=== PATIENT | male | born 1955 | race Caucasian/White ===

== ENCOUNTER 2016-09-24 08:50 | Outpatient (RCR) | payer BC ==
[2016-07-11 09:08] LABS: BASOPHILS % (AUTO) 1 % (0-10); EOSINOPHILS # (AUTO) 0.2 10^3/uL (0.0-0.3); EOSINOPHILS % (AUTO) 2 % (0-10); LYMPHOCYTES # (AUTO) 2.8 X 10^3 (1.0-4.0); LYMPHOCYTES % (AUTO) 32 % (12-44); MEAN CORPUSCULAR HEMOGLOBIN 38 PG (25-34); MEAN CORPUSCULAR HGB CONC 36 G/DL (32-36); MEAN CORPUSCULAR VOLUME 103 FL (80-99); MEAN PLATELET VOLUME 9.1 FL (7.4-10.4); MONOCYTES % (AUTO) 11 % (0-12); NEUTROPHILS # (AUTO) 4.7 X 10^3 (1.8-7.8); NEUTROPHILS % (AUTO) 54 % (42-75); PLATELET COUNT 249 10^3/uL (130-400); RED BLOOD COUNT 4.45 10^6/uL (4.35-5.85); RED CELL DISTRIBUTION WIDTH 13.6 % (10.0-14.5); WHITE BLOOD COUNT 8.7 10^3/uL (4.3-11.0)
[2016-07-11 09:34] LABS: ALANINE AMINOTRANSFERASE 38 U/L (0-55); ALBUMIN 4.3 G/DL (3.2-4.5); ANION GAP 7 MMOL/L (5-14); ASPARTATE AMINO TRANSFERASE 35 U/L (5-34); BILIRUBIN,TOTAL 0.6 MG/DL (0.1-1.0); BLOOD UREA NITROGEN 10 MG/DL (7-18); BUN/CREATININE RATIO 9; CALCIUM 9.6 MG/DL (8.5-10.1); CARBON DIOXIDE 25 MMOL/L (21-32); CHLORIDE 103 MMOL/L (98-107); CREATININE SERUM 1.17 MG/DL (0.60-1.30); GFR ESTIMATED > 60; GLUCOSE 113 MG/DL (70-105); LACTATE DEHYDROGENASE 216 U/L (125-220); POTASSIUM 4.6 MMOL/L (3.6-5.0); SODIUM 135 MMOL/L (135-145)
[2016-07-11 10:33] LABS: CHOLESTEROL 247 MG/DL (< 200); DIRECT LDL 123 MG/DL (1-129); TRIGLYCERIDES 490 MG/DL (<150); VLDL CHOLESTEROL 98 MG/DL (5-40)
[2016-09-24 09:28] LABS: BASOPHILS # (AUTO) 0.1 10^3/uL (0.0-0.1); BASOPHILS % (AUTO) 1 % (0-10); EOSINOPHILS # (AUTO) 0.2 10^3/uL (0.0-0.3); EOSINOPHILS % (AUTO) 2 % (0-10); LYMPHOCYTES # (AUTO) 2.4 X 10^3 (1.0-4.0); LYMPHOCYTES % (AUTO) 34 % (12-44); MEAN CORPUSCULAR HEMOGLOBIN 37 PG (25-34); MEAN CORPUSCULAR HGB CONC 36 G/DL (32-36); MEAN CORPUSCULAR VOLUME 102 FL (80-99); MEAN PLATELET VOLUME 9.5 FL (7.4-10.4); MONOCYTES # (AUTO) 0.6 X 10^3 (0.0-1.0); MONOCYTES % (AUTO) 8 % (0-12); NEUTROPHILS # (AUTO) 3.9 X 10^3 (1.8-7.8); NEUTROPHILS % (AUTO) 55 % (42-75); PLATELET COUNT 244 10^3/uL (130-400); RED BLOOD COUNT 4.46 10^6/uL (4.35-5.85); RED CELL DISTRIBUTION WIDTH 12.7 % (10.0-14.5); WHITE BLOOD COUNT 7.1 10^3/uL (4.3-11.0)
[2016-09-24 09:51] LABS: ALBUMIN 4.3 G/DL (3.2-4.5); BILIRUBIN,TOTAL 0.4 MG/DL (0.1-1.0); CALCIUM 9.6 MG/DL (8.5-10.1); CREATININE SERUM 1.25 MG/DL (0.60-1.30); POTASSIUM 4.4 MMOL/L (3.6-5.0); TOTAL PROTEIN 7.6 G/DL (6.4-8.2)
== END 2016-10-09 | disposition home or self-care (01) ==
LOC: ONC 08:50
PROVIDERS: ATTEND Internal Medicine Hematology & Oncology
DX: D45 Polycythemia vera (principal); I10 Essential (primary) hypertension; E78.5 Hyperlipidemia, unspecified; F17.210 Nicotine dependence, cigarettes, uncomplicated; Z79.899 Other long term (current) drug therapy
CPT/HCPCS: 36415; 80053; 80061; 82232; 83615; 85025; 99213

== ENCOUNTER 2017-02-21 09:21 | Outpatient (RCR) | payer BC ==
--- OUTSIDE RECORDS SUMMARY | 2016-11-26 12:48 | XMS REPORT | Continuity of Care Document ---
Author Author [facility] Organization [facility] Address Unknown Phone Unavailable Allergies Medications Problems Date Dx Coded Attending Type Code Diagnosis Diagnosed By 03/20/2015 TIFFANY LOPEZ, CARLYLE Rodriguez Ot 238.4 03/20/2015 TIFFANY LOPEZ, CARLYLE Rodriguez Ot 272.4 03/20/2015 TIFFANY LOPEZ, CARLYLE Jennifer Ot 305.1 03/20/2015 TIFFANY LOPEZ, CARLYLE Rodriguez Ot 401.9 03/20/2015 TIFFANY LOPEZ, CARLYLE Jennifer Ot V58.66 03/20/2015 TIFFANY LOPEZ, CARLYLE Jennifer Ot V58.69 03/31/2015 TIFFANY LOPEZ, CARLYLE Rodriguez Ot 238.4 03/31/2015 TIFFANY LOPEZ, CARLYLE Jennifer Ot 272.4 03/31/2015 TIFFANY LOPEZ, CARLYLE K Ot 305.1 03/31/2015 TIFFANY LOPEZ, CARLYLE Jennifer Ot 401.9 03/31/2015 TIFFANY LOPEZ, CARLYLE Jennifer Ot V58.66 03/31/2015 TIFFANY LOPEZ, CARLYLE Jennifer Ot V58.69 06/08/2015 TIFFANY LOPEZ, CARLYLE Rodriguez Ot 238.4 06/08/2015 TIFFANY LOPEZ, CARLYLE Rodriguez Ot 272.4 06/08/2015 TIFFANY LOPEZ, CARLYLE Jennifer Ot 305.1 06/08/2015 TIFFANY LOPEZ, CARLYLE Jennifer Ot 401.9 06/08/2015 TIFFANY LOPEZ, CARLYLE Jennifer Ot D45 06/08/2015 TIFFANY LOPEZ, CARLYLE K Ot E78.5 06/08/2015 TIFFANY LOPEZ, CARLYLE K Ot F17.200 06/08/2015 TIFFANY LOPEZ, CARLYLE Jennifer Ot I10 06/08/2015 TIFFANY LOPEZ, CARLYLE Jennifer Ot V58.66 06/08/2015 TIFFANY LOPEZ, CARLYLE Rodriguez Ot V58.69 06/08/2015 TIFFANY LOPEZ, CARLYLE Jennifer Ot Z79.82 06/08/2015 TIFFANY LOPEZ, CARLYLE Jennifer Ot Z79.899 06/30/2015 TIFFANY LOPEZ, CARLYLE Rodriguez Ot 238.4 06/30/2015 TIFFANY LOPEZ, CARLYLE Jennifer Ot 272.4 06/30/2015 TIFFANY LOPEZ, CARLYLE K Ot 305.1 06/30/2015 TIFFANY LOPEZ, CARLYLE K Ot 401.9 06/30/2015 TIFFANY LOPEZ, CARLYLE K Ot V58.66 06/30/2015 TIFFANY LOPEZ, CARLYLE K Ot V58.69 08/14/2015 TIFFANY LOPEZ, CARLYLE K Ot 238.4 08/14/2015 TIFFANY LOPEZ, CARLYLE K Ot 272.4 08/14/2015 TIFFANY LOPEZ, CARLYLE K Ot 305.1 08/14/2015 TIFFANY LOPEZ, CARLYLE K Ot 401.9 08/14/2015 TIFFANY LOPEZ, CARLYLE K Ot V58.66 08/14/2015 TIFFANY LOPEZ, CARLYLE K Ot V58.69 08/23/2015 TIFFANY LOPEZ, CARLYLE K Ot D45 08/23/2015 TIFFANY LOPEZ, CARLYLE K Ot E78.5 08/23/2015 TIFFANY LOPEZ, CARLYLE K Ot F17.210 08/23/2015 TIFFANY LOPEZ, CARLYLE K Ot I10 08/23/2015 TIFFAYN LOPEZ, CARLYLE K Ot Z79.899 09/20/2015 TIFFANY LOPEZ, CARLYLE K Ot D45 09/20/2015 TIFFANY LOPEZ, CARLYLE K Ot E78.5 09/20/2015 TIFFANY LOPEZ, CARLYLE K Ot F17.210 09/20/2015 TIFFANY LOPEZ, CARLYLE K Ot I10 09/20/2015 TIFFANY LOPEZ, CARLYLE K Ot Z79.899 10/12/2015 TIFFANY LOPEZ, CARLYLE K Ot R01.0 10/23/2015 TIFFANY LOPEZ, CARLYLE K Ot D45 10/23/2015 TIFFANY LOPEZ, CARLYLE K Ot E78.5 10/23/2015 TIFFANY LOPEZ, CARLYLE K Ot F17.210 10/23/2015 TIFFANY LOPEZ, CARLYLE K Ot I10 10/23/2015 TIFFANY LOPEZ, CARLYLE K Ot Z79.899 11/09/2015 TIFFANY LOPEZ, CARLYLE K Ot D45 11/09/2015 TIFFANY LOPEZ, CARLYLE K Ot E78.5 11/09/2015 TIFFANY LOPEZ, CARLYLE K Ot F17.210 11/09/2015 TIFFANY LOPEZ, CARLYLE K Ot I10 11/09/2015 TIFFANY LOPEZ, CARLYLE K Ot Z79.899 11/15/2015 TIFFANY LOPEZ, CARLYLE K Ot D45 11/15/2015 TIFFANY LOPEZ, CARLYLE K Ot E78.5 11/15/2015 TIFFANY LOPEZ, CARLYLE K Ot F17.210 11/15/2015 TIFFANY LOPEZ, CARLYLE K Ot I10 11/15/2015 TIFFANY LOPEZ, CARLYLE K Ot Z79.899 12/27/2015 TIFFANY LOPEZ, CARLYLE K Ot D45 12/27/2015 TIFFANY LOPEZ, CARLYLE Rodriguez Ot E78.5 12/27/2015 TIFFANY LOPEZ, CARLYLE Rodriguez Ot F17.210 12/27/2015 TIFFANY LOPEZ, CARLYLE Rodriguez Ot I10 12/27/2015 TIFFANY LOPEZ, CARLYLE Rodriguez Ot Z79.899 02/12/2016 CARLYLE ALLEN MD Ot D45 POLYCYTHEMIA VERA 02/12/2016 TIFFANY LOPEZ, CARLYLE Rodriguez Ot E78.5 HYPERLIPIDEMIA, UNSPECIFIED 02/12/2016 TIFFANY LOPEZ, CARLYLE Rodriguez Ot F17.210 NICOTINE DEPENDENCE, CIGARETTES, UNCOMPL 02/12/2016 CARLYLE ALLEN MD Ot I10 ESSENTIAL (PRIMARY) HYPERTENSION 02/12/2016 CARLYLE ALLEN MD Ot Z79.899 OTHER [facility] (CURRENT) DRUG THERAPY 02/29/2016 CARLYLE ALLEN MD Ot D45 POLYCYTHEMIA VERA 02/29/2016 CARLYLE ALLEN MD Ot E78.5 HYPERLIPIDEMIA, UNSPECIFIED 02/29/2016 CARLYLE ALLEN MD Ot F17.210 NICOTINE DEPENDENCE, CIGARETTES, UNCOMPL 02/29/2016 CARLYLE ALLEN MD Ot I10 ESSENTIAL (PRIMARY) HYPERTENSION 02/29/2016 CARLYLE ALLEN MD Ot Z79.899 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 03/08/2016 CARLYLE ALLEN MD Ot D45 POLYCYTHEMIA VERA 03/08/2016 CARLYLE ALLEN MD Ot E78.5 HYPERLIPIDEMIA, UNSPECIFIED 03/08/2016 CARLYLE ALLEN MD Ot F17.210 NICOTINE DEPENDENCE, CIGARETTES, UNCOMPL 03/08/2016 CARLYLE ALLEN MD Ot I10 ESSENTIAL (PRIMARY) HYPERTENSION 03/08/2016 CARLYLE ALLEN MD Ot Z79.899 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 04/03/2016 CARLYLE ALLEN MD Ot D45 POLYCYTHEMIA VERA 04/03/2016 CARLYLE ALLEN MD Ot E78.5 HYPERLIPIDEMIA, UNSPECIFIED 04/03/2016 CARLYLE ALLEN MD Ot F17.210 NICOTINE DEPENDENCE, CIGARETTES, UNCOMPL 04/03/2016 CARLYLE ALLEN MD Ot I10 ESSENTIAL (PRIMARY) HYPERTENSION 04/03/2016 CARLYLE ALLEN MD Ot Z79.899 OTHER [facility] (CURRENT) DRUG THERAPY 06/05/2016 CARLYLE ALLEN MD Ot D45 POLYCYTHEMIA VERA 06/05/2016 CARLYLE ALLEN MD Ot E78.5 HYPERLIPIDEMIA, UNSPECIFIED 06/05/2016 TIFFANY LOPEZ, CARLYLE Rodriguez Ot F17.210 NICOTINE DEPENDENCE, CIGARETTES, UNCOMPL 06/05/2016 TIFFANY LOPEZ, CARLYLE Rodriguez Ot I10 ESSENTIAL (PRIMARY) HYPERTENSION 06/05/2016 TIFFANY LOPEZ, CARLYLE Rodriguez Ot Z79.899 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 06/06/2016 CARLYLE ALLEN MD Ot D45 POLYCYTHEMIA VERA 06/06/2016 TIFFANY LOPEZ, CARLYLE Rodriguez Ot E78.5 HYPERLIPIDEMIA, UNSPECIFIED 06/06/2016 TIFFANY LOPEZ, CARLYLE Rodriguez Ot F17.210 NICOTINE DEPENDENCE, CIGARETTES, UNCOMPL 06/06/2016 CARLYLE ALLEN MD Ot I10 ESSENTIAL (PRIMARY) HYPERTENSION 06/06/2016 TIFFANY LOPEZ, CARLYLE Rodriguez Ot Z79.899 OTHER [facility] (CURRENT) DRUG THERAPY 07/12/2016 CARLYLE ALLEN MD Ot D45 POLYCYTHEMIA VERA 07/12/2016 CARLYLE ALLEN MD Ot E78.5 HYPERLIPIDEMIA, UNSPECIFIED 07/12/2016 TIFFANY LOPEZ, CARLYLE Rodriguez Ot F17.210 NICOTINE DEPENDENCE, CIGARETTES, UNCOMPL 07/12/2016 CARLYLE ALLEN MD Ot I10 ESSENTIAL (PRIMARY) HYPERTENSION 07/12/2016 TIFFANY LOPEZ, CARLYLE Rodriguez Ot Z79.899 OTHER [facility] (CURRENT) DRUG THERAPY 08/05/2016 CARLYLE ALLEN MD Ot 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 POLYCYTHEMIA VERA 08/05/2016 CARLYLE ALLEN MD Ot E78.5 HYPERLIPIDEMIA, UNSPECIFIED 08/05/2016 TIFFANY LOPEZ, CARLYLE Rodriguez Ot F17.210 NICOTINE DEPENDENCE, CIGARETTES, UNCOMPL 08/05/2016 CARLYLE ALLEN MD Ot I10 ESSENTIAL (PRIMARY) HYPERTENSION 08/05/2016 TIFFANY LOPEZ, CARLYLE Rodriguez Ot Z79.899 OTHER [facility] (CURRENT) DRUG THERAPY 10/09/2016 CARLYLE ALLEN MD Ot D45 POLYCYTHEMIA VERA 10/09/2016 CARLYLE ALLEN MD Ot E78.5 HYPERLIPIDEMIA, UNSPECIFIED 10/09/2016 CARLYLE ALLEN MD Ot F17.210 NICOTINE DEPENDENCE, CIGARETTES, UNCOMPL 10/09/2016 CARLYLE ALLEN MD Ot I10 ESSENTIAL (PRIMARY) HYPERTENSION 10/09/2016 TIFFANY LOPEZ, CARLYLE Rodriguez Ot Z79.899 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 10/10/2016 CARLYLE ALLEN MD Ot 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 POLYCYTHEMIA VERA 10/10/2016 CARLYLE ALLEN MD Ot E78.5 HYPERLIPIDEMIA, UNSPECIFIED 10/10/2016 CARLYLE ALLEN MD Ot F17.210 NICOTINE DEPENDENCE, CIGARETTES, UNCOMPL 10/10/2016 CARLYLE ALLEN MD Ot I10 ESSENTIAL (PRIMARY) HYPERTENSION 10/10/2016 CARLYLE ALLEN MD Ot Z79.899 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 Visit Date/Time Discharge Status Pt. Type Provider Facility Loc./Unit Complaint [id number] 09/24/2016 08:50:00 2016 00:01:00 DIS Outpatient CARLYLE ALLEN MD [facility] ON[facility] [id number] 05/09/2016 08:44:00 2015 00:01:00 DIS Outpatient CARLYLE ALLEN MD [facility] ON[facility] [id number] 02/06/2016 08:34:00 2015 00:01:00 DIS Outpatient CARLYLE ALLEN MD [facility] ON[facility] [id number] 05/24/2015 09:55:00 2014 00:01:00 DIS Outpatient CARLYLE ALLEN MD [facility] ONC [id number] 10/10/2016 00:08:00 PEN Preadmit CARLYLE ALLEN MD [facility] ONC [id number] 09/20/2015 08:51:00 ACT Outpatient CARLYLE ALLEN MD [facility] CARD [id number] 09/11/2015 13:37:00 ACT Outpatient CARLYLE ALLEN MD [facility] ONC
[2016-11-26 13:06] LABS: BASOPHILS # (AUTO) 0.1 10^3/uL (0.0-0.1); BASOPHILS % (AUTO) 1 % (0-10); EOSINOPHILS # (AUTO) 0.3 10^3/uL (0.0-0.3); EOSINOPHILS % (AUTO) 4 % (0-10); LYMPHOCYTES # (AUTO) 3.7 X 10^3 (1.0-4.0); LYMPHOCYTES % (AUTO) 43 % (12-44); MEAN CORPUSCULAR HEMOGLOBIN 37 PG (25-34); MEAN CORPUSCULAR HGB CONC 36 G/DL (32-36); MEAN CORPUSCULAR VOLUME 102 FL (80-99); MEAN PLATELET VOLUME 9.2 FL (7.4-10.4); MONOCYTES # (AUTO) 0.9 X 10^3 (0.0-1.0); MONOCYTES % (AUTO) 10 % (0-12); NEUTROPHILS # (AUTO) 3.7 X 10^3 (1.8-7.8); NEUTROPHILS % (AUTO) 43 % (42-75); PLATELET COUNT 266 10^3/uL (130-400); RED BLOOD COUNT 4.71 10^6/uL (4.35-5.85); RED CELL DISTRIBUTION WIDTH 14.3 % (10.0-14.5); WHITE BLOOD COUNT 8.6 10^3/uL (4.3-11.0)
[2016-11-26 13:32] LABS: ALANINE AMINOTRANSFERASE 29 U/L (0-55); ALBUMIN 4.2 G/DL (3.2-4.5); ANION GAP 12 MMOL/L (5-14); ASPARTATE AMINO TRANSFERASE 33 U/L (5-34); BILIRUBIN,TOTAL 0.5 MG/DL (0.1-1.0); BLOOD UREA NITROGEN 8 MG/DL (7-18); BUN/CREATININE RATIO 7; CALCIUM 9.5 MG/DL (8.5-10.1); CARBON DIOXIDE 19 MMOL/L (21-32); CHLORIDE 104 MMOL/L (98-107); GFR ESTIMATED > 60; GLUCOSE 85 MG/DL (70-105); POTASSIUM 3.9 MMOL/L (3.6-5.0); SODIUM 135 MMOL/L (135-145); TOTAL PROTEIN 7.5 G/DL (6.4-8.2)
[2016-12-24 09:17] LABS: BASOPHILS % (AUTO) 1 % (0-10); EOSINOPHILS # (AUTO) 0.2 10^3/uL (0.0-0.3); EOSINOPHILS % (AUTO) 3 % (0-10); LYMPHOCYTES % (AUTO) 33 % (12-44); MEAN CORPUSCULAR HEMOGLOBIN 38 PG (25-34); MEAN CORPUSCULAR HGB CONC 37 G/DL (32-36); MEAN CORPUSCULAR VOLUME 103 FL (80-99); MEAN PLATELET VOLUME 9.3 FL (7.4-10.4); MONOCYTES # (AUTO) 0.6 X 10^3 (0.0-1.0); MONOCYTES % (AUTO) 10 % (0-12); NEUTROPHILS # (AUTO) 3.3 X 10^3 (1.8-7.8); NEUTROPHILS % (AUTO) 55 % (42-75); PLATELET COUNT 225 10^3/uL (130-400); RED BLOOD COUNT 3.97 10^6/uL (4.35-5.85); RED CELL DISTRIBUTION WIDTH 13.8 % (10.0-14.5)
[2016-12-24 09:42] LABS: ALANINE AMINOTRANSFERASE 25 U/L (0-55); ALBUMIN 4.1 G/DL (3.2-4.5); ANION GAP 13 MMOL/L (5-14); ASPARTATE AMINO TRANSFERASE 33 U/L (5-34); BILIRUBIN,TOTAL 0.5 MG/DL (0.1-1.0); BLOOD UREA NITROGEN 10 MG/DL (7-18); BUN/CREATININE RATIO 8; CALCIUM 9.2 MG/DL (8.5-10.1); CARBON DIOXIDE 22 MMOL/L (21-32); CHLORIDE 102 MMOL/L (98-107); CREATININE SERUM 1.18 MG/DL (0.60-1.30); GFR ESTIMATED > 60; GLUCOSE 159 MG/DL (70-105); SODIUM 137 MMOL/L (135-145)
[2017-02-21 10:18] LABS: BASOPHILS % (AUTO) 1 % (0-10); EOSINOPHILS # (AUTO) 0.1 10^3/uL (0.0-0.3); EOSINOPHILS % (AUTO) 2 % (0-10); LYMPHOCYTES # (AUTO) 2.3 X 10^3 (1.0-4.0); LYMPHOCYTES % (AUTO) 28 % (12-44); MEAN CORPUSCULAR HEMOGLOBIN 37 PG (25-34); MEAN CORPUSCULAR HGB CONC 36 G/DL (32-36); MEAN CORPUSCULAR VOLUME 103 FL (80-99); MEAN PLATELET VOLUME 9.8 FL (7.4-10.4); MONOCYTES # (AUTO) 0.7 X 10^3 (0.0-1.0); MONOCYTES % (AUTO) 9 % (0-12); NEUTROPHILS # (AUTO) 4.9 X 10^3 (1.8-7.8); NEUTROPHILS % (AUTO) 61 % (42-75); PLATELET COUNT 232 10^3/uL (130-400); RED BLOOD COUNT 4.42 10^6/uL (4.35-5.85)
[2017-02-21 10:29] LABS: ALANINE AMINOTRANSFERASE 28 U/L (0-55); ALBUMIN 3.7 G/DL (3.2-4.5); ANION GAP 12 MMOL/L (5-14); ASPARTATE AMINO TRANSFERASE 32 U/L (5-34); BILIRUBIN,TOTAL 0.7 MG/DL (0.1-1.0); BLOOD UREA NITROGEN 9 MG/DL (7-18); BUN/CREATININE RATIO 9; CALCIUM 9.3 MG/DL (8.5-10.1); CARBON DIOXIDE 21 MMOL/L (21-32); CHLORIDE 100 MMOL/L (98-107); CREATININE SERUM 0.97 MG/DL (0.60-1.30); GFR ESTIMATED > 60; GLUCOSE 181 MG/DL (70-105); POTASSIUM 3.3 MMOL/L (3.6-5.0); SODIUM 133 MMOL/L (135-145); TOTAL PROTEIN 7.1 G/DL (6.4-8.2)
== END 2017-02-24 | disposition home or self-care (01) ==
LOC: ONC 09:21
PROVIDERS: ATTEND Internal Medicine Hematology & Oncology
DX: D45 Polycythemia vera (principal); I10 Essential (primary) hypertension; E78.5 Hyperlipidemia, unspecified; F17.210 Nicotine dependence, cigarettes, uncomplicated; Z79.899 Other long term (current) drug therapy
CPT/HCPCS: 36415; 80053; 82232; 85025; 99195; 99213

== ENCOUNTER 2017-04-10 09:04 | Outpatient (RCR) | payer BC ==
[2017-04-10 09:26] LABS: BASOPHILS % (AUTO) 1 % (0-10); EOSINOPHILS # (AUTO) 0.2 10^3/uL (0.0-0.3); EOSINOPHILS % (AUTO) 3 % (0-10); LYMPHOCYTES # (AUTO) 2.2 X 10^3 (1.0-4.0); LYMPHOCYTES % (AUTO) 33 % (12-44); MEAN CORPUSCULAR HEMOGLOBIN 38 PG (25-34); MEAN CORPUSCULAR HGB CONC 37 G/DL (32-36); MEAN CORPUSCULAR VOLUME 103 FL (80-99); MEAN PLATELET VOLUME 8.8 FL (7.4-10.4); MONOCYTES # (AUTO) 0.6 X 10^3 (0.0-1.0); MONOCYTES % (AUTO) 9 % (0-12); NEUTROPHILS # (AUTO) 3.6 X 10^3 (1.8-7.8); NEUTROPHILS % (AUTO) 55 % (42-75); PLATELET COUNT 247 10^3/uL (130-400); RED BLOOD COUNT 4.35 10^6/uL (4.35-5.85); RED CELL DISTRIBUTION WIDTH 13.6 % (10.0-14.5); WHITE BLOOD COUNT 6.6 10^3/uL (4.3-11.0)
[2017-04-10 10:55] LABS: ALANINE AMINOTRANSFERASE 27 U/L (0-55); ALBUMIN 3.7 GM/DL (3.2-4.5); ANION GAP 13 MMOL/L (5-14); ASPARTATE AMINO TRANSFERASE 32 U/L (5-34); BILIRUBIN,TOTAL 0.5 MG/DL (0.1-1.0); BLOOD UREA NITROGEN 12 MG/DL (7-18); BUN/CREATININE RATIO 11; CALCIUM 8.8 MG/DL (8.5-10.1); CARBON DIOXIDE 21 MMOL/L (21-32); CHLORIDE 102 MMOL/L (98-107); CREATININE SERUM 1.12 MG/DL (0.60-1.30); GFR ESTIMATED > 60; GLUCOSE 163 MG/DL (70-105); POTASSIUM 3.8 MMOL/L (3.6-5.0); SODIUM 136 MMOL/L (135-145); TOTAL PROTEIN 6.6 GM/DL (6.4-8.2)
== END 2017-04-10 14:24 | disposition home or self-care (01) ==
LOC: ONC 09:04
PROVIDERS: ATTEND Internal Medicine Hematology & Oncology
DX: D45 Polycythemia vera (principal); I10 Essential (primary) hypertension; E78.5 Hyperlipidemia, unspecified; F17.210 Nicotine dependence, cigarettes, uncomplicated; Z79.899 Other long term (current) drug therapy
CPT/HCPCS: 36415; 80053; 82232; 85025; 99213

== ENCOUNTER 2017-06-10 08:51 | Outpatient (RCR) | payer BC ==
[2017-06-10 09:06] LABS: BASOPHILS % (AUTO) 0 % (0-10); EOSINOPHILS # (AUTO) 0.2 10^3/uL (0.0-0.3); EOSINOPHILS % (AUTO) 2 % (0-10); LYMPHOCYTES # (AUTO) 2.4 X 10^3 (1.0-4.0); LYMPHOCYTES % (AUTO) 30 % (12-44); MEAN CORPUSCULAR HEMOGLOBIN 38 PG (25-34); MEAN CORPUSCULAR HGB CONC 36 G/DL (32-36); MEAN CORPUSCULAR VOLUME 105 FL (80-99); MEAN PLATELET VOLUME 9.2 FL (7.4-10.4); MONOCYTES # (AUTO) 0.6 X 10^3 (0.0-1.0); MONOCYTES % (AUTO) 8 % (0-12); NEUTROPHILS # (AUTO) 4.7 X 10^3 (1.8-7.8); NEUTROPHILS % (AUTO) 59 % (42-75); PLATELET COUNT 225 10^3/uL (130-400); RED BLOOD COUNT 4.29 10^6/uL (4.35-5.85); RED CELL DISTRIBUTION WIDTH 13.8 % (10.0-14.5)
[2017-06-10 09:31] LABS: CREATININE SERUM 1.24 MG/DL (0.60-1.30); POTASSIUM 3.7 MMOL/L (3.6-5.0)
[2017-06-10 09:32] LABS: ALBUMIN 3.7 GM/DL (3.2-4.5); BILIRUBIN,TOTAL 0.6 MG/DL (0.1-1.0); CALCIUM 9.1 MG/DL (8.5-10.1); TOTAL PROTEIN 6.8 GM/DL (6.4-8.2)
== END 2017-06-14 | disposition home or self-care (01) ==
LOC: ONC 08:51
PROVIDERS: ATTEND Internal Medicine Hematology & Oncology
DX: D45 Polycythemia vera (principal); I10 Essential (primary) hypertension; E78.5 Hyperlipidemia, unspecified; F17.210 Nicotine dependence, cigarettes, uncomplicated; Z79.899 Other long term (current) drug therapy
CPT/HCPCS: 36415; 80053; 85025; 99213

== ENCOUNTER 2017-12-10 08:23 | Outpatient (RCR) | payer BC ==
[2017-09-17 08:36] LABS: BASOPHILS # (AUTO) 0.1 10^3/uL (0.0-0.1); BASOPHILS % (AUTO) 1 % (0-10); EOSINOPHILS # (AUTO) 0.2 10^3/uL (0.0-0.3); EOSINOPHILS % (AUTO) 2 % (0-10); HEMATOCRIT 43 % (40-54); HEMOGLOBIN 15.9 G/DL (13.3-17.7); LYMPHOCYTES # (AUTO) 2.5 X 10^3 (1.0-4.0); LYMPHOCYTES % (AUTO) 28 % (12-44); MEAN CORPUSCULAR HEMOGLOBIN 38 PG (25-34); MEAN CORPUSCULAR HGB CONC 37 G/DL (32-36); MEAN CORPUSCULAR VOLUME 102 FL (80-99); MEAN PLATELET VOLUME 9.5 FL (7.4-10.4); MONOCYTES # (AUTO) 0.8 X 10^3 (0.0-1.0); MONOCYTES % (AUTO) 9 % (0-12); NEUTROPHILS # (AUTO) 5.3 X 10^3 (1.8-7.8); NEUTROPHILS % (AUTO) 60 % (42-75); PLATELET COUNT 281 10^3/uL (130-400); RED BLOOD COUNT 4.24 10^6/uL (4.35-5.85); RED CELL DISTRIBUTION WIDTH 12.9 % (10.0-14.5); WHITE BLOOD COUNT 8.9 10^3/uL (4.3-11.0)
[2017-09-17 08:56] LABS: ALANINE AMINOTRANSFERASE 17 U/L (0-55); ALBUMIN 3.9 GM/DL (3.2-4.5); ALKALINE PHOSPHATASE 57 U/L (40-136); BILIRUBIN,TOTAL 0.6 MG/DL (0.1-1.0); BUN/CREATININE RATIO 11; CALCIUM 9.1 MG/DL (8.5-10.1); CARBON DIOXIDE 20 MMOL/L (21-32); CHLORIDE 105 MMOL/L (98-107); GFR ESTIMATED > 60; GLUCOSE 115 MG/DL (70-105); POTASSIUM 3.3 MMOL/L (3.6-5.0); SODIUM 137 MMOL/L (135-145); TOTAL PROTEIN 7.2 GM/DL (6.4-8.2)
[2017-12-10 08:45] LABS: BASOPHILS # (AUTO) 0.1 10^3/uL (0.0-0.1); BASOPHILS % (AUTO) 1 % (0-10); EOSINOPHILS # (AUTO) 0.2 10^3/uL (0.0-0.3); EOSINOPHILS % (AUTO) 2 % (0-10); HEMATOCRIT 47 % (40-54); HEMOGLOBIN 17.2 G/DL (13.3-17.7); LYMPHOCYTES # (AUTO) 2.4 X 10^3 (1.0-4.0); LYMPHOCYTES % (AUTO) 30 % (12-44); MEAN CORPUSCULAR HEMOGLOBIN 38 PG (25-34); MEAN CORPUSCULAR HGB CONC 37 G/DL (32-36); MEAN CORPUSCULAR VOLUME 103 FL (80-99); MEAN PLATELET VOLUME 9.4 FL (7.4-10.4); MONOCYTES # (AUTO) 0.6 X 10^3 (0.0-1.0); MONOCYTES % (AUTO) 7 % (0-12); NEUTROPHILS # (AUTO) 4.8 X 10^3 (1.8-7.8); NEUTROPHILS % (AUTO) 60 % (42-75); PLATELET COUNT 249 10^3/uL (130-400); RED BLOOD COUNT 4.57 10^6/uL (4.35-5.85)
[2017-12-10 09:04] LABS: BILIRUBIN,TOTAL 0.5 MG/DL (0.1-1.0); CALCIUM 9.2 MG/DL (8.5-10.1); CREATININE SERUM 1.22 MG/DL (0.60-1.30); POTASSIUM 3.7 MMOL/L (3.6-5.0); TOTAL PROTEIN 6.7 GM/DL (6.4-8.2)
== END 2017-12-16 | disposition home or self-care (01) ==
LOC: ONC 08:23
PROVIDERS: ATTEND Internal Medicine Hematology & Oncology
DX: D45 Polycythemia vera (principal); I10 Essential (primary) hypertension; E78.5 Hyperlipidemia, unspecified; F17.210 Nicotine dependence, cigarettes, uncomplicated; Z79.899 Other long term (current) drug therapy
CPT/HCPCS: 36415; 80053; 82232; 82728; 83540; 85025; 99195; 99213

== ENCOUNTER 2018-03-11 08:25 | Outpatient (RCR) | payer BC ==
[2018-01-07 09:37] LABS: BASOPHILS # (AUTO) 0.1 10^3/uL (0.0-0.1); BASOPHILS % (AUTO) 1 % (0-10); EOSINOPHILS # (AUTO) 0.2 10^3/uL (0.0-0.3); EOSINOPHILS % (AUTO) 3 % (0-10); HEMATOCRIT 44 % (40-54); LYMPHOCYTES # (AUTO) 2.8 X 10^3 (1.0-4.0); LYMPHOCYTES % (AUTO) 34 % (12-44); MEAN CORPUSCULAR HEMOGLOBIN 38 PG (25-34); MEAN CORPUSCULAR HGB CONC 36 G/DL (32-36); MEAN CORPUSCULAR VOLUME 103 FL (80-99); MEAN PLATELET VOLUME 9.4 FL (7.4-10.4); MONOCYTES # (AUTO) 0.8 X 10^3 (0.0-1.0); MONOCYTES % (AUTO) 9 % (0-12); NEUTROPHILS # (AUTO) 4.3 X 10^3 (1.8-7.8); NEUTROPHILS % (AUTO) 53 % (42-75); PLATELET COUNT 286 10^3/uL (130-400); RED BLOOD COUNT 4.25 10^6/uL (4.35-5.85); RED CELL DISTRIBUTION WIDTH 13.8 % (10.0-14.5); WHITE BLOOD COUNT 8.1 10^3/uL (4.3-11.0)
[2018-02-11 08:52] LABS: BASOPHILS # (AUTO) 0.1 10^3/uL (0.0-0.1); BASOPHILS % (AUTO) 1 % (0-10); EOSINOPHILS # (AUTO) 0.2 10^3/uL (0.0-0.3); EOSINOPHILS % (AUTO) 2 % (0-10); HEMATOCRIT 45 % (40-54); HEMOGLOBIN 16.2 G/DL (13.3-17.7); LYMPHOCYTES # (AUTO) 2.4 X 10^3 (1.0-4.0); LYMPHOCYTES % (AUTO) 33 % (12-44); MEAN CORPUSCULAR HEMOGLOBIN 37 PG (25-34); MEAN CORPUSCULAR HGB CONC 36 G/DL (32-36); MEAN CORPUSCULAR VOLUME 104 FL (80-99); MEAN PLATELET VOLUME 9.4 FL (7.4-10.4); MONOCYTES # (AUTO) 0.6 X 10^3 (0.0-1.0); MONOCYTES % (AUTO) 9 % (0-12); NEUTROPHILS # (AUTO) 3.9 X 10^3 (1.8-7.8); NEUTROPHILS % (AUTO) 55 % (42-75); PLATELET COUNT 285 10^3/uL (130-400); RED BLOOD COUNT 4.34 10^6/uL (4.35-5.85); RED CELL DISTRIBUTION WIDTH 13.5 % (10.0-14.5); WHITE BLOOD COUNT 7.1 10^3/uL (4.3-11.0)
[2018-02-11 09:17] LABS: ALBUMIN 4.1 GM/DL (3.2-4.5); BILIRUBIN,TOTAL 0.5 MG/DL (0.1-1.0); CALCIUM 9.4 MG/DL (8.5-10.1); CREATININE SERUM 1.33 MG/DL (0.60-1.30); POTASSIUM 4.2 MMOL/L (3.6-5.0); TOTAL PROTEIN 7.1 GM/DL (6.4-8.2)
[~2018-03-11 08:25] MED LIST: lisINopril 10 MG (PRINIVIL) TABLET PO ONE
[2018-03-11 08:43] LABS: BASOPHILS % (AUTO) 1 % (0-10); EOSINOPHILS # (AUTO) 0.2 10^3/uL (0.0-0.3); EOSINOPHILS % (AUTO) 3 % (0-10); HEMATOCRIT 43 % (40-54); HEMOGLOBIN 15.8 G/DL (13.3-17.7); LYMPHOCYTES # (AUTO) 2.2 X 10^3 (1.0-4.0); LYMPHOCYTES % (AUTO) 31 % (12-44); MEAN CORPUSCULAR HEMOGLOBIN 38 PG (25-34); MEAN CORPUSCULAR HGB CONC 36 G/DL (32-36); MEAN CORPUSCULAR VOLUME 104 FL (80-99); MEAN PLATELET VOLUME 9.5 FL (7.4-10.4); MONOCYTES # (AUTO) 0.7 X 10^3 (0.0-1.0); MONOCYTES % (AUTO) 9 % (0-12); NEUTROPHILS % (AUTO) 56 % (42-75); PLATELET COUNT 264 10^3/uL (130-400); RED BLOOD COUNT 4.19 10^6/uL (4.35-5.85); RED CELL DISTRIBUTION WIDTH 14.2 % (10.0-14.5); WHITE BLOOD COUNT 7.1 10^3/uL (4.3-11.0)
[2018-03-11 09:02] LABS: ALBUMIN 3.8 GM/DL (3.2-4.5); BILIRUBIN,TOTAL 0.5 MG/DL (0.1-1.0); CALCIUM 8.8 MG/DL (8.5-10.1); CREATININE SERUM 1.3 MG/DL (0.60-1.30); POTASSIUM 3.7 MMOL/L (3.6-5.0); TOTAL PROTEIN 6.5 GM/DL (6.4-8.2)
== END 2018-04-07 | disposition home or self-care (01) ==
LOC: ONC 08:25
PROVIDERS: ATTEND Internal Medicine Hematology & Oncology
DX: D45 Polycythemia vera (principal); I10 Essential (primary) hypertension; E78.5 Hyperlipidemia, unspecified; F17.210 Nicotine dependence, cigarettes, uncomplicated; Z79.899 Other long term (current) drug therapy
CPT/HCPCS: 36415; 80053; 82728; 83540; 85025; 99213

== ENCOUNTER 2018-06-03 08:31 | Outpatient (RCR) | payer BC ==
[2018-06-03 08:43] LABS: BASOPHILS % (AUTO) 0 % (0-10); EOSINOPHILS # (AUTO) 0.2 10^3/uL (0.0-0.3); EOSINOPHILS % (AUTO) 2 % (0-10); HEMATOCRIT 40 % (40-54); HEMOGLOBIN 14.8 G/DL (13.3-17.7); LYMPHOCYTES # (AUTO) 2.1 X 10^3 (1.0-4.0); LYMPHOCYTES % (AUTO) 26 % (12-44); MEAN CORPUSCULAR HEMOGLOBIN 38 PG (25-34); MEAN CORPUSCULAR HGB CONC 37 G/DL (32-36); MEAN CORPUSCULAR VOLUME 104 FL (80-99); MONOCYTES # (AUTO) 0.7 X 10^3 (0.0-1.0); MONOCYTES % (AUTO) 9 % (0-12); NEUTROPHILS # (AUTO) 5.1 X 10^3 (1.8-7.8); NEUTROPHILS % (AUTO) 63 % (42-75); PLATELET COUNT 284 10^3/uL (130-400); RED BLOOD COUNT 3.85 10^6/uL (4.35-5.85); RED CELL DISTRIBUTION WIDTH 12.9 % (10.0-14.5); WHITE BLOOD COUNT 8.1 10^3/uL (4.3-11.0)
[2018-06-03 09:01] LABS: BILIRUBIN,TOTAL 0.5 MG/DL (0.1-1.0); CALCIUM 9.2 MG/DL (8.5-10.1); CREATININE SERUM 1.43 MG/DL (0.60-1.30); POTASSIUM 4.1 MMOL/L (3.6-5.0); TOTAL PROTEIN 6.8 GM/DL (6.4-8.2)
== END 2018-06-14 | disposition home or self-care (01) ==
LOC: ONC 08:31
PROVIDERS: ATTEND Internal Medicine Hematology & Oncology
DX: D45 Polycythemia vera (principal); I10 Essential (primary) hypertension; E78.5 Hyperlipidemia, unspecified; F17.210 Nicotine dependence, cigarettes, uncomplicated; Z79.899 Other long term (current) drug therapy
CPT/HCPCS: 36415; 80053; 82728; 85025; 99213

== ENCOUNTER → 2018-10-07 | Outpatient (CLI) | payer MEDICARE, OTHER ==
[2018-10-07 09:06] LABS: BASOPHILS % (AUTO) 0 % (0-10); EOSINOPHILS # (AUTO) 0.2 10^3/uL (0.0-0.3); EOSINOPHILS % (AUTO) 2 % (0-10); HEMATOCRIT 44 % (40-54); HEMOGLOBIN 15.6 G/DL (13.3-17.7); LYMPHOCYTES # (AUTO) 2.6 X 10^3 (1.0-4.0); LYMPHOCYTES % (AUTO) 29 % (12-44); MEAN CORPUSCULAR HEMOGLOBIN 37 PG (25-34); MEAN CORPUSCULAR HGB CONC 36 G/DL (32-36); MEAN CORPUSCULAR VOLUME 104 FL (80-99); MEAN PLATELET VOLUME 9.6 FL (7.4-10.4); MONOCYTES # (AUTO) 0.7 X 10^3 (0.0-1.0); MONOCYTES % (AUTO) 8 % (0-12); NEUTROPHILS # (AUTO) 5.5 X 10^3 (1.8-7.8); NEUTROPHILS % (AUTO) 61 % (42-75); PLATELET COUNT 237 10^3/uL (130-400); RED BLOOD COUNT 4.18 10^6/uL (4.35-5.85)
[2018-10-07 09:21] LABS: ALBUMIN 4.1 GM/DL (3.2-4.5); BILIRUBIN,TOTAL 0.5 MG/DL (0.1-1.0); CALCIUM 9.4 MG/DL (8.5-10.1); CREATININE SERUM 1.36 MG/DL (0.60-1.30); POTASSIUM 3.8 MMOL/L (3.6-5.0); TOTAL PROTEIN 7.4 GM/DL (6.4-8.2)
== END ==
LOC: EDSTATUS 09-30 08:50 → ONC 08:52
PROVIDERS: ATTEND Internal Medicine Hematology & Oncology
DX: D45 Polycythemia vera (principal); I10 Essential (primary) hypertension; E78.5 Hyperlipidemia, unspecified; F17.210 Nicotine dependence, cigarettes, uncomplicated; Z79.899 Other long term (current) drug therapy
CPT/HCPCS: 36415; 80053; 82728; 85025; 99213

== ENCOUNTER → 2019-02-03 | Outpatient (CLI) | payer MEDICARE, OTHER | LOC: ONC 08:37 | PROVIDERS: ATTEND Internal Medicine Hematology & Oncology | DX: D45 Polycythemia vera (principal); I10 Essential (primary) hypertension; E78.5 Hyperlipidemia, unspecified; F17.210 Nicotine dependence, cigarettes, uncomplicated; Z79.899 Other long term (current) drug therapy | CPT/HCPCS: 99213 ==

== ENCOUNTER 2019-07-01 07:58 | Outpatient (RCR) | payer MEDICARE, OTHER ==
[2019-07-01 08:30] LABS: BASOPHILS # (AUTO) 0.1 10^3/uL (0.0-0.1); BASOPHILS % (AUTO) 1 % (0-10); EOSINOPHILS # (AUTO) 0.2 10^3/uL (0.0-0.3); EOSINOPHILS % (AUTO) 2 % (0-10); HEMATOCRIT 40 % (40-54); HEMOGLOBIN 15.1 G/DL (13.3-17.7); LYMPHOCYTES # (AUTO) 1.7 X 10^3 (1.0-4.0); LYMPHOCYTES % (AUTO) 23 % (12-44); MEAN CORPUSCULAR HEMOGLOBIN 39 PG (25-34); MEAN CORPUSCULAR HGB CONC 38 G/DL (32-36); MEAN CORPUSCULAR VOLUME 103 FL (80-99); MEAN PLATELET VOLUME 9.5 FL (7.4-10.4); MONOCYTES # (AUTO) 0.7 X 10^3 (0.0-1.0); MONOCYTES % (AUTO) 10 % (0-12); NEUTROPHILS % (AUTO) 65 % (42-75); PLATELET COUNT 168 10^3/uL (130-400); RED CELL DISTRIBUTION WIDTH 14.8 % (10.0-14.5); WHITE BLOOD COUNT 7.7 10^3/uL (4.3-11.0)
== END 2019-09-01 | disposition home or self-care (01) ==
LOC: ONC 07:58
PROVIDERS: ATTEND Internal Medicine Hematology & Oncology
DX: D45 Polycythemia vera (principal); I10 Essential (primary) hypertension; E78.5 Hyperlipidemia, unspecified; F17.210 Nicotine dependence, cigarettes, uncomplicated; Z79.899 Other long term (current) drug therapy
CPT/HCPCS: 36415; 85025; 99213

== ENCOUNTER → 2019-09-30 | Outpatient (CLI) | payer MEDICARE, OTHER ==
[2019-09-30 08:19] LABS: BASOPHILS % (AUTO) 0 % (0-10); EOSINOPHILS # (AUTO) 0.1 10^3/uL (0.0-0.3); EOSINOPHILS % (AUTO) 2 % (0-10); HEMATOCRIT 30 % (40-54); LYMPHOCYTES # (AUTO) 1.3 X 10^3 (1.0-4.0); LYMPHOCYTES % (AUTO) 22 % (12-44); MEAN CORPUSCULAR HEMOGLOBIN 41 PG (25-34); MEAN CORPUSCULAR HGB CONC 36 G/DL (32-36); MEAN CORPUSCULAR VOLUME 114 FL (80-99); MEAN PLATELET VOLUME 9.9 FL (7.4-10.4); MONOCYTES # (AUTO) 0.6 X 10^3 (0.0-1.0); MONOCYTES % (AUTO) 10 % (0-12); NEUTROPHILS # (AUTO) 3.9 X 10^3 (1.8-7.8); NEUTROPHILS % (AUTO) 66 % (42-75); PLATELET COUNT 209 10^3/uL (130-400); RED CELL DISTRIBUTION WIDTH 14.4 % (10.0-14.5); WHITE BLOOD COUNT 5.9 10^3/uL (4.3-11.0)
[2019-09-30 08:39] LABS: BILIRUBIN,TOTAL 0.4 MG/DL (0.1-1.0); CALCIUM 8.4 MG/DL (8.5-10.1); CREATININE SERUM 1.44 MG/DL (0.60-1.30); TOTAL PROTEIN 6.2 GM/DL (6.4-8.2)
== END ==
LOC: EDSTATUS 09-02 14:26 → ONC 08:03
PROVIDERS: ATTEND Internal Medicine Hematology & Oncology
DX: D45 Polycythemia vera (principal); I10 Essential (primary) hypertension; E78.5 Hyperlipidemia, unspecified; F17.210 Nicotine dependence, cigarettes, uncomplicated; Z79.899 Other long term (current) drug therapy
CPT/HCPCS: 80053; 82728; 85025; 99213

== ENCOUNTER → 2019-11-25 | Outpatient (CLI) | payer MEDICARE, OTHER ==
[2019-11-25 09:22] LABS: BASOPHILS % (AUTO) 0 % (0-10); EOSINOPHILS # (AUTO) 0.2 10^3/uL (0.0-0.3); EOSINOPHILS % (AUTO) 2 % (0-10); HEMATOCRIT 36 % (40-54); HEMOGLOBIN 12.5 G/DL (13.3-17.7); LYMPHOCYTES # (AUTO) 1.5 X 10^3 (1.0-4.0); LYMPHOCYTES % (AUTO) 16 % (12-44); MEAN CORPUSCULAR HEMOGLOBIN 39 PG (25-34); MEAN CORPUSCULAR HGB CONC 35 G/DL (32-36); MEAN CORPUSCULAR VOLUME 111 FL (80-99); MEAN PLATELET VOLUME 9.5 FL (7.4-10.4); MONOCYTES # (AUTO) 0.7 X 10^3 (0.0-1.0); MONOCYTES % (AUTO) 8 % (0-12); NEUTROPHILS # (AUTO) 6.8 X 10^3 (1.8-7.8); NEUTROPHILS % (AUTO) 74 % (42-75); PLATELET COUNT 262 10^3/uL (130-400); WHITE BLOOD COUNT 9.1 10^3/uL (4.3-11.0)
== END ==
LOC: ONC 08:50
PROVIDERS: ATTEND Internal Medicine Hematology & Oncology
DX: D45 Polycythemia vera (principal); I10 Essential (primary) hypertension; E78.5 Hyperlipidemia, unspecified; F17.210 Nicotine dependence, cigarettes, uncomplicated; Z79.899 Other long term (current) drug therapy
CPT/HCPCS: 85025

== ENCOUNTER → 2020-02-01 | Outpatient (CLI) | payer MEDICARE, OTHER ==
[2020-02-01 09:08] LABS: BASOPHILS # (AUTO) 0.1 10^3/uL (0.0-0.1); BASOPHILS % (AUTO) 1 % (0-10); EOSINOPHILS # (AUTO) 0.1 10^3/uL (0.0-0.3); EOSINOPHILS % (AUTO) 1 % (0-10); HEMATOCRIT 38 % (40-54); HEMOGLOBIN 13.5 G/DL (13.3-17.7); LYMPHOCYTES # (AUTO) 2.1 X 10^3 (1.0-4.0); LYMPHOCYTES % (AUTO) 22 % (12-44); MEAN CORPUSCULAR HEMOGLOBIN 38 PG (25-34); MEAN CORPUSCULAR HGB CONC 35 G/DL (32-36); MEAN CORPUSCULAR VOLUME 107 FL (80-99); MEAN PLATELET VOLUME 9.8 FL (7.4-10.4); MONOCYTES # (AUTO) 0.7 X 10^3 (0.0-1.0); MONOCYTES % (AUTO) 7 % (0-12); NEUTROPHILS # (AUTO) 6.7 X 10^3 (1.8-7.8); NEUTROPHILS % (AUTO) 70 % (42-75); PLATELET COUNT 347 10^3/uL (130-400); RED CELL DISTRIBUTION WIDTH 13.1 % (10.0-14.5); WHITE BLOOD COUNT 9.7 10^3/uL (4.3-11.0)
[2020-02-01 09:26] LABS: ALBUMIN 3.6 GM/DL (3.2-4.5); BILIRUBIN,TOTAL 0.3 MG/DL (0.1-1.0); CALCIUM 9.4 MG/DL (8.5-10.1); CREATININE SERUM 2.1 MG/DL (0.60-1.30); POTASSIUM 3.7 MMOL/L (3.6-5.0); TOTAL PROTEIN 7.2 GM/DL (6.4-8.2)
== END ==
LOC: ONC 08:55
PROVIDERS: ATTEND Internal Medicine Hematology & Oncology
DX: D45 Polycythemia vera (principal); I10 Essential (primary) hypertension; E78.5 Hyperlipidemia, unspecified; M19.90 Unspecified osteoarthritis, unspecified site; Z72.0 Tobacco use
CPT/HCPCS: 80053; 85025; 99213

== ENCOUNTER → 2020-05-25 | Outpatient (CLI) | payer MEDICARE, OTHER ==
[2020-05-25 09:08] LABS: BASOPHILS % (AUTO) 0 % (0-10); EOSINOPHILS # (AUTO) 0.2 10^3/uL (0.0-0.3); EOSINOPHILS % (AUTO) 2 % (0-10); HEMATOCRIT 38 % (40-54); HEMOGLOBIN 13.1 G/DL (13.3-17.7); LYMPHOCYTES # (AUTO) 1.8 X 10^3 (1.0-4.0); LYMPHOCYTES % (AUTO) 21 % (12-44); MEAN CORPUSCULAR HEMOGLOBIN 36 PG (25-34); MEAN CORPUSCULAR HGB CONC 35 G/DL (32-36); MEAN CORPUSCULAR VOLUME 103 FL (80-99); MEAN PLATELET VOLUME 9.2 FL (7.4-10.4); MONOCYTES # (AUTO) 0.8 X 10^3 (0.0-1.0); MONOCYTES % (AUTO) 9 % (0-12); NEUTROPHILS # (AUTO) 5.9 X 10^3 (1.8-7.8); NEUTROPHILS % (AUTO) 68 % (42-75); PLATELET COUNT 327 10^3/uL (130-400); WHITE BLOOD COUNT 8.7 10^3/uL (4.3-11.0)
== END ==
LOC: ONC 08:52
PROVIDERS: ATTEND Internal Medicine Hematology & Oncology
DX: D45 Polycythemia vera (principal); I10 Essential (primary) hypertension; E78.5 Hyperlipidemia, unspecified; M19.90 Unspecified osteoarthritis, unspecified site; F17.200 Nicotine dependence, unspecified, uncomplicated
CPT/HCPCS: 85025; G0463; 99213

== ENCOUNTER → 2020-08-11 | Outpatient (CLI) | payer OTHER, MEDICARE ==
[~2020-08-11] MED LIST changes: +AMLO-251 PO; +ASPI-1238 PO; +ATOR10TA66 PO; +BISO-3 PO; +CLN.1T PO; +HYDR500C2 PO; +LISI10TA2 PO; +RT-ALBUINH INH; +VITA1TAB17 PO; -lisINopril 10 MG (PRINIVIL) TABLET PO ONE
== END ==
LOC: GIR 13:21
PROVIDERS: ATTEND Nurse Practitioner Family
DX: Z20.828 Contact with and (suspected) exposure to other viral communicable diseases (principal)
CPT/HCPCS: 87635

== ENCOUNTER 2020-08-12 10:42 | Inpatient (IN) | payer MEDICARE, OTHER ==
[~2020-08-12] VITALS: Ht 172.7 cm; Wt 95.2 kg
[2020-08-12] MEDS ORDERED: hydrALAZINE (APESOLINE) 20 MG/ML VIAL IV PRN (12:00)
[2020-08-12] MEDS ORDERED: CALCIUM CARBONATE 500 MG (TUMS) TAB.CHEW PO PRN (12:00)
[2020-08-12] MEDS ORDERED: ALPRAZolam 0.25 MG (XANAX) TAB PO PRN (12:00)
[2020-08-12] MEDS ORDERED: ONDANSETRON 4 MG/2 ML (SDV) Z0FRAN IVP PRN (12:00)
[2020-08-12] MEDS ORDERED: DOCUSATE SODIUM 100 MG (COLACE) CAP PO PRN (12:00)
[2020-08-12] MEDS ORDERED: diphenhydrAMINE 25 MG TAB (BENADRYL) PO PRN (12:00)
[2020-08-12] MEDS ORDERED: morphine INJ 10 MG/ML 1ML (SYR OR VIAL) IVP STA (12:20)
[2020-08-12] MEDS ORDERED: PROPOFOL DRIP (ICU) 100 ML IV ONE (12:29)
[2020-08-12] MEDS ORDERED: NS IV 500 ML 500 ML ONE (12:29)
[2020-08-12] MEDS ORDERED: FUROSEMIDE 40 MG/4 ML INJ (LASIX) IVP ONE (12:30)
[2020-08-12 12:32] VITALS: BP 254/85
--- NOTE | 2020-08-12 12:41 | History & Physical ---
History of Present Illness HPI/Chief Complaint CC: Acute respiratory failure presumed flash pulmonary edema HPI: This is a 64yoWM patient of Darya [facility] w/h/o HTN and HLP and no h/o cardiac issues who was originally admitted to my service at [facility] yesterday afternoon due to HTN urgency of 240/140 along with MARYANN creat 1.8, new hypoxia of 70% and elevated d-dimer unable to confirm presumed PE with CT angiogram of the chest due to elevated creatinine, RLL PNA and elevated BNP. Due to COVID pandemic and no ICU beds in the area I admitted him to the ICU placed him on NTG drip and titrated up for SBP 160's attained along with Cefepime and Zmax for PNA treatment along with Lovenox for presumed PE treatment. UOP was sa tisfactory through the night after Lasix IV given. Troponin remained negative but EKG this morning showed new ST depression without complaints to CP so I made arrangements to move him to ICU for Cardiology care and I conferred prior to transport. Apparently patient was 2 miles out from [facility] and paramedics noted an abrupt change requiring arrival to ICU in major distress prompting a call to Dr Burgos and the decision was made to intubate due to severe distress and hypoxia and coarse breath sounds. Lasix 40mg IV given immediately and hubbard cath placed. Etomidate and Rocuronium for rapid induction to intubate and ETT tube placed without difficulty via direct visualization. EICU will be consulted for vent management. COVID negative at [facility]. Source: RN/MD Exam Limitations: clinical condition Date Seen 08/12/20 Time Seen by a Provider: 12:15 Attending Physician Kimberlee Menjivar Kathryn H Arnp Referring Physician Date of Admission Aug 12, 2020 at 12:10 Home Medications & Allergies Home Medications Reviewed patient Home Medication Reconciliation performed by pharmacy medication reconciliations soils technician and/or nursing. Patients Allergies have been reviewed. 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 oz. kg; BMI Method: General Appearance: Anxious, Severe Distress Respiratory: Accessory Muscle Use, Crackles, Decreased Breath Sounds, Respiratory Distress, Wheezing Cardiovascular: Tachycardia Neurologic/Psychiatric: Alert, Disoriented Results Results/Procedures Labs Patient resulted labs reviewed. Assessment/Plan Admission Diagnosis Assessment: Acute respiratory failure requiring emergent intubation on arrival from my service at [facility] Presumed flash pulmonary edema HTN urgency requiring NTG drip at [facility] yesterday and today prior to arrival Acute CHF presumed diastolic type RLL PNA Presumed PE due to elevated d-dimer unable to confirm due to elevated creatinine precluded CT angiogram placed on Lovenox therapeutic dose yesterday MARYANN with creatinine was 1.8 yesterday now 2.2 h/o difficult to manage HTN HLP Plan: Intubation and consult eicu for vent management HTN management Cardiology evaluation EKG repeat Troponin check Admission Status: Inpatient Order (span 2 midnights) Reason for Inpatient Admission: VDRF Diagnosis/Problems Diagnosis/Problems (1) Hypertensive urgency, malignant (2) Flash pulmonary edema (3) CHF (congestive heart failure) (4) MARYANN (acute kidney injury) (5) Pneumonia (6) D-dimer, elevated (7) Hypoxia (8) Ventilator dependence KIMBERLEE MENJIVAR DO Aug 12, 2020 12:41
[2020-08-12] MEDS ORDERED: fentaNYL INJECTION 100 MCG/2 ML AMP IVP PRN (12:45)
[2020-08-12] MEDS ORDERED: meTOprolol 5 MG/5 ML (LOPRESSOR) VIAL ONE (13:02)
[2020-08-12] MEDS ORDERED: meTOprolol 5 MG/5 ML (LOPRESSOR) VIAL IV ONE (13:15)
--- NOTE | 2020-08-12 13:20 | Diagnostic Imaging Report ---
EXAMINATION: Chest 1 view HISTORY: Intubation COMPARISON: None available. FINDINGS: Endotracheal tube tip terminates 7 cm above the jarrell. Gastric tube tip terminates below the field of view. Right internal jugular central venous catheter tip terminates in the superior vena cava. There are bibasilar airspace opacities and small bilateral pleural effusions. No pneumothorax. Heart size is normal. IMPRESSION: 1. Small bilateral pleural effusions and bibasilar airspace opacities which may reflect atelectasis or pneumonia. Dictated by: Dictated on workstation # [id number]
--- NOTE | 2020-08-12 13:28 | Consultation-Cardiology ---
HPI-Cardiology Cardiology Consultation Date of Consultation 08/12/20 Date of Admission Time Seen by Provider: 13:24 Indication: acute respiratory failure HPI 64 years old gentleman with history of malignant hypertension, was hospitalized in [facility] for hypertensive emergency, started on nitroglycerin drip, was still having difficulty achieving adequate pressure control. He was having some shortness of breath. He was transferred to [place] on arrival he was noted to have significant deterioration in his breathing, he was panting for air. Maintained on 100 percent mask. Severely short of breath progressed to in tubation. Blood pressure was severely elevated and he was tachycardic. Home Medications & Allergies Allergies: Coded Allergies: No Known Drug Allergies (Unverified , 02/11/18) Home Medication List Reviewed: Yes ZIM-Uoslre-Ejswww Hx Past Medical History Discussed below Family Medical History Family Medical Hx Unable to provide family history Review of Systems-General Review of Systems Constitutional: see HPI, other (unable to provide review of systems) EENTM: see HPI Respiratory: see HPI, short of breath, other (acute respiratory failure) Cardiovascular: see HPI; No chest pain, No edema, No Hx of Intervention, No palpitations, No syncope, No vascular heart diseas, No other Gastrointestinal: see HPI Genitourinary: see HPI Musculoskeletal: see HPI Skin: see HPI Psychiatric/Neurological: See HPI Reviewed Test Results Reviewed Test Results Lab Labs are pending Physical Exam Physical Exam Vital Signs Vital Signs - First Documented 08/12/20 13:21 Pulse 117 Capillary Refill : Height, Weight, BMI Height: '" Weight: lbs. oz. kg; BMI Method: General Appearance: No Apparent Distress, WD/WN Eyes: Bilateral Eye Normal Inspection, Bilateral Eye PERRL, Bilateral Eye EOMI HEENT: PERRL/EOMI, TMs Normal, Normal ENT Inspection, Pharynx Normal, Moist Mucous Membranes Neck: Full Range of Motion, Normal Inspection, Non Tender, Supple, Carotid Bruit Respiratory: Chest Non Tender, Normal Breath Sounds, No Accessory Muscle Use, No Respiratory Distress, Crackles, Decreased Breath Sounds Cardiovascular: No Edema, No Gallop, No JVD, Normal Peripheral Pulses, Systolic Murmur, Tachycardia Gastrointestinal: Normal Bowel Sounds, No Organomegaly, No Pulsatile Mass, Non Tender, Soft Back: Normal Inspection, No CVA Tenderness, No Vertebral Tenderness Extremity: Normal Capillary Refill, Normal Inspection, Normal Range of Motion, Non Tender, No Calf Tenderness, No Pedal Edema Neurologic/Psychiatric: Alert, Oriented x3, No Motor/Sensory Deficits, Normal Mood/Affect Skin: Normal Color, Warm/Dry Lymphatic: No Adenopathy A/P-Cardiology Admission Diagnosis Acute respiratory failure Malignant hypertension Aortography stenosis Acute renal failure Assessment/Plan Acute respiratory failure/pulmonary edema, intubated. Ventilator dependent. Malignant hypertension, was on nitroglycerin drip. I will start her on IV Lopressor and enalapril and evaluate tolerance and response. Aortic valve stenosis, continue to monitor Left ventricular hypertrophy pattern on EKG, I will repeat 12-lead EKG. Acute renal failure on chronic renal insufficiency, continue to monitor renal function GAURAV NUNEZ MD Aug 12, 2020 13:28
--- NOTE | 2020-08-12 13:30 | NUR ---
TIMELINE 1210- PT ARRIVES VIA EMS. PT LABORED BREATHING AND O2 SATURATIONS ARE IN THE 80S. RT IS NOTIFIED. AND DR MENJIVAR IS NOTIFIED. 1215- DR MENJIVAR IS AT BEDSIDE. PT IS ON NON-REBREATHER AND O2 SATURATIONS ARE STILL IN THE 80S. ORDER GIVEN TO INTUBATE. RT AT BEDSIDE. SUPPLIES GATHERED. DR MENJIVAR CALLED DR MONTALVO FOR CENTRAL LINE PLACEMENT. ORDER GIVEN FOR LAXIS AND MORPHINE. SEE ORDER HX. 1229-DR MONTALVO AND DR MENJIVAR AT BEDSIDE. RT DANIELLA TO INTUBATE. 20 ETOMIDATE AND 100 ROCURONIUM GIVEN. PT IS BEING BAGGED. 1232- PT IS INTUBATED WITH SIZE 8 TUBE. COLOR CHANGE AND BILATERAL LUNGS SOUNDS AUSCULTATED. TUBE IS SECURED 24 CM AT THE LIP. CXR ORDERED FOR PLACEMENT. PORTILLO CATH PLACED. OGT PLACED AND SECURED. AUSCULTATED PLACEMENT. 1236- DR MENJIVAR GAVE ORDER TO START PROPOFOL DRIP. DRIP STARTED PER PROTOCOL. 1237- DR MONTALVO AT BEDSIDE FOR CENTRAL LINE PLACEMENT. 1247- CENTRAL LINE PLACED. SMALL HEMATOMA NOTED. PRESSURE APPLIED PER DR MONTALVO AND DRESSING REINFORCED. 1254- CXR PERFORMED. 1310- DR NUNEZ AT BEDSIDE. ORDER GIVEN FOR METOPROLOL. SEE ORDER HX. 1320- ART LINE PLACED PER DR MONTALVO. 1330- RESTRAINTS APPLIED. THIS RN AT BEDSIDE. VITALS STABLE. DR MENJIVAR TO UPDATE FAMILY. WILL CONTINUE TO MONITOR.
[2020-08-12] MEDS ORDERED: ENALAPRILAT 2.5 MG/2 ML (VASOTEC) VIAL IV SCH (13:45)
--- NOTE | 2020-08-12 13:45 | NUR ---
1330-THIS NURSE NOTIFIED DR NUNEZ PT BP IS 270/96 EVEN AFTER LOPRESSOR. ORDER GIVEN TO GET EKG. 1344- DR NUNEZ NOTIFIED OF EKG RESULTS. ORDER GIVEN TO START NITRO DRIP AT [address] NUNEZ WILL PUT IN MEDICATION ORDERS. SEE ORDER HX. WILL CONTINUE TO MONITOR.
[2020-08-12] MEDS ORDERED: NITRO DRIP 25000 MCG/D5W 250 ML IV ONE (13:47)
[2020-08-12] MEDS: PROPOFOL DRIP (ICU) 100 ML IV SCH ×3 (13:52→22:25)
[2020-08-12] MEDS: NITRO DRIP 25000 MCG/D5W 250 ML IV SCH (14:02)
[2020-08-12] MEDS: NS IV 1000 ML 1,000 ML IV SCH (14:03)
[2020-08-12] MEDS: FAMOTIDINE 20MG/2ML IV (PEPCID) IVP SCH ×2 (14:03→22:23)
[2020-08-12] MEDS: CEFEPIME INJECTION 1,000 MG in WATER (STERILE) FOR INJECTION 10 ML IV SCH ×2 (14:03→18:38)
[2020-08-12] MEDS: ENALAPRILAT 1.25 MG/1 ML (VASOTEC) 1 ML VIAL IV SCH ×2 (14:06→22:23)
[2020-08-12] MEDS: RT-ALBUTEROL SULF 2.5 MG/3 ML PRE-MIX VIAL INH SCH ×2 (14:23→19:24)
[2020-08-12 14:24] LABS: ABG BASE EXCESS -1.9 MMOL/L (-2.5-2.5); ABG OXYGEN SATURATION 99 % (94-100); ABG PCO2 46 MMHG (35-45); ABG PO2 141 MMHG (79-93); ABG TCO2 24.9 MMOL/L (21.0-31.0)
[2020-08-12 14:26] LABS: ABG PH 7.32 (7.37-7.43); ALLENS TEST YES-POS
[2020-08-12 14:27] LABS: PATIENT TEMP 36.4; VENTILATOR YES
--- NOTE | 2020-08-12 14:32 | NUR ---
DR MENJIVAR NOTIFIED OF ABG RESULTS. RT AT BEDSIDE JUST TURNED PT FI02 DOWN TO 50%. ORDER GIVEN TO CONSULT EICU FOR VENT MANAGEMENT. WILL CONTINUE TO MONITOR.
[2020-08-12 14:33] VITALS: BP 246/78
--- NOTE | 2020-08-12 14:52 | Consultation - Surgery ---
History of Present Illness History of Present Illness Patient Consulted On(amie/time) 08/12/20 13:30 Date Seen by Provider: Aug 12, 2020 Time Seen by Provider: 13:30 Reason for Visit: acute respiratory failure History of Present Illness Counts requested by Dr. Tam for line placement due to acute respiratory failure. Patient is a 64-year-old male transferred from [facility]. Patient having hypertensive emergency. When he arrived patient was having worsening respiratory symptoms he was panting for air and had to be intubated. Patient unable to provide any information due to being intubated, and Dr. Tam requesting central line and arterial line placement. Allergies and Home Medications Allergies Coded Allergies: No Known Drug Allergies (Unverified , 02/11/18) Patient Home Medication List Home Medication List Reviewed: Yes Past Wqpdcfl-Kotdns-Oyysno Hx Patient Social History Alcohol Use: Denies Use (Unable to obtain due to intubated) Smoking Status: Unknown if Ever Smoked Surgeries History of Surgeries: No (Unable to obtain due to intubated) Respiratory History of Respiratory Disorde: No (Unable to obtain due to intubated) Family Medical History Significant Family History: No Pertinent Family Hx (Unable to obtain due to intubated) Review of Systems-General ROS-Unable to Obtain: Unable to obtain due to intubated Physical Exam-General Problems Physical Exam Vital Signs Vital Signs - First Documented 08/12/20 08/12/20 12:30 12:32 Pulse 126 Resp 24 B/P (MAP) 240/129 Pulse Ox 93 O2 Delivery Mechanical Ventilator O2 Flow Rate 100.00 FiO2 60 Capillary Refill : General Appearance: other (intubated/sedated) HEENT: PERRL/EOMI Neck: normal inspection; No lymphadenopathy (R) Respiratory: other (intubated, equal chest rise) Cardiovascular: no edema, tachycardia Gastrointestinal: non tender, soft Rectal: deferred Back: normal inspection Extremities: normal inspection, no pedal edema Neurologic/Psychiatric: other (intubated sedated) Skin: normal color, diaphoresis (slight) Data Review Labs Laboratory Tests 08/12/20 14:17: Blood Gas Puncture Site RT ART LINE, Blood Gas Patient Temperature 36.4, Arterial Blood pH 7.32*L, Arterial Blood Partial Pressure CO2 46H, Arterial Blood Partial Pressure O2 141H, Arterial Blood HCO3 23, Arterial Blood Total CO2 24.9, Arterial Blood Oxygen Saturation 99, Arterial Blood Base Excess -1.9, Zenon Test YES-POS, Blood Gas Ventilator Setting YES, Blood Gas Inspired Oxygen UNK Assessment/Plan Assessment/Plan Assessment/Plan Acute respiratory failure/pulmonary edema Malignant hypertension Acute renal failure Poor venous access Patient is intubated. Patient needing central line and arterial line. We will placed emergently as Dr. Aguero has requested. Medical management, please call if needed. Procedure: Ultrasound guided right internal jugular vein central line placement and right radial ultrasound-guided art line placement. Patient right neck was prepped and draped in a sterile fashion ultrasound was used to isolate the right internal jugular vein. Under visualization of the ultrasound the right internal jugular vein was accessed dark nonpulsatile blood was withdrawn. The guidewire was inserted and the needle was removed. The 11 blade scalpel using a small skin incision at the insertion point. The dilator was then advanced over the guidewire and removed. The triple-lumen catheter was then inserted and the wire was removed. All ports were flushed and accessed without difficulty. The triple-lumen catheter was secured in the usual fashion. The areas washed and dried and sterile bandage was applied. Chest x-ray pending The right wrist was prepped and draped in sterile fashion ultrasound was used to locate the right radial artery under visualization of the ultrasound a 20-gauge art line Aero needle and catheter was used to puncture the right radial artery the wire was inserted and the catheter was then advanced over the wire. Pulsatile blood was present through the catheter and the art line was attached to the catheter. The area was then washed and dried and sterile bandage applied. SARAH MONTALVO DO Aug 12, 2020 14:52
--- NOTE | 2020-08-12 14:59 | NUR ---
THIS NURSE NOTIFIED DR MONTALVO OF CXR RESULTS. DR MONTALVO NOTIFIED THIS NURSE CENTRAL LINE IS GOOD TO USE.
[2020-08-12] MEDS ORDERED: ETOMIDATE IV SOLN 20 MG/10 ML VIAL IV ONE (15:40)
[2020-08-12] MEDS ORDERED: ROCURONIUM 10 MG/ML 5 ML SYRINGE IV ONE (15:40)
[2020-08-12 16:53] LABS: BASOPHILS % (AUTO) 0 % (0-10); EOSINOPHILS % (AUTO) 0 % (0-10); HEMATOCRIT 25 % (40-54); HEMOGLOBIN 8.8 g/dL (13.3-17.7); LYMPHOCYTES # (AUTO) 1.1 10^3/uL (1.0-4.0); LYMPHOCYTES % (AUTO) 12 % (12-44); MEAN CORPUSCULAR HEMOGLOBIN 37 pg (25-34); MEAN CORPUSCULAR HGB CONC 35 g/dL (32-36); MEAN CORPUSCULAR VOLUME 106 fL (80-99); MEAN PLATELET VOLUME 9.5 fL (9.0-12.2); MONOCYTES # (AUTO) 0.8 10^3/uL (0.0-1.0); MONOCYTES % (AUTO) 8 % (0-12); NEUTROPHILS # (AUTO) 7.3 10^3/uL (1.8-7.8); NEUTROPHILS % (AUTO) 79 % (42-75); PLATELET COUNT 282 10^3/uL (130-400); WHITE BLOOD COUNT 9.2 10^3/uL (4.3-11.0)
[2020-08-12 17:04] LABS: ALBUMIN 2.2 GM/DL (3.2-4.5); POTASSIUM 3.1 MMOL/L (3.6-5.0)
[2020-08-12 17:05] LABS: CALCIUM 7.1 MG/DL (8.5-10.1)
[2020-08-12 17:07] LABS: TOTAL PROTEIN 4.9 GM/DL (6.4-8.2)
[2020-08-12 17:09] LABS: BILIRUBIN,TOTAL 0.3 MG/DL (0.1-1.0)
[2020-08-12 17:10] LABS: CREATININE SERUM 2.33 MG/DL (0.60-1.30)
[2020-08-12] MEDS: meTOprolol 5 MG/5 ML (LOPRESSOR) VIAL IV SCH (18:24)
[2020-08-12] MEDS: FUROSEMIDE 40 MG/4 ML INJ (LASIX) IVP SCH (18:24)
[2020-08-12] MEDS ORDERED: DexMEDEtomidine PRE MIX 100 ML IV ONE (18:32)
[2020-08-12 19:25] VITALS: BP 105/67
--- NOTE | 2020-08-12 19:30 | NUR ---
THIS NURSE NOTIFIED DR MONTALVO PT CENTRAL LINE IS STILL OOZING. DRESSING REINFORCED AND SANDBAG IN PLACED. ORDER GIVEN TO HOLD PRESSURE FOR 15 MIN AND KEEP SANDBAG IN PLACE. THIS NURSE IS TO CLARIFY WITH DR MENJIVAR IF LOVENOX IS TO BE HELD. WILL CONTINUE TO MONITOR.
--- NOTE | 2020-08-12 19:35 | NUR ---
PT ALIDA REID AND ÁNGEL UPDATED ON PT CONDITION.
--- NOTE | 2020-08-12 19:40 | NUR ---
DR MENJIVAR NOTIFIED CENTRAL LINE IS STILL OOZING. DRESSING REINFORCED AND SANDBAG IN PLACE. PRESSURE HAS BEEN HELD FOR 15 MIN. ORDER GIVEN TO HOLD 2100 LOVENOX. NIGHT NURSE NOTIFIED.
[2020-08-12] MEDS: SENNA W/DOCUSATE (SENOKOT S) TABLET PO SCH (22:23)
[2020-08-12] MEDS: meTOprolol TARTRATE 25 MG (LOPRESSOR) TABLET PO SCH (22:23)
[2020-08-12] MEDS: ENOXAPARIN 80 MG/0.8 ML (LOVENOX) SYR SC SCH (22:23)
[2020-08-12] MEDS ORDERED: POTASSIUM CL 10MEQ/50ML IVPB 200 ML IV ONE (22:34)
[2020-08-12 22:40] VITALS: BP 105/67
[2020-08-12] MEDS: POTASSIUM CL 10MEQ/50ML IVPB 50 ML IV SCH ×2 (22:49→23:38)
[2020-08-13] MEDS: CEFEPIME INJECTION 1,000 MG in WATER (STERILE) FOR INJECTION 10 ML IV SCH ×4 (00:19→17:08)
[2020-08-13] MEDS: meTOprolol 5 MG/5 ML (LOPRESSOR) VIAL IV SCH ×4 (00:19→17:08)
[2020-08-13] MEDS: inSUlin ASPART (NovoLOG) 1 UNIT/0.01 ML (CHARGE PER UNIT) SC SCH ×4 (00:19→17:11)
[2020-08-13] MEDS: POTASSIUM CL 10MEQ/50ML IVPB 50 ML IV SCH ×7 (00:41→09:42)
[2020-08-13 01:46] VITALS: BP 165/48
[2020-08-13] MEDS: ENALAPRILAT 1.25 MG/1 ML (VASOTEC) 1 ML VIAL IV SCH ×4 (01:51→22:00)
[2020-08-13] MEDS: DexMEDEtomidine PRE MIX 100 ML IV SCH ×4 (02:41→21:12)
[2020-08-13 03:39] LABS: ABG BASE EXCESS -1.3 MMOL/L (-2.5-2.5); ABG OXYGEN SATURATION 97 % (94-100); ABG PCO2 35 MMHG (35-45); ABG PH 7.42 (7.37-7.43); ABG PO2 81 MMHG (79-93); ABG TCO2 23.8 MMOL/L (21.0-31.0)
[2020-08-13 03:40] LABS: BASOPHILS % (AUTO) 1 % (0-10); EOSINOPHILS # (AUTO) 0.1 10^3/uL (0.0-0.3); EOSINOPHILS % (AUTO) 1 % (0-10); HEMATOCRIT 24 % (40-54); HEMOGLOBIN 8.3 g/dL (13.3-17.7); LYMPHOCYTES # (AUTO) 1.5 10^3/uL (1.0-4.0); LYMPHOCYTES % (AUTO) 23 % (12-44); MEAN CORPUSCULAR HEMOGLOBIN 36 pg (25-34); MEAN CORPUSCULAR HGB CONC 34 g/dL (32-36); MEAN CORPUSCULAR VOLUME 106 fL (80-99); MEAN PLATELET VOLUME 9.6 fL (9.0-12.2); MONOCYTES # (AUTO) 0.6 10^3/uL (0.0-1.0); MONOCYTES % (AUTO) 10 % (0-12); NEUTROPHILS # (AUTO) 4.1 10^3/uL (1.8-7.8); NEUTROPHILS % (AUTO) 65 % (42-75); PLATELET COUNT 241 10^3/uL (130-400); WHITE BLOOD COUNT 6.3 10^3/uL (4.3-11.0)
[2020-08-13 03:41] LABS: ALLENS TEST ART LINE; INSPIRED O2 35%; PATIENT TEMP 36.2; VENTILATOR YES
[2020-08-13 04:14] LABS: ALBUMIN 2.2 GM/DL (3.2-4.5); POTASSIUM 2.9 MMOL/L (3.6-5.0)
[2020-08-13 04:15] LABS: CALCIUM 7.3 MG/DL (8.5-10.1)
[2020-08-13 04:16] LABS: TOTAL PROTEIN 4.7 GM/DL (6.4-8.2)
[2020-08-13 04:18] LABS: BILIRUBIN,TOTAL 0.3 MG/DL (0.1-1.0)
[2020-08-13] MEDS: PROPOFOL DRIP (ICU) 100 ML IV SCH ×5 (04:19→21:12)
[2020-08-13 04:20] LABS: CREATININE SERUM 2.34 MG/DL (0.60-1.30); PHOSPHORUS 4.7 MG/DL (2.3-4.7)
[2020-08-13] MEDS ORDERED: POTASSIUM CL 10MEQ/50ML IVPB 50 ML IV ONE (05:00)
[2020-08-13] MEDS: MAGNESIUM 1 GM/100 ML IVPB 100 ML IV SCH (05:29)
[2020-08-13] MEDS: KCL 20 MEQ TAB (K-DUR) PO SCH (05:29)
[2020-08-13] MEDS: NS IV 1000 ML 1,000 ML IV SCH ×2 (06:01→09:04)
[2020-08-13 06:35] VITALS: BP 162/47
[2020-08-13] MEDS: RT-ALBUTEROL SULF 2.5 MG/3 ML PRE-MIX VIAL INH SCH ×4 (06:35→18:32)
--- NOTE | 2020-08-13 06:50 | NUR ---
Dr Burgos at bedside, requesting all ordered bp meds be given despite bradycardia.
--- NOTE | 2020-08-13 07:08 | Cardiology Progress Note ---
Subjective Date Seen by Provider: Aug 13, 2020 Time Seen by Provider: 07:05 Subjective/Events-last exam Patient is sedated and intubated Review of Systems General: Other (unable to provide review of systems) Objective-Cardiology Exam Last Set of Vital Signs Vital Signs 08/13/20 08/13/20 08/13/20 08/13/20 04:00 04:19 06:00 06:35 Temp 36.2 Pulse 58 Resp 18 B/P (MAP) 162/46 Pulse Ox 95 O2 Delivery Mechanical Ventilator O2 Flow Rate 30.00 FiO2 30 Capillary Refill : Less Than 3 Seconds I&O Intake and Output 08/13/20 00:00 Intake Total 0 ml Output Total 725 ml Balance -725 ml Intake Oral 0 ml Output Urine Total 725 ml Daily Weight Change Unsure/Unresponsive General: Other (sedated and intubated) Lungs: Normal Air Movement Heart: Regular Rate Skin: No Rashes Neuro: Other (sedated and intubated) Psych/Mental Status: Other (sedated and intubated) Results Lab Laboratory Tests 08/12/20 16:42 08/13/20 03:25 A/P-Cardiology Admission Diagnosis Acute respiratory failure Malignant hypertension Aortography stenosis Acute renal failure Assessment/Plan Acute respiratory failure/pulmonary edema, intubated. Ventilator dependent. Consider weaning off ventilator today. Flash pulmonary edema, responded well to diuretics. Continue with diuretics Hypokalemia, secondary to diuretics, replace and monitor Malignant hypertension, currently off nitroglycerin drip. Continue with Lopressor and enalapril IV, I will add clonidine to Norvasc orally and monitor blood pressure Aortic valve stenosis, continue to monitor Acute renal failure on chronic renal insufficiency, continue to monitor renal function Clinical Quality Measures DVT/VTE Risk/Contraindication: Risk Factor Score Per Nursin RFS Level Per Nursing on Admit: 4+=Very High GAURAV NUNEZ MD Aug 13, 2020 07:07
[2020-08-13] MEDS: FUROSEMIDE 40 MG/4 ML INJ (LASIX) IVP SCH ×2 (07:29→17:09)
--- NOTE | 2020-08-13 07:29 | Progress Note - Hospitalist ---
Subjective HPI/CC On Admission Date Seen by Provider: Aug 13, 2020 Time Seen by Provider: 11:30 CC: Acute respiratory failure presumed flash pulmonary edema HPI: This is a 64[facility]WM patient of [facility] w/h/o HTN and HLP and no h/o cardiac issues who was originally admitted to my service at [facility] yesterday afternoon due to HTN urgency of 240/140 along with MARYANN creat 1.8, new hypoxia of 70% and elevated d-dimer unable to confirm presumed PE with CT angiogram of the chest due to elevated creatinine, RLL PNA and elevated BNP. Due to COVID pandemic and no ICU beds in the area I admitted him to the ICU placed him on NTG drip and titrated up for SBP 160's attained along with Cefepime and Zmax for PNA treatment along with Lovenox for presumed PE treatment. UOP was satisfactory through the night after Lasix IV given. Troponin remained negative but EKG this morning showed new ST depression without complaints to CP so I made arrangements to move him to ICU for Cardiology care and I conferred prior to tra nsport. Apparently patient was 2 miles out from [facility] and paramedics noted an abrupt change requiring arrival to ICU in major distress prompting a call to Dr Burgos and the decision was made to intubate due to severe distress and hypoxia and coarse breath sounds. Lasix 40mg IV given immediately and hubbard cath placed. Etomidate and Rocuronium for rapid induction to intubate and ETT tube placed without difficulty via direct visualization. EICU will be consulted for vent management. COVID negative at [facility]. Subjective/Events-last exam Still intubated Labs stable Creat 2.3 UOP 4000cc since admit HTN good Abx maintained Reviewed meds and labs Review of Systems General: Fatigue Pulmonary: Dyspnea Objective Exam Vital Signs Vital Signs Date Time Temp Pulse Resp B/P (MAP) Pulse Ox O2 Delivery O2 Flow Rate FiO2 08/13/20 16:34 35.8 08/13/20 16:00 64 19 94 Mechanical Ventilator 30.00 08/13/20 14:33 24 Capillary Refill : Less Than 3 Seconds General Appearance: No Apparent Distress, WD/WN, Chronically ill, Other (int ubated) Respiratory: Lungs Clear, Decreased Breath Sounds Cardiovascular: Regular Rate, Rhythm Results/Procedures Lab Laboratory Tests 08/13/20 03:25 Patient resulted labs reviewed. Assessment/Plan Assessment and Plan Assess & Plan/Chief Complaint Assessment: Acute respiratory failure requiring emergent intubation on arrival from my service at [facility] Presumed flash pulmonary edema HTN urgency requiring NTG drip at [facility] yesterday and today prior to arrival Acute CHF presumed diastolic type RLL PNA Presumed PE due to elevated d-dimer unable to confirm due to elevated creatinine precluded CT angiogram placed on Lovenox therapeutic dose yesterday MARYANN with creatinine was 1.8 yesterday now 2.2 h/o difficult to manage HTN HLP Plan: Intubation and consult eicu for vent management HTN management Cardiology evaluation EKG repeat Troponin check 08/13/20: Intubation maintained IV abx Hopefully attempt to extubate tomorrow? Perfusion scan tomorrow to r/o PE Diagnosis/Problems Diagnosis/Problems (1) Hypertensive urgency, malignant (2) Flash pulmonary edema (3) CHF (congestive heart failure) (4) MARYANN (acute kidney injury) (5) Pneumonia (6) D-dimer, elevated (7) Hypoxia (8) Ventilator dependence Clinical Quality Measures DVT/VTE Risk/Contraindication: Risk Factor Score Per Nursin RFS Level Per Nursing on Admit: 4+=Very High KIMBERLEE MENJIVAR DO Aug 13, 2020 07:28
--- NOTE | 2020-08-13 08:27 | Diagnostic Imaging Report ---
INDICATION: Pneumonia. Comparison is made with prior examination from 08/12/2020. FINDINGS: There is cardiomegaly. There is venous congestion. There are bibasilar infiltrates. There are small bilateral pleural effusions. There is no pneumothorax. The lines and tubes are in satisfactory position. IMPRESSION: Bibasilar pulmonary infiltrates and bilateral pleural effusions, right greater than left. Cardiomegaly and some central pulmonary venous congestion Dictated by: Dictated on workstation # [id number]
[2020-08-13] MEDS: AZITHROMYCIN INJECTION 500 MG in NS (IVPB) 250 ML IV SCH (08:49)
[2020-08-13] MEDS: meTOprolol TARTRATE 25 MG (LOPRESSOR) TABLET PO SCH ×2 (08:49→22:01)
[2020-08-13] MEDS: cloNIDine 0.1 MG (CATAPRES) TAB PO SCH ×2 (08:49→22:01)
[2020-08-13] MEDS: ASPIRIN E.C. 81 MG (ECOTRIN) TAB PO SCH (08:49)
[2020-08-13] MEDS: amLODIPine 5 MG (NORVASC) TAB PO SCH (08:50)
[2020-08-13] MEDS: FAMOTIDINE 20MG/2ML IV (PEPCID) IVP SCH ×2 (08:50→22:00)
[2020-08-13] MEDS: ENOXAPARIN 80 MG/0.8 ML (LOVENOX) SYR SC SCH ×2 (08:52→22:01)
[2020-08-13] MEDS: SENNA W/DOCUSATE (SENOKOT S) TABLET PO SCH ×2 (08:56→22:01)
--- NOTE | 2020-08-13 09:05 | NUR ---
Phone call received from sonUlises. Password for account obtained. Update given and questions answered. Family states they have no further questions or concerns at this time.
[2020-08-13 10:44] VITALS: BP 150/49
--- NOTE | 2020-08-13 10:45 | NUR ---
Dr Tam here to see patient. Plan to wean pt tomorrow for potential extubation.
[2020-08-13] MEDS: NITRO DRIP 25000 MCG/D5W 250 ML IV SCH (14:24)
[2020-08-13 14:33] VITALS: BP 149/46
--- NOTE | 2020-08-13 15:35 | NUR ---
Phone call placed to son Ulises, update given and questions answered. Son states he has no other questions or concerns at this time.
[2020-08-13 18:32] VITALS: BP 142/45
[2020-08-13 22:17] VITALS: BP 105/67
[2020-08-14] MEDS: inSUlin ASPART (NovoLOG) 1 UNIT/0.01 ML (CHARGE PER UNIT) SC SCH ×4 (00:45→16:59)
[2020-08-14] MEDS: CEFEPIME INJECTION 1,000 MG in WATER (STERILE) FOR INJECTION 10 ML IV SCH ×4 (00:48→21:54)
[2020-08-14] MEDS: meTOprolol 5 MG/5 ML (LOPRESSOR) VIAL IV SCH ×2 (00:48→05:21)
[2020-08-14] MEDS: PROPOFOL DRIP (ICU) 100 ML IV SCH ×2 (00:50→05:45)
[2020-08-14] MEDS: NS IV 1000 ML 1,000 ML IV SCH (02:03)
[2020-08-14 02:14] LABS: ABG BASE EXCESS 0.1 MMOL/L (-2.5-2.5); ABG OXYGEN SATURATION 96 % (94-100); ABG PCO2 35 MMHG (35-45); ABG PH 7.44 (7.37-7.43); ABG PO2 73 MMHG (79-93)
[2020-08-14] MEDS: ENALAPRILAT 1.25 MG/1 ML (VASOTEC) 1 ML VIAL IV SCH ×2 (02:14→08:13)
[2020-08-14 02:15] LABS: BASOPHILS % (AUTO) 0 % (0-10); EOSINOPHILS # (AUTO) 0.1 10^3/uL (0.0-0.3); EOSINOPHILS % (AUTO) 2 % (0-10); HEMATOCRIT 26 % (40-54); HEMOGLOBIN 8.8 g/dL (13.3-17.7); LYMPHOCYTES # (AUTO) 0.9 10^3/uL (1.0-4.0); LYMPHOCYTES % (AUTO) 13 % (12-44); MEAN CORPUSCULAR HEMOGLOBIN 36 pg (25-34); MEAN CORPUSCULAR HGB CONC 34 g/dL (32-36); MEAN CORPUSCULAR VOLUME 107 fL (80-99); MONOCYTES # (AUTO) 0.5 10^3/uL (0.0-1.0); MONOCYTES % (AUTO) 8 % (0-12); NEUTROPHILS # (AUTO) 5.1 10^3/uL (1.8-7.8); NEUTROPHILS % (AUTO) 77 % (42-75); PLATELET COUNT 266 10^3/uL (130-400); WHITE BLOOD COUNT 6.7 10^3/uL (4.3-11.0)
[2020-08-14 02:16] LABS: ALLENS TEST ART LINE; INSPIRED O2 24%; PATIENT TEMP 36.4; VENTILATOR YES
[2020-08-14 02:21] LABS: POTASSIUM 3.4 MMOL/L (3.6-5.0)
[2020-08-14 02:22] LABS: CALCIUM 7.4 MG/DL (8.5-10.1)
[2020-08-14 02:27] LABS: CREATININE SERUM 2.19 MG/DL (0.60-1.30); PHOSPHORUS 4.9 MG/DL (2.3-4.7)
[2020-08-14 02:29] VITALS: BP 146/46
[2020-08-14] MEDS: KCL 20 MEQ TAB (K-DUR) PO SCH (03:20)
[2020-08-14] MEDS: POTASSIUM CL 10MEQ/50ML IVPB 50 ML IV SCH ×7 (03:20→08:25)
[2020-08-14] MEDS: MAGNESIUM 1 GM/100 ML IVPB 100 ML IV SCH (03:20)
--- NOTE | 2020-08-14 03:42 | Pulmonary Consultation ---
ALEXANDRU PEDRO,MED STUDENT 08/14/20 0342: History of Present Illness History of Present Illness Date Seen by Provider: Aug 14, 2020 Time Seen by Provider: 03:00 Date of Admission 08/12/20 Reason for Visit: acute respiratory failure History of Present Illness Patient is a 64yo male with a PMH of HTN, HLD and BPH who was transferred to [facility] from [facility] due to hypertensive urgency with pressures of 240/140, MARYANN with creatinine of 1.8, hypoxia, elevated d-dimer, RLL PNA and elevated BNP. He was started on cefepime and azithromycin, and nitroglycerin drip. During transfer he experienced worsening respiratory failure and required intubation. Due to his elevated creatinine he was unable to have a CTA, so he was also started on therapeutic dose of lovenox until PE could be r/o. Cardiology was consulted and he was started on Lopressor and enalapril. His hypertension has been under better control since admission, most recently 143/67. His creatinine has also continued to improve. Allergies and Home Medications Allergies Coded Allergies: No Known Drug Allergies (Unverified , 02/11/18) Home Medications Albuterol Sulfate 1 Puff Puff, 2 PUFF INH Q6H PRN for SHORTNESS OF BREATH, (Reported) Amlodipine Besylate 10 Mg Tablet, 10 MG PO HS, (Reported) LAST FILLED 03-03-2020 #90/90 DAY SUPPLY Aspirin 81 Mg Tablet.dr, 81 MG PO DAILY, (Reported) Atorvastatin Calcium 10 Mg Tablet, 10 MG PO HS, (Reported) LAST FILLED 04-10-2020 #90/90 DAY SUPPLY Bisoprolol Fumarate/Hctz 1 Each Tablet, 1 EA PO DAILY, (Reported) Clonidine HCl 0.1 Mg Tablet, 0.1 MG PO BID, (Reported) LAST FILLED 03-03-2020 #180/90 DAY SUPPLY Hydroxyurea 500 Mg Capsule, 500 MG PO DAILY, (Reported) Lisinopril 10 Mg Tablet, 10 MG PO DAILY, (Reported) LAST FILLED 12-06-2019 #90/90 DAY SUPPLY Vitamin B Complex 1 Each Tablet, 1 EACH PO DAILY, (Reported) Past Wxcazpo-Agdxnn-Bzlnna Hx Past Med/Social Hx: Reviewed Nursing Past Med/Soc Hx, Reviewed and Corrections made Patient Social History Alcohol Use: Past History Smoking Status: Never a Smoker Past Medical History Surgeries: No (Unable to obtain due to intubated) Respiratory: No (Unable to obtain due to intubated) High Cholesterol, Hypertension Benign Prostatic Hyperpl Arthritis Family Medical History No Pertinent Family Hx (Unable to obtain due to intubated) Review of Systems Time Seen by Provider: 03:00 Other Unable to obtain, patient remains intubated and sedated. Sepsis Event Evaluation Height, Weight, BMI Height: '" Weight: lbs. oz. kg; 181.63 BMI Method: Exam Exam Vital Signs Date Time Temp Pulse Resp B/P (MAP) Pulse Ox O2 Delivery O2 Flow Rate FiO2 08/14/20 03:00 71 22 92 Mechanical Ventilator 21.00 08/14/20 02:33 67 26 93 Mechanical Ventilator 21.00 08/14/20 02:29 66 18 96 24 08/14/20 02:00 62 19 96 Mechanical Ventilator 24.00 08/14/20 01:00 61 08/14/20 01:00 61 18 96 Mechanical Ventilator 24.00 08/14/20 00:50 64 143/67 08/14/20 00:46 36.4 Mechanical Ventilator 24.00 08/14/20 00:00 64 20 95 Mechanical Ventilator 24.00 08/13/20 23:00 66 18 93 Mechanical Ventilator 24.00 08/13/20 22:17 69 18 93 24 08/13/20 22:00 74 28 100 Mechanical Ventilator 24.00 08/13/20 21:12 35.8 57 18 142/45 92 Mechanical Ventilator 10.00 08/13/20 21:12 57 142/45 08/13/20 21:00 94 Mechanical Ventilator 24 08/13/20 21:00 78 24 94 Mechanical Ventilator 24.00 08/13/20 20:30 35.8 08/13/20 20:00 63 17 93 Mechanical Ventilator 24.00 08/13/20 19:00 Mechanical Ventilator 24.00 08/13/20 19:00 60 17 92 Mechanical Ventilator 24.00 08/13/20 19:00 60 08/13/20 18:32 57 18 92 24 08/13/20 18:00 57 25 92 Mechanical Ventilator 30.00 08/13/20 17:18 65 149/46 08/13/20 17:00 65 19 92 Mechanical Ventilator 30.00 08/13/20 16:34 35.8 08/13/20 16:00 64 19 94 Mechanical Ventilator 30.00 08/13/20 15:09 35.8 61 18 149/46 94 Mechanical Ventilator 10.00 08/13/20 15:00 63 15 95 Mechanical Ventilator 30.00 08/13/20 14:33 61 18 94 24 08/13/20 14:00 60 17 95 Mechanical Ventilator 30.00 08/13/20 13:18 52 150/49 08/13/20 13:00 54 19 95 Mechanical Ventilator 30.00 08/13/20 13:00 52 08/13/20 12:00 52 23 96 Mechanical Ventilator 30.00 08/13/20 11:23 35.8 08/13/20 11:00 53 18 98 Mechanical Ventilator 30.00 08/13/20 10:44 52 18 98 30 08/13/20 10:00 56 18 98 Mechanical Ventilator 30.00 08/13/20 09:07 37.1 57 22 145/42 96 Mechanical Ventilator 10.00 08/13/20 09:06 57 145/42 08/13/20 09:00 96 Mechanical Ventilator 30 08/13/20 09:00 63 19 96 Mechanical Ventilator 30.00 08/13/20 08:00 37.1 08/13/20 08:00 71 22 94 Mechanical Ventilator 30.00 08/13/20 07:00 68 08/13/20 07:00 65 20 95 Mechanical Ventilator 30.00 08/13/20 06:35 58 18 95 30 08/13/20 06:00 60 24 94 Mechanical Ventilator 30.00 08/13/20 05:00 60 24 95 Mechanical Ventilator 30.00 08/13/20 04:19 59 162/46 08/13/20 04:00 58 24 96 Mechanical Ventilator 30.00 08/13/20 04:00 36.2 I & O 08/14/20 07:00 Intake Total 490 ml Output Total 5525 ml Balance -5035 ml Height & Weight Height: '" Weight: lbs. oz. kg; 181.63 BMI Method: General Appearance: No Apparent Distress, WD/WN, Chronically ill, Other (intubated) HEENT: Normal ENT Inspection, Moist Mucous Membranes Neck: Full Range of Motion, Normal Inspection, Supple, Carotid Bruit Respiratory: Lungs Clear, Decreased Breath Sounds Cardiovascular: Regular Rate, Rhythm Capillary Refill: Less Than 3 Seconds Gastrointestinal: non tender, soft Extremity: Normal Capillary Refill, Normal Inspection, Normal Range of Motion, No Pedal Edema Neurologic/Psychiatric: Disoriented, Other (Sedated and on vent) Skin: Normal Color, Warm/Dry Lymphatic: No Adenopathy Results Lab Laboratory Tests 08/12/20 16:42 08/13/20 03:25 08/14/20 02:00 Assessment/Plan Assessment/Plan Acute respiratory failure Flash pulmonary edema HTN urgency Acute CHF RLL PNA Possible PE MARYANN JAMAAL TAMEZ DO 08/14/20 0411: History of Present Illness History of Present Illness Time Seen by Provider: 04:06 Allergies and Home Medications Allergies Coded Allergies: No Known Drug Allergies (Unverified , 02/11/18) Home Medications Albuterol Sulfate 1 Puff Puff, 2 PUFF INH Q6H PRN for SHORTNESS OF BREATH, (Reported) Amlodipine Besylate 10 Mg Tablet, 10 MG PO HS, (Reported) LAST FILLED 03-03-2020 #90/90 DAY SUPPLY Aspirin 81 Mg Tablet.dr, 81 MG PO DAILY, (Reported) Atorvastatin Calcium 10 Mg Tablet, 10 MG PO HS, (Reported) LAST FILLED 04-10-2020 #90/90 DAY SUPPLY Bisoprolol Fumarate/Hctz 1 Each Tablet, 1 EA PO DAILY, (Reported) Clonidine HCl 0.1 Mg Tablet, 0.1 MG PO BID, (Reported) LAST FILLED 03-03-2020 #180/90 DAY SUPPLY Hydroxyurea 500 Mg Capsule, 500 MG PO DAILY, (Reported) Lisinopril 10 Mg Tablet, 10 MG PO DAILY, (Reported) LAST FILLED 12-06-2019 #90/90 DAY SUPPLY Vitamin B Complex 1 Each Tablet, 1 EACH PO DAILY, (Reported) Assessment/Plan Assessment/Plan Acute respiratory failure -Intubated on 07/12 -Will attempt to wean to extubation today. -Decrease IVF to 30cc/hr -Currently only on 28% oxygen Acute CHFAE diastolic dysfunction -S/p Nitro gtt Hypokalemia -Replace Right > Left pleural effusion -Continue Lasix HTN urgency -Monitor -Continue current meds GI/DVT PPX -Currently on theraputic dose lovenox and Pepcid Supervisory-Addendum Brief Verification & Attestation Participated in pt care: history, MDM, physical Personally performed: exam, history, MDM, supervision of care Care discussed with: Medical Student Procedures: n/a Verification and Attestation of Medical Student E/M Service A medical student performed and documented this service in my presence. I reviewed and verified all information documented by the medical student and made modifications to such information, when appropriate. I personally performed the physical exam and medical decision making. Jamaal Tamez, Aug 30, 2020,16:10 ALEXANDRU PEDRO,MED STUDENT Aug 14, 2020 03:42 JAMAAL TAMEZ DO Aug 14, 2020 04:11
[2020-08-14] MEDS ORDERED: NS IV 1000 ML 1,000 ML IV SCH (04:09)
[2020-08-14] MEDS ORDERED: PROPOFOL DRIP (ICU) 100 ML IV ONE (05:07)
[2020-08-14] MEDS: LACTATED RINGERS 1,000 ML IV SCH (05:45)
[2020-08-14] MEDS: FUROSEMIDE 40 MG/4 ML INJ (LASIX) IVP SCH ×2 (06:10→17:06)
[2020-08-14 07:05] VITALS: BP 183/64
[2020-08-14] MEDS: RT-ALBUTEROL SULF 2.5 MG/3 ML PRE-MIX VIAL INH SCH ×4 (07:13→18:40)
--- NOTE | 2020-08-14 07:25 | Diagnostic Imaging Report ---
INDICATION: Hypertensive urgency AP view of chest is obtained. Since examination of one day earlier, there is continued perihilar pulmonary density with consolidation of probable pleural fluid in the lower right hemithorax. Findings may be slightly worsened however there is no pneumothorax. Support tubes and catheters are in stable position. IMPRESSION: Mild overall worsening perihilar and basilar infiltrates with probable mild to moderate amount of right pleural fluid. Dictated by: Dictated on workstation # [id number]
--- NOTE | 2020-08-14 07:29 | NUR ---
attempted to switch patient over to pressure support 10/5. RR increased to 50's spo2 decreased to mid 80's, HR went from 88 to 114 and patient looked labored and distressed, pt was able to follow commands and squeeze my hand on both sides. obtained a NIF above negative 30 but other weaning parameters were all over the place due to the distress of the patient. notified nurse and she turned the sedation up and placed patient back on previous assist control settings. notified dr. langley as well
[2020-08-14] MEDS: ENOXAPARIN 80 MG/0.8 ML (LOVENOX) SYR SC SCH (08:13)
--- NOTE | 2020-08-14 08:13 | Progress Note - Hospitalist ---
Subjective HPI/CC On Admission Date Seen by Provider: Aug 14, 2020 Time Seen by Provider: 10:00 CC: Acute respiratory failure presumed flash pulmonary edema HPI: This is a 64yoWM patient of [facility] w/h/o HTN and HLP and no h/o cardiac issues who was originally admitted to my service at [facility] yesterday afternoon due to HTN urgency of 240/140 along with MARYANN creat 1.8, new hypoxia of 70% and elevated d-dimer unable to confirm presumed PE with CT angiogram of the chest due to elevated creatinine, RLL PNA and elevated BNP. Due to COVID pandemic and no ICU beds in the area I admitted him to the ICU placed him on NTG drip and titrated up for SBP 160's attained along with Cefepime and Zmax for PNA treatment along with Lovenox for presumed PE treatment. UOP was satisfactory through the night after Lasix IV given. Troponin remained negative but EKG this morning showed new ST depression without complaints to CP so I made arrangements to move him to ICU for Cardiology care and I conferred prior to tra nsport. Apparently patient was 2 miles out from [facility] and paramedics noted an abrupt change requiring arrival to ICU in major distress prompting a call to Dr Burgos and the decision was made to intubate due to severe distress and hypoxia and coarse breath sounds. Lasix 40mg IV given immediately and hubbard cath placed. Etomidate and Rocuronium for rapid induction to intubate and ETT tube placed without difficulty via direct visualization. EICU will be consulted for vent management. COVID negative at [facility]. Subjective/Events-last exam Pt extubated today WBC 6.7 Hgb 8.8 BP 146/46 Maintained on antibiotics for pneumonia Profusion scan will rule out any large pulmonary emboli and we can decrease the Lovenox to 40mg daily Overall doing very well Review of Systems General: Fatigue, Malaise Pulmonary: Dyspnea Objective Exam Vital Signs Vital Signs Date Time Temp Pulse Resp B/P (MAP) Pulse Ox O2 Delivery O2 Flow Rate FiO2 08/15/20 05:14 36.7 08/15/20 02:27 107 25 196/86 94 25.00 08/15/20 02:25 Vapotherm 08/14/20 18:40 35 Capillary Refill : Less Than 3 Seconds General Appearance: No Apparent Distress, WD/WN, Chronically ill Respiratory: Chest Non Tender, No Respiratory Distress, Accessory Muscle Use, Decreased Breath Sounds Neurologic/Psychiatric: Alert, Oriented x3, No Motor/Sensory Deficits, Normal Mood/Affect Results/Procedures Lab Laboratory Tests 08/15/20 03:10 Patient resulted labs reviewed. Assessment/Plan Assessment and Plan Assess & Plan/Chief Complaint Assessment: Acute respiratory failure requiring emergent intubation on arrival from my service at [facility] Presumed flash pulmonary edema HTN urgency requiring NTG drip at [facility] yesterday and today prior to arrival Acute CHF presumed diastolic type RLL PNA Presumed PE due to elevated d-dimer unable to confirm due to elevated creatinine precluded CT angiogram placed on Lovenox therapeutic dose yesterday MARYANN with creatinine was 1.8 yesterday now 2.2 h/o difficult to manage HTN HLP Plan: Intubation and consult eicu for vent management HTN management Cardiology evaluation EKG repeat Troponin check 08/13/20: Intubation maintained IV abx Hopefully attempt to extubate tomorrow? Perfusion scan tomorrow to r/o PE 08/14/20: Lovenox decreased after perfusion scan reveals no PE ICU Monitor lung status Diagnosis/Problems Diagnosis/Problems (1) Hypertensive urgency, malignant (2) Flash pulmonary edema (3) CHF (congestive heart failure) (4) MARYANN (acute kidney injury) (5) Pneumonia (6) D-dimer, elevated (7) Hypoxia (8) Ventilator dependence Clinical Quality Measures DVT/VTE Risk/Contraindication: Risk Factor Score Per Nursin RFS Level Per Nursing on Admit: 4+=Very High KIMBERLEE MENJIVAR DO Aug 14, 2020 08:13
[2020-08-14] MEDS: FAMOTIDINE 20MG/2ML IV (PEPCID) IVP SCH (08:14)
[2020-08-14] MEDS: meTOprolol TARTRATE 25 MG (LOPRESSOR) TABLET PO SCH (08:44)
[2020-08-14] MEDS: amLODIPine 5 MG (NORVASC) TAB PO SCH (08:44)
[2020-08-14] MEDS: cloNIDine 0.1 MG (CATAPRES) TAB PO SCH ×2 (08:44→21:54)
[2020-08-14] MEDS: ASPIRIN E.C. 81 MG (ECOTRIN) TAB PO SCH (08:44)
[2020-08-14] MEDS: SENNA W/DOCUSATE (SENOKOT S) TABLET PO SCH ×2 (08:45→21:53)
[2020-08-14] MEDS ORDERED: lisINopril 20 MG (PRINIVIL) TABLET PO SCH (09:30)
--- NOTE | 2020-08-14 09:34 | Cardiology Progress Note ---
Subjective Date Seen by Provider: Aug 14, 2020 Time Seen by Provider: 09:31 Subjective/Events-last exam Patient is awake, extubated earlier today, feeling better. Review of Systems General: No Chills, No Night Sweats; Fatigue, Malaise; No Appetite, No Other HEENT: No Head Aches, No Visual Changes, No Eye Pain, No Ear Pain, No Dysphasia, No Sinus Congestion, No Post Nasal Drip, No Sore Throat, No Other Pulmonary: Dyspnea; No Cough, No Pleuritic Chest Pain, No Other Cardiovascular: No: Chest Pain, Palpitations, Orthopnea, Paroxysmal Noc. Dyspnea, Edema, Lt Headedness, Other Objective-Cardiology Exam Last Set of Vital Signs Vital Signs 08/14/20 08/14/20 08/14/20 08/14/20 00:46 05:45 06:00 07:05 Temp 36.4 Pulse 93 Resp 37 B/P (MAP) 146/46 Pulse Ox 93 O2 Delivery Mechanical Ventilator O2 Flow Rate 21.00 FiO2 24 Capillary Refill : Less Than 3 Seconds I&O Intake and Output 08/14/20 00:00 Intake Total 580 ml Output Total 6050 ml Balance -5470 ml Intake Oral 0 ml IV Total 400 ml Tube Feeding 120 ml Other 60 ml Output Urine Total 6050 ml General: Alert, Oriented X3, Cooperative HEENT: Atraumatic, PERRLA Neck: Supple, No JVD, No Thyromegaly Lungs: Normal Air Movement Heart: Regular Rate, Normal S1, Normal S2 Abdomen: Normal Bowel Sounds, Soft, No Tenderness, No Hepatosplenomegaly, No Masses Extremities: No Clubbing, No Cyanosis, No Edema, Normal Pulses, No Tenderness/Swelling Skin: No Rashes Neuro: Normal Speech Psych/Mental Status: Mental Status NL Results Lab Laboratory Tests 08/14/20 02:00 A/P-Cardiology Admission Diagnosis Acute respiratory failure Malignant hypertension Aortography stenosis Acute renal failure Assessment/Plan Acute respiratory failure/pulmonary edema, extubated on August 14, 2020, doing well. Continue to monitor Flash pulmonary edema, responded well to diuretics, continue to monitor Congestive heart failure, acute on chronic left ventricular diastolic dysfunctio n, echocardiogram showed normal left ventricular systolic function, grade 2 diastolic dysfunction, mild aortic valve stenosis, pulmonary hypertension with PA pressure 40-45 mmHg. Started on beta blockers and MICHAEL inhibitor. Monitor closely. Mild elevation in troponin, type II myocardial infarction secondary to malignant hypertension and hypertensive heart disease. Continue to monitor and reevaluate troponin. We'll consider cardiac catheter versus stress test dependence on his progression Malignant hypertension, blood pressure is better, currently off nitroglycerin drip, I will change his IV medication to oral and monitor closely Aortic valve stenosis, 30 2-D echo. Continue to monitor Acute renal failure on chronic renal insufficiency, slight improvement today. Continue to monitor Clinical Quality Measures DVT/VTE Risk/Contraindication: Risk Factor Score Per Nursin RFS Level Per Nursing on Admit: 4+=Very High GAURAV NUNEZ MD Aug 14, 2020 09:34
[2020-08-14] MEDS: AZITHROMYCIN INJECTION 500 MG in NS (IVPB) 250 ML IV SCH (10:19)
[2020-08-14] MEDS: meTOproloL SUCCINATE 50 MG (TOPROL XL) TAB PO SCH (10:27)
--- NOTE | 2020-08-14 11:07 | Diagnostic Imaging Report ---
INDICATION: Evaluate for pulmonary embolism. Patient was administered 5.5 mCi technetium 99M MAA intravenously and perfusion imaging was performed. Anterior view of the chest was performed. There is homogeneous perfusion of both lungs. No pleural-based perfusion defect is seen. IMPRESSION: No definite perfusion defect is identified. Dictated by: Dictated on workstation # [id number]
--- NOTE | 2020-08-14 13:28 | Progress Note ---
JAK ALFARO MED STUDENT 08/14/20 1328: Progress Note González is a 64 yo male that is in the ICU for severe hypertension and CHF. His BP was 146/46 today with a WBC of 6.7 and HgB 8.8. The D-dimer was at 1.31. Later on today he is scheduled to receive an anterior perfusion looking for a large PE. He is unable to be moved or be turned so anterior will be the only angle obtained, but this will give docter the view that she needs.He was extubated but unable to communicate well, other than nodding his head. Through head movements he motioned that he was not in any pain and has been having bowel movements. Supervisory-Addendum Brief Verification & Attestation Participated in pt care: history, physical Personally performed: exam, history Care discussed with: Medical Student NIKIA MENJIVAR DO 08/15/20 0547: Supervisory-Addendum Brief Verification & Attestation Participated in pt care: history, MDM, physical Personally performed: exam, history, MDM, supervision of care Care discussed with: Medical Student Procedures: n/a Results interpretation: Verified all documentation Verification and Attestation of Medical Student E/M Service A medical student performed and documented this service in my presence. I reviewed and verified all information documented by the medical student and made modifications to such information, when appropriate. I personally performed the physical exam and medical decision making. Nikia Menjivar, Aug 15, 2020,05:47 JAK ALFARO MED STUDENT Aug 14, 2020 13:28 NIKIA MENJIVAR DO Aug 15, 2020 05:47
[2020-08-14] MEDS: LABETALOL HCL 20 MG/4 ML VIAL IV PRN ×2 (15:08→21:54)
--- NOTE | 2020-08-14 16:19 | NUR ---
I SPOKE WITH THE PTS SON (FRANKLIN) TO TRY AND GET INFORMATION REGARDING THE PTS PRESCRIPTIONS. FRANKLIN WAS NOT ABLE TO GIVE ME ANY INFORMATION BUT WAS GOING TO REACH OUT TO SOME FAMILY MEMBER (HIS BROTHERS I THINK) TO TRY AND GET ANSWERS. AFTER I HEAR BACK FROM FRANKLIN I WILL COMPLETE THE MED REC Addendum: 08/15/20 at 0856 by ALBARO MYR[facility] I DID GET A CALL BACK FROM FRANKLIN AND WAS TOLD NONE OF HIS SIBLINGS TAKE CARE OF/KNOW [id number] ABOUT DONALDS MEDICATIONS. ACCORDING TO FRANKLIN ONE OF HIS BROTHERS DIDNT THINK THE PT TOOK IS MEDS HE SHOULD. THEREFORE I HAVE ENTERED THE MED REC USING A MEDICATION LIST FROM [facility] (A COPY IS ATTACHED TO HIS CHART) AND THE EXT MED HISTORY. HYDROXYUREA 500MG: ON THE MED LIST IT HAS DIRECTIONS OF "1 CAP DAILY" BUT ON THE EXT MED HISTORY IT SHOWS " 1 CAP DAILY EXCEPT ON SUNDAYS TAKE 2 CAPS". THE HISTORY OF FILL DATES DOES NOT GIVE ME ANY INDICATION OF HOW THE PT IS ACTUALLY TAKING- PT ALWAYS GETS #90 AND THERE HAVE BEEN A FEW REFILLS THAT WOULD INDICATE HE IS ONLY TAKING 1 DAILY; HOWEVER IF HE WERE TAKING IT PRESCRIBED #90 WOULD BE A 79 DAY SUPPLY AND THERE HAVE BEEN SOME FILLS THAT WERE ONLY 60 DAYS APART. SINCE THE MED LIST FROM HIS PCP AND A HOSPITAL RECORD FROM [facility] HAS IT LISTED " 1 CAP DAILY" THAT IS HOW I ENTERED IT ON THE MED REC. THE FOLLOWING ARE PAST DUE FOR REFILLS AND I DOCUMENTED THE PAST DUE FILL ON THE MED REC: AMLODIPINE 10MG LAST FILLED 03-03-2020 #90/90DS CLONIDINE 0.1MG LAST FILLED 03-03-2020 #180/90DS LISINOPRIL 10MG LAST FILLED 12-06-2019 FENOFIBRATE IS LISTED ON THE MED LIST FROM [facility] HOWEVER ON THE MED LIST FROM THE PCP IT HAS THIS MEDICATION INACTIVE DUE TO COMPLETION OF THERAPY I WILL UPDATE THE MED REC/NOTES IF/WHEN I CAN SPEAK WITH THE PT TO GET CLARIFICATION
[2020-08-14] MEDS: ACETAMINOPHEN 500 MG TAB (TYLENOL) PO PRN (22:00)
[2020-08-14] MEDS: DexMEDEtomidine PRE MIX 100 ML IV SCH (22:03)
[2020-08-14 22:41] LABS: AMPHETAMINE SCREEN, URINE NEGATIVE (NEGATIVE); BARBITURATE SCREEN URINE NEGATIVE (NEGATIVE); BENZODIAZEPINES SCREEN URINE NEGATIVE (NEGATIVE); CANNABINOID SCREEN, URINE NEGATIVE (NEGATIVE); COCAINE SCREEN URINE NEGATIVE (NEGATIVE); METHADONE STAT NEGATIVE (NEGATIVE); METHAMPHETAMINE SCREEN URINE S NEGATIVE (NEGATIVE); OPIATE SCREEN URINE NEGATIVE (NEGATIVE); OXYCODONE STAT NEGATIVE (NEGATIVE); PROPOXYPHENE STAT NEGATIVE (NEGATIVE); TRICYCLIC ANTIDEPRESSANTS SCRE NEGATIVE (NEGATIVE)
[2020-08-15] MEDS: inSUlin ASPART (NovoLOG) 1 UNIT/0.01 ML (CHARGE PER UNIT) SC SCH ×4 (00:32→18:49)
[2020-08-15] MEDS ORDERED: meTOprolol 5 MG/5 ML (LOPRESSOR) VIAL IV ONE (01:30)
[2020-08-15] MEDS: DexMEDEtomidine PRE MIX 100 ML IV SCH ×7 (02:27→23:53)
[2020-08-15] MEDS: LABETALOL HCL 20 MG/4 ML VIAL IV PRN ×2 (03:20→20:46)
[2020-08-15 03:24] LABS: BASOPHILS % (AUTO) 0 % (0-10); EOSINOPHILS % (AUTO) 0 % (0-10); HEMATOCRIT 27 % (40-54); LYMPHOCYTES # (AUTO) 0.8 10^3/uL (1.0-4.0); LYMPHOCYTES % (AUTO) 9 % (12-44); MEAN CORPUSCULAR HEMOGLOBIN 36 pg (25-34); MEAN CORPUSCULAR HGB CONC 33 g/dL (32-36); MEAN CORPUSCULAR VOLUME 110 fL (80-99); MEAN PLATELET VOLUME 9.8 fL (9.0-12.2); MONOCYTES # (AUTO) 0.6 10^3/uL (0.0-1.0); MONOCYTES % (AUTO) 6 % (0-12); NEUTROPHILS # (AUTO) 7.3 10^3/uL (1.8-7.8); NEUTROPHILS % (AUTO) 83 % (42-75); PLATELET COUNT 297 10^3/uL (130-400); WHITE BLOOD COUNT 8.8 10^3/uL (4.3-11.0)
[2020-08-15] MEDS: CEFEPIME INJECTION 1,000 MG in WATER (STERILE) FOR INJECTION 10 ML IV SCH ×2 (03:27→17:01)
[2020-08-15] MEDS: LACTATED RINGERS 1,000 ML IV SCH ×4 (03:27→17:59)
[2020-08-15 03:35] LABS: POTASSIUM 3.3 MMOL/L (3.6-5.0)
[2020-08-15 03:36] LABS: CALCIUM 7.8 MG/DL (8.5-10.1)
[2020-08-15 03:40] LABS: CREATININE SERUM 2.43 MG/DL (0.60-1.30); PHOSPHORUS 4.8 MG/DL (2.3-4.7)
--- NOTE | 2020-08-15 03:43 | Pulmonary Progress Note ---
ALEXANDRU PEDRO,MED STUDENT 08/15/20 0343: Subjective Date Seen by a Provider: Aug 15, 2020 Time Seen by a Provider: 03:00 Subjective/Events-last exam Now extubated and on vapotherm at Patient is alert and communicating, but is confused Precedex continuing to run at 33mL/hour Systolic pressures have been back in the 190's, started on Labetalol 10mg IV Q4H yesterday Sepsis Event Evaluation Height, Weight, BMI Height: '" Weight: lbs. oz. kg; 29.33 BMI Method: Exam Exam Vital Signs Date Time Temp Pulse Resp B/P (MAP) Pulse Ox O2 Delivery O2 Flow Rate FiO2 08/15/20 03:30 36.2 08/15/20 02:27 36.1 107 25 196/86 94 25.00 08/15/20 02:25 Vapotherm 25.00 25.00 08/15/20 00:32 36.1 08/14/20 22:03 38.8 107 25 196/86 94 40.00 08/14/20 22:00 38.8 08/14/20 18:40 94 High Flow N/C 40.00 35 08/14/20 18:00 107 25 196/86 93 Vapotherm 35.00 40.00 08/14/20 17:00 103 15 188/77 96 Vapotherm 35.00 40.00 08/14/20 16:00 102 19 194/94 96 Vapotherm 35.00 40.00 08/14/20 15:00 114 27 164/75 91 Vapotherm 35.00 40.00 08/14/20 14:36 98 High Flow N/C 40.00 34 08/14/20 14:00 111 14 170/109 89 Vapotherm 35.00 40.00 08/14/20 13:00 101 22 189/105 97 Vapotherm 35.00 40.00 08/14/20 12:50 105 08/14/20 12:00 98 14 96 Vapotherm 35.00 40.00 08/14/20 11:00 91 14 97 Vapotherm 35.00 40.00 08/14/20 11:00 37.1 148/101 08/14/20 10:52 98 High Flow N/C 40.00 34 08/14/20 10:00 101 18 94 Vapotherm 35.00 40.00 08/14/20 09:00 93 Vapotherm 40.00 35 08/14/20 09:00 91 15 98 Vapotherm 35.00 40.00 08/14/20 08:00 37.8 Vapotherm 35.00 40.00 08/14/20 08:00 98 25 94 Vapotherm 35.00 40.00 08/14/20 07:05 93 37 93 24 08/14/20 07:00 83 29 95 Mechanical Ventilator 21.00 08/14/20 06:42 72 08/14/20 06:00 70 20 96 Mechanical Ventilator 21.00 08/14/20 05:45 71 146/46 08/14/20 05:00 69 24 97 Mechanical Ventilator 21.00 08/14/20 04:00 68 21 95 Mechanical Ventilator 21.00 I & O 08/15/20 07:00 Intake Total 1600 ml Output Total 4750 ml Balance -3150 ml Height & Weight Height: '" Weight: lbs. oz. kg; 29.33 BMI Method: General Appearance: No Apparent Distress, WD/WN, Chronically ill, Other (intubated) HEENT: Normal ENT Inspection, Moist Mucous Membranes Neck: Full Range of Motion, Normal Inspection, Supple, Carotid Bruit Respiratory: Lungs Clear, Decreased Breath Sounds Cardiovascular: No Murmur, Normal Peripheral Pulses, Tachycardia Capillary Refill: Less Than 3 Seconds Gastrointestinal: non tender, soft Extremity: Normal Capillary Refill, Normal Inspection, Normal Range of Motion, No Pedal Edema Neurologic/Psychiatric: Alert, Disoriented, Other Skin: Normal Color, Warm/Dry Lymphatic: No Adenopathy Results Lab Laboratory Tests 08/14/20 02:00 08/15/20 03:10 Assessment/Plan Assessment/Plan Acute respiratory failure -extubated on 08/14 -on vapotherm at 25% FiO2 at 25Lmin Acute CHFAE diastolic dysfunction -S/p Nitro gtt Hypokalemia -Replace Right > Left pleural effusion -Continue Lasix HTN urgency -Monitor -Continue current meds -started on Labetalol 10mg IV Q4H GI/DVT PPX -Currently on theraputic dose lovenox and Pepcid JAMAAL TAMEZ DO 08/15/20 0421: Subjective Subjective/Events-last exam Extubated yesterday. Assessment/Plan Assessment/Plan Acute respiratory failure -extubated on 08/14 -on vapotherm at 25% FiO2 at 25Lmin Probable alcohol withdrawal -Start CIWA Metabolic encephalopathy Acute CHFAE diastolic dysfunction -S/p Nitro gtt Hypokalemia -Replace Right > Left pleural effusion -Continue Lasix HTN urgency -Monitor -Continue current meds -started on Labetalol 10mg IV Q4H GI/DVT PPX -Currently on theraputic dose lovenox and Pepcid Supervisory-Addendum Brief Verification & Attestation Participated in pt care: history, MDM, physical Personally performed: exam, history, MDM, supervision of care Care discussed with: Medical Student Procedures: n/a Results interpretation: Verified all documentation Verification and Attestation of Medical Student E/M Service A medical student performed and documented this service in my presence. I reviewed and verified all information documented by the medical student and made modifications to such information, when appropriate. I personally performed the physical exam and medical decision making. Jamaal Tamez, Aug 30, 2020,16:12 ALEXANDRU PEDRO,MED STUDENT Aug 15, 2020 03:43 JAMAAL TAMEZ DO Aug 15, 2020 04:21
[2020-08-15] MEDS ORDERED: fentaNYL INJECTION 100 MCG/2 ML AMP IVP PRN (04:30)
[2020-08-15] MEDS ORDERED: LORazepam INJ 2 MG/ML (ATIVAN) VIAL IM/IV PRN (04:30)
[2020-08-15] MEDS ORDERED: LACTATED RINGERS 1,000 ML IV ONE (04:30)
[2020-08-15] MEDS ORDERED: SENNA W/DOCUSATE (SENOKOT S) TABLET PO PRN (04:30)
[2020-08-15] MEDS ORDERED: ANTACID SUSP 30 ML UDC (MYLANTA) PO PRN (04:30)
[2020-08-15] MEDS ORDERED: HALOPERIDOL 5 MG/ML (HALDOL) VIAL IM PRN (04:30)
[2020-08-15] MEDS ORDERED: LORazepam 1 MG (ATIVAN) TAB PO PRN (04:30)
[2020-08-15 04:36] LABS: ALBUMIN 2.6 GM/DL (3.2-4.5)
[2020-08-15 04:39] LABS: TOTAL PROTEIN 5.7 GM/DL (6.4-8.2)
[2020-08-15 04:41] LABS: BILIRUBIN,TOTAL 0.4 MG/DL (0.1-1.0)
[2020-08-15] MEDS: KCL 20 MEQ TAB (K-DUR) PO SCH (04:52)
[2020-08-15] MEDS: MAGNESIUM 1 GM/100 ML IVPB 100 ML IV SCH (04:52)
[2020-08-15] MEDS: POTASSIUM CL 10MEQ/50ML IVPB 50 ML IV SCH ×4 (04:52→07:02)
[2020-08-15] MEDS: hydrALAZINE (APESOLINE) 20 MG/ML VIAL IV PRN ×4 (05:01→23:47)
[2020-08-15 05:59] LABS: INR 1.1 (0.8-1.4); PROTHROMBIN TIME PATIENT 14.1 SEC (12.2-14.7)
--- NOTE | 2020-08-15 06:00 | NUR ---
THIS RN CONFIRMED WITH NARDA FROM [facility] THAT THE [facility] DOES NOT HAVE PHOS.
[2020-08-15] MEDS: RT-ALBUTEROL SULF 2.5 MG/3 ML PRE-MIX VIAL INH SCH ×4 (07:39→18:46)
--- NOTE | 2020-08-15 07:40 | NUR ---
TIMELINE NOTE BELOW 08/14/20 @ 2339 VIELKA, RN, NOTIFIED EICU OF PATIENT'S SUSTAINING HTN WITH SBP IN 200'S. NEW ORDER RECEIVED TO INCREASE PATIENT'S PRECEDEX GTT TO 1.5 MCG/KG/MIN. 08/15/20 @ 0228 THIS RN NOTIFIED EICU OF PATIENT'S SUSTAINING HTN WITH SBP IN 170-180'S. NEW ORDER RECEIVED SEE ORDER HX. * @ [address] NUNEZ OF PATIENT'S SUSTAINING HTN WITH SBP IN 140-180'S DESPITE MEDICATIONS GIVEN (SEE EMAR), AND CRITICAL TROPONIN OF 0.32. PATIENT CONFUSED AND UNABLE TO EXPRESS PAIN APPROPRIATELY SO THIS RN TOOK STAT EKG FOR CP PROTOCOL. RESULTS SENT TO DR. NUNEZ AT THIS TIME. NO NEW ORDERS RECEIVED. * @ [address] KINNEY OF PATIENT'S BEHAVIOR, HE HAS BEEN CONFUSED, HALLUCINATING, TALKING TO SOMEONE IN HIS ROOM, RESTLESS AND CRYING THROUGHOUT SHIFT. CIWA PROTOCOL ORDERED AT THIS TIME.
[2020-08-15] MEDS ORDERED: CALCIUM ACETATE 667 MG CAP (PHOSLO) PO SCH (08:00)
[2020-08-15 08:16] LABS: BILIRUBIN,URINE NEGATIVE (NEGATIVE); CLARITY,URINE CLEAR; COLOR,URINE YELLOW; GLUCOSE, URINE (UA) TRACE (NEGATIVE); KETONES,URINE 1+ (NEGATIVE); LEUKOCYTE ESTERASE ,URINE NEGATIVE (NEGATIVE); NITRITE,URINE NEGATIVE (NEGATIVE); PH,URINE 6.5 (5-9); PROTEIN,URINE 3+ (NEGATIVE)
[2020-08-15] MEDS: LORazepam INJ 2 MG/ML (ATIVAN) VIAL IV PRN ×3 (08:19→21:15)
[2020-08-15] MEDS ORDERED: ASPI-1238 PO (08:21)
[2020-08-15] MEDS ORDERED: RT-ALBUINH INH (08:21)
[2020-08-15] MEDS ORDERED: BISO-3 PO (08:21)
[2020-08-15] MEDS ORDERED: HYDR500C2 PO (08:21)
[2020-08-15] MEDS ORDERED: VITA1TAB17 PO (08:21)
[2020-08-15] MEDS ORDERED: CLN.1T PO (08:21)
[2020-08-15] MEDS ORDERED: ATOR10TA66 PO (08:21)
[2020-08-15] MEDS ORDERED: LISI10TA2 PO (08:21)
[2020-08-15] MEDS ORDERED: AMLO-251 PO (08:21)
[2020-08-15 08:24] LABS: BACTERIA,URINE NEGATIVE /HPF; RBC,URINE 0-2 /HPF
--- NOTE | 2020-08-15 08:29 | Diagnostic Imaging Report ---
INDICATION: Hypertensive urgency. TECHNIQUE: Single view chest 4:08 AM. CORRELATION STUDY: 08/14/2020 FINDINGS: Interval extubation and removal of the gastric tube. Right IJ central line remains in place. Heart size and mediastinum are generally stable. Vasculature, however, appears increased from prior. Bilateral pulmonary opacities are present, overall appear adversely increased. Right pleural effusion, however, is somewhat decreased. IMPRESSION: 1. Interval extubation. 2. Pulmonary vascular congestion adversely changed from prior. 3. Bilateral pulmonary opacities are present, indeterminate between edema versus infiltrate, overall adversely changed. Right pleural effusion does persist but overall appears slightly decreased. Dictated by: Dictated on workstation # [id number]
[2020-08-15] MEDS ORDERED: ENOXAPARIN 40 MG/0.4 ML (LOVENOX) SYR SQ SCH (09:00)
[2020-08-15] MEDS ORDERED: FAMOTIDINE 20MG/2ML IV (PEPCID) IVP SCH (09:00)
[2020-08-15] MEDS ORDERED: cloNIDine 0.2 MG PATCH (CATAPRES TTS) TDSY TD SCH (09:00)
--- NOTE | 2020-08-15 09:57 | NUR ---
PATIENT UNABLE TO TAKE PO MEDICATION DUE TO BEHAVIOR. SPITS MEDICATION BACK OUT. DR MENJIVAR, DR KINNEY, AND DR NUNEZ NOTIFIED. Addendum: 08/15/20 at 1022 by SABINA RONDON RN DR FLORES IS COVERING TODAY. DR FLORES ALSO NOTIFIED.
[2020-08-15] MEDS: ASPIRIN E.C. 81 MG (ECOTRIN) TAB PO SCH (09:58)
[2020-08-15] MEDS: amLODIPine 5 MG (NORVASC) TAB PO SCH (09:58)
[2020-08-15] MEDS: SENNA W/DOCUSATE (SENOKOT S) TABLET PO SCH ×2 (09:58→21:03)
[2020-08-15] MEDS: meTOproloL SUCCINATE 50 MG (TOPROL XL) TAB PO SCH (09:59)
[2020-08-15] MEDS: ENOXAPARIN 30 MG/0.3 ML (LOVENOX) SYR SC SCH (10:10)
[2020-08-15] MEDS: AZITHROMYCIN INJECTION 500 MG in NS (IVPB) 250 ML IV SCH (10:10)
[2020-08-15] MEDS: THIAMINE INJECTION 100 MG, FOLIC ACID INJECTION 1 MG, MAGNESIUM SULFATE 2 GM, VITAMIN M... IV SCH ×5 (10:10)
--- NOTE | 2020-08-15 10:55 | Progress Note - Cardiology ---
Cardiology SOAP Progress Note Subjective: Awakens easily. Mumbled speech. Confused. Unable to obtain any information from pt Objective: I&O/Vital Signs 08/15/20 08/15/20 08/15/20 08/15/20 05:00 05:14 05:16 06:00 Temp 36.7 36.7 Pulse 80 107 84 Resp 25 22 B/P (MAP) 175/70 196/86 181/70 Pulse Ox 86 94 O2 Delivery Vapotherm Vapotherm O2 Flow Rate 25.00 25.00 25.00 25.00 25.00 08/15/20 08/15/20 08/15/20 08/15/20 07:40 07:59 08:44 10:27 Temp 36.0 Pulse 75 Resp 19 B/P (MAP) 158/42 Pulse Ox 94 92 O2 Delivery High Flow N/C High Flow NC Vapotherm O2 Flow Rate 25.00 25.00 25.00 FiO2 25 25 08/15/20 15:05 Pulse Ox 94 O2 Delivery Vapotherm O2 Flow Rate 25.00 FiO2 25 08/15/20 00:00 Intake Total 50 ml Output Total 3100 ml Balance -3050 ml Constitutional: well-developed, well-nourished, other (alert; confused) Respiratory: No accessory muscle use, No respiratory distress; chest expansion is symmetric, chest is bilaterally symmetric, other (diminished throughout) Cardiovascular: regular rate-rhythm; No JVD; S1 and S2, systolic murmur (soft) Gastrointestional: No tender; soft, round, audible bowel sounds Extremities: swelling (mild LE swelling) Neurologic/Psychiatric: other (moves extremities; awake, unable to obtain any information, mumbled speech) Skin: No rash on exposed areas, No ulcerations on exposed areas Results/Procedures: Labs Laboratory Tests 08/14/20 16:41: Glucometer 86 08/14/20 22:00: Urine Opiates Screen NEGATIVE, Urine Oxycodone Screen NEGATIVE, Urine Methadone Screen NEGATIVE, Urine Propoxyphene Screen NEGATIVE, Urine Barbiturates Screen NEGATIVE, Ur Tricyclic Antidepressants Screen NEGATIVE, Urine Phencyclidine Scre en NEGATIVE, Urine Amphetamines Screen NEGATIVE, Urine Methamphetamines Screen NEGATIVE, Urine Benzodiazepines Screen NEGATIVE, Urine Cocaine Screen NEGATIVE, Urine Cannabinoids Screen NEGATIVE 08/15/20 00:29: Glucometer 87 08/15/20 03:10: White Blood Count 8.8, Red Blood Count 2.49L, Hemoglobin 9.0L, Hematocrit 27L, Mean Corpuscular Volume 110H, Mean Corpuscular Hemoglobin 36H, Mean Corpuscular Hemoglobin Concent 33, Red Cell Distribution Width 13.2, Platelet Count 297, Mean Platelet Volume 9.8, Immature Granulocyte % (Auto) 1, Neutrophils (%) (Auto) 83H, Lymphocytes (%) (Auto) 9L, Monocytes (%) (Auto) 6, Eosinophils (%) (Auto) 0, Basophils (%) (Auto) 0, Neutrophils # (Auto) 7.3, Lymphocytes # (Auto) 0.8L, Monocytes # (Auto) 0.6, Eosinophils # (Auto) 0.0, Basophils # (Auto) 0.0, Immature Granulocyte # (Auto) 0.1, Sodium Level 144, Potassium Level 3.3L, Chloride Level 108H, Carbon Dioxide Level 19L, Anion Gap 17H, Blood Urea Nitrogen 25H, Creatinine 2.43H, Estimat Glomerular Filtration Rate 27, BUN/Creatinine Ratio 10, Glucose Level 111H, Calcium Level 7.8L, Corrected Calcium 8.9, Phosphorus Level 4.8H, Magnesium Level 2.0, Total Bilirubin 0.4, Aspartate Amino Transf (AST/SGOT) 32, Alanine Aminotransferase (ALT/SGPT) 17, Alkaline Phosphatase 109, Troponin I 0.322*H, Total Protein 5.7L, Albumin 2.6L 08/15/20 05:00: Prothrombin Time 14.1, INR Comment 1.1, Activated Partial Thromboplast Time 54H, Lactic Acid Level 0.81 08/15/20 08:12: Urine Color YELLOW, Urine Clarity CLEAR, Urine pH 6.5, Urine Specific [place] 1.025H, Urine Protein 3+H, Urine Glucose (UA) TRACEH, Urine Ketones 1+H, Urine Nitrite NEGATIVE, Urine Bilirubin NEGATIVE, Urine Urobilinogen 0.2, Urine Leukocyte Esterase NEGATIVE, Urine RBC (Auto) 1+H, Urine RBC 0-2, Urine WBC NONE, Urine Crystals NONE, Urine Bacteria NEGATIVE, Urine Casts NONE, Urine Mucus NEGATIVE, Urine Culture Indicated NO 08/15/20 14:02: Glucometer 155H Microbiology 08/14/20 MRSA Screen - Final, Complete MRSA not isolated Procedures NAME: DANNY CARMONA REC#: [id number] PT STATUS: ADM IN : 1955 PHYSICIAN: KIMBERLEE MENJIVAR DO ADMIT DATE: 08/12/20/ICU Draft Date of Exam:08/15/20 CHEST 1 VIEW, AP/PA ONLY INDICATION: Hypertensive urgency. TECHNIQUE: Single view chest 4:08 AM. CORRELATION STUDY: 08/14/2020 FINDINGS: Interval extubation and removal of the gastric tube. Right IJ central line remains in place. Heart size and mediastinum are generally stable. Vasculature, however, appears increased from prior. Bilateral pulmonary opacities are present, overall appear adversely increased. Right pleural effusion, however, is somewhat decreased. IMPRESSION: 1. Interval extubation. 2. Pulmonary vascular congestion adversely changed from prior. 3. Bilateral pulmonary opacities are present, indeterminate between edema versus infiltrate, overall adversely changed. Right pleural effusion does persist but overall appears slightly decreased. Dictated on workstation # [id number] Dict: 08/15/20 0808 Trans: 08/15/20 0829 [facility] [phone] Interpreted by: PAULA NATH DO Electronically signed by: A/P: Assessment: Confused this morning - awaiting CT of the head Acute respiratory failure/pulmonary edema, extubated on August 14, 2020 Echocardiogram of Aug 13, [address] Burgos showed LVEF 50-55%. Concentric hypertrophy. Grade 2 diastolic dysfunction. Mild aortic stenosis. Mild to mod TR. PASP 40-45mmHg Acute diastolic CHF - clinically improving Mild elevation in troponin, type II myocardial infarction secondary to malignant hypertension and hypertensive heart disease HTN - not well controlled Acute on chronic renal failure - renal function worsening H/O heavy ETOH abuse Plan: Confused this morning - not taking any oral medications d/t spitting them out - awaiting CT of the head this morning Possible encephalopathy Replace electrolytes Worsening renal function H/O ETOH abuse IV diuretics as indicated Change oral antihypertensives to IV until able to take oral Monitor lab closely Further recs will be based on his hospital course We have reviewed Dr. Burgos's progress notes DESTIN SALAZAR Aug 15, 2020 10:55
--- NOTE | 2020-08-15 10:57 | Progress Note - Hospitalist ---
JAK ALFARO MED STUDENT 08/15/20 1057: Subjective HPI/CC On Admission Date Seen by Provider: Aug 15, 2020 Time Seen by Provider: 09:45 CC: Acute respiratory failure presumed flash pulmonary edema HPI: This is a 64yoWM patient of [facility] w/h/o HTN and HLP and no h/o cardiac issues who was originally admitted to my service at [facility] yesterday afternoon due to HTN urgency of 240/140 along with MARYANN creat 1.8, new hypoxia of 70% and elevated d-dimer unable to confirm presumed PE with CT angiogram of the chest due to elevated creatinine, RLL PNA and elevated BNP. Due to COVID pandemic and no ICU beds in the area I admitted him to the ICU placed him on NTG drip and titrated up for SBP 160's attained along with Cefepime and Zmax for PNA treatment along with Lovenox for presumed PE treatment. UOP was satisfactory through the night after Lasix IV given. Troponin remained negative but EKG this morning showed new ST depression without complaints to CP so I made arrangements to move him to ICU for Cardiology care and I conferred prior to transport. Apparently patient was 2 miles out from [facility] and paramedics noted an abrupt change requiring arrival to ICU in major distress prompting a call to Dr Burgos and the decision was made to intubate due to severe distress and hypoxia and coarse breath sounds. Lasix 40mg IV given immediately and hubbard cath placed. Etomidate and Rocuronium for rapid induction to intubate and ETT tube placed without difficulty via direct visualization. EICU will be consulted for vent management. COVID negative at [facility]. Subjective/Events-last exam González is a 64 yo male that presented to the ICU for severe hypertension and CHF. His vitals on 08/14 was a BP of 146/46, WBC of 6.7, HgB 8.8, and D-dimer was at 1.31.Yesterday he was extubated but unable to communicate well, other than nodding his head. Today his BP has increased tp 196/86, troponin I was 0.322, and lactic acid was 0.81. He was taken off IV blood pressure medications and put on PO meds, which according to his nurses he has not been taking and just spitting out. Anterior perfusion scan yesterday was negative for any signs of PE. He was given two Ativan this morning after pulling on his central line. He was drowsy and hard to awake. He was diagnosed with acute encephalopathy due to critical illness and a CT without contrast was ordered. Review of Systems General: Fatigue, Malaise Focused Exam Lactate Level 08/15/20 05:00: Lactic Acid Level 0.81 Time of Focused Exam: 09:55 Respiratory: Chest Non Tender, Lungs Clear, Normal Breath Sounds, No Accessory Muscle Use, No Respiratory Distress Cardiovascular: Regular Rate, Rhythm, No Edema, No Gallop Skin: normal color Objective Exam Vital Signs Vital Signs Date Time Temp Pulse Resp B/P (MAP) Pulse Ox O2 Delivery O2 Flow Rate FiO2 08/15/20 10:27 92 Vapotherm 25.00 25 08/15/20 08:44 75 19 158/42 08/15/20 07:59 36.0 Capillary Refill : Less Than 3 Seconds General Appearance: Mild Distress, Thin Respiratory: Lungs Clear, Normal Breath Sounds, No Accessory Muscle Use, No Respiratory Distress Cardiovascular: Regular Rate, Rhythm Results/Procedures Lab Laboratory Tests 08/15/20 03:10 Patient resulted labs reviewed. Assessment/Plan Assessment and Plan Assess & Plan/Chief Complaint Assessment: acute encephalopathy due to critical illness hypertension Plan: CT of brain without contrast restart IV medications Time spent with patient (mins): 10 Diagnosis/Problems Diagnosis/Problems (1) Acute encephalopathy Status: Acute Assessment & Plan: CT of brain without contrast (2) Hypertensive urgency, malignant Clinical Quality Measures DVT/VTE Risk/Contraindication: Risk Factor Score Per Nursin RFS Level Per Nursing on Admit: 4+=Very High Supervisory-Addendum Brief Verification & Attestation Participated in pt care: history, physical Personally performed: exam, history Care discussed with: Medical Student NIKIA MENJIVAR DO 08/16/20 0532: Subjective Subjective/Events-last exam CT of the brain will be obtained because he is just not waking up and he spits out his meds BP 196/96 He work up a bit and pulled out his central line so may need to be reinserted Very confused and he is not alert, Ativan was given to calm him Review of Systems General: Fatigue, Malaise Pulmonary: Dyspnea Neurological: Confusion Objective Exam General Appearance: No Apparent Distress, WD/WN, Chronically ill Respiratory: Lungs Clear Cardiovascular: Regular Rate, Rhythm Neurologic/Psychiatric: Disoriented Assessment/Plan Assessment and Plan Assess & Plan/Chief Complaint Supportive care Monitor closely ICU required Supervisory-Addendum Brief Verification & Attestation Participated in pt care: history, MDM, physical Personally performed: exam, history, MDM, supervision of care Care discussed with: Medical Student Procedures: n/a Results interpretation: Verified all documentation Verification and Attestation of Medical Student E/M Service A medical student performed and documented this service in my presence. I reviewed and verified all information documented by the medical student and made modifications to such information, when appropriate. I personally performed the physical exam and medical decision making. Nikia Menjivar, Aug 16, 2020,05:31 JAK ALFARO MED STUDENT Aug 15, 2020 10:57 NIKIA MENJIVAR DO Aug 16, 2020 05:32
--- NOTE | 2020-08-15 11:03 | NUR ---
Received social service consult from Dr. Tamez. Contacted pt's sons Musa and Ulises for continued care information. 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 There are four adult children 3 sons Ulises, Musa, and Bethany who all three live in the [facility]. A daughter lives in [facility]. Sons aren't aware of any Advance Directives and the oldest son Ulises has been advising the sons of pt's medical status and all have been agreement with current treatment and care. The sons contact numbers are [phone], Kaylah [phone] and Auvf-[phone]. Sons state that pt has history of drinking beers but they don't believe he has had any alcohol intake the past 12-18 months. Sons plan to search the home for any DPOA paper work but aren't aware that he has ever completed Advance Directive.Will follow
[2020-08-15] MEDS: meTOprolol 5 MG/5 ML (LOPRESSOR) VIAL IV SCH ×3 (11:57→23:47)
--- NOTE | 2020-08-15 14:37 | Progress Note - Cardiology ---
Cardiology SOAP Progress Note Subjective: Somnolent and difficult to awaken Has been noncooperative with meds He is unable to provide any meaningful history Objective: I&O/Vital Signs 08/15/20 08/15/20 08/15/20 08/15/20 03:00 03:30 04:00 05:00 Temp 36.2 Pulse 80 80 80 Resp 22 B/P (MAP) 173/78 186/72 175/70 Pulse Ox 92 94 86 O2 Delivery Vapotherm Vapotherm Vapotherm O2 Flow Rate 25.00 25.00 25.00 25.00 25.00 25.00 08/15/20 08/15/20 08/15/20 08/15/20 05:14 05:16 06:00 07:40 Temp 36.7 36.7 Pulse 107 84 Resp 25 22 B/P (MAP) 196/86 181/70 Pulse Ox 94 94 O2 Delivery Vapotherm High Flow N/C O2 Flow Rate 25.00 25.00 25.00 25.00 FiO2 25 08/15/20 08/15/20 08/15/20 07:59 08:44 10:27 Temp 36.0 Pulse 75 Resp 19 B/P (MAP) 158/42 Pulse Ox 92 O2 Delivery High Flow NC Vapotherm O2 Flow Rate 25.00 25.00 FiO2 25 08/15/20 00:00 Intake Total 50 ml Output Total 3100 ml Balance -3050 ml Constitutional: well-developed, well-nourished, other (alert; confused) Respiratory: No accessory muscle use, No respiratory distress; chest expansion is symmetric, chest is bilaterally symmetric, other (diminished throughout) Cardiovascular: regular rate-rhythm; No JVD; S1 and S2, systolic murmur (soft) Gastrointestional: No tender; soft, round, audible bowel sounds Extremities: swelling (mild LE swelling) Neurologic/Psychiatric: other (moves extremities; awake, unable to obtain any information, mumbled speech) Skin: No rash on exposed areas, No ulcerations on exposed areas Results/Procedures: Labs Laboratory Tests 08/14/20 16:41: Glucometer 86 08/14/20 22:00: Urine Opiates Screen NEGATIVE, Urine Oxycodone Screen NEGATIVE, Urine Methadone Screen NEGATIVE, Urine Propoxyphene Screen NEGATIVE, Urine Barbiturates Screen NEGATIVE, Ur Tricyclic Antidepressants Screen NEGATIVE, Urine Phencyclidine Screen NEGATIVE, Urine Amphetamines Screen NEGATIVE, Urine Methamphetamines Screen NEGATIVE, Urine Benzodiazepines Screen NEGATIVE, Urine Cocaine Screen NEGATIVE, Urine Cannabinoids Screen NEGATIVE 08/15/20 00:29: Glucometer 87 08/15/20 03:10: White Blood Count 8.8, Red Blood Count 2.49L, Hemoglobin 9.0L, Hematocrit 27L, Mean Corpuscular Volume 110H, Mean Corpuscular Hemoglobin 36H, Mean Corpuscular Hemoglobin Concent 33, Red Cell Distribution Width 13.2, Platelet Count 297, Mean Platelet Volume 9.8, Immature Granulocyte % (Auto) 1, Neutrophils (%) (Auto) 83H, Lymphocytes (%) (Auto) 9L, Monocytes (%) (Auto) 6, Eosinophils (%) (Auto) 0, Basophils (%) (Auto) 0, Neutrophils # (Auto) 7.3, Lymphocytes # (Auto) 0.8L, Monocytes # (Auto) 0.6, Eosinophils # (Auto) 0.0, Basophils # (Auto) 0.0, Immature Granulocyte # (Auto) 0.1, Sodium Level 144, Potassium Level 3.3L, Chloride Level 108H, Carbon Dioxide Level 19L, Anion Gap 17H, Blood Urea Nitrogen 25H, Creatinine 2.43H, Estimat Glomerular Filtration Rate 27, BUN/Creatinine Ratio 10, Glucose Level 111H, Calcium Level 7.8L, Corrected Calcium 8.9, Phosphorus Level 4.8H, Magnesium Level 2.0, Total Bilirubin 0.4, Aspartate Amino Transf (AST/SGOT) 32, Alanine Aminotransferase (ALT/SGPT) 17, Alkaline Phosphatase 109, Troponin I 0.322*H, Total Protein 5.7L, Albumin 2.6L 08/15/20 05:00: Prothrombin Time 14.1, INR Comment 1.1, Activated Partial Thromboplast Time 54H, Lactic Acid Level 0.81 08/15/20 08:12: Urine Color YELLOW, Urine Clarity CLEAR, Urine pH 6.5, Urine Specific [place] 1.025H, Urine Protein 3+H, Urine Glucose (UA) TRACEH, Urine Ketones 1+H, Urine Nitrite NEGATIVE, Urine Bilirubin NEGATIVE, Urine Urobilinogen 0.2, Urine Leukocyte Esterase NEGATIVE, Urine RBC (Auto) 1+H, Urine RBC 0-2, Urine WBC NONE, Urine Crystals NONE, Urine Bacteria NEGATIVE, Urine Casts NONE, Urine Mucus NEGATIVE, Urine Culture Indicated NO 08/15/20 14:02: Glucometer 155H Microbiology 08/14/20 MRSA Screen - Final, Complete MRSA not isolated Laboratory Tests 08/14/20 02:00 08/15/20 03:10 A/P: Assessment: Confused this morning - awaiting CT of the head - this is being managed by Dr Tam Malignant hypertension associated with acute renal failure (MARYANN 2 - 3) on CKD (by history) and pulmonary edema (acute diastolic CHF) Echocardiogram of Aug 13, [address] Burgos showed LVEF 50-55%. Concentric hypertrophy. Grade 2 diastolic dysfunction. Mild aortic stenosis. Mild to mod TR. PASP 40-45mmHg Mild elevation in troponin, type II myocardial infarction secondary to malignant hypertension and hypertensive heart disease HTN - not well controlled H/O heavy ETOH abuse Plan: Complex management due to multiple comorbidities and inability to cooperate with treatment (spat pills out this am) Replace electrolytes Worsening renal function, monitor [id number] H/O ETOH abuse IV diuretics as indicated Change oral antihypertensives to IV until able to take oral Further recs will be based on his hospital course We have reviewed Dr. Burgos's progress notes DEANNA FLORES MD FACP FAC CCDS Aug 15, 2020 14:37
--- NOTE | 2020-08-15 16:31 | Diagnostic Imaging Report ---
Clinical Indication: Patient with hypertension and confusion. Exam: Axial CT scan of the brain without IV contrast with coronal and sagittal reformatted images. Auto Exposure Controls were utilized during the CT exam to meet ALARA standards for radiation dose reduction. Comparison: None. Findings: There is skull streak artifact which obscures portions of the brainstem, posterior fossa, and portions of the brain near the skull. There is no evidence of acute cerebral infarct, intracranial hemorrhage, or gross mass effect. The brain parenchymal volume appears appropriate for patient's age. There are small patchy areas of low-attenuation white matter changes involving both cerebral hemispheres, likely representing chronic small vessel ischemic disease. Likely mildly prominent perivascular space in the left basal ganglia region versus chronic lacunar infarct. There is normal cross-white matter distinction. There is no significant midline shift or herniation. There is no evidence of hydrocephalus. The basal cisterns are unremarkable. The skull, extracranial soft tissue, and orbits are unremarkable. There is mild mucosal thickening involving the ethmoid sinus. Temporal bones show no significant abnormality. Impression: 1: There is no evidence of acute intracranial process. 2: Age-related brain parenchymal changes with chronic small vessel ischemic disease. 3: There is mild paranasal sinus disease involving the ethmoid sinus. Dictated by: Dictated on workstation # [id number]
[2020-08-16] MEDS: LORazepam INJ 2 MG/ML (ATIVAN) VIAL IV PRN ×4 (00:35→11:37)
[2020-08-16] MEDS: DexMEDEtomidine PRE MIX 100 ML IV SCH (02:54)
[2020-08-16 02:57] LABS: BASOPHILS % (AUTO) 0 % (0-10); EOSINOPHILS # (AUTO) 0.2 10^3/uL (0.0-0.3); EOSINOPHILS % (AUTO) 2 % (0-10); HEMATOCRIT 27 % (40-54); HEMOGLOBIN 8.8 g/dL (13.3-17.7); LYMPHOCYTES # (AUTO) 0.9 10^3/uL (1.0-4.0); LYMPHOCYTES % (AUTO) 11 % (12-44); MEAN CORPUSCULAR HEMOGLOBIN 36 pg (25-34); MEAN CORPUSCULAR HGB CONC 33 g/dL (32-36); MEAN CORPUSCULAR VOLUME 110 fL (80-99); MEAN PLATELET VOLUME 9.5 fL (9.0-12.2); MONOCYTES # (AUTO) 0.6 10^3/uL (0.0-1.0); MONOCYTES % (AUTO) 7 % (0-12); NEUTROPHILS # (AUTO) 6.2 10^3/uL (1.8-7.8); NEUTROPHILS % (AUTO) 78 % (42-75); PLATELET COUNT 277 10^3/uL (130-400); WHITE BLOOD COUNT 7.9 10^3/uL (4.3-11.0)
[2020-08-16 03:08] LABS: POTASSIUM 3.2 MMOL/L (3.6-5.0)
[2020-08-16 03:09] LABS: CALCIUM 7.8 MG/DL (8.5-10.1)
[2020-08-16 03:13] LABS: CREATININE SERUM 2.03 MG/DL (0.60-1.30); PHOSPHORUS 3.5 MG/DL (2.3-4.7)
[2020-08-16 03:16] LABS: MAGNESIUM 2.6 MG/DL (1.6-2.4)
[2020-08-16] MEDS: POTASSIUM CL 10MEQ/50ML IVPB 50 ML IV SCH ×3 (03:28→05:46)
[2020-08-16] MEDS: LACTATED RINGERS 1,000 ML IV SCH (03:36)
--- NOTE | 2020-08-16 03:49 | Pulmonary Progress Note ---
ALEXANDRU PEDRO,MED STUDENT 08/16/20 0349: Subjective Date Seen by a Provider: Aug 16, 2020 Time Seen by a Provider: 03:00 Subjective/Events-last exam Continues to be agitated and confused Received 2mg Ativan this am Systolic pressures remain elevated in the 160's On labetalol 10mg Q4H and Hydralazine 10mg Q6H Sepsis Event Evaluation Height, Weight, BMI Height: '" Weight: lbs. oz. kg; 29.33 BMI Method: Focused Exam Lactate Level 08/15/20 05:00: Lactic Acid Level 0.81 Time of Focused Exam: 09:55 Exam Exam Vital Signs Date Time Temp Pulse Resp B/P (MAP) Pulse Ox O2 Delivery O2 Flow Rate FiO2 08/16/20 02:54 72 169/39 08/16/20 00:00 35.8 08/15/20 23:53 72 170/42 08/15/20 23:00 74 21 92 Nasal Cannula 3.00 08/15/20 22:00 75 22 93 Nasal Cannula 3.00 08/15/20 21:00 75 20 93 Nasal Cannula 3.00 08/15/20 21:00 93 Nasal Cannula 3.00 08/15/20 20:51 75 170/49 08/15/20 20:00 36.0 08/15/20 20:00 75 23 93 Nasal Cannula 3.00 08/15/20 19:00 73 22 94 Nasal Cannula 3.00 08/15/20 19:00 74 08/15/20 18:46 93 Nasal Cannula 2.00 08/15/20 18:00 73 22 94 Nasal Cannula 1.00 08/15/20 17:59 75 19 168/48 94 Nasal Cannula 1.00 08/15/20 17:00 76 21 92 Nasal Cannula 1.00 08/15/20 16:00 78 22 91 Nasal Cannula 1.00 08/15/20 15:30 Nasal Cannula 1.00 08/15/20 15:05 94 Vapotherm 25.00 25 08/15/20 15:00 81 30 97 Vapotherm 25.00 25.00 08/15/20 14:00 78 170/58 08/15/20 14:00 80 50 91 Vapotherm 25.00 25.00 08/15/20 13:00 75 19 93 Vapotherm 25.00 25.00 08/15/20 12:53 75 08/15/20 12:00 75 20 92 Vapotherm 25.00 25.00 08/15/20 11:00 76 25 92 Vapotherm 25.00 25.00 08/15/20 10:27 92 Vapotherm 25.00 08/15/20 10:00 73 20 93 Vapotherm 25.00 25.00 08/15/20 09:00 94 Vapotherm 25.00 08/15/20 09:00 75 19 92 Vapotherm 25.00 25.00 08/15/20 08:44 75 19 158/42 High Flow NC 25.00 08/15/20 08:00 79 20 92 Vapotherm 25.00 25.00 08/15/20 07:59 36.0 08/15/20 07:40 94 High Flow N/C 25.00 08/15/20 07:00 83 20 95 Vapotherm 25.00 25.00 08/15/20 06:43 80 08/15/20 06:00 84 22 181/70 Vapotherm 25.00 25.00 08/15/20 05:16 36.7 107 25 196/86 94 25.00 08/15/20 05:14 36.7 08/15/20 05:00 80 175/70 86 Vapotherm 25.00 25.00 08/15/20 04:00 80 186/72 94 Vapotherm 25.00 25.00 I & O 08/16/20 07:00 Intake Total 1500 ml Output Total 1000 ml Balance 500 ml Height & Weight Height: '" Weight: lbs. oz. kg; 29.33 BMI Method: General Appearance: Mild Distress, Thin HEENT: Normal ENT Inspection, Moist Mucous Membranes Neck: Full Range of Motion, Normal Inspection, Supple, Carotid Bruit Respiratory: Lungs Clear, Normal Breath Sounds, No Accessory Muscle Use, No Respiratory Distress Cardiovascular: Regular Rate, Rhythm Capillary Refill: Less Than 3 Seconds Gastrointestinal: non tender, soft Extremity: Normal Capillary Refill, Normal Inspection, Normal Range of Motion, No Pedal Edema Neurologic/Psychiatric: Alert, Oriented x3, No Motor/Sensory Deficits, Normal Mood/Affect Skin: Normal Color, Warm/Dry Lymphatic: No Adenopathy Results Lab Laboratory Tests 08/15/20 03:10 08/16/20 02:45 Assessment/Plan Assessment/Plan Acute respiratory failure -extubated on 08/14 -now off vapotherm, currently on 3L nc Probable alcohol withdrawal -Start CIWA Metabolic encephalopathy Acute CHFAE diastolic dysfunction -S/p Nitro gtt Hypokalemia -Improved -Continue to monitor Right > Left pleural effusion -Continue Lasix HTN urgency -Monitor -Continue current meds -On Labetalol 10mg Q4H and Hydralazine 10mg Q6H GI/DVT PPX -Currently on theraputic dose lovenox and Pepcid JAMAAL TAMEZ DO 08/16/20 0526: Assessment/Plan Assessment/Plan Acute respiratory failure -extubated on 08/14 -now off vapotherm, currently on 3L nc Probable alcohol withdrawal - CIWA -D/C precedex Metabolic encephalopathy Acute CHFAE diastolic dysfunction -S/p Nitro gtt Hypokalemia -Improved -Continue to monitor Right > Left pleural effusion -Continue Lasix HTN urgency -Monitor -Continue current meds -On Labetalol 10mg Q4H and Hydralazine 10mg Q6H GI/DVT PPX -Currently on theraputic dose lovenox and Pepcid Supervisory-Addendum Brief Verification & Attestation Participated in pt care: history, MDM, physical Personally performed: exam, history, MDM, supervision of care Care discussed with: Medical Student Procedures: n/a Results interpretation: Verified all documentation Verification and Attestation of Medical Student E/M Service A medical student performed and documented this service in my presence. I reviewed and verified all information documented by the medical student and made modifications to such information, when appropriate. I personally performed the physical exam and medical decision making. Jamaal Tamez, Aug 30, 2020,16:14 ALEXANDRU PEDRO,MED STUDENT Aug 16, 2020 03:49 JAMAAL TAMEZ DO Aug 16, 2020 05:26
[2020-08-16] MEDS: CEFEPIME INJECTION 1,000 MG in WATER (STERILE) FOR INJECTION 10 ML IV SCH (04:05)
[2020-08-16] MEDS: KCL 20 MEQ TAB (K-DUR) PO SCH (05:46)
[2020-08-16] MEDS: MAGNESIUM 1 GM/100 ML IVPB 100 ML IV SCH (05:46)
[2020-08-16] MEDS: meTOprolol 5 MG/5 ML (LOPRESSOR) VIAL IV SCH (05:53)
--- NOTE | 2020-08-16 06:28 | NUR ---
ARTLINE AND CENTRAL LINE REMOVED AT THIS TIME PER ORDERS FROM DR KINNEY
[2020-08-16] MEDS: RT-ALBUTEROL SULF 2.5 MG/3 ML PRE-MIX VIAL INH SCH ×3 (07:12→19:32)
[2020-08-16] MEDS: ASPIRIN E.C. 81 MG (ECOTRIN) TAB PO SCH (08:31)
[2020-08-16] MEDS: amLODIPine 5 MG (NORVASC) TAB PO SCH (08:31)
[2020-08-16] MEDS ORDERED: meTOprolol TARTRATE 50 MG (LOPRESSOR) TAB ONE (08:35)
[2020-08-16] MEDS: ENOXAPARIN 30 MG/0.3 ML (LOVENOX) SYR SC SCH (08:44)
[2020-08-16] MEDS: meTOproloL SUCCINATE 50 MG (TOPROL XL) TAB PO SCH (08:44)
[2020-08-16] MEDS: THIAMINE INJECTION 100 MG, FOLIC ACID INJECTION 1 MG, MAGNESIUM SULFATE 2 GM, VITAMIN M... IV SCH ×5 (08:44)
[2020-08-16] MEDS: SENNA W/DOCUSATE (SENOKOT S) TABLET PO SCH ×2 (08:44→20:03)
[2020-08-16] MEDS: PANTOPRAZOLE 40 MG (PROTONIX) VIAL IV SCH (08:44)
[2020-08-16] MEDS: HALOPERIDOL 5 MG/ML (HALDOL) VIAL IV PRN ×2 (09:03→17:26)
--- NOTE | 2020-08-16 09:18 | Diagnostic Imaging Report ---
INDICATION: Confusion, hypertensive urgency. TECHNIQUE: Single view chest 8:06 AM. CORRELATION STUDY: 08/15/2020 FINDINGS: Heart size remains enlarged. Pulmonary vascular congestion with perihilar edema persisting. Opacities over the mid and lower lung rivera are present indeterminate between edema versus infiltrate. Small effusions. IMPRESSION: 1. Findings of a pulmonary vascular congestion with perihilar and pulmonary edema persisting. Overall severity edema may be slightly diminished from prior. Superimposed infiltrate would be difficult to exclude. Pleural effusions also appear slightly diminished. Dictated by: Dictated on workstation # [id number]
[2020-08-16 09:33] VITALS: BP 179/78
--- NOTE | 2020-08-16 10:30 | Progress Note - Cardiology ---
Cardiology SOAP Progress Note Subjective: More alert and co-operative today. Conversation still nonsensical Objective: I&O/Vital Signs 08/17/20 08/17/20 00:04 07:01 Temp 37.0 Pulse 101 Resp 26 B/P (MAP) 211/88 (129) Pulse Ox 97 92 O2 Delivery High Flow N/C High Flow N/C O2 Flow Rate 8.00 8.00 08/17/20 00:00 Intake Total 225 ml Output Total 800 ml Balance -575 ml Constitutional: well-developed, well-nourished, other (alert; confused) Respiratory: No accessory muscle use, No respiratory distress; chest expansion is symmetric, chest is bilaterally symmetric, other (diminished throughout; dyspneic with conversation) Cardiovascular: regular rate-rhythm; No JVD; S1 and S2, systolic murmur (soft) Gastrointestional: No tender; soft, round, audible bowel sounds Extremities: swelling (mild LE swelling) Neurologic/Psychiatric: other (moves extremities; awake, unable to obtain any information, mumbled speech) Skin: No rash on exposed areas, No ulcerations on exposed areas Results/Procedures: Labs Laboratory Tests 08/17/20 05:32: White Blood Count 9.6, Red Blood Count 2.61L, Hemoglobin 9.5L, Hematocrit 30L, Mean Corpuscular Volume 115H, Mean Corpuscular Hemoglobin 36H, Mean Corpuscular Hemoglobin Concent 32, Red Cell Distribution Width 13.6, Platelet Count 318, Mean Platelet Volume 9.7, Immature Granulocyte % (Auto) 1, Neutrophils (%) (Auto) 75, Lymphocytes (%) (Auto) 11L, Monocytes (%) (Auto) 10, Eosinophils (%) (Auto) 3, Basophils (%) (Auto) 0, Neutrophils # (Auto) 7.2, Lymphocytes # (Auto) 1.0, Monocytes # (Auto) 1.0, Eosinophils # (Auto) 0.3, Basophils # (Auto) 0.0, Immature Granulocyte # (Auto) 0.1, Sodium Level 143, Potassium Level 3.1L, Chloride Level 110H, Carbon Dioxide Level 18L, Anion Gap 15H, Blood Urea Nitrogen 25H, Creatinine 1.82H, Estimat Glomerular Filtration Rate 37, BUN/Creatinine Ratio 14, Glucose Level 96, Calcium Level 8.1L, Phosphorus Level 3.0, Magnesium Level 2.4 Microbiology 08/15/20 Blood Culture - Preliminary, Resulted No growth 08/14/20 MRSA Screen - Final, Complete MRSA not isolated Procedures NAME: DANNY CARMONA [facility] REC#: [id number] PT STATUS: ADM IN : 1955 PHYSICIAN: KIMBERLEE MENJIVAR DO ADMIT DATE: 08/12/20/ICU Signed Date of Exam:08/16/20 CHEST 1 VIEW, AP/PA ONLY INDICATION: Confusion, hypertensive urgency. TECHNIQUE: Single view chest 8:06 AM. CORRELATION STUDY: 08/15/2020 FINDINGS: Heart size remains enlarged. Pulmonary vascular congestion with perihilar edema persisting. Opacities over the mid and lower lung rivera are present indeterminate between edema versus infiltrate. Small effusions. IMPRESSION: 1. Findings of a pulmonary vascular congestion with perihilar and pulmonary edema persisting. Overall severity edema may be slightly diminished from prior. Superimposed infiltrate would be difficult to exclude. Pleural effusions also appear slightly diminished. Dictated by: Dictated on workstation # [id number] Dict: 08/16/20905 Trans: 08/16/20932 [facility] [id number] Interpreted by: PAULA NATH DO Electronically signed by: PAULA NATH DO 08/16/2033 NAME: DANNY CARMONA [facility] REC#: [id number] PT STATUS: ADM IN : 1955 PHYSICIAN: KIMBERLEE MENJIVAR DO ADMIT DATE: 08/12/20/ICU Signed Date of Exam:08/15/20 CT HEAD WO Clinical Indication: Patient with hypertension and confusion. Exam: Axial CT scan of the brain without IV contrast with coronal and sagittal reformatted images. Auto Exposure Controls were utilized during the CT exam to meet ALARA standards for radiation dose reduction. Comparison: None. Findings: There is skull streak artifact which obscures portions of the brainstem, posterior fossa, and portions of the brain near the skull. There is no evidence of acute cerebral infarct, intracranial hemorrhage, or gross mass effect. The brain parenchymal volume appears appropriate for patient's age. There are small patchy areas of low-attenuation white matter changes involving both cerebral hemispheres, likely representing chronic small vessel ischemic disease. Likely mildly prominent perivascular space in the left basal ganglia region versus chronic lacunar infarct. There is normal cross-white matter distinction. There is no significant midline shift or herniation. There is no evidence of hydrocephalus. The basal cisterns are unremarkable. The skull, extracranial soft tissue, and orbits are unremarkable. There is mild mucosal thickening involving the ethmoid sinus. Temporal bones show no significant abnormality. Impression: 1: There is no evidence of acute intracranial process. 2: Age-related brain parenchymal changes with chronic small vessel ischemic disease. 3: There is mild paranasal sinus disease involving the ethmoid sinus. Dictated by: Dictated on workstation # [id number] Dict: 08/15/201618 Trans: 08/15/201728 [facility] [phone] Interpreted by: HOSSEIN PANDYA MD Electronically signed by: HOSSEIN PANDYA MD 08/15/201728 A/P: Assessment: Confusion improving - this is being managed by Dr Menjivar Malignant hypertension associated with acute renal failure (MARYANN 2 - 3) on CKD (by history) and pulmonary edema (acute diastolic CHF) Echocardiogram of Aug 13, [address] Burgos showed LVEF 50-55%. Concentric hypertrophy. Grade 2 diastolic dysfunction. Mild aortic stenosis. Mild to mod TR. PASP 40-45mmHg Mild elevation in troponin, type II myocardial infarction secondary to malignant hypertension and hypertensive heart disease HTN - not well controlled H/O heavy ETOH abuse Plan: Complex management due to multiple comorbidities and inability to cooperate with treatment (spat pills out this am) Replace electrolytes as indicated Renal function improved today H/O ETOH abuse IV diuretics as indicated HTN not well controlled - increase antihypertensives - taking oral medications now DESTIN SALAZAR Aug 16, 2020 10:30
[2020-08-16] MEDS ORDERED: meTOprolol SUCCINATE 100 MG (TOPROL XL) TAB PO ONE (10:45)
[2020-08-16] MEDS ORDERED: FUROSEMIDE 40 MG/4 ML INJ (LASIX) IVP ONE (10:45)
[2020-08-16] MEDS: risperiDONE 1 MG (RisperDAL) TAB PO SCH ×2 (11:31→20:03)
--- NOTE | 2020-08-16 12:54 | Progress Note - Hospitalist ---
JAK ALFARO MED STUDENT 08/16/20 1254: Subjective HPI/CC On Admission Date Seen by Provider: Aug 16, 2020 Time Seen by Provider: 10:00 CC: Acute respiratory failure presumed flash pulmonary edema HPI: This is a 64[facility]WM patient [facility] w/h/o HTN and HLP and no h/o cardiac issues who was originally admitted to my service [place] [facility] yesterday [place] due to HTN urgency of 240/140 along with MARYANN creat 1.8, new hypoxia of 70% and elevated d-dimer unable to confirm presumed PE with CT angiogram of the chest due to elevated creatinine, RLL PNA and elevated BNP. Due to COVID pandemic and no ICU beds in the area I admitted him to the ICU placed him on NTG drip and titrated up for SBP 160's attained along with Cefepime and Zmax for PNA treatment along with Lovenox for presumed PE treatment. UOP was satisfactory through the night after Lasix IV given. Troponin remained negative but EKG this morning showed new ST depression without complaints to CP so I made arrangements to move him to ICU for Cardiology care and I conferred prior to transport. Apparently patient was 2 miles out from [facility] and paramedics noted an abrupt change requiring arrival to ICU in major distress prompting a call to Dr Burgos and the decision was made to intubate due to severe distress and hypoxia and coarse breath sounds. Lasix 40mg IV given immediately and hubbard cath placed. Etomidate and Rocuronium for rapid induction to intubate and ETT tube placed without difficulty via direct visualization. EICU will be consulted for vent management. COVID negative at [facility]. Subjective/Events-last exam González was hysterical and was unable to answer most questions Stated that the only pain he had was of happiness because "his children found God" He was given 2mg Ativan early in the morning due to confusion and aggitation His central line and arterial lines were removed CT performed yesterday came back negative His family is looking for his advanced directive at his house BP was high at 179/78 The nurse was able to get him to take some of his PO medications but he continues to spit them out most of the time Review of Systems Neurological: Incoordination, Change in speech, Confusion Focused Exam Lactate Level 08/15/20 05:00: Lactic Acid Level 0.81 Time of Focused Exam: 09:55 Respiratory: Chest Non Tender, Lungs Clear, Normal Breath Sounds, No Accessory Muscle Use, No Respiratory Distress Cardiovascular: Regular Rate, Rhythm, No Edema, No Gallop, No JVD, No Murmur, Normal Peripheral Pulses Skin: normal color, warm/dry Objective Exam Vital Signs Vital Signs Date Time Temp Pulse Resp B/P (MAP) Pulse Ox O2 Delivery O2 Flow Rate FiO2 08/16/20 11:24 95 Vapotherm 25.00 40 08/16/20 09:33 35.8 70 08/16/20 06:00 25 179/78 Capillary Refill : Less Than 3 Seconds General Appearance: Anxious, Chronically ill, Moderate Distress HEENT: PERRL/EOMI Neck: Full Range of Motion Respiratory: Chest Non Tender, Lungs Clear, Normal Breath Sounds, No Accessory Muscle Use, No Respiratory Distress Cardiovascular: Regular Rate, Rhythm, No Edema, No Gallop, No JVD, No Murmur, Normal Peripheral Pulses Neurologic/Psychiatric: Disoriented, Other (hysterical) Skin: Normal Color, Warm/Dry Results/Procedures Lab Laboratory Tests 08/16/20 02:45 Patient resulted labs reviewed. Assessment/Plan Assessment and Plan Assess & Plan/Chief Complaint Assessment: hypertension Plan: 08/15:CT of brain without contrast PO medication assistance 08/16: alcohol withdrawl protocol PO medication assistance Time spent with patient (mins): 10 Diagnosis/Problems Diagnosis/Problems (1) Acute encephalopathy Status: Acute Assessment & Plan: CT of brain without contrast (2) Hypertensive urgency, malignant Clinical Quality Measures DVT/VTE Risk/Contraindication: Risk Factor Score Per Nursin RFS Level Per Nursing on Admit: 4+=Very High NIKIA MENJIVAR DO 08/16/202103: Subjective Subjective/Events-last exam Pt responding to Haldol Ativan made him worse Alcohol withdrawal is the possibility of the source of the altered mental a status so sonia maintain on protocol Haldol will be given on schedule along with Risperdal Appreciate Dr. Tamez Review of Systems General: Fatigue Objective Exam General Appearance: WD/WN, Anxious, Chronically ill Respiratory: Lungs Clear Cardiovascular: Regular Rate, Rhythm Neurologic/Psychiatric: Disoriented Assessment/Plan Assessment and Plan Assess & Plan/Chief Complaint Antipsychotics Supervisory-Addendum Brief Verification & Attestation Participated in pt care: history, MDM, physical Personally performed: exam, history, MDM, supervision of care Care discussed with: Medical Student Procedures: n/a Results interpretation: Verified all documentation Verification and Attestation of Medical Student E/M Service A medical student performed and documented this service in my presence. I reviewed and verified all information documented by the medical student and made modifications to such information, when appropriate. I personally performed the physical exam and medical decision making. Nikia Menjivar, Aug 16, 2020,21:03 JAK ALFARO MED STUDENT Aug 16, 2020 12:54 NIKIA MENJIVAR DO Aug 16, 2020 21:04
--- NOTE | 2020-08-16 14:45 | NUR ---
patient to floor at this time.
[2020-08-16] MEDS: LABETALOL HCL 20 MG/4 ML VIAL IV PRN ×2 (15:03→22:13)
--- NOTE | 2020-08-16 16:31 | Progress Note - Cardiology ---
Cardiology SOAP Progress Note Subjective: Does not report cp or palp or syncope or shortness of breath but was somewhat confused at time of my exam and responses were not reliable Objective: I&O/Vital Signs 08/16/20 08/16/20 08/16/20 08/16/20 05:00 06:00 06:29 07:12 Pulse 71 70 70 Resp 19 25 B/P (MAP) 179/78 Pulse Ox 94 92 92 O2 Delivery Nasal Cannula Nasal Cannula Nasal Cannula O2 Flow Rate 3.00 3.00 3.00 08/16/20 08/16/20 08/16/20 08/16/20 08:00 09:00 09:33 10:30 Temp 35.8 Pulse 81 70 Resp 20 B/P (MAP) 170/67 Pulse Ox 93 94 92 94 O2 Delivery Nasal Cannula Nasal Cannula Vapotherm O2 Flow Rate 3.00 3.00 25.00 FiO2 40 08/16/20 08/16/20 08/16/20 08/16/20 11:24 12:00 12:32 14:50 Temp 36.3 Pulse 99 94 110 Resp 31 24 B/P (MAP) 183/87 186/84 Pulse Ox 95 94 96 O2 Delivery Vapotherm Nasal Cannula Vapotherm O2 Flow Rate 25.00 3.00 25.00 30.00 FiO2 40 08/16/20 08/16/20 15:32 16:28 Pulse Ox 95 97 O2 Delivery Vapotherm High Flow N/C O2 Flow Rate 25.00 8.00 FiO2 40 08/16/20 00:00 Intake Total 450 ml Output Total 550 ml Balance -100 ml Constitutional: well-developed, well-nourished, other (alert; confused) Respiratory: No accessory muscle use, No respiratory distress; chest expansion is symmetric, chest is bilaterally symmetric, other (diminished throughout; dyspneic with conversation) Cardiovascular: regular rate-rhythm; No JVD; S1 and S2, systolic murmur (soft) Gastrointestional: No tender; soft, round, audible bowel sounds Extremities: swelling (mild LE swelling) Neurologic/Psychiatric: other (moves extremities; awake, unable to obtain any information, mumbled speech) Skin: normal color, warm/dry Results/Procedures: Labs Laboratory Tests 08/15/20 18:09: Glucometer 154H 08/16/20 02:45: White Blood Count 7.9, Red Blood Count 2.44L, Hemoglobin 8.8L, Hematocrit 27L, Mean Corpuscular Volume 110H, Mean Corpuscular Hemoglobin 36H, Mean Corpuscular Hemoglobin Concent 33, Red Cell Distribution Width 13.3, Platelet Count 277, Mean Platelet Volume 9.5, Immature Granulocyte % (Auto) 0, Neutrophils (%) (Auto) 78H, Lymphocytes (%) (Auto) 11L, Monocytes (%) (Auto) 7, Eosinophils (%) (Auto) 2, Basophils (%) (Auto) 0, Neutrophils # (Auto) 6.2, Lymphocytes # (Auto) 0.9L, Monocytes # (Auto) 0.6, Eosinophils # (Auto) 0.2, Basophils # (Auto) 0.0, Immature Granulocyte # (Auto) 0.0, Sodium Level 143, Potassium Level 3.2L, Chloride Level 112H, Carbon Dioxide Level 18L, Anion Gap 13, Blood Urea Nitrogen 28H, Creatinine 2.03H, Estimat Glomerular Filtration Rate 33, BUN/Creatinine Ratio 14, Glucose Level 135H, Calcium Level 7.8L, Phosphorus Level 3.5, Magnesium Level 2.6H Microbiology 08/15/20 Blood Culture - Preliminary, Resulted No growth 08/14/20 MRSA Screen - Final, Complete MRSA not isolated Laboratory Tests 08/15/20 03:10 08/16/20 02:45 A/P: Assessment: Confusion improving - this is being managed by Dr Tam Malignant hypertension associated with acute renal failure (MARYANN 2 - 3) on CKD (by history) and pulmonary edema (acute diastolic CHF) Echocardiogram of Aug 13, [address] Burgos showed LVEF 50-55%. Concentric hypertrophy. Grade 2 diastolic dysfunction. Mild aortic stenosis. Mild to mod TR. PASP 40-45mmHg Mild elevation in troponin, type II myocardial infarction secondary to malignant hypertension and hypertensive heart disease HTN - not well controlled H/O heavy ETOH abuse Plan: Complex management due to multiple comorbidities and inability to cooperate with treatment (spat pills out this am) Replace electrolytes as indicated Renal function improved today H/O ETOH abuse IV diuretics as indicated HTN not well controlled - increase antihypertensives - taking oral medications now DEANNA FLORES MD FACP FAC CCDS Aug 16, 2020 16:31
[2020-08-16] MEDS: hydrALAZINE (APESOLINE) 20 MG/ML VIAL IV PRN (20:02)
[2020-08-16] MEDS: MELATONIN 3 MG TABLET PO PRN (20:03)
[2020-08-16] MEDS ORDERED: HALOPERIDOL 5 MG/ML (HALDOL) VIAL IV ONE (21:00)
[2020-08-16] MEDS: ACETAMINOPHEN 500 MG TAB (TYLENOL) PO PRN (22:13)
[2020-08-17 00:04] VITALS: BP 211/88
[2020-08-17] MEDS: LACTATED RINGERS 1,000 ML IV SCH ×4 (01:03→19:19)
--- NOTE | 2020-08-17 03:00 | NUR ---
PT noted to be resting in bed with eyes open. No behaviors noted this shift. per Report from mikayla Atdavina noted to agitate pt, Ativan per [facility] protocol not administered this shift.
[2020-08-17] MEDS: hydrALAZINE (APESOLINE) 20 MG/ML VIAL IV PRN ×2 (04:15→23:54)
[2020-08-17 05:47] LABS: BASOPHILS % (AUTO) 0 % (0-10); EOSINOPHILS # (AUTO) 0.3 10^3/uL (0.0-0.3); EOSINOPHILS % (AUTO) 3 % (0-10); HEMATOCRIT 30 % (40-54); HEMOGLOBIN 9.5 g/dL (13.3-17.7); LYMPHOCYTES % (AUTO) 11 % (12-44); MEAN CORPUSCULAR HEMOGLOBIN 36 pg (25-34); MEAN CORPUSCULAR HGB CONC 32 g/dL (32-36); MEAN CORPUSCULAR VOLUME 115 fL (80-99); MEAN PLATELET VOLUME 9.7 fL (9.0-12.2); MONOCYTES % (AUTO) 10 % (0-12); NEUTROPHILS # (AUTO) 7.2 10^3/uL (1.8-7.8); NEUTROPHILS % (AUTO) 75 % (42-75); PLATELET COUNT 318 10^3/uL (130-400); WHITE BLOOD COUNT 9.6 10^3/uL (4.3-11.0)
[2020-08-17] MEDS: LABETALOL HCL 20 MG/4 ML VIAL IV PRN (06:05)
[2020-08-17 06:13] LABS: POTASSIUM 3.1 MMOL/L (3.6-5.0)
[2020-08-17 06:14] LABS: CALCIUM 8.1 MG/DL (8.5-10.1)
[2020-08-17 06:18] LABS: CREATININE SERUM 1.82 MG/DL (0.60-1.30)
[2020-08-17 06:21] LABS: MAGNESIUM 2.4 MG/DL (1.6-2.4)
[2020-08-17] MEDS: RT-ALBUTEROL SULF 2.5 MG/3 ML PRE-MIX VIAL INH SCH ×3 (07:01→21:07)
--- NOTE | 2020-08-17 07:38 | Diagnostic Imaging Report ---
Indication: Hypertension. COMPARISON: 08/16/2020 FINDINGS: Single frontal radiograph view of the chest was obtained and demonstrates persistent moderate cardiomegaly and pulmonary vascular congestion. There is also persistent diffuse prominence of the interstitium. Mild bibasilar effusions are also present and appears slightly increased on the right. Otherwise, aeration does appear slightly improved. There is no pneumothorax on either side. Osseous structures show no gross acute abnormalities. IMPRESSION: 1. Small bibasilar effusions with interval increase on the right. 2. Overall slight improved aeration, but with persistent cardiomegaly with probable pulmonary vascular congestion and interstitial edema. Dictated by: Dictated on workstation # [id number]
[2020-08-17 08:00] VITALS: BP 215/93
[2020-08-17] MEDS ORDERED: meTOprolol SUCCINATE 100 MG (TOPROL XL) TAB PO SCH (09:00)
[2020-08-17] MEDS: PANTOPRAZOLE 40 MG (PROTONIX) VIAL IV SCH (09:10)
[2020-08-17] MEDS: ENOXAPARIN 40 MG/0.4 ML (LOVENOX) SYR SC SCH (09:12)
[2020-08-17] MEDS: ASPIRIN E.C. 81 MG (ECOTRIN) TAB PO SCH (09:13)
[2020-08-17] MEDS: amLODIPine 5 MG (NORVASC) TAB PO SCH (09:15)
[2020-08-17] MEDS: SENNA W/DOCUSATE (SENOKOT S) TABLET PO SCH ×2 (09:15→20:57)
[2020-08-17] MEDS: THIAMINE INJECTION 100 MG, FOLIC ACID INJECTION 1 MG, MAGNESIUM SULFATE 2 GM, VITAMIN M... IV SCH ×5 (09:44)
[2020-08-17] MEDS: risperiDONE 1 MG (RisperDAL) TAB PO SCH ×2 (09:44→20:57)
[2020-08-17] MEDS ORDERED: meTOprolol SUCCINATE 100 MG (TOPROL XL) TAB PO NR (09:45)
--- NOTE | 2020-08-17 09:52 | Progress Note - Cardiology ---
Cardiology SOAP Progress Note Subjective: Sitting up in bed. Answers questions appropriately, but at times conversation is not appropriate C/O SOB No c/o CP Objective: I&O/Vital Signs 08/17/20 08/17/20 08/17/20 08/18/20 20:55 21:07 23:46 04:12 Temp 37.3 37.4 Pulse 103 109 Resp 18 20 B/P (MAP) 195/84 (121) 221/98 (139) Pulse Ox 94 94 94 95 O2 Delivery High Flow N/C High Flow N/C High Flow N/C High Flow N/C O2 Flow Rate 8.00 8.00 8.00 9.00 08/18/20 07:20 Temp 37.5 Pulse 105 Resp 24 B/P (MAP) 207/84 (125) Pulse Ox 95 O2 Delivery High Flow N/C O2 Flow Rate 9.00 08/18/20 00:00 Intake Total 4615.2 ml Output Total 2300 ml Balance 2315.2 ml Constitutional: well-developed, well-nourished, other (alert; confused) Respiratory: No accessory muscle use, No respiratory distress; chest expansion is symmetric, chest is bilaterally symmetric, other (diminished throughout; dyspneic with conversation) Cardiovascular: regular rate-rhythm; No JVD; S1 and S2, systolic murmur (soft) Gastrointestional: No tender; soft, round, audible bowel sounds Extremities: swelling (mild LE swelling) Neurologic/Psychiatric: other (moves extremities; awake, unable to obtain any information, mumbled speech) Results/Procedures: Labs Laboratory Tests 08/18/20 04:30: White Blood Count 10.1, Red Blood Count 2.42L, Hemoglobin 8.8L, Hematocrit 28L, Mean Corpuscular Volume 115H, Mean Corpuscular Hemoglobin 36H, Mean Corpuscular Hemoglobin Concent 32, Red Cell Distribution Width 13.4, Platelet Count 282, Mean Platelet Volume 9.9, Immature Granulocyte % (Auto) 1, Neutrophils (%) (Auto) 80H, Lymphocytes (%) (Auto) 9L, Monocytes (%) (Auto) 8, Eosinophils (%) (Auto) 2, Basophils (%) (Auto) 0, Neutrophils # (Auto) 8.1H, Lymphocytes # (Auto) 0.9L, Monocytes # (Auto) 0.8, Eosinophils # (Auto) 0.2, Basophils # (Auto) 0.0, Immature Granulocyte # (Auto) 0.1, Sodium Level 143, Potassium Level 3.8, Chloride Level 111H, Carbon Dioxide Level 21, Anion Gap 11, Blood Urea Nitrogen 23H, Creatinine 1.76H, Estimat Glomerular Filtration Rate 39, BUN/Creatinine Ratio 13, Glucose Level 113H, Calcium Level 7.8L, Phosphorus Level 2.7, Magnesium Level 2.6H Microbiology 08/15/20 Blood Culture - Preliminary, Resulted No growth 08/14/20 MRSA Screen - Final, Complete MRSA not isolated A/P: Assessment: Confusion improving - this is being managed by Dr Tam Malignant hypertension associated with acute renal failure (MARYANN 2 - 3) on CKD (by history) and pulmonary edema (acute diastolic CHF) Echocardiogram of Aug 13, [address] Burgos showed LVEF 50-55%. Concentric hypertrophy. Grade 2 diastolic dysfunction. Mild aortic stenosis. Mild to mod TR. PASP 40-45mmHg Mild elevation in troponin, type II myocardial infarction secondary to malignant hypertension and hypertensive heart disease HTN - not well controlled H/O heavy ETOH abuse Plan: Complex management due to multiple comorbidities and inability to cooperate with treatment (spat pills out this am) Replace electrolytes as indicated Renal function improved today H/O ETOH abuse IV diuretics as indicated HTN not well controlled - increase Toprol XL to 200mg, stop Clonidine patch to reduce risk of bradycardia Diastolic dysfunction with diastolic CHF - give IV Lasix and start oral with potassium replacement DESTIN SALAZAR Aug 17, 2020 09:52
[2020-08-17] MEDS ORDERED: FUROSEMIDE 40 MG/4 ML INJ (LASIX) IVP NR (10:00)
[2020-08-17] MEDS ORDERED: KCL 20 MEQ TAB (K-DUR) PO NR (10:00)
[2020-08-17 12:00] VITALS: BP 209/91
[2020-08-17] MEDS ORDERED: KCL 10 MEQ TAB (MICRO K) PO NR ×2 (13:00→16:00)
--- NOTE | 2020-08-17 13:06 | Anesthesia-Procedure Note ---
Procedures/Interventions Procedure Start/Stop/Diagnosis Date of Procedure: Aug 17, 2020 Start Time: 12:20 Preprocedural Diagnosis: NO IV access Brief History Called to [address] [place] [address] for difficult IV start. Patient requiring IV access for hydration. 22g IV started in patient's left foot x1 attempt. Opsite covering, flushes well. Reported off to Tamara Aldana RN. Will be available for further consultation as needed. Stop Time: 12:30 SHAWN CROUCH CRNA Aug 17, 2020 13:06
--- NOTE | 2020-08-17 15:02 | NUR ---
"RD ASSESSMENT PMHx: hypercholesterolemia; BPH; PT INTERACTION: Pt was awake and pleasant during nutrition assessment. Note pt has AMS, per chart review. Pt states current appetite is good. Note pt has been refusing meals, and avg PO intake <25% of meals, per chart review. Pt states following a regular diet at home, and has no issues with chewing/swallowing food. Pt states no recent issues with n/v/c/d. Note last BM was 08/14, and pt currently on bowel regimen of senna BID, per chart review. Pt states some recent wt loss, but is unsure of amount/timeframe. Note unable to determine recent wt hx, per chart review. ABNORMAL NUTRITION-RELATED LAB VALUES LOW: K 3.1; Ca 8.1; HIGH: Cl 110; BUN 25; cr 1.82; Est. kcal needs: 6702-7273 kcal | 20-25 kcal/kg Est. Pro needs: 68-86 g Pro | 0.8-1.0 g Pro/kg PES STATEMENT: Inadequate oral intake (NI-2.1) related to loss of appetite as evidenced by pt interview, pt refusing meals, and avg PO intake <25% meals. INTERVENTION: Continue with current diet order of Heart Healthy diet. Add Ensure Enlive (vary) to meals TID, for increased kcal intake. Provides 350 kcal and 20 g Pro per serving. Encouraged pt to eat when able. Will continue to follow and reassess as pt needs, intake, and status change. Blayne Patterson, MS RD LD [phone] cell"
--- NOTE | 2020-08-17 15:23 | NUR ---
HAVE ATTEMPTED NUMEROUS TIMES THIS AM AND PM TO EVELYN NEAL. IT WORKED ON NOTEBOOK UNABLE TO GET GOOD CONNECTION THIS AM. UNABLE TO REACH SON THIS PM.
[2020-08-17 15:42] VITALS: BP 218/93
--- NOTE | 2020-08-17 16:55 | NUR ---
I HAVE REVIEWED CHARTING OF AREN RN PRECEPTOR AND AGREE WITH DOCUMENTATION.
--- NOTE | 2020-08-17 17:43 | Progress Note ---
Subjective Subjective/Events-last exam Afebrile, remains confused and hypertensive. Focused Exam Lactate Level 08/15/20 05:00: Lactic Acid Level 0.81 Time of Focused Exam: 09:55 Objective Exam Last Set of Vital Signs Vital Signs Date Time Temp Pulse Resp B/P (MAP) Pulse Ox O2 Delivery O2 Flow Rate FiO2 08/17/20 15:42 37.1 95 16 218/93 (134) 95 High Flow N/C 8.00 08/16/20 15:32 40 Capillary Refill : Less Than 3 Seconds I&O Intake and Output 08/17/20 00:00 Intake Total 525 ml Output Total 1405 ml Balance -880 ml Intake Oral 325 ml IV Total 200 ml Output Urine Total 1405 ml # Voids 1 General: Alert, No Acute Distress Lungs: Other (decreased air movement) Heart: Regular Rate Abdomen: Normal Bowel Sounds, Soft Extremities: No Edema Neuro: Other (oriented to self only) Psych/Mental Status: Mood NL Results/Procedures Lab Laboratory Tests 08/17/20 05:32: White Blood Count 9.6, Red Blood Count 2.61L, Hemoglobin 9.5L, Hematocrit 30L, Mean Corpuscular Volume 115H, Mean Corpuscular Hemoglobin 36H, Mean Corpuscular Hemoglobin Concent 32, Red Cell Distribution Width 13.6, Platelet Count 318, Mean Platelet Volume 9.7, Immature Granulocyte % (Auto) 1, Neutrophils (%) (Auto) 75, Lymphocytes (%) (Auto) 11L, Monocytes (%) (Auto) 10, Eosinophils (%) (Auto) 3, Basophils (%) (Auto) 0, Neutrophils # (Auto) 7.2, Lymphocytes # (Auto) 1.0, Monocytes # (Auto) 1.0, Eosinophils # (Auto) 0.3, Basophils # (Auto) 0.0, Immature Granulocyte # (Auto) 0.1, Sodium Level 143, Potassium Level 3.1L, Chloride Level 110H, Carbon Dioxide Level 18L, Anion Gap 15H, Blood Urea Nitrogen 25H, Creatinine 1.82H, Estimat Glomerular Filtration Rate 37, BUN/Creatinine Ratio 14, Glucose Level 96, Calcium Level 8.1L, Phosphorus Level 3.0, Magnesium Level 2.4 Microbiology 08/15/20 Blood Culture - Preliminary, Resulted No growth 08/14/20 MRSA Screen - Final, Complete MRSA not isolated Assessment/Plan Assessment/Plan Assessment & Plan Hypertensive emergency- initially on drip at outside hospital. Currently on PO medications but with prn IV as well and still significantly hypertensive, appreciate Cardiology recommendations. Consider possibly EtOH withdrawal related, but per pt report last alcohol was a month ago, and he has been inpatient for several days as well. Was more agitated with ativan after it was given, so has not received any more. Elevated D-dimer- unable to get CTA due to creatinine, VQ scan without obvious abnormality Hypoxia- unclear etiology, required mechanical ventilation for a time, was down to a few liters, but is back up to 8 lpm requirement today, receiving lasix for CHF, COVID reported negative at prior hospital. CXR today with small bibasilar effusions and persistent cardiomegaly with probable pulmonary vascular congestion and interstitial edema. Diastolic congestive heart failure- receiving lasix, appreciate Cardiology recommendations Elevated troponin- Cardiology consulted, suspect type II cardiac strain DVT ppx- enoxaparin Clinical Quality Measures DVT/VTE Risk/Contraindication: Risk Factor Score Per Nursin RFS Level Per Nursing on Admit: 4+=Very High HEATH DANGELO MD Aug 17, 2020 17:43
--- NOTE | 2020-08-17 17:46 | Progress Note - Cardiology ---
Cardiology SOAP Progress Note Subjective: Responses unreliable because of confusion Denies cp Gen malaise present No palp or syncope or swelling No n/v/d Objective: I&O/Vital Signs 08/17/20 08/17/20 08/17/20 08/17/20 07:01 08:00 09:00 12:00 Temp 36.6 36.5 Pulse 106 100 Resp 24 24 B/P (MAP) 215/93 (133) 209/91 (130) Pulse Ox 92 96 95 O2 Delivery High Flow N/C High Flow N/C High Flow N/C High Flow N/C O2 Flow Rate 8.00 8.00 7.00 8.00 08/17/20 08/17/20 15:05 15:42 Temp 37.1 Pulse 95 Resp 16 B/P (MAP) 218/93 (134) Pulse Ox 92 95 O2 Delivery High Flow N/C High Flow N/C O2 Flow Rate 8.00 8.00 08/17/20 00:00 Intake Total 225 ml Output Total 800 ml Balance -575 ml Constitutional: No AAO x 3; well-developed, well-nourished, other (alert; confused) Respiratory: No accessory muscle use, No respiratory distress; chest expansion is symmetric, chest is bilaterally symmetric, other (diminished throughout; dy spneic with conversation) Cardiovascular: regular rate-rhythm; No JVD; S1 and S2, systolic murmur (soft) Gastrointestional: No tender; soft, round, audible bowel sounds Extremities: swelling (mild LE swelling) Neurologic/Psychiatric: other (moves extremities; awake, unable to obtain any information, mumbled speech) Results/Procedures: Labs Laboratory Tests 08/17/20 05:32: White Blood Count 9.6, Red Blood Count 2.61L, Hemoglobin 9.5L, Hematocrit 30L, Mean Corpuscular Volume 115H, Mean Corpuscular Hemoglobin 36H, Mean Corpuscular Hemoglobin Concent 32, Red Cell Distribution Width 13.6, Platelet Count 318, Mean Platelet Volume 9.7, Immature Granulocyte % (Auto) 1, Neutrophils (%) (Auto) 75, Lymphocytes (%) (Auto) 11L, Monocytes (%) (Auto) 10, Eosinophils (%) (Auto) 3, Basophils (%) (Auto) 0, Neutrophils # (Auto) 7.2, Lymphocytes # (Auto) 1.0, Monocytes # (Auto) 1.0, Eosinophils # (Auto) 0.3, Basophils # (Auto) 0.0, Immature Granulocyte # (Auto) 0.1, Sodium Level 143, Potassium Level 3.1L, Chloride Level 110H, Carbon Dioxide Level 18L, Anion Gap 15H, Blood Urea Nitrogen 25H, Creatinine 1.82H, Estimat Glomerular Filtration Rate 37, BUN/Creatinine Ratio 14, Glucose Level 96, Calcium Level 8.1L, Phosphorus Level 3.0, Magnesium Level 2.4 Microbiology 08/15/20 Blood Culture - Preliminary, Resulted No growth 08/14/20 MRSA Screen - Final, Complete MRSA not isolated Laboratory Tests 08/16/20 02:45 08/17/20 05:32 A/P: Assessment: Confusion improving - this is being managed by Dr Tam Malignant hypertension associated with acute renal failure (MARYANN 2 - 3) on CKD (by history) and pulmonary edema (acute diastolic CHF) Echocardiogram of Aug 13, [address] Burgos showed LVEF 50-55%. Concentric hypertrophy. Grade 2 diastolic dysfunction. Mild aortic stenosis. Mild to mod TR. PASP 40-45mmHg Mild elevation in troponin, type II myocardial infarction secondary to malignant hypertension and hypertensive heart disease HTN - not well controlled H/O heavy ETOH abuse Plan: Complex management due to multiple comorbidities and inability to cooperate with treatment Introduce oral meds as tolerated Replace electrolytes as indicated Renal function improved today H/O ETOH abuse IV diuretics as indicated HTN not well controlled - increase Toprol XL to 200mg, stop Clonidine patch to reduce risk of bradycardia Diastolic dysfunction with diastolic CHF - give IV Lasix and start oral with potassium replacement DEANNA FLORES MD FACP FAC CCDS Aug 17, 2020 17:46
[2020-08-17 19:26] VITALS: BP 207/91
[2020-08-17] MEDS ORDERED: doxAzosin 4 MG (CARDURA) TAB PO SCH (21:00)
[2020-08-17 23:46] VITALS: BP 195/84
[2020-08-18] VITALS (9 sets, daily range): BP systolic 162–221; BP diastolic 71–98
[2020-08-18] MEDS: LABETALOL HCL 20 MG/4 ML VIAL IV PRN ×2 (01:46→17:09)
[2020-08-18] MEDS: RT-ALBUTEROL SULF 2.5 MG/3 ML PRE-MIX VIAL INH SCH ×4 (04:24→19:43)
[2020-08-18] MEDS: LACTATED RINGERS 1,000 ML IV SCH (05:27)
[2020-08-18 05:43] LABS: BASOPHILS % (AUTO) 0 % (0-10); EOSINOPHILS # (AUTO) 0.2 10^3/uL (0.0-0.3); EOSINOPHILS % (AUTO) 2 % (0-10); HEMATOCRIT 28 % (40-54); HEMOGLOBIN 8.8 g/dL (13.3-17.7); LYMPHOCYTES # (AUTO) 0.9 10^3/uL (1.0-4.0); LYMPHOCYTES % (AUTO) 9 % (12-44); MEAN CORPUSCULAR HEMOGLOBIN 36 pg (25-34); MEAN CORPUSCULAR HGB CONC 32 g/dL (32-36); MEAN CORPUSCULAR VOLUME 115 fL (80-99); MEAN PLATELET VOLUME 9.9 fL (9.0-12.2); MONOCYTES # (AUTO) 0.8 10^3/uL (0.0-1.0); MONOCYTES % (AUTO) 8 % (0-12); NEUTROPHILS # (AUTO) 8.1 10^3/uL (1.8-7.8); NEUTROPHILS % (AUTO) 80 % (42-75); PLATELET COUNT 282 10^3/uL (130-400); WHITE BLOOD COUNT 10.1 10^3/uL (4.3-11.0)
[2020-08-18 06:17] LABS: POTASSIUM 3.8 MMOL/L (3.6-5.0)
[2020-08-18 06:19] LABS: CALCIUM 7.8 MG/DL (8.5-10.1)
[2020-08-18 06:23] LABS: CREATININE SERUM 1.76 MG/DL (0.60-1.30); PHOSPHORUS 2.7 MG/DL (2.3-4.7)
[2020-08-18 06:25] LABS: MAGNESIUM 2.6 MG/DL (1.6-2.4)
[2020-08-18] MEDS: KCL 20 MEQ TAB (K-DUR) PO SCH (06:27)
[2020-08-18] MEDS: ASPIRIN E.C. 81 MG (ECOTRIN) TAB PO SCH (08:10)
[2020-08-18] MEDS: ENOXAPARIN 40 MG/0.4 ML (LOVENOX) SYR SC SCH (08:10)
[2020-08-18] MEDS: FUROSEMIDE 40 MG (LASIX) TAB PO SCH (08:10)
[2020-08-18] MEDS: PANTOPRAZOLE 40 MG (PROTONIX) VIAL IV SCH (08:10)
[2020-08-18] MEDS: amLODIPine 5 MG (NORVASC) TAB PO SCH (08:10)
[2020-08-18] MEDS: risperiDONE 1 MG (RisperDAL) TAB PO SCH ×2 (08:10→21:17)
[2020-08-18] MEDS: meTOprolol SUCCINATE 100 MG (TOPROL XL) TAB PO SCH (08:20)
[2020-08-18] MEDS: SENNA W/DOCUSATE (SENOKOT S) TABLET PO SCH ×2 (08:20→21:17)
--- NOTE | 2020-08-18 10:45 | Progress Note - Cardiology ---
Cardiology SOAP Progress Note Subjective: Lying in bed. Confusion continues to gradually improve Objective: I&O/Vital Signs 08/22/20 08/22/20 08/22/20 08/22/20 00:10 01:42 04:06 08:00 Temp 37.3 37.0 36.1 Pulse 82 94 82 Resp 18 20 20 B/P (MAP) 153/69 (97) 139/73 (95) 140/65 (90) Pulse Ox 94 97 99 98 O2 Delivery High Flow N/C High Flow N/C High Flow N/C High Flow N/C O2 Flow Rate 15.00 15.00 15.00 15.00 08/22/20 09:00 O2 Delivery High Flow N/C O2 Flow Rate 13.00 08/22/20 00:00 Intake Total 1880 ml Output Total 350 ml Balance 1530 ml Constitutional: AAO x 3 (oriented to self and place only), well-developed, well-nourished, other (alert; confused) Respiratory: No accessory muscle use, No respiratory distress; chest expansion is symmetric, chest is bilaterally symmetric, other (diminished throughout) Cardiovascular: regular rate-rhythm; No JVD; S1 and S2, systolic murmur (soft) Gastrointestional: No tender; soft, round, audible bowel sounds Extremities: swelling (mild LE swelling) Neurologic/Psychiatric: other (moves extremities; awake, unable to obtain any information, mumbled speech) Results/Procedures: Labs Laboratory Tests 08/22/20 05:25: White Blood Count 7.1, Red Blood Count 2.13L, Hemoglobin 7.6L, Hematocrit 24L, Mean Corpuscular Volume 112H, Mean Corpuscular Hemoglobin 36H, Mean Corpuscular Hemoglobin Concent 32, Red Cell Distribution Width 12.6, Platelet Count 281, Alva n Platelet Volume 10.6, Immature Granulocyte % (Auto) 1, Neutrophils (%) (Auto) 64, Lymphocytes (%) (Auto) 21, Monocytes (%) (Auto) 11, Eosinophils (%) (Auto) 3, Basophils (%) (Auto) 1, Neutrophils # (Auto) 4.6, Lymphocytes # (Auto) 1.5, Monocytes # (Auto) 0.8, Eosinophils # (Auto) 0.2, Basophils # (Auto) 0.0, Immature Granulocyte # (Auto) 0.1, Sodium Level 141, Potassium Level 3.6, Chloride Level 107, Carbon Dioxide Level 23, Anion Gap 11, Blood Urea Nitrogen 27H, Creatinine 2.04H, Estimat Glomerular Filtration Rate 33, BUN/Creatinine Ratio 13, Glucose Level 103, Calcium Level 7.0L, Phosphorus Level 4.6, Magnesium Level 1.8 Microbiology 08/15/20 Blood Culture - Final, Complete No growth 08/14/20 MRSA Screen - Final, Complete MRSA not isolated A/P: Assessment: Confusion improving - this is being managed by Dr Tam Malignant hypertension associated with acute renal failure (MARYANN 2 - 3) on CKD (by history) and pulmonary edema (acute diastolic CHF) Echocardiogram of Aug 13, [address] Burgos showed LVEF 50-55%. Concentric hypertrophy. Grade 2 diastolic dysfunction. Mild aortic stenosis. Mild to mod TR. PASP 40-45mmHg Mild elevation in troponin, type II myocardial infarction secondary to malignant hypertension and hypertensive heart disease HTN - not well controlled H/O heavy ETOH abuse Plan: Complex management due to multiple comorbidities Confusion and cooperation improving Continue to adjust antihypertensive regimen for BP control Replace electrolytes as indicated Renal function improved today H/O ETOH abuse There is no cardiology coverage over the weekend. Refer to primary care attending. If emergent cardiac services are need will require transfer to tertiary care facility, to be decided by primary care attending. DESTIN SALAZAR Aug 18, 2020 10:45
--- NOTE | 2020-08-18 11:40 | Progress Note - Hospitalist ---
Subjective HPI/CC On Admission Date Seen by Provider: Aug 18, 2020 Time Seen by Provider: 10:00 CC: Acute respiratory failure presumed flash pulmonary edema HPI: This is a 64yoWM patient of [facility] w/h/o HTN and HLP and no h/o cardiac issues who was originally admitted to my service at [facility] yesterday afternoon due to HTN urgency of 240/140 along with MARYANN creat 1.8, new hypoxia of 70% and elevated d-dimer unable to confirm presumed PE with CT angiogram of the chest due to elevated creatinine, RLL PNA and elevated BNP. Due to COVID pandemic and no ICU beds in the area I admitted him to the ICU placed him on NTG drip and titrated up for SBP 160's attained along with Cefepime and Zmax for PNA treatment along with Lovenox for presumed PE treatment. UOP was satisfactory through the night after Lasix IV given. Troponin remained negative but EKG this morning showed new ST depression without complaints to CP so I made arrangements to move him to ICU for Cardiology care and I conferred prior to transport. Apparently patient was 2 miles out from [facility] and paramedics noted an abrupt change requiring arrival to ICU in major distress prompting a call to Dr Burgos and the decision was made to intubate due to severe distress and hypoxia and coarse breath sounds. Lasix 40mg IV given immediately and hubbard cath placed. Etomidate and Rocuronium for rapid induction to intubate and ETT tube placed without difficulty via direct visualization. EICU will be consulted for vent management. COVID negative at [facility]. Subjective/Events-last exam Wake and alert, has no complaints says he is eating well and is getting stronger. He is on high flow 9 L nasal cannula Review of Systems Neurological: Confusion Focused Exam Time of Focused Exam: 09:55 Objective Exam Vital Signs Vital Signs Date Time Temp Pulse Resp B/P (MAP) Pulse Ox O2 Delivery O2 Flow Rate FiO2 08/18/20 09:50 37.5 105 94 08/18/20 09:49 High Flow N/C 9.00 08/18/20 09:44 162/71 (101) 08/18/20 07:20 24 08/16/20 15:32 40 Capillary Refill : Less Than 3 Seconds General Appearance: No Apparent Distress, WD/WN Neck: Supple Respiratory: Lungs Clear, Normal Breath Sounds, No Accessory Muscle Use, No Respiratory Distress Cardiovascular: No Edema, No Gallop, Tachycardia Gastrointestinal: Normal Bowel Sounds, Non Tender, Soft Rectal: Deferred Extremity: No Pedal Edema Neurologic/Psychiatric: Alert, Normal Mood/Affect Skin: Normal Color, Warm/Dry Results/Procedures Lab Laboratory Tests 08/18/20 04:30 Patient resulted labs reviewed. Assessment/Plan Assessment and Plan Assess & Plan/Chief Complaint Hypertension initially on drip at outside hospital. Still hypertensive on a be ta-jluis, calcium channel jluis, hydralazine, consider clonidine Elevated D-dimer- unable to get CTA due to creatinine, VQ scan without obvious abnormality Hypoxia- unclear etiology, required mechanical ventilation for a time, was down to a few liters, but is back up to 8 lpm requirement today, receiving lasix for CHF, COVID reported negative at prior hospital. CXR today with small bibasilar effusions and persistent cardiomegaly with probable pulmonary vascular congestion and interstitial edema. Diastolic congestive heart failure- receiving lasix, appreciate Cardiology recommendations Elevated troponin- Cardiology consulted, suspect type II cardiac strain DVT ppx- enoxaparin Delirium and confusion improving will SAKSHI Hubbard Hep-Lock IV fluids shower patient increase ambulation Renal insufficiency-improving Clinical Quality Measures DVT/VTE Risk/Contraindication: Risk Factor Score Per Nursin RFS Level Per Nursing on Admit: 4+=Very High JEAN-PAUL BILL MD Aug 18, 2020 11:40
[2020-08-18] MEDS ORDERED: doxAzosin 4 MG (CARDURA) TAB PO NR (14:45)
--- NOTE | 2020-08-18 16:38 | NUR ---
Discussed continued care plans with Ulises fonseca's son.they are very pleased with his progress and will most likely want Home Health Care for him and also arrange for family to take turns assisting him since pt lives alone They are also aware of his Medicare Jail home benefit. Will follow
--- NOTE | 2020-08-18 17:02 | Progress Note - Cardiology ---
Cardiology SOAP Progress Note Subjective: Malaise present No cp or palp or syncope or shortness of breath No n/v/d Objective: I&O/Vital Signs 08/18/20 08/18/20 08/18/20 08/18/20 07:20 09:00 09:44 09:49 Temp 37.5 Pulse 105 96 Resp 24 B/P (MAP) 207/84 (125) 162/71 (101) Pulse Ox 95 98 95 O2 Delivery High Flow N/C High Flow N/C High Flow N/C O2 Flow Rate 9.00 8.00 9.00 08/18/20 08/18/20 08/18/20 08/18/20 09:50 11:45 14:50 15:25 Temp 37.5 37.4 37.4 Pulse 105 98 102 Resp 20 20 B/P (MAP) 174/77 (109) 191/85 (120) Pulse Ox 94 98 98 96 O2 Delivery High Flow N/C High Flow N/C High Flow N/C O2 Flow Rate 8.00 9.00 6.00 08/18/20 00:00 Intake Total 4615.2 ml Output Total 2300 ml Balance 2315.2 ml Constitutional: AAO x 3 (oriented to self and place only), well-developed, well-nourished, other (alert; confused) Respiratory: No accessory muscle use, No respiratory distress; chest expansion is symmetric, chest is bilaterally symmetric, other (diminished throughout) Cardiovascular: regular rate-rhythm; No JVD; S1 and S2, systolic murmur (soft) Gastrointestional: No tender; soft, round, audible bowel sounds Extremities: swelling (mild LE swelling) Neurologic/Psychiatric: other (moves extremities; awake, unable to obtain any information, mumbled speech) Results/Procedures: Labs Laboratory Tests 08/18/20 04:30: White Blood Count 10.1, Red Blood Count 2.42L, Hemoglobin 8.8L, Hematocrit 28L, Mean Corpuscular Volume 115H, Mean Corpuscular Hemoglobin 36H, Mean Corpuscular Hemoglobin Concent 32, Red Cell Distribution Width 13.4, Platelet Count 282, Mean Platelet Volume 9.9, Immature Granulocyte % (Auto) 1, Neutrophils (%) (Auto ) 80H, Lymphocytes (%) (Auto) 9L, Monocytes (%) (Auto) 8, Eosinophils (%) (Auto) 2, Basophils (%) (Auto) 0, Neutrophils # (Auto) 8.1H, Lymphocytes # (Auto) 0.9L, Monocytes # (Auto) 0.8, Eosinophils # (Auto) 0.2, Basophils # (Auto) 0.0, Immature Granulocyte # (Auto) 0.1, Sodium Level 143, Potassium Level 3.8, Chloride Level 111H, Carbon Dioxide Level 21, Anion Gap 11, Blood Urea Nitrogen 23H, Creatinine 1.76H, Estimat Glomerular Filtration Rate 39, BUN/Creatinine Ratio 13, Glucose Level 113H, Calcium Level 7.8L, Phosphorus Level 2.7, Magnesium Level 2.6H Microbiology 08/15/20 Blood Culture - Preliminary, Resulted No growth 08/14/20 MRSA Screen - Final, Complete MRSA not isolated A/P: Assessment: Confusion improving - this is being managed by the primary attending service Malignant hypertension associated with acute renal failure (MARYANN 2 - 3) on CKD (by history) and pulmonary edema (acute diastolic CHF) Echocardiogram of Aug 13, [address] Burgos showed LVEF 50-55%. Concentric hypertrophy. Grade 2 diastolic dysfunction. Mild aortic stenosis. Mild to mod TR. PASP 40-45mmHg Mild elevation in troponin, type II myocardial infarction secondary to malignant hypertension and hypertensive heart disease HTN - not well controlled H/O heavy ETOH abuse Plan: Complex management due to multiple comorbidities Confusion and cooperation improving Continue to adjust antihypertensive regimen for BP control Replace electrolytes as indicated Renal function improved today H/O ETOH abuse There is no cardiology coverage over the weekend. Refer to primary care attending. If emergent cardiac services are needed, will require transfer to tertiary care facility, to be decided by primary care attending. DEANNA FLORES MD FACP FAC CCDS Aug 18, 2020 17:02
--- NOTE | 2020-08-18 18:42 | NUR ---
Stood at the side of the bed for about 30 seconds, states he felt a little on the weak side. Later up to the chair for approximately 1.5 hrs, walked about 4 feet.
[2020-08-18] MEDS: doxAzosin 4 MG (CARDURA) TAB PO SCH (21:17)
[2020-08-19] VITALS (8 sets, daily range): BP systolic 152–193; BP diastolic 67–97
[2020-08-19] MEDS: hydrALAZINE (APESOLINE) 20 MG/ML VIAL IV PRN ×2 (00:12→07:37)
[2020-08-19] MEDS: RT-ALBUTEROL SULF 2.5 MG/3 ML PRE-MIX VIAL INH SCH ×4 (01:56→21:53)
[2020-08-19] MEDS: LABETALOL HCL 20 MG/4 ML VIAL IV PRN (02:05)
[2020-08-19 05:29] LABS: BASOPHILS % (AUTO) 0 % (0-10); EOSINOPHILS # (AUTO) 0.1 10^3/uL (0.0-0.3); EOSINOPHILS % (AUTO) 1 % (0-10); HEMATOCRIT 26 % (40-54); HEMOGLOBIN 8.2 g/dL (13.3-17.7); LYMPHOCYTES % (AUTO) 9 % (12-44); MEAN CORPUSCULAR HEMOGLOBIN 36 pg (25-34); MEAN CORPUSCULAR HGB CONC 31 g/dL (32-36); MEAN CORPUSCULAR VOLUME 116 fL (80-99); MEAN PLATELET VOLUME 10.3 fL (9.0-12.2); MONOCYTES # (AUTO) 0.7 10^3/uL (0.0-1.0); MONOCYTES % (AUTO) 7 % (0-12); NEUTROPHILS # (AUTO) 8.5 10^3/uL (1.8-7.8); NEUTROPHILS % (AUTO) 82 % (42-75); PLATELET COUNT 251 10^3/uL (130-400); WHITE BLOOD COUNT 10.3 10^3/uL (4.3-11.0)
[2020-08-19 05:30] LABS: POTASSIUM 4.2 MMOL/L (3.6-5.0)
[2020-08-19 05:31] LABS: CALCIUM 7.4 MG/DL (8.5-10.1)
[2020-08-19 05:35] LABS: PHOSPHORUS 3.6 MG/DL (2.3-4.7)
[2020-08-19 05:36] LABS: CREATININE SERUM 1.81 MG/DL (0.60-1.30)
[2020-08-19 05:38] LABS: MAGNESIUM 2.2 MG/DL (1.6-2.4)
[2020-08-19] MEDS: KCL 20 MEQ TAB (K-DUR) PO SCH (06:59)
[2020-08-19] MEDS: FUROSEMIDE 40 MG (LASIX) TAB PO SCH (08:24)
[2020-08-19] MEDS: doxAzosin 4 MG (CARDURA) TAB PO SCH ×2 (08:24→20:12)
[2020-08-19] MEDS: risperiDONE 1 MG (RisperDAL) TAB PO SCH ×2 (08:24→20:12)
[2020-08-19] MEDS: PANTOPRAZOLE 40 MG (PROTONIX) VIAL IV SCH (08:24)
[2020-08-19] MEDS: meTOprolol SUCCINATE 100 MG (TOPROL XL) TAB PO SCH (08:24)
[2020-08-19] MEDS: SENNA W/DOCUSATE (SENOKOT S) TABLET PO SCH ×2 (08:24→20:13)
[2020-08-19] MEDS: ENOXAPARIN 40 MG/0.4 ML (LOVENOX) SYR SC SCH (08:24)
[2020-08-19] MEDS: amLODIPine 5 MG (NORVASC) TAB PO SCH (08:24)
[2020-08-19] MEDS: ASPIRIN E.C. 81 MG (ECOTRIN) TAB PO SCH (08:24)
--- NOTE | 2020-08-19 13:24 | Progress Note - Hospitalist ---
Subjective HPI/CC On Admission Date Seen by Provider: Aug 19, 2020 Time Seen by Provider: 11:30 CC: Acute respiratory failure presumed flash pulmonary edema HPI: This is a 64yoWM patient of [facility] w/h/o HTN and HLP and no h/o cardiac issues who was originally admitted to my service at [facility] yesterday afternoon due to HTN urgency of 240/140 along with MARYANN creat 1.8, new hypoxia of 70% and elevated d-dimer unable to confirm presumed PE with CT angiogram of the chest due to elevated creatinine, RLL PNA and elevated BNP. Due to COVID pandemic and no ICU beds in the area I admitted him to the ICU placed him on NTG drip and titrated up for SBP 160's attained along with Cefepime and Zmax for PNA treatment along with Lovenox for presumed PE treatment. UOP was satisfactory through the night after Lasix IV given. Troponin remained negative but EKG this morning showed new ST depression without complaints to CP so I made arrangements to move him to ICU for Cardiology care and I conferred prior to transport. Apparently patient was 2 miles out from [facility] and paramedics noted an abrupt change requiring arrival to ICU in major distress prompting a call to Dr Burgos and the decision was made to intubate due to severe distress and hypoxia and coarse breath sounds. Lasix 40mg IV given immediately and hubbard cath placed. Etomidate and Rocuronium for rapid induction to intubate and ETT tube placed without difficulty via direct visualization. EICU will be consulted for vent management. COVID negative at [facility]. Subjective/Events-last exam Patient is confused looks like he is trying to get out of bed complains of his right leg bothering him a little bit other than that he has no complaints and his blood pressure remains labile though trending towards improvement Review of Systems Neurological: Weakness Focused Exam Time of Focused Exam: 09:55 Objective Exam Vital Signs Vital Signs Date Time Temp Pulse Resp B/P (MAP) Pulse Ox O2 Delivery O2 Flow Rate FiO2 08/19/20 12:00 36.2 110 18 155/70 (98) 90 High Flow N/C 6.00 08/16/20 15:32 40 Capillary Refill : Less Than 3 SecondsLess Than 3 Seconds General Appearance: Chronically ill HEENT: Other (Dentition) Neck: Limited Range of Motion Respiratory: Normal Breath Sounds, No Accessory Muscle Use, No Respiratory Distress, Crackles Cardiovascular: Regular Rate, Rhythm, Systolic Murmur Gastrointestinal: Soft Rectal: Deferred Extremity: Pedal Edema (Right leg) Neurologic/Psychiatric: Alert, Normal Mood/Affect, Disoriented Results/Procedures Lab Laboratory Tests 08/19/20 04:35 Patient resulted labs reviewed. Assessment/Plan Assessment and Plan Assess & Plan/Chief Complaint Hypertension initially on drip at outside hospital. Still hypertensive on a beta-jluis, calcium channel jluis, hydralazine, consider clonidine Elevated D-dimer- unable to get CTA due to creatinine, VQ scan without obvious abnormality Hypoxia- unclear etiology, required mechanical ventilation for a time, was down to a few liters, but is back up to 8 lpm requirement today, receiving lasix for CHF, COVID reported negative at prior hospital. CXR today with small bibasilar effusions and persistent cardiomegaly with probable pulmonary vascular congestion and interstitial edema. Diastolic congestive heart failure- receiving lasix, appreciate Cardiology recommendations-slightly tachycardic today Elevated troponin- Cardiology consulted, suspect type II cardiac strain DVT ppx- enoxaparin Delirium and confusion improving will DC Hubbard Hep-Lock IV fluids shower patient increase ambulation-check a TSH and a B12 level Renal insufficiency-improving slowly Anemia we will Hemoccult stools Clinical Quality Measures DVT/VTE Risk/Contraindication: Risk Factor Score Per Nursin RFS Level Per Nursing on Admit: 4+=Very High JEAN-PAUL BILL MD Aug 19, 2020 13:24
--- NOTE | 2020-08-19 15:43 | Cardiology Progress Note ---
Cardiology SOAP Progress Note Subjective: No cardiac complaints. Objective: I&O/Vital Signs 08/19/20 08/19/20 08/19/20 08/19/20 04:00 08:00 09:00 09:42 Temp 37.0 36.4 Pulse 100 116 Resp 19 22 B/P (MAP) 187/81 (116) 160/67 (98) Pulse Ox 95 90 90 O2 Delivery High Flow N/C High Flow N/C High Flow N/C High Flow N/C O2 Flow Rate 7.00 6.00 8.00 8.00 08/19/20 12:00 Temp 36.2 Pulse 110 Resp 18 B/P (MAP) 155/70 (98) Pulse Ox 90 O2 Delivery High Flow N/C O2 Flow Rate 6.00 08/19/20 00:00 Intake Total 1520 ml Output Total 1500 ml Balance 20 ml Constitutional: AAO x 3 (oriented to self and place only), well-developed, well-nourished, other (alert; confused) Respiratory: No accessory muscle use, No respiratory distress; chest expansion is symmetric, chest is bilaterally symmetric, other (diminished throughout) Cardiovascular: regular rate-rhythm; No JVD; S1 and S2, systolic murmur (soft) Gastrointestional: No tender; soft, round, audible bowel sounds Extremities: swelling (mild LE swelling) Neurologic/Psychiatric: other (moves extremities; awake, unable to obtain any information, mumbled speech) Results/Procedures: Labs Laboratory Tests 08/19/20 04:35: White Blood Count 10.3, Red Blood Count 2.26L, Hemoglobin 8.2L, Hematocrit 26L, Mean Corpuscular Volume 116H, Mean Corpuscular Hemoglobin 36H, Mean Corpuscular Hemoglobin Concent 31L, Red Cell Distribution Width 13.3, Platelet Count 251, Mean Platelet Volume 10.3, Immature Granulocyte % (Auto) 1, Neutrophils (%) (Auto) 82H, Lymphocytes (%) (Auto) 9L, Monocytes (%) (Auto) 7, Eosinophils (%) (Auto) 1, Basophils (%) (Auto) 0, Neutrophils # (Auto) 8.5H, Lymphocytes # (Auto) 1.0, Monocytes # (Auto) 0.7, Eosinophils # (Auto) 0.1, Basophils # (Auto) 0.0, Immature Granulocyte # (Auto) 0.1, Sodium Level 143, Potassium Level 4.2, Chloride Level 111H, Carbon Dioxide Level 19L, Anion Gap 13, Blood Urea Nitrogen 23H, Creatinine 1.81H, Estimat Glomerular Filtration Rate 38, BUN/Creatinine Ratio 13, Glucose Level 111H, Calcium Level 7.4L, Phosphorus Level 3.6, Magnesium Level 2.2, Thyroid Stimulating Hormone (TSH) 1.13 Microbiology 08/15/20 Blood Culture - Preliminary, Resulted No growth 08/14/20 MRSA Screen - Final, Complete MRSA not isolated A/P: Assessment/Dx: Confusion improving - this is being managed by the primary attending service Malignant hypertension associated with acute renal failure (MARYANN 2 - 3) on CKD (by history) and pulmonary edema (acute diastolic CHF) Echocardiogram of Aug 13, [address] Burgos showed LVEF 50-55%. Concentric hypertrophy. Grade 2 diastolic dysfunction. Mild aortic stenosis. Mild to mod TR. PASP 40-45mmHg Mild elevation in troponin, type II myocardial infarction secondary to malignant hypertension and hypertensive heart disease HTN - not well controlled H/O heavy ETOH abuse Plan: Complex management due to multiple comorbidities Confusion and cooperation improving Continue to adjust antihypertensive regimen for BP control. Elevated blood pressure today, will give hydralazine when necessary. Replace electrolytes as indicated Renal function gradually improving. H/O ETOH abuse Thank you for your consultation. Please call me if you have any questions. Bhavesh Minor MD, FACP, FACC, FSCAI, FHRS, CCDS Interventional Cardiology Cardiac Electrophysiology Vascular Medicine and Endovascular Interventions Focused Exam Time of Focused Exam: 09:55 Anu MINOR MD Aug 19, 2020 15:43
[2020-08-19] MEDS: ACETAMINOPHEN 500 MG TAB (TYLENOL) PO PRN (20:12)
[2020-08-19] MEDS: MELATONIN 3 MG TABLET PO PRN (20:12)
[2020-08-19] MEDS: LORazepam INJ 2 MG/ML (ATIVAN) VIAL IV PRN (20:13)
--- NOTE | 2020-08-19 22:09 | NUR ---
PT 02 SAT AT 83% ON 8L HI-FLOW. RT INCREASED O2 RATE TO 10L PER HI-FLOW NASAL CANNULA WITH 02 [address] 85%. DR. BILL NOTIFIED. ORDERS FOR VAPOTHERM RECEIVED AT THIS TIME.
--- NOTE | 2020-08-19 22:39 | NUR ---
DR. BILL CALLED THIS RN FOR AN UPDATE ON PT AFTER PLACING ON VAPOTHERM. UPDATE GIVEN. ORDER FOR STAT CHEST XRAY RECEIVED. THIS RN CALLED RADIOLOGY WITH NEW STAT ORDER FOR CHEST XRAY.
[2020-08-20] MEDS: LABETALOL HCL 20 MG/4 ML VIAL IV PRN (00:05)
[2020-08-20 03:31] VITALS: BP 183/82
[2020-08-20] MEDS: hydrALAZINE (APESOLINE) 20 MG/ML VIAL IV PRN (03:35)
[2020-08-20] MEDS: HALOPERIDOL 5 MG/ML (HALDOL) VIAL IV PRN (04:03)
[2020-08-20] MEDS: RT-ALBUTEROL SULF 2.5 MG/3 ML PRE-MIX VIAL INH SCH ×4 (04:05→19:34)
[2020-08-20 04:13] VITALS: BP 166/74
[2020-08-20] MEDS: LORazepam INJ 2 MG/ML (ATIVAN) VIAL IV PRN (04:38)
[2020-08-20] MEDS: KCL 20 MEQ TAB (K-DUR) PO SCH (05:47)
[2020-08-20 06:27] LABS: BASOPHILS % (AUTO) 0 % (0-10); EOSINOPHILS # (AUTO) 0.1 10^3/uL (0.0-0.3); EOSINOPHILS % (AUTO) 1 % (0-10); HEMATOCRIT 27 % (40-54); HEMOGLOBIN 8.6 g/dL (13.3-17.7); LYMPHOCYTES % (AUTO) 10 % (12-44); MEAN CORPUSCULAR HEMOGLOBIN 38 pg (25-34); MEAN CORPUSCULAR HGB CONC 32 g/dL (32-36); MEAN CORPUSCULAR VOLUME 118 fL (80-99); MEAN PLATELET VOLUME 10.7 fL (9.0-12.2); MONOCYTES # (AUTO) 0.7 10^3/uL (0.0-1.0); MONOCYTES % (AUTO) 7 % (0-12); NEUTROPHILS # (AUTO) 7.7 10^3/uL (1.8-7.8); NEUTROPHILS % (AUTO) 80 % (42-75); PLATELET COUNT 306 10^3/uL (130-400); WHITE BLOOD COUNT 9.6 10^3/uL (4.3-11.0)
[2020-08-20 06:35] LABS: ALBUMIN 2.6 GM/DL (3.2-4.5)
[2020-08-20 06:36] LABS: CALCIUM 7.4 MG/DL (8.5-10.1)
[2020-08-20 06:37] LABS: TOTAL PROTEIN 4.9 GM/DL (6.4-8.2)
[2020-08-20 06:39] LABS: BILIRUBIN,TOTAL 0.3 MG/DL (0.1-1.0)
[2020-08-20 06:40] LABS: PHOSPHORUS 4.3 MG/DL (2.3-4.7)
[2020-08-20 06:41] LABS: CREATININE SERUM 1.94 MG/DL (0.60-1.30)
[2020-08-20 06:44] LABS: MAGNESIUM 2.2 MG/DL (1.6-2.4)
[2020-08-20 08:00] VITALS: BP 169/83
[2020-08-20] MEDS: PANTOPRAZOLE 40 MG (PROTONIX) VIAL IV SCH (08:39)
[2020-08-20] MEDS: ENOXAPARIN 40 MG/0.4 ML (LOVENOX) SYR SC SCH (09:23)
--- NOTE | 2020-08-20 09:23 | Diagnostic Imaging Report ---
CHEST 1 VIEW, AP/PA ONLY Indication: Hypoxia Comparison: 08/17/2020 Findings: Worsening of central vascular indistinctness and ill-defined pulmonary opacities. Mild septal thickening has developed on the right. Small bilateral pleural effusion has increased or redistributed. No pneumothorax. Stable cardiomegaly. Impression: 1. Imaging features suggest worsening of pulmonary edema. Dictated by: Dictated on workstation # [id number]
[2020-08-20] MEDS: risperiDONE 1 MG (RisperDAL) TAB PO SCH ×2 (09:24→20:29)
[2020-08-20] MEDS: FUROSEMIDE 40 MG (LASIX) TAB PO SCH (09:24)
[2020-08-20] MEDS: meTOprolol SUCCINATE 100 MG (TOPROL XL) TAB PO SCH (09:24)
[2020-08-20] MEDS: ASPIRIN E.C. 81 MG (ECOTRIN) TAB PO SCH (09:24)
[2020-08-20] MEDS: doxAzosin 4 MG (CARDURA) TAB PO SCH ×2 (09:24→20:29)
[2020-08-20] MEDS: SENNA W/DOCUSATE (SENOKOT S) TABLET PO SCH ×2 (09:24→20:18)
[2020-08-20] MEDS: amLODIPine 5 MG (NORVASC) TAB PO SCH (09:24)
[2020-08-20] MEDS ORDERED: FUROSEMIDE 40 MG/4 ML INJ (LASIX) IVP ONE (09:45)
--- NOTE | 2020-08-20 10:36 | Diagnostic Imaging Report ---
CHEST 1 VIEW, AP/PA ONLY Indication: Chest pain. Comparison: Mental status change, altered mental status Findings: No change in bilateral central ill-defined pulmonary opacities resulting in obscuration of the central vasculature. Small bilateral pleural effusions are unchanged. No pneumothorax. Stable mild enlargement of the heart. Impression: 1. No change in imaging features suggestive of pulmonary edema. Dictated by: Dictated on workstation # [id number]
[2020-08-20 10:49] LABS: ABG BASE EXCESS -0.1 MMOL/L (-2.5-2.5); ABG OXYGEN SATURATION 64 % (94-100); ABG PCO2 45 MMHG (35-45); ABG PH 7.36 (7.37-7.43); ABG PO2 42 MMHG (79-93); ABG TCO2 26.1 MMOL/L (21.0-31.0); ALLENS TEST YES-POS; INSPIRED O2 60%; VENTILATOR NO
[2020-08-20] MEDS ORDERED: lisINopril 5 MG (PRINIVIL) TABLET PO SCH (11:30)
--- NOTE | 2020-08-20 11:33 | Progress Note - Hospitalist ---
Subjective HPI/CC On Admission Date Seen by Provider: Aug 20, 2020 Time Seen by Provider: 09:00 CC: Acute respiratory failure presumed flash pulmonary edema HPI: This is a 64yoWM patient of [facility] w/h/o HTN and HLP and no h/o cardiac issues who was originally admitted to my service at [facility] yesterday afternoon due to HTN urgency of 240/140 along with MARYANN creat 1.8, new hypoxia of 70% and elevated d-dimer unable to confirm presumed PE with CT angiogram of the chest due to elevated creatinine, RLL PNA and elevated BNP. Due to COVID pandemic and no ICU beds in the area I admitted him to the ICU placed him on NTG drip and titrated up for SBP 160's attained along with Cefepime and Zmax for PNA treatment along with Lovenox for presumed PE treatment. UOP was satisfactory through the night after Lasix IV given. Troponin remained negative but EKG this morning showed new ST depression without complaints to CP so I made arrangements to move him to ICU for Cardiology care and I conferred prior to transport. Apparently patient was 2 miles out from [facility] and paramedics noted an abrupt change requiring arrival to ICU in major distress prompting a call to Dr Burgos and the decision was made to intubate due to severe distress and hypoxia and coarse breath sounds. Lasix 40mg IV given immediately and hubbard cath placed. Etomidate and Rocuronium for rapid induction to intubate and ETT tube placed without difficulty via direct visualization. EICU will be consulted for vent management. COVID negative at [facility]. Subjective/Events-last exam Patient dropped his sats overnight and this morning was more confused and is back on Vapotherm but he tends to take it off. His blood gas shows it is PO2 is down in the 40s. Patient is was doing a little bit better with less somnolence after I saw him. Prognosis really remains guarded. Chest x-ray shows pulmonary edema we will recheck a BNP received Lasix 40 mg x 1. Concerning still for alcohol withdrawal Review of Systems Neurological: Confusion Focused Exam Time of Focused Exam: 09:55 Objective Exam Vital Signs Vital Signs Date Time Temp Pulse Resp B/P (MAP) Pulse Ox O2 Delivery O2 Flow Rate FiO2 08/20/20 09:00 Vapotherm 08/20/20 08:43 96 20.00 60 08/20/20 08:00 36.4 75 20 169/83 (111) Capillary Refill : Less Than 3 SecondsLess Than 3 Seconds General Appearance: Chronically ill Neck: Limited Range of Motion Respiratory: Chest Non Tender, No Accessory Muscle Use, No Respiratory Distress Cardiovascular: Regular Rate, Rhythm, Systolic Murmur Gastrointestinal: Normal Bowel Sounds, Soft Rectal: Deferred Back: Normal Inspection Extremity: No Pedal Edema Neurologic/Psychiatric: Disoriented Skin: Normal Color, Warm/Dry Results/Procedures Lab Laboratory Tests 08/20/20 05:50 Patient resulted labs reviewed. Imaging: Reviewed Imaging Films, Reviewed Imaging Report Assessment/Plan Assessment and Plan Assess & Plan/Chief Complaint Hypertension initially on drip at outside hospital. Still hypertensive on a beta-jluis, calcium channel jluis, hydralazine, consider clonidine Elevated D-dimer- unable to get CTA due to creatinine, VQ scan without obvious abnormality Hypoxia- unclear etiology, required mechanical ventilation for a time, was down to a few liters, but is back up to 8 lpm requirement today, receiving lasix for CHF, COVID reported negative at prior hospital. CXR today with small bibasilar effusions and persistent cardiomegaly with probable pulmonary vascular congestion and interstitial edema. Diastolic congestive heart failure- receiving lasix, appreciate Cardiology recommendations-slightly tachycardic today Elevated troponin- Cardiology consulted, suspect type II cardiac strain DVT ppx- enoxaparin Delirium and confusion worse today, TSH and a B12 [id number] alcohol withdrawal will discuss with family-tried to call son, as he did not answer Renal insufficiency-worse Anemia we will Hemoccult stools Clinical Quality Measures DVT/VTE Risk/Contraindication: Risk Factor Score Per Nursin RFS Level Per Nursing on Admit: 4+=Very High JEAN-PAUL BILL MD Aug 20, 2020 11:33
--- NOTE | 2020-08-20 12:29 | Cardiology Progress Note ---
Cardiology SOAP Progress Note Subjective: No cardiac complaints. Objective: I&O/Vital Signs 08/20/20 08/20/20 08/20/20 08/20/20 03:31 04:13 08:00 08:43 Temp 36.3 36.4 Pulse 91 98 75 Resp 21 20 B/P (MAP) 183/82 (115) 166/74 (104) 169/83 (111) Pulse Ox 95 97 93 96 O2 Delivery Vapotherm Vapotherm High Flow N/C High Flow N/C O2 Flow Rate 20.00 20.00 20.00 20.00 60.00 60.00 60.00 FiO2 60 08/20/20 09:00 O2 Delivery Vapotherm 08/20/20 00:00 Intake Total 1605 ml Output Total 725 ml Balance 880 ml Constitutional: AAO x 3 (oriented to self and place only), well-developed, well-nourished, other (alert; confused) Respiratory: No accessory muscle use, No respiratory distress; chest expansion is symmetric, chest is bilaterally symmetric, other (diminished throughout) Cardiovascular: regular rate-rhythm; No JVD; S1 and S2, systolic murmur (soft) Gastrointestional: No tender; soft, round, audible bowel sounds Extremities: swelling (mild LE swelling) Neurologic/Psychiatric: other (moves extremities; awake, unable to obtain any information, mumbled speech) Results/Procedures: Labs Laboratory Tests 08/20/20 05:50: White Blood Count 9.6, Red Blood Count 2.28L, Hemoglobin 8.6L, Hematocrit 27L, Mean Corpuscular Volume 118H, Mean Corpuscular Hemoglobin 38H, Mean Corpuscular Hemoglobin Concent 32, Red Cell Distribution Width 13.3, Platelet Count 306, Mean Platelet Volume 10.7, Immature Granulocyte % (Auto) 1, Neutrophils (%) (Auto) 80H, Lymphocytes (%) (Auto) 10L, Monocytes (%) (Auto) 7, Eosinophils (%) (Auto) 1, Basophils (%) (Auto) 0, Neutrophils # (Auto) 7.7, Lymphocytes # (Auto) 1.0, Monocytes # (Auto) 0.7, Eosinophils # (Auto) 0.1, Basophils # (Auto) 0.0, Immature Granulocyte # (Auto) 0.1, Sodium Level 142, Potassium Level 4.0, Chloride Level 110H, Carbon Dioxide Level 20L, Anion Gap 12, Blood Urea Nitrogen 26H, Creatinine 1.94H, Estimat Glomerular Filtration Rate 35, BUN/Creatinine Ratio 13, Glucose Level 98, Calcium Level 7.4L, Corrected Calcium 8.5, Phosphorus Level 4.3, Magnesium Level 2.2, Total Bilirubin 0.3, Aspartate Amino Transf (AST/SGOT) 33, Alanine Aminotransferase (ALT/SGPT) 26, Alkaline Phosphatase 91, B-Type Natriuretic Peptide 791.7H, Total Protein 4.9L, Albumin 2.6L 08/20/20 10:20: Stool Occult Blood Immunoassay NEGATIVE 08/20/20 10:39: Blood Gas Puncture Site LT RAD, Blood Gas Patient Temperature 37.0, Arterial Blood pH 7.36L, Arterial Blood Partial Pressure CO2 45, Arterial Blood Partial Pressure O2 42L, Arterial Blood HCO3 25, Arterial Blood Total CO2 26.1, Arterial Blood Oxygen Saturation 64L, Arterial Blood Base Excess -0.1, Zenon Test YES- POS, Blood Gas Ventilator Setting NO, Blood Gas Inspired Oxygen 60% 08/20/20 12:05: Microbiology 08/15/20 Blood Culture - Preliminary, Resulted No growth 08/14/20 MRSA Screen - Final, Complete MRSA not isolated A/P: Assessment/Dx: Confusion improving - this is being managed by the primary attending service Malignant hypertension associated with acute renal failure (MARYANN 2 - 3) on CKD (by history) and pulmonary edema (acute diastolic CHF) Echocardiogram of Aug 13, [address] Burgos showed LVEF 50-55%. Concentric hypertrophy. Grade 2 diastolic dysfunction. Mild aortic stenosis. Mild to mod TR. PASP 40-45mmHg Mild elevation in troponin, type II myocardial infarction secondary to malignant hypertension and hypertensive heart disease HTN - not well controlled H/O heavy ETOH abuse Plan: Complex management due to multiple comorbidities Confusion and cooperation improving Continue to adjust antihypertensive regimen for BP control. Elevated blood pressure today, will give hydralazine when necessary. Replace electrolytes as indicated Renal function gradually improving. H/O ETOH abuse Thank you for your consultation. Please call me if you have any questions. Bhavesh Minor MD, FACP, FACC, FSCAI, FHRS, CCDS Interventional Cardiology Cardiac Electrophysiology Vascular Medicine and Endovascular Interventions Focused Exam Time of Focused Exam: 09:55 Anu MINOR MD Aug 20, 2020 12:29
[2020-08-20 15:32] VITALS: BP 155/64
[2020-08-20 19:00] VITALS: BP 157/67
[2020-08-20] MEDS: MELATONIN 3 MG TABLET PO PRN (20:29)
[2020-08-21] VITALS (9 sets, daily range): BP systolic 144–183; BP diastolic 62–85
[2020-08-21] MEDS: hydrALAZINE (APESOLINE) 20 MG/ML VIAL IV PRN (00:19)
[2020-08-21] MEDS: LABETALOL HCL 20 MG/4 ML VIAL IV PRN (05:03)
[2020-08-21 06:14] LABS: BASOPHILS % (AUTO) 0 % (0-10); EOSINOPHILS # (AUTO) 0.1 10^3/uL (0.0-0.3); EOSINOPHILS % (AUTO) 1 % (0-10); HEMATOCRIT 27 % (40-54); HEMOGLOBIN 8.5 g/dL (13.3-17.7); LYMPHOCYTES % (AUTO) 12 % (12-44); MEAN CORPUSCULAR HEMOGLOBIN 36 pg (25-34); MEAN CORPUSCULAR HGB CONC 31 g/dL (32-36); MEAN CORPUSCULAR VOLUME 116 fL (80-99); MEAN PLATELET VOLUME 10.5 fL (9.0-12.2); MONOCYTES # (AUTO) 0.7 10^3/uL (0.0-1.0); MONOCYTES % (AUTO) 8 % (0-12); NEUTROPHILS # (AUTO) 6.2 10^3/uL (1.8-7.8); NEUTROPHILS % (AUTO) 78 % (42-75); PLATELET COUNT 278 10^3/uL (130-400)
[2020-08-21 06:27] LABS: POTASSIUM 3.7 MMOL/L (3.6-5.0)
[2020-08-21 06:28] LABS: CALCIUM 7.3 MG/DL (8.5-10.1)
[2020-08-21 06:32] LABS: CREATININE SERUM 1.94 MG/DL (0.60-1.30); PHOSPHORUS 4.1 MG/DL (2.3-4.7)
[2020-08-21 06:35] LABS: MAGNESIUM 2.1 MG/DL (1.6-2.4)
[2020-08-21] MEDS: KCL 20 MEQ TAB (K-DUR) PO SCH (06:55)
[2020-08-21] MEDS: RT-ALBUTEROL SULF 2.5 MG/3 ML PRE-MIX VIAL INH SCH ×3 (07:02→21:07)
[2020-08-21] MEDS: SENNA W/DOCUSATE (SENOKOT S) TABLET PO SCH ×3 (08:23→20:27)
[2020-08-21] MEDS: amLODIPine 5 MG (NORVASC) TAB PO SCH (08:23)
[2020-08-21] MEDS: doxAzosin 4 MG (CARDURA) TAB PO SCH ×2 (08:23→20:24)
[2020-08-21] MEDS: lisINopril 20 MG (PRINIVIL) TABLET PO SCH (08:23)
[2020-08-21] MEDS: ENOXAPARIN 40 MG/0.4 ML (LOVENOX) SYR SC SCH (08:23)
[2020-08-21] MEDS: PANTOPRAZOLE 40 MG (PROTONIX) VIAL IV SCH (08:24)
[2020-08-21] MEDS: meTOprolol SUCCINATE 100 MG (TOPROL XL) TAB PO SCH (08:24)
[2020-08-21] MEDS: ASPIRIN E.C. 81 MG (ECOTRIN) TAB PO SCH (08:24)
[2020-08-21] MEDS: risperiDONE 1 MG (RisperDAL) TAB PO SCH ×2 (08:24→20:24)
[2020-08-21] MEDS: FUROSEMIDE 40 MG (LASIX) TAB PO SCH (08:24)
[2020-08-21] MEDS ORDERED: FUROSEMIDE 40 MG/4 ML INJ (LASIX) IVP NR (08:45)
--- NOTE | 2020-08-21 09:46 | Cardiology Progress Note ---
Subjective Date Seen by Provider: Aug 21, 2020 Time Seen by Provider: 09:44 Subjective/Events-last exam Patient is sitting up in chair, states dyspnea continues to improve. Denies any chest pain or dizziness. Does not appear confused this morning. Review of Systems General: No Chills, No Night Sweats; Fatigue, Malaise; No Appetite, No Other HEENT: No Head Aches, No Visual Changes, No Eye Pain, No Ear Pain, No Dysphasia, No Sinus Congestion, No Post Nasal Drip, No Sore Throat, No Other Pulmonary: No Dyspnea, No Cough, No Pleuritic Chest Pain, No Other Cardiovascular: No: Chest Pain, Palpitations, Orthopnea, Paroxysmal Noc. Dyspnea, Edema, Lt Headedness, Other Focused Exam Time of Focused Exam: 09:55 Objective-Cardiology Exam Last Set of Vital Signs Vital Signs 08/20/20 08/21/20 08/21/20 08/21/20 08:43 08:00 09:00 09:41 Temp 36.7 Pulse 95 Resp 18 B/P (MAP) 183/77 (112) Pulse Ox 90 O2 Delivery High Flow N/C O2 Flow Rate 15.00 FiO2 60 Capillary Refill : Less Than 3 SecondsLess Than 3 Seconds I&O Intake and Output 08/21/20 00:00 Intake Total 1745 ml Output Total 1420 ml Balance 325 ml Intake Oral 1745 ml Output Urine Total 1420 ml # Voids 1 # Bowel Movements 2 General: Alert, Oriented X3, Cooperative, No Acute Distress HEENT: Atraumatic, PERRLA Neck: Supple, No JVD, No Thyromegaly Lungs: Other (decreased air movement) Heart: Regular Rate Abdomen: Normal Bowel Sounds, Soft Extremities: No Edema Skin: No Rashes Neuro: Other (oriented to self only) Psych/Mental Status: Mood NL Results Lab Laboratory Tests 08/21/20 05:27 A/P-Cardiology Admission Diagnosis Acute respiratory failure Malignant hypertension Aortography stenosis Acute renal failure Assessment/Plan Status post respiratory failure, extubated on August 14, 2020, still using oxygen, had slightly worsening shortness of breath today, given additional dose of Lasix. Continue to monitor Flash pulmonary edema, responded well to diuretics, continue to monitor Congestive heart failure, acute on chronic left ventricular diastolic dysfunction, echocardiogram showed normal left ventricular systolic function, grade 2 diastolic dysfunction, mild aortic valve stenosis, pulmonary hypertension with PA pressure 40-45 mmHg. Started on beta blockers and MICHAEL inhibitor. Monitor closely. Mild elevation in troponin, type II myocardial infarction secondary to malignant hypertension and hypertensive heart disease. Continue to monitor and reevaluate troponin. We'll consider cardiac catheter versus stress test dependence on his progression Malignant hypertension, poorly controlled blood pressure, increasing lisinopril to 20 mg daily, restarting clonidine at 0.1 mg 3 times a day, evaluate renal arterial Doppler. Monitor tolerance and response Aortic valve stenosis, mild. Continue to monitor Acute renal failure on chronic renal insufficiency, slight improvement today. Continue to monitor Patient was seen and evaluated with Med[place], examination performed, management plan was discussed, agree with the current scribed note, I made few changes to the note using Italic font Patient was seen at bedside sitting comfortably, blood pressure is poorly controlled, management as described above. Clinical Quality Measures DVT/VTE Risk/Contraindication: Risk Factor Score Per Nursin RFS Level Per Nursing on Admit: 4+=Very High MEDHAT [place] Aug 21, 2020 09:46 GAURAV NUNEZ MD Aug 21, 2020 13:06
--- NOTE | 2020-08-21 12:07 | Progress Note ---
CARLYLE MOCTEZUMA MED STUDENT 08/21/20 1207: Subjective Subjective/Events-last exam HPI: Mr. 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 CTA of chest for suspected PE was unattainable due to poor renal function. Lovenox for suspected PE was given. He ws admited to ICU and placed on NTG drip titrated to a SBP of 160's. Additionally he received Cefepime and Zmax for PNA treatment. Patient has been receiving Lasix IV to help with volume overload status. Subjective/Events-last exam Patient sats have remained stable above 90% on 15 liters. He is no longer requiring Vapotherm. His blood gas on 08/20 showed it is PO2 is down in the 40s. Patient is doing better and is alert and oriented 3x. Chest x-ray shows pulmonary edema that is stable since admission. Review of Systems General: No Fatigue Pulmonary: Dyspnea; No Cough Cardiovascular: No: Chest Pain, Palpitations, Lt Headedness Focused Exam Time of Focused Exam: 09:55 Respiratory: Chest Non Tender, No Accessory Muscle Use, No Respiratory Di stress; No Pleural Rub; Rales (scant rales in the bases of lungs bilaterally ) Cardiovascular: Regular Rate, Rhythm, No Edema, No Gallop, No Murmur Skin: warm/dry Objective Exam Last Set of Vital Signs Vital Signs Date Time Temp Pulse Resp B/P (MAP) Pulse Ox O2 Delivery O2 Flow Rate FiO2 08/21/20 09:41 183/77 (112) 08/21/20 09:00 High Flow N/C 15.00 08/21/20 08:00 36.7 95 18 90 08/20/20 08:43 60 Capillary Refill : Less Than 3 SecondsLess Than 3 Seconds I&O Intake and Output 08/21/20 00:00 Intake Total 1745 ml Output Total 1420 ml Balance 325 ml Intake Oral 1745 ml Output Urine Total 1420 ml # Voids 1 # Bowel Movements 2 General: Oriented X3, No Acute Distress HEENT: Atraumatic, EOMI Lungs: Normal Air Movement, Other (rales in base bilaterally ) Heart: Regular Rate, No Murmurs, Gallops, Rubs Results/Procedures Lab Laboratory Tests 08/20/20 12:05: Coronavirus 2019 ([facility]) Negative 08/21/20 05:27: White Blood Count 8.0, Red Blood Count 2.36L, Hemoglobin 8.5L, Hematocrit 27L, Mean Corpuscular Volume 116H, Mean Corpuscular Hemoglobin 36H, Mean Corpuscular Hemoglobin Concent 31L, Red Cell Distribution Width 12.9, Platelet Count 278, Mean Platelet Volume 10.5, Immature Granulocyte % (Auto) 1, Neutrophils (%) (Auto) 78H, Lymphocytes (%) (Auto) 12, Monocytes (%) (Auto) 8, Eosinophils (%) (Auto) 1, Basophils (%) (Auto) 0, Neutrophils # (Auto) 6.2, Lymphocytes # (Auto) 1.0, Monocytes # (Auto) 0.7, Eosinophils # (Auto) 0.1, Basophils # (Auto) 0.0, Immature Granulocyte # (Auto) 0.1, Sodium Level 142, Potassium Level 3.7, Chloride Level 108H, Carbon Dioxide Level 20L, Anion Gap 14, Blood Urea Nitrogen 25H, Creatinine 1.94H, Estimat Glomerular Filtration Rate 35, BUN/Creatinine Ratio 13, Glucose Level 110H, Calcium Level 7.3L, Phosphorus Level 4.1, Magnesium Level 2.1 Microbiology 08/15/20 Blood Culture - Final, Complete No growth 08/14/20 MRSA Screen - Final, Complete MRSA not isolated Assessment/Plan Assessment/Plan Admission Dx Hypertensive emergency and confusion Assessment & Plan Mr. González Mart is a 64 y/o M with a medical history significant for HTN and HLP Who was admitted on 08/12 for hypertensive emergency, hypoxia and renal insufficiency. # Hypertensive emergency - Consider possibly EtOH withdrawal related, but per pt report last alcohol was a month ago (PT becomes agitated with ativan) - initially on drip at outside hospital -Currently on PO medications with prn IV, still significantly hypertensive - appreciate Cardiology recommendations # Hypoxia - unclear etiology - COVID negative - elevated D-dimer- VQ scan without obvious abnormality, unable to obtain CTA due to renal insufficiency - pt on 15 liters O2 - CXR 08/20 with small bibasilar effusions and persistent cardiomegaly with probable pulmonary vascular congestion and interstitial edema # Confusion - likely secondary to hypertension or EtOH use - improving: Pt AOX3 and less confused # Diastolic congestive heart failure - continue Lasix for CHF - continue to replace potassium as needed with a goal of >4.0 - elevated troponin- Cardiology consulted, suspect type II cardiac strain # Acute on chronic renal insufficiency - 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 on 08/12 to 1.94 on 08/21 DVT ppx- enoxaparin (1) Hypertensive urgency, malignant Status: Acute (2) Hypoxia Status: Acute (3) CHF (congestive heart failure) (4) MARYANN (acute kidney injury) Status: Chronic (5) Acute encephalopathy Status: Acute Clinical Quality Measures DVT/VTE Risk/Contraindication: Risk Factor Score Per Nursin RFS Level Per Nursing on Admit: 4+=Very High HEATH DANGELO MD 08/21/20 1403: Supervisory-Addendum Brief Verification & Attestation Participated in pt care: history, MDM, physical Personally performed: exam, history, MDM Care discussed with: Medical Student Procedures: n/a I personally saw and examined this patient today and did the history and exam as documented by medical student. CARLYLE MOCTEZUMA MED STUDENT Aug 21, 2020 12:07 HEATH DANGELO MD Aug 21, 2020 14:03
[2020-08-21] MEDS: cloNIDine 0.1 MG (CATAPRES) TAB PO SCH ×2 (13:49→20:24)
--- NOTE | 2020-08-21 14:20 | NUR ---
RECEIVED REPORT AND CARE OF PATIENT FROM KYLEIGH Ferguson RN. THIS RN AGREES WITH ASSESSMENTS OF PATIENT. WILL CONTINUE TO MONITOR PATIENT.
--- NOTE | 2020-08-21 15:00 | NUR ---
I SPOKE WITH THE PATIENT IN THE ROOM AND HE SEEMED TO BE CONFUSED ABOUT HIS MEDICATIONS AND WHEN HE TAKES THEM. THEREFORE, I AM NOT MAKING ANY CHANGES TO THE MED REC AT THIS TIME.
[2020-08-21] MEDS: MELATONIN 3 MG TABLET PO PRN (20:24)
[2020-08-22 00:10] VITALS: BP 153/69
[2020-08-22] MEDS: RT-ALBUTEROL SULF 2.5 MG/3 ML PRE-MIX VIAL INH SCH ×2 (01:42→14:57)
[2020-08-22 04:06] VITALS: BP 139/73
[2020-08-22] MEDS: KCL 20 MEQ TAB (K-DUR) PO SCH (05:46)
[2020-08-22 05:59] LABS: BASOPHILS % (AUTO) 1 % (0-10); EOSINOPHILS # (AUTO) 0.2 10^3/uL (0.0-0.3); EOSINOPHILS % (AUTO) 3 % (0-10); HEMATOCRIT 24 % (40-54); HEMOGLOBIN 7.6 g/dL (13.3-17.7); LYMPHOCYTES # (AUTO) 1.5 10^3/uL (1.0-4.0); LYMPHOCYTES % (AUTO) 21 % (12-44); MEAN CORPUSCULAR HEMOGLOBIN 36 pg (25-34); MEAN CORPUSCULAR HGB CONC 32 g/dL (32-36); MEAN CORPUSCULAR VOLUME 112 fL (80-99); MEAN PLATELET VOLUME 10.6 fL (9.0-12.2); MONOCYTES # (AUTO) 0.8 10^3/uL (0.0-1.0); MONOCYTES % (AUTO) 11 % (0-12); NEUTROPHILS # (AUTO) 4.6 10^3/uL (1.8-7.8); NEUTROPHILS % (AUTO) 64 % (42-75); PLATELET COUNT 281 10^3/uL (130-400); WHITE BLOOD COUNT 7.1 10^3/uL (4.3-11.0)
[2020-08-22 06:06] LABS: POTASSIUM 3.6 MMOL/L (3.6-5.0)
[2020-08-22 06:11] LABS: PHOSPHORUS 4.6 MG/DL (2.3-4.7)
[2020-08-22 06:12] LABS: CREATININE SERUM 2.04 MG/DL (0.60-1.30)
[2020-08-22 06:14] LABS: MAGNESIUM 1.8 MG/DL (1.6-2.4)
[2020-08-22 08:00] VITALS: BP 140/65
--- NOTE | 2020-08-22 08:39 | Diagnostic Imaging Report ---
EXAMINATION: US RENAL ART DOPPLER OSCAR COMP. TECHNIQUE: Multi-projectional grayscale, color Doppler, and spectral duplex imaging of the bilateral kidneys and renal vasculature was performed. INDICATION: Hypertension. COMPARISON: None available. FINDINGS: Right side: Right kidney is normal in size measuring 11 cm. There is no hydronephrosis or suspicious mass lesion. Subcentimeter anechoic cyst measures up to 0.8 cm and requires no dedicated followup imaging. The following measurements were made for the right renal vasculature and/or as follows: Main renal artery: Color Doppler imaging shows patency of the right main renal artery with expected low resistant waveforms. No elevated peak systolic velocities. Maximal peak systolic velocity is 70 cm/s in its distal aspect. Interlobular/arcuate arteries: Normal low resistant waveforms are seen within the interlobular and arcuate arteries. The acceleration index is normal. PSV:Aorta : 0.5 Left side: Left kidney is normal in size measuring 11 cm. There is no hydronephrosis or suspicious mass lesion. The following measurements were made for the left renal vasculature and/or as follows: Main renal artery: Main renal artery is patent by color Doppler imaging. Normal low resistant waveforms are present with a maximal peak systolic velocity of 75 cm/s in its proximal aspect. Interlobular/arcuate arteries: The interlobular and arcuate arteries have normal low resistant waveforms and acceleration indices. PSV:Aorta : 0.5 IMPRESSION: No features of renal artery stenosis. Abnormal Parameters: PSV > 200 cm/s PSV:Aorta > 3.5 Acceleration Index < 300 cm/sec2 Acceleration time > 70 msec Dictated by: Dictated on workstation # [id number]
[2020-08-22] MEDS: PANTOPRAZOLE 40 MG (PROTONIX) TAB PO SCH (08:56)
[2020-08-22] MEDS: FUROSEMIDE 40 MG (LASIX) TAB PO SCH (08:56)
[2020-08-22] MEDS: lisINopril 20 MG (PRINIVIL) TABLET PO SCH (08:57)
[2020-08-22] MEDS: doxAzosin 4 MG (CARDURA) TAB PO SCH ×2 (08:57→21:08)
[2020-08-22] MEDS: meTOprolol SUCCINATE 100 MG (TOPROL XL) TAB PO SCH (08:57)
[2020-08-22] MEDS: cloNIDine 0.1 MG (CATAPRES) TAB PO SCH ×3 (08:57→21:08)
[2020-08-22] MEDS: ASPIRIN E.C. 81 MG (ECOTRIN) TAB PO SCH (08:57)
[2020-08-22] MEDS: amLODIPine 5 MG (NORVASC) TAB PO SCH (08:57)
[2020-08-22] MEDS: ENOXAPARIN 40 MG/0.4 ML (LOVENOX) SYR SC SCH (08:58)
[2020-08-22] MEDS ORDERED: cloNIDine 0.3 MG PATCH (CATAPRES TTS) TDSY TD SCH (09:00)
[2020-08-22] MEDS: risperiDONE 1 MG (RisperDAL) TAB PO SCH ×2 (10:04→21:08)
[2020-08-22] MEDS: SENNA W/DOCUSATE (SENOKOT S) TABLET PO SCH ×2 (10:05→21:09)
--- NOTE | 2020-08-22 11:58 | Cardiology Progress Note ---
Subjective Date Seen by Provider: Aug 22, 2020 Time Seen by Provider: 11:57 Subjective/Events-last exam patient was seen and evaluated, feeling better. No new complaint. Blood pressure is better Review of Systems General: No Chills, No Night Sweats, No Fatigue, No Malaise, No Appetite, No Other HEENT: No Head Aches, No Visual Changes, No Eye Pain, No Ear Pain, No D ysphasia, No Sinus Congestion, No Post Nasal Drip, No Sore Throat, No Other Pulmonary: No Dyspnea, No Cough, No Pleuritic Chest Pain, No Other Cardiovascular: No: Chest Pain, Palpitations, Orthopnea, Paroxysmal Noc. Dyspnea, Edema, Lt Headedness, Other Focused Exam Time of Focused Exam: 09:55 Objective-Cardiology Exam Last Set of Vital Signs Vital Signs 08/20/20 08/22/20 08/22/20 08:43 08:00 09:00 Temp 36.1 Pulse 82 Resp 20 B/P (MAP) 140/65 (90) Pulse Ox 98 O2 Delivery High Flow N/C O2 Flow Rate 13.00 FiO2 60 Capillary Refill : Less Than 3 SecondsLess Than 3 Seconds I&O Intake and Output 08/22/20 00:00 Intake Total 2780 ml Output Total 725 ml Balance 2055 ml Intake Oral 2780 ml Output Urine Total 725 ml # Voids 4 # Bowel Movements 2 General: Alert, Oriented X3, Cooperative, No Acute Distress HEENT: Atraumatic, EOMI Neck: Supple, No JVD, No Thyromegaly Lungs: Normal Air Movement, Other (rales in base bilaterally ) Heart: Regular Rate, Normal S1, Normal S2, No Murmurs, Gallops, Rubs Abdomen: Normal Bowel Sounds, Soft Extremities: No Clubbing, No Cyanosis, No Edema Skin: No Rashes Neuro: Normal Speech, Other (oriented to self only) Psych/Mental Status: Mental Status NL, Mood NL Results Lab Laboratory Tests 08/22/20 05:25 A/P-Cardiology Admission Diagnosis Acute respiratory failure Malignant hypertension Aortography stenosis Acute renal failure Assessment/Plan Status post respiratory failure, extubated on August 14, 2020, still using oxygen, healing better today. Continue to monitor Flash pulmonary edema, responded well to diuretics, continue to monitor Congestive heart failure, acute on chronic left ventricular diastolic dysfunction, echocardiogram showed normal left ventricular systolic function, grade 2 diastolic dysfunction, mild aortic valve stenosis, pulmonary hypertension with PA pressure 40-45 mmHg. Started on beta blockers and MICHAEL inhibitor. Monitor closely. Mild elevation in troponin, type II myocardial infarction secondary to malignant hypertension and hypertensive heart disease. Continue to monitor and reevaluate troponin. We'll consider cardiac catheter versus stress test dependence on his progression Malignant hypertension, better control at this time, continue to monitor blood pressure Aortic valve stenosis, mild. Continue to monitor Acute renal failure on chronic renal insufficiency, slight improvement today. Continue to monitor Clinical Quality Measures DVT/VTE Risk/Contraindication: Risk Factor Score Per Nursin RFS Level Per Nursing on Admit: 4+=Very High GAURAV NUNEZ MD Aug 22, 2020 11:58
[2020-08-22 12:00] VITALS: BP 121/57
--- NOTE | 2020-08-22 12:32 | Progress Note ---
CARLYLE MOCTEZUMA MED STUDENT 08/22/20 1232: Subjective Subjective/Events-last exam Subjective/Events-last exam HPI: Mr. 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 CTA of chest for suspected PE was unattainable due to poor renal function. Lovenox for suspected PE was given. He ws admited to ICU and placed on NTG drip titrated to a SBP of 160's. Additionally he received Cefepime and Zmax for PNA treatment. Patient has been receiving Lasix IV to help with volume overload status. Subjective/Events-last exam Patient sats have remained stable above 91% on 13-15 liters. Patient is feeling the same as yesterday. He reports some shortness of breath and is AOx3. He is wanting to go home, but we discussed his O2 requirement is prohibitory at this t geovany. Review of Systems HEENT: No Head Aches, No Visual Changes Pulmonary: Dyspnea; No Cough, No Pleuritic Chest Pain Cardiovascular: Edema; No: Chest Pain, Palpitations Gastrointestinal: No: Nausea, Vomiting, Diarrhea, Constipation Genitourinary: No Dysuria Neurological: No: Weakness Focused Exam Time of Focused Exam: 09:55 Respiratory: No Chest Non Tender; Normal Breath Sounds, No Accessory Muscle Use, No Respiratory Distress, Crackles (faint crackles in lung bases bilaterally ) Cardiovascular: Regular Rate, Rhythm, No Gallop, No Murmur, Normal Peripheral Pulses, Other (4+ pretibial edema) Skin: normal color, warm/dry; No cyanosis Objective Exam Last Set of Vital Signs Vital Signs Date Time Temp Pulse Resp B/P (MAP) Pulse Ox O2 Delivery O2 Flow Rate FiO2 08/22/20 09:00 High Flow N/C 13.00 08/22/20 08:00 36.1 82 20 140/65 (90) 98 08/20/20 08:43 60 Capillary Refill : Less Than 3 SecondsLess Than 3 Seconds I&O Intake and Output 08/22/20 00:00 Intake Total 2780 ml Output Total 725 ml Balance 2055 ml Intake Oral 2780 ml Output Urine Total 725 ml # Voids 4 # Bowel Movements 2 General: Oriented X3, Cooperative, No Acute Distress HEENT: Atraumatic, PERRLA, EOMI Lungs: Other (fine crackels in lung bases bilaterally ) Heart: Regular Rate, No Murmurs Abdomen: Normal Bowel Sounds, No Tenderness, No Masses Extremities: No Clubbing, No Cyanosis Psych/Mental Status: Mood NL Results/Procedures Lab Laboratory Tests 08/22/20 05:25: White Blood Count 7.1, Red Blood Count 2.13L, Hemoglobin 7.6L, Hematocrit 24L, Mean Corpuscular Volume 112H, Mean Corpuscular Hemoglobin 36H, Mean Corpuscular Hemoglobin Concent 32, Red Cell Distribution Width 12.6, Platelet Count 281, Mean Platelet Volume 10.6, Immature Granulocyte % (Auto) 1, Neutrophils (%) (Auto) 64, Lymphocytes (%) (Auto) 21, Monocytes (%) (Auto) 11, Eosinophils (%) (Auto) 3, Basophils (%) (Auto) 1, Neutrophils # (Auto) 4.6, Lymphocytes # (Auto) 1.5, Monocytes # (Auto) 0.8, Eosinophils # (Auto) 0.2, Basophils # (Auto) 0.0, Immature Granulocyte # (Auto) 0.1, Sodium Level 141, Potassium Level 3.6, Chloride Level 107, Carbon Dioxide Level 23, Anion Gap 11, Blood Urea Nitrogen 27H, Creatinine 2.04H, Estimat Glomerular Filtration Rate 33, BUN/Creatinine Ratio 13, Glucose Level 103, Calcium Level 7.0L, Phosphorus Level 4.6, Magnesium Level 1.8 Microbiology 08/15/20 Blood Culture - Final, Complete No growth 08/14/20 MRSA Screen - Final, Complete MRSA not isolated Assessment/Plan Assessment/Plan Assessment & Plan Mr. González Mart is a 64 y/o M with a medical history significant for HTN and HLP Who was admitted on 08/12 for hypertensive emergency, hypoxia and renal insufficiency. # Hypertensive emergency - Consider possibly EtOH withdrawal related, but per pt report last alcohol was a month ago (PT becomes agitated with ativan) - initially on drip at outside hospital -Currently on PO medications with prn IV, has not needed PRN in last 24 hours, still significantly hypertensive but improved - appreciate Cardiology recommendations # Hypoxia - unclear etiology - COVID negative - elevated D-dimer- VQ scan without obvious abnormality, unable to obtain CTA due to renal insufficiency - pt on 13-15 liters O2 - CXR 08/20 with small bibasilar effusions and persistent cardiomegaly with probable pulmonary vascular congestion and interstitial edema # Confusion - likely secondary to hypertension or EtOH use - improving: Pt AOX3 and less confused # Diastolic congestive heart failure - continue Lasix for CHF on 40mg PO and 40mg IV - giving Lasix 40mg IV pros and cons were weighed given his kidney function and need for 15 L O2. 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 - continue to replace potassium as needed with a goal of >4.0 - elevated troponin- Cardiology consulted, suspect type II cardiac strain # Acute on chronic renal insufficiency - Machine Puller And Laster 2.33 on presentation (08/12) it had decreased but is now on the rise again at 2.04 - continue to monitor and consider removing IV Lasix if continues to trend upward. - PT/OT consulted DVT ppx- enoxaparin (1) Hypertensive urgency, malignant Status: Acute (2) Hypoxia Status: Acute (3) CHF (congestive heart failure) (4) MARYANN (acute kidney injury) Status: Chronic (5) Acute encephalopathy Status: Acute Clinical Quality Measures DVT/VTE Risk/Contraindication: Risk Factor Score Per Nursin RFS Level Per Nursing on Admit: 4+=Very High HEATH DANGELO MD 08/22/202038: Supervisory-Addendum Brief Verification & Attestation Participated in pt care: history, MDM, physical Personally performed: exam, history Care discussed with: Medical Student Procedures: n/a I personally saw and examined patient today and did my own history and exam which agree with that documented by the medical student. I directed the plan of care as documented. CARLYLE MOCTEZUMA MED STUDENT Aug 22, 2020 12:32 HEATH DANGELO MD Aug 22, 2020 20:39
[2020-08-22] MEDS ORDERED: FUROSEMIDE 40 MG/4 ML INJ (LASIX) IVP NR (12:45)
--- NOTE | 2020-08-22 13:36 | Occupational Therapy Eval ---
OT Evaluation-General/PLF Medical Diagnosis Admission Date Aug 12, 2020 at 12:10 Medical Diagnosis: ARF; RLL PNA Onset Date: Aug 12, 2020 Therapy Diagnosis Therapy Diagnosis: Decreased ADL status Precautions Precautions/Isolations: Aspiration, Seizure, Fall Prevention, Standard Precautions Referral Physician: Werner Referral Reason: Activity Tolerance, Self Care, Evaluation/Treatment, Strengthening/ROM Medical History Current History Pt admits from [facility] [place] with RLL PNA/ COVID negative. Required intubation 08/12-08/14 due to hypoxia/ distress. Reviewed History: Yes Social History Home: Single Level Current Living Status: Alone Entry Into Home: Level Entry Pt lives alone, though has 3 sons within a 10 mile radius that can check in on him. ADL-Prior Level of Function SCALE: Activities may be completed with or without assistive devices. 4-Vkmmxvosom-wtbyhcv completes the activity by him/herself with no assistance from a helper. 5-Set-up or Clean-up Assistance-helper sets up or cleans up; patient completes activity. [place] assists only prior to or following the activity. 4-Supervision or Touching Assistance-helper provides verbal cues and/or t ouching/steadying and/or contact guard assistance as patient completes activity. Assistance may be provided throughout the activity or intermittently. 3-Partial/Moderate Assistance-helper does LESS THAN HALF the effort. [place] lifts, holds or supports trunk or limbs, but provides less than half the effort. 2-Substantial/Maximal Assistance-helper does MORE THAN HALF the effort. [place] lifts or holds trunk or limbs and provides more than half the effort. 2-Ujdjabyds-mjstjr does ALL the effort. Patient does none of the effort to complete the activity. Or, the assistance of 2 or more helpers is required for the patient to complete the activity. If activity was not attempted, code reason: 7-Patient Refused. 9-Not Applicable-not attempted and the patient did not perform the activity before the current illness, exacerbation or injury. 10-Not Attempted due to Environmental Limitations-(lack of equipment, weather restraints, etc.). 88-Not Attempted due to Medical Conditions or Safety Concerns. DME/Equipment: Grab Bars, Tub/Shower DME/Equipment Comments gb, tub/ shower, no sc. 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 Food completely finished. Pt agrees to OT eval/ treat. Denies pain. Mental Status/Objective Patient Orientation: Person, Place, Situation Attachments: Oxygen Current Glasses/Contacts: Yes Hearing Aids: No Dentures/Partials: Yes Hand Dominance: Right Upper Extremity ROM WFL BUE Upper Extremity Coordination WFL BUE Upper Extremity Sensation WFL BUE Upper Extremity Strength WFL BUE 4/5 Edema: dorsum L foot ADL-Treatment Eating (QC): 6 Oral Hygiene (QC): 7 On/Off Footwear (QC): 6 Other Treatments Pt educated on OT role/ purpose. Pt MMT/ ROM WFL. Pt denies dizziness. Dons socks edge of chair. Sit to stand at walker level with SBA. Ambulates to commode (~5 ft), completing urination in stance with SBA. No LOB. Pt returns to recliner, good control. Pt states desire to go home, denies needs. Pt is educated on safety and continued strength/ balance to ensure safe d/c home. Pt agrees, in recliner with chair alarm on and call light in reach. Education OT Patient Education: Correct positioning, Purpose of tx/functional activities, Safety issues, Transfer techniques Teaching Recipient: Patient Teaching Methods: Demonstration, Discussion Response to Teaching: Verbalize Understanding, Return Demonstration OT Reclamation Supervisor Goals Reclamation Supervisor Goals Time Frame: Aug 29, 2020 Eating (QC): 6 Oral Hygiene (QC): 6 Toileting Hygiene (QC): 6 Shower/Bathe Self (QC): 6 Upper Body Dressing (QC): 6 Lower Body Dressing (QC): 6 On/Off Footwear (QC): 6 Additional Goals: 1-Demonstrate ADL Tasks, 2-Verbalize Understanding, 3- ImproveStrength/Adriana 1=Demonstrate adherence to instructed precautions during ADL tasks. 2=Patient will verbalize/demonstrate understanding of assistive devices/modifications for ADL. 3=Patient will improve strength/tolerance for activity to enable patient to perform ADL's. OT Education/Plan Problem List/Assessment Assessment: Decreased Activ Tolerance, Dependent Transfers, Impaired I ADL's, Impaired Self-Care Skills Discharge Recommendations Plan/Recommendations: Continue POC Therapy Discharge Recommendati: Intermittent Supervision, Home & Family Equpiment Recommendations-D/C: Bath Chair Treatment Plan/Plan of Care Treatment,Training & Education: Yes Patient would benefit from OT for education, treatment and training to promote independence in ADL's, mobility, safety and/or upper extremity function for ADL' s. Plan of Care: ADL Retraining, Functional Mobility, UE Funct Exercise/Act Treatment Duration: Aug 29, 2020 Frequency: 5 times per week Estimated Hrs Per Day: .25 hour per day Agreement: Yes Rehab Potential: Good Time/GCodes Start Time: 13:13 Stop Time: 13:25 Total Time Billed (hr/min): 12 Billed Treatment Time 1, EVM (12) CARLOS MANUEL AMADOR OTR Aug 22, 2020 13:36
--- NOTE | 2020-08-22 14:46 | Physical Therapy Evaluation ---
PT Evaluation-General Medical Diagnosis Admission Date Aug 12, 2020 at 12:10 Medical Diagnosis: ARF; RLL PNA Onset Date: Aug 12, 2020 Therapy Diagnosis Therapy Diagnosis: debility/weakness Precautions Precautions/Isolations: Aspiration, Seizure, Fall Prevention, Standard Precautions Weight Bear Status Right Lower Extremity: Right Full Weight Bearing Left Lower Extremity: Left Full Weight Bearing Referral Physician: Werner Reason for Referral: Evaluation/Treatment Medical History Pertinent Medical History: HTN Current History [place] [facility] [place] to HTN urgency requiring intubation via EMS Reviewed History: Yes Social History Home: Single Level (heated shed) Current Living Status: Alone Entry Into Home: Level Entry Prior Prior Level of Function SCALE: Activities may be completed with or without assistive devices. 4-Tekvwypgje-nzsoabk completes the activity by him/herself with no assistance from a helper. 5-Set-up or Clean-up Assistance-helper sets up or cleans up; patient completes activity. [place] assists only prior to or following the activity. 4-Supervision or Touching Assistance-helper provides verbal cues and/or touching/steadying and/or contact guard assistance as patient completes activity. Assistance may be provided throughout the activity or intermittently. 3-Partial/Moderate Assistance-helper does LESS THAN HALF the effort. [place] lifts, holds or supports trunk or limbs, but provides less than half the effort. 2-Substantial/Maximal Assistance-helper does MORE THAN HALF the effort. [place] lifts or holds trunk or limbs and provides more than half the effort. 8-Bvqkofqld-nwpmnw does ALL the effort. Patient does none of the effort to complete the activity. Or, the assistance of 2 or more helpers is required for the patient to complete the activity. If activity was not attempted, code reason: 7-Patient Refused. 9-Not Applicable-not attempted and the patient did not perform the activity before the current illness, exacerbation or injury. 10-Not Attempted due to Environmental Limitations-(lack of equipment, weather restraints, etc.). 88-Not Attempted due to Medical Conditions or Safety Concerns. Bed Mobility: 6 Transfers (B,C,W/C): 6 Gait: 6 Stairs: 6 Indoor Mobility (Ambulation): Independent Stairs: Independent Prior Devices Use: None PT Evaluation-Current Subjective Patient agrees to PT. No c/o. Objective Patient Orientation: Person, Time, Situation Attachments: Oxygen (8L HF) ROM/Strength ROM Lower Extremities bilateral LE WFL Strength Lower Extremities 4/5 grossly bilateral LE Integumentary/Posture Integumentary refer to nursing notes Bowel Incontinence: No Bladder Incontinence: No Posture WFL Neuromuscular (Tone, Coordination, Reflexes) grossly intact Sensory Vision: Wears Glasses Hearing: Functional Hand Dominance: Right Transfers Sit to Lying (QC): 6 Lying to Sitting/Side of Bed(Q: 6 Sit to Stand (QC): 4 Chair/Jtw-hx-Xcqtj Xfer(QC): 4 Gait Does the Patient Walk?: Yes Mode of Locomotion: Walk Anticipated Mode of Locomotion: Walk Walk 10 feet (QC): 4 Walk 50 ft with 2 Turns(QC): 4 Walk 150 ft (QC): 4 Distance: 200' Gait Assistive Device: FWW Comments/Gait Description safe and functional with no deviation Balance Sitting Static: Normal Sitting Dynamic: Normal Standing Static: Normal Standing Dynamic: Normal Assessment/Needs 64 y.o. male, will benefit from short term skilled PT to address pulmonary function with functional mobility to ensure safe return to home at maximum LOF. Rehab Potential: Fair PT Well Surveying Engineer Goals Well Surveying Engineer Goals PT Well Surveying Engineer Goals Time Frame: Sep 02, 2020 Roll Left & Right (QC): 6 Sit to Lying (QC): 6 Lying-Sitting on Side/Bed(QC): 6 Sit to Stand (QC): 6 Chair/Fhz-iq-Wabfy Xfer(QC): 6 Toilet Transfer (QC): 6 Does the Patient Walk: Yes Walk 10 feet (QC): 6 Walk 50ft with 2 Turns (QC): 6 Walk 150 ft (QC): 6 PT Plan Problem List Problem List: Activity Tolerance, Safety Treatment/Plan Treatment Plan: Continue Plan of Care Treatment Plan: Bed Mobility, Education, Functional Activity Adriana, Functional Strength, Gait, Safety, Therapeutic Exercise, Transfers Treatment Duration: Sep 02, 2020 Frequency: 6 times per week Estimated Hrs Per Day: .25 hour per day Patient and/or Family Agrees t: Yes Time/GCodes Time In: 1406 Time Out: 1422 Total Billed Treatment Time: 16 Total Billed Treatment 1 visit EVModC 16 min SANDRA FALLON PT Aug 22, 2020 14:46
[2020-08-22 15:16] VITALS: BP 117/70
[2020-08-22 19:08] VITALS: BP 131/60
--- NOTE | 2020-08-22 20:30 | NUR ---
Pt up to toilet toilet at this time, walked with walker very well standby assistance. Pt noted to have labored breathing with exertion, takes 5-10min for breathing to return to baseline breathing for this pt which is still labored on 6L [place]. Will continue to monitor pt for changes in breathing pattern and alert RT as needed.
[2020-08-22] MEDS: RT-ALBUTEROL/IPRATROPIUM 3 ML (DUONEB) VIAL INH SCH (20:52)
--- NOTE | 2020-08-22 22:30 | NUR ---
pt qualified for 2mg of ativan per CIWA scale, states he is visually and auditorily hallucinating with scenes of high school, almost like flashbacks according to pt. States they are very real to him, he stated the IV pole reminded him of a lady he knew. Also stated he felt as though his dog was brushing up and laying its head against his legs, pt equated it to the scd pumps inflating and deflating. Also stated that he thought the clock was on a different wall in the room and asked "where does that door go" referring to the cabinet in the corner of the room for pt belongings, this nurse reoriented pt to surroundings and made sure call light is in reach, pt is using call light appropriately and answers questions appropriately, moderate tremors noted, pt states they are worse than earlier prior to this nurse coming on shift. Will continue to monitor for changes and assess CIWA scale in 1hour. Addendum: 08/22/20 at [id number] by KYLEIGH HUSTON RN THIS NOTE WRONG PT CHARTED ON. 405 IS WALKING WELL TO RESTROOM, NO S/SX R/T CIWA SCALE NOTED. PT DOES GET SOA WITH EXERTION, AND WHILE RESTING ON OCCASION.
[2020-08-23] VITALS (7 sets, daily range): BP systolic 125–170; BP diastolic 56–80
[2020-08-23] MEDS: RT-ALBUTEROL/IPRATROPIUM 3 ML (DUONEB) VIAL INH SCH ×4 (01:49→22:57)
[2020-08-23 06:39] LABS: BASOPHILS % (AUTO) 0 % (0-10); EOSINOPHILS # (AUTO) 0.2 10^3/uL (0.0-0.3); EOSINOPHILS % (AUTO) 2 % (0-10); HEMATOCRIT 25 % (40-54); HEMOGLOBIN 7.9 g/dL (13.3-17.7); LYMPHOCYTES # (AUTO) 1.1 10^3/uL (1.0-4.0); LYMPHOCYTES % (AUTO) 12 % (12-44); MEAN CORPUSCULAR HEMOGLOBIN 36 pg (25-34); MEAN CORPUSCULAR HGB CONC 32 g/dL (32-36); MEAN CORPUSCULAR VOLUME 114 fL (80-99); MEAN PLATELET VOLUME 11.2 fL (9.0-12.2); MONOCYTES # (AUTO) 0.9 10^3/uL (0.0-1.0); MONOCYTES % (AUTO) 10 % (0-12); NEUTROPHILS # (AUTO) 7.1 10^3/uL (1.8-7.8); NEUTROPHILS % (AUTO) 75 % (42-75); PLATELET COUNT 282 10^3/uL (130-400); WHITE BLOOD COUNT 9.5 10^3/uL (4.3-11.0)
[2020-08-23] MEDS: KCL 20 MEQ TAB (K-DUR) PO SCH (06:54)
[2020-08-23 07:02] LABS: POTASSIUM 3.9 MMOL/L (3.6-5.0)
[2020-08-23 07:03] LABS: CALCIUM 7.5 MG/DL (8.5-10.1)
[2020-08-23 07:07] LABS: PHOSPHORUS 4.1 MG/DL (2.3-4.7)
[2020-08-23 07:08] LABS: CREATININE SERUM 2.12 MG/DL (0.60-1.30)
[2020-08-23 07:10] LABS: MAGNESIUM 2.1 MG/DL (1.6-2.4)
[2020-08-23] MEDS: doxAzosin 4 MG (CARDURA) TAB PO SCH ×2 (08:37→20:51)
[2020-08-23] MEDS: cloNIDine 0.1 MG (CATAPRES) TAB PO SCH ×3 (08:37→20:51)
[2020-08-23] MEDS: meTOprolol SUCCINATE 100 MG (TOPROL XL) TAB PO SCH (08:37)
[2020-08-23] MEDS: ASPIRIN E.C. 81 MG (ECOTRIN) TAB PO SCH (08:37)
[2020-08-23] MEDS: lisINopril 20 MG (PRINIVIL) TABLET PO SCH (08:38)
[2020-08-23] MEDS: FUROSEMIDE 40 MG (LASIX) TAB PO SCH (08:38)
[2020-08-23] MEDS: PANTOPRAZOLE 40 MG (PROTONIX) TAB PO SCH (08:38)
[2020-08-23] MEDS: amLODIPine 5 MG (NORVASC) TAB PO SCH (08:38)
[2020-08-23] MEDS: ENOXAPARIN 40 MG/0.4 ML (LOVENOX) SYR SC SCH (08:38)
[2020-08-23] MEDS: SENNA W/DOCUSATE (SENOKOT S) TABLET PO SCH ×2 (08:39→20:52)
--- NOTE | 2020-08-23 08:52 | Cardiology Progress Note ---
Subjective Date Seen by Provider: Aug 23, 2020 Time Seen by Provider: 08:52 Subjective/Events-last exam Patient sitting up in chair, continues to have mild dyspnea, still requiring O2. Denies any chest pain Review of Systems General: No Chills, No Night Sweats; Fatigue; No Malaise, No Appetite, No Other HEENT: No Head Aches, No Visual Changes, No Eye Pain, No Ear Pain, No Dysphasia, No Sinus Congestion, No Post Nasal Drip, No Sore Throat, No Other Pulmonary: Dyspnea; No Cough, No Pleuritic Chest Pain, No Other Cardiovascular: No: Chest Pain, Palpitations, Orthopnea, Paroxysmal Noc. Dyspnea, Edema, Lt Headedness, Other Focused Exam Time of Focused Exam: 09:55 Objective-Cardiology Exam Last Set of Vital Signs Vital Signs 08/20/20 08/23/20 08/23/20 08/23/20 08:43 08:00 08:59 09:00 Temp 36.5 Pulse 77 Resp 18 B/P (MAP) 170/74 (106) Pulse Ox 91 O2 Delivery High Flow N/C O2 Flow Rate 5.00 FiO2 60 Capillary Refill : Less Than 3 SecondsLess Than 3 Seconds I&O Intake and Output 08/23/20 00:00 Intake Total 1950 ml Balance 1950 ml Intake Oral 1950 ml # Voids 8 # Bowel Movements 1 General: Oriented X3, Cooperative, No Acute Distress HEENT: Atraumatic, PERRLA, EOMI Neck: Supple, No JVD, No Thyromegaly Lungs: Other (fine crackels in lung bases bilaterally ) Heart: Regular Rate, Normal S1, Normal S2, No Murmurs Abdomen: Normal Bowel Sounds, No Tenderness, No Masses Extremities: No Clubbing, No Cyanosis Skin: No Rashes Neuro: Normal Speech, Other (oriented to self only) Psych/Mental Status: Mood NL Results Lab Laboratory Tests 08/23/20 05:41 A/P-Cardiology Admission Diagnosis Acute respiratory failure Malignant hypertension Aortography stenosis Acute renal failure Assessment/Plan Status post respiratory failure, extubated on August 14, 2020, still using oxygen, healing better today. Continue to monitor Flash pulmonary edema, responded well to diuretics, continue to monitor Congestive heart failure, acute on chronic left ventricular diastolic dysfunction, echocardiogram showed normal left ventricular systolic function, grade 2 diastolic dysfunction, mild aortic valve stenosis, pulmonary hypertension with PA pressure 40-45 mmHg. Started on beta blockers and MICHAEL i nhibitor. Monitor closely. Mild elevation in troponin, type II myocardial infarction secondary to malignant hypertension and hypertensive heart disease. Continue to monitor and reevaluate troponin. We'll consider cardiac catheter versus stress test dependence on his progression Malignant hypertension, slightly more elevated today. Continue on current medication and monitor Aortic valve stenosis, mild. Continue to monitor Acute renal failure on chronic renal insufficiency, worse today, patient is receiving lisinopril 20 milligrams and Lasix 40 mg. I will consider cutting down the dose of both medication if kidneys function continues to deteriorate Patient was seen and evaluated with Medhat, examination performed, management plan was discussed, agree with the current scribed note, I made few changes to the note using Italic font Patient was seen and evaluated, feeling well. No new complaint Still having bilateral rhonchi and using oxygen Worsening renal function, management as described above Clinical Quality Measures DVT/VTE Risk/Contraindication: Risk Factor Score Per Nursin RFS Level Per Nursing on Admit: 4+=Very High MEDHAT [place] Aug 23, 2020 08:52 GAURAV NUNEZ MD Aug 23, 2020 11:37
--- NOTE | 2020-08-23 10:52 | Progress Note ---
CARLYLE MOCTEZUMA MED STUDENT 08/23/20 1052: Subjective Subjective/Events-last exam HPI: Mr. González Mart is a 64 y/o M with a medical history significant for HTN and HLP with no history of cardiac issues who was admitted on 08/12 due to HTN emergency of 240/140 along with MARYANN with oceanographer assistant of 1.8, new hypoxia of 70%, and elevated d-dimer. CTA of chest for suspected PE was unattainable due to poor renal function. Lovenox for suspected PE was given. He ws admited to ICU and placed on NTG drip titrated to a SBP of 160's. Additionally he received Cefepime and Zmax for PNA treatment. Patient has been receiving Lasix IV to help with volume overload status. Subjective/Events-last exam Patient has been weaning off oxygen he has been sating above 94% with oxygen as low as 4 L. Patient is feeling better today only reporting some shortness of breath with activity He is AOx3 and wants to go home. Review of Systems General: No Chills, No Fatigue HEENT: No Head Aches, No Sinus Congestion, No Sore Throat Pulmonary: Dyspnea; No Cough, No Pleuritic Chest Pain Cardiovascular: Edema; No: Chest Pain, Palpitations Gastrointestinal: No: Nausea, Vomiting, Abdominal Pain, Diarrhea, Constipation Genitourinary: No Dysuria, No Frequency, No Incontinence Neurological: No: Weakness Focused Exam Time of Focused Exam: 09:55 Respiratory: Chest Non Tender, No Accessory Muscle Use, No Respiratory Distress, Crackles (fine crackels in lung bases similar to yesterday) Cardiovascular: Regular Rate, Rhythm, No Gallop, Normal Peripheral Pulses, Systolic Murmur (crescendo-decrescendo murmur loudest at the right 2nd int ercostal space) Peripheral Pulses: 2+ Radial Pulses (R), 2+ Radial Pulses (L) Skin: normal color, warm/dry Objective Exam Last Set of Vital Signs Vital Signs Date Time Temp Pulse Resp B/P (MAP) Pulse Ox O2 Delivery O2 Flow Rate FiO2 08/23/20 09:00 [place] N/C 5.00 08/23/20 08:59 91 08/23/20 08:00 36.5 77 18 170/74 (106) 08/20/20 08:43 60 Capillary Refill : Less Than 3 SecondsLess Than 3 Seconds I&O Intake and Output 12/9/20 00:00 Intake Total 1950 ml Balance 1950 ml Intake Oral 1950 ml # Voids 8 # Bowel Movements 1 General: Alert, Oriented X3, No Acute Distress HEENT: Atraumatic, PERRLA, EOMI Neck: Supple, No Thyromegaly Lungs: Clear to Auscultation, Normal Air Movement Heart: Regular Rate, Normal S1, Normal S2, Other (crescendo-decrescendo murmur loudest at the right 2nd intercostal space) Abdomen: Normal Bowel Sounds, Soft, No Tenderness, No Masses Extremities: No Clubbing, No Cyanosis, Normal Pulses, Other (4+ edema in legs to the knees ) Skin: No Rashes, No Breakdown Psych/Mental Status: Mental Status NL, Mood NL Results/Procedures Lab Laboratory Tests 08/23/20 05:41: White Blood Count 9.5, Red Blood Count 2.18L, Hemoglobin 7.9L, Hematocrit 25L, Mean Corpuscular Volume 114H, Mean Corpuscular Hemoglobin 36H, Mean Corpuscular Hemoglobin Concent 32, Red Cell Distribution Width 12.6, Platelet Count 282, Mean Platelet Volume 11.2, Immature Granulocyte % (Auto) 1, Neutrophils (%) (Auto) 75, Lymphocytes (%) (Auto) 12, Monocytes (%) (Auto) 10, Eosinophils (%) (Auto) 2, Basophils (%) (Auto) 0, Neutrophils # (Auto) 7.1, Lymphocytes # (Auto) 1.1, Monocytes # (Auto) 0.9, Eosinophils # (Auto) 0.2, Basophils # (Auto) 0.0, Immature Granulocyte # (Auto) 0.1, Sodium Level 135, Potassium Level 3.9, Chloride Level 105, Carbon Dioxide Level 21, Anion Gap 9, Blood Urea Nitrogen 31H, Creatinine 2.12H, Estimat Glomerular Filtration Rate 31, BUN/Creatinine Ratio 15, Glucose Level 94, Calcium Level 7.5L, Phosphorus Level 4.1, Magnesium Level 2.1 Microbiology 08/15/20 Blood Culture - Final, Complete No growth 08/14/20 MRSA Screen - Final, Complete MRSA not isolated Assessment/Plan Assessment/Plan Assessment & Plan Mr. González Mart is a 64 y/o M with a medical history significant for HTN and HLP Who was admitted on 08/12 for hypertensive emergency, hypoxia and renal insufficiency. # Hypertensive emergency - Consider possibly EtOH withdrawal related, but per pt report last alcohol was a month ago (PT becomes agitated with ativan) - initially on drip at outside hospital -Currently on PO medications with prn IV, has not needed PRN in last 24 hours, still significantly hypertensive but improved - appreciate Cardiology recommendations # Hypoxia - unclear etiology - COVID negative - elevated D-dimer- VQ scan without obvious abnormality, unable to obtain CTA due to renal insufficiency - pt much improved and o2 weaning is going well stating >94 on 4-8 liters O2 - CXR 08/20 with small bibasilar effusions and persistent cardiomegaly with probable pulmonary vascular congestion and interstitial edema # Confusion - likely secondary to hypertension or EtOH use - improving: Pt AOX3 and less confused # Diastolic congestive heart failure - continue Lasix for CHF on 40mg PO - hold additional IV lasics today and reevaluate status tomorrow - continue to replace potassium as needed with a goal of >4.0 - elevated troponin- Cardiology consulted, suspect type II cardiac strain - Bunny weinstein for edema # Acute on chronic renal insufficiency - Receptionist Nurse 2.33 on presentation (08/12) it had decreased but is now on the rise again at 2.12 - anthony's new baseline oceanographer assistant is likely around 2 - continue to monitor and consider reducing Lasix or lisinopril if continues to trend upward. - PT/OT consulted DVT ppx- enoxaparin (1) Hypertensive urgency, malignant Status: Acute (2) Hypoxia Status: Acute (3) CHF (congestive heart failure) (4) MARYANN (acute kidney injury) Status: Chronic (5) Acute encephalopathy Status: Acute Clinical Quality Measures DVT/VTE Risk/Contraindication: Risk Factor Score Per Nursin RFS Level Per Nursing on Admit: 4+=Very High HEATH DANGELO MD 08/23/20 1334: Objective Exam General: Alert, No Acute Distress HEENT: Atraumatic Lungs: Normal Air Movement, Other (rales bibasilar) Heart: Regular Rate, Normal S1, Normal S2, Other (crescendo-decrescendo murmur loudest at the right 2nd intercostal space) Extremities: No Cyanosis, Other (4+ edema in legs to the knees ) Neuro: Normal Speech Psych/Mental Status: Mental Status NL, Mood NL Supervisory-Addendum Brief Verification & Attestation Participated in pt care: history, MDM, physical Personally performed: exam, history, MDM Care discussed with: Medical Student Procedures: n/a I personally saw and examined patient today, see my physical exam for my exam findings. I confirmed the history as documented by the medical student and directed the plan of care as documented by the medical student. CARLYLE MOCTEZUMA MED STUDENT Aug 23, 2020 10:52 HEATH DANGELO MD Aug 23, 2020 13:34
--- NOTE | 2020-08-23 14:03 | Occupational Ther Daily Note ---
OT Current Status-Daily Note Subjective No pain reported. Appearance Pt. sitting on side of bed. Agreeable to treatment. Mental Status/Objective Patient Orientation: Person, Place Attachments: Oxygen ADL-Treatment Therapy Code Descriptions/Definitions Functional [place] Measure: 0=Not Assessed/NA 4=Minimal Assistance 1=Total Assistance 5=Supervision or Setup 2=Maximal Assistance 6=Modified [place] 3=Moderate Assistance 7=Complete IndependenceSCALE: Activities may be completed with or without assistive devices. 0-Xemautcucm-fyapule completes the activity by him/herself with no assistance from a helper. 5-Set-up or Clean-up Assistance-helper sets up or cleans up; patient completes activity. [place] assists only prior to or following the activity. 4-Supervision or Touching Assistance-helper provides verbal cues and/or touching/steadying and/or contact guard assistance as patient completes activity. Assistance may be provided throughout the activity or intermittently. 3-Partial/Moderate Assistance-helper does LESS THAN HALF the effort. [place] lifts, holds or supports trunk or limbs, but provides less than half the effort. 2-Substantial/Maximal Assistance-helper does MORE THAN HALF the effort. [place] lifts or holds trunk or limbs and provides more than half the effort. 2-Sbyerjfmj-vpydtc does ALL the effort. Patient does none of the effort to complete the activity. Or, the assistance of 2 or more helpers is required for the patient to complete the activity. If activity was not attempted, code reason: 7-Patient Refused. 9-Not Applicable-not attempted and the patient did not perform the activity before the current illness, exacerbation or injury. 10-Not Attempted due to Environmental Limitations-(lack of equipment, weather restraints, etc.). 88-Not Attempted due to Medical Conditions or Safety Concerns. Other Treatment Pt. sitting on side of bed. PT in room and getting ready to ambulate with pt. OT assisted with co-treatment and oxygen follow while PT assisted pt. with balance. OT educated pt. on safety with scissoring, as well as taking time and rest breaks as needed. Pt. is able to verbalize that he has been able to clean self when toileting. He is able to don pants and slipper socks. Demonstrated ability to transfer to/from supine-sit and position self in bed. All needs met. Education OT Patient Education: Correct positioning, Purpose of tx/functional activities, Reviewed precautions, Rehab process, Transfer techniques Teaching Recipient: Patient Teaching Methods: Demonstration, Discussion Response to Teaching: Verbalize Understanding, Return Demonstration OT Career Specialist Goals Career Specialist Goals Time Frame: Aug 29, 2020 Eating (QC): 6 Oral Hygiene (QC): 6 Toileting Hygiene (QC): 6 Shower/Bathe Self (QC): 6 Upper Body Dressing (QC): 6 Lower Body Dressing (QC): 6 On/Off Footwear (QC): 6 Additional Goals: 1-Demonstrate ADL Tasks, 2-Verbalize Understanding, 3- ImproveStrength/Adriana 1=Demonstrate adherence to instructed precautions during ADL tasks. 2=Patient will verbalize/demonstrate understanding of assistive devices/modifications for ADL. 3=Patient will improve strength/tolerance for activity to enable patient to perform ADL's. OT Education/Plan Problem List/Assessment Assessment: Decreased Activ Tolerance Discharge Recommendations Plan/Recommendations: Continue POC Treatment Plan/Plan of Care Treatment,Training & Education: Yes Patient would benefit from OT for education, treatment and training to promote independence in ADL's, mobility, safety and/or upper extremity function for ADL's. Plan of Care: ADL Retraining, Functional Mobility, UE Funct Exercise/Act Treatment Duration: Aug 29, 2020 Frequency: 5 times per week Estimated Hrs Per Day: .25 hour per day Agreement: Yes Rehab Potential: Fair Time/GCodes Start Time: 13:35 Stop Time: 13:50 Total Time Billed (hr/min): 15 Billed Treatment Time 1, WOO MEYERS OT Aug 23, 2020 14:03
--- NOTE | 2020-08-23 14:07 | Physical Therapy Daily Note ---
PT Daily Note-Current Subjective Patient in bed pre tx, agrees to PT, has no complaints of pain. Appearance Patient sitting EOB post tx will continue with OT who is in the room. Mental Status Patient Orientation: Person, Confused Attachments: Oxygen Transfers SCALE: Activities may be completed with or without assistive devices. 8-Mfaqksvhrp-gjxjajo completes the activity by him/herself with no assistance from a helper. 5-Set-up or Clean-up Assistance-helper sets up or cleans up; patient completes activity. [place] assists only prior to or following the activity. 4-Supervision or Touching Assistance-helper provides verbal cues and/or touching/steadying and/or contact guard assistance as patient completes activity. Assistance may be provided throughout the activity or intermittently. 3-Partial/Moderate Assistance-helper does LESS THAN HALF the effort. [place] lifts, holds or supports trunk or limbs, but provides less than half the effort. 2-Substantial/Maximal Assistance-helper does MORE THAN HALF the effort. [place] lifts or holds trunk or limbs and provides more than half the effort. 4-Zmnkczdkp-itdjkj does ALL the effort. Patient does none of the effort to complete the activity. Or, the assistance of 2 or more helpers is required for the patient to complete the activity. If activity was not attempted, code reason: 7-Patient Refused. 9-Not Applicable-not attempted and the patient did not perform the activity before the current illness, exacerbation or injury. 10-Not Attempted due to Environmental Limitations-(lack of equipment, weather restraints, etc.). 88-Not Attempted due to Medical Conditions or Safety Concerns. Roll Left & Right (QC): 6 Lying to Sitting/Side of Bed(Q: 6 Sit to Stand (QC): 4 Chair/Apn-vk-Pldfe Xfer(QC): 4 Weight Bearing Right Lower Extremity: Right Full Weight Bearing Left Lower Extremity: Left Full Weight Bearing Gait Training Distance: 250' Walk 10 feet (QC): 4 Walk 50 ft with 2 Turns(QC): 4 Walk 150 ft (QC): 4 Gait Persons Needed: 1 Gait Assistive Device: FWW Steady ambulation but still needs CGA due to some impulsiveness, he is unsteady with turning Exercises Seated Therapy Exercises: Ankle pumps, Long arc quads Seated Reps: 20 Treatments bed mobility and transfers, ambulation, LE exercise Assessment Current Status: Fair Progress needs somebody with him for ambulation PT Halal Butcher Goals [facility] Goals PT Halal Butcher Goals Time Frame: Sep 02, 2020 Roll Left & Right (QC): 6 Sit to Lying (QC): 6 Lying-Sitting on Side/Bed(QC): 6 Sit to Stand (QC): 6 Chair/Ozy-ox-Nbmuc Xfer(QC): 6 Toilet Transfer (QC): 6 Does the Patient Walk: Yes Walk 10 feet (QC): 6 Walk 50ft with 2 Turns (QC): 6 Walk 150 ft (QC): 6 PT Plan Problem List Problem List: Activity Tolerance, Functional Strength, Safety, Balance, Gait, Transfer Treatment/Plan Treatment Plan: Continue Plan of Care Treatment Plan: Bed Mobility, Education, Functional Activity [place], Functional Strength, Gait, Safety, Therapeutic Exercise, Transfers Treatment Duration: Sep 02, 2020 Frequency: 6 times per week Estimated Hrs Per Day: .25 hour per day Patient and/or Family Agrees t: Yes Safety Risks/Education Patient Education: Gait Training, Transfer Techniques, Correct Positioning, Safety Issues Teaching Recipient: Patient Teaching Methods: Demonstration, Discussion Response to Teaching: Reinforcement Needed Time/GCodes Time In: 1332 Time Out: 1346 Total Billed Treatment Time: 14 Total Billed Treatment 1 visit FA 14' SHYAM WICK PT Aug 23, 2020 14:07
[2020-08-24] VITALS (7 sets, daily range): BP systolic 112–137; BP diastolic 54–86
[2020-08-24] MEDS: RT-ALBUTEROL/IPRATROPIUM 3 ML (DUONEB) VIAL INH SCH ×4 (02:52→21:38)
[2020-08-24 05:42] LABS: BASOPHILS % (AUTO) 0 % (0-10); EOSINOPHILS # (AUTO) 0.3 10^3/uL (0.0-0.3); EOSINOPHILS % (AUTO) 3 % (0-10); HEMATOCRIT 24 % (40-54); HEMOGLOBIN 7.8 g/dL (13.3-17.7); LYMPHOCYTES # (AUTO) 1.2 10^3/uL (1.0-4.0); LYMPHOCYTES % (AUTO) 13 % (12-44); MEAN CORPUSCULAR HEMOGLOBIN 36 pg (25-34); MEAN CORPUSCULAR HGB CONC 32 g/dL (32-36); MEAN CORPUSCULAR VOLUME 114 fL (80-99); MEAN PLATELET VOLUME 11.1 fL (9.0-12.2); MONOCYTES % (AUTO) 11 % (0-12); NEUTROPHILS % (AUTO) 73 % (42-75); PLATELET COUNT 266 10^3/uL (130-400); WHITE BLOOD COUNT 9.7 10^3/uL (4.3-11.0)
[2020-08-24 06:10] LABS: CALCIUM 7.3 MG/DL (8.5-10.1); CREATININE SERUM 2.41 MG/DL (0.60-1.30); MAGNESIUM 1.7 MG/DL (1.6-2.4); PHOSPHORUS 4.1 MG/DL (2.3-4.7); POTASSIUM 4.8 MMOL/L (3.6-5.0)
[2020-08-24] MEDS: KCL 20 MEQ TAB (K-DUR) PO SCH (06:24)
[2020-08-24] MEDS: amLODIPine 5 MG (NORVASC) TAB PO SCH (07:59)
[2020-08-24] MEDS: lisINopril 20 MG (PRINIVIL) TABLET PO SCH (08:03)
[2020-08-24] MEDS: meTOprolol SUCCINATE 100 MG (TOPROL XL) TAB PO SCH (08:03)
[2020-08-24] MEDS: PANTOPRAZOLE 40 MG (PROTONIX) TAB PO SCH (08:03)
[2020-08-24] MEDS: doxAzosin 4 MG (CARDURA) TAB PO SCH ×2 (08:03→20:19)
[2020-08-24] MEDS: FUROSEMIDE 40 MG (LASIX) TAB PO SCH (08:03)
[2020-08-24] MEDS: ENOXAPARIN 40 MG/0.4 ML (LOVENOX) SYR SC SCH (08:03)
[2020-08-24] MEDS: ASPIRIN E.C. 81 MG (ECOTRIN) TAB PO SCH (08:03)
[2020-08-24] MEDS: SENNA W/DOCUSATE (SENOKOT S) TABLET PO SCH ×2 (08:04→20:19)
[2020-08-24] MEDS: cloNIDine 0.1 MG (CATAPRES) TAB PO SCH ×3 (08:07→20:19)
--- NOTE | 2020-08-24 08:20 | NUR ---
Pt states wants to be discharged home and his family will provide him care as has 3 sons living close by his home near [place]. Pt will need front wheel walker and likely home oxygen depending on results of home oxygen study. will follow and assist.
--- NOTE | 2020-08-24 08:26 | Cardiology Progress Note ---
Subjective Date Seen by Provider: Aug 24, 2020 Time Seen by Provider: 08:23 Subjective/Events-last exam Patient is sitting up in chair, reports dyspnea improving. Denies any chest pain. Focused Exam Time of Focused Exam: 09:55 Objective-Cardiology Exam Last Set of Vital Signs Vital Signs 08/20/20 08/24/20 08/24/20 08:43 08:00 09:12 Temp 37.5 Pulse 76 Resp 16 B/P (MAP) 137/86 (103) Pulse Ox 93 O2 Delivery High Flow N/C O2 Flow Rate 3.00 FiO2 60 Capillary Refill : Less Than 3 SecondsLess Than 3 Seconds I&O Intake and Output 08/24/20 00:00 Intake Total 2950 ml Balance 2950 ml Intake Oral 2950 ml # Voids 9 # Bowel Movements 1 General: Alert, No Acute Distress HEENT: Atraumatic Neck: Supple, No Thyromegaly Lungs: Clear to Auscultation, Normal Air Movement, Other (bilater rhonchi) Heart: Regular Rate, Normal S1, Normal S2, Other (crescendo-decrescendo murmur loudest at the right 2nd intercostal space) Abdomen: Normal Bowel Sounds, Soft, No Tenderness, No Masses Extremities: No Cyanosis, Other (+1 edema BLE) Skin: No Rashes, No Breakdown Neuro: Normal Speech Psych/Mental Status: Mental Status NL, Mood NL Results Lab Laboratory Tests 08/24/20 05:05 08/24/20 05:09 A/P-Cardiology Admission Diagnosis Acute respiratory failure Malignant hypertension Aortography stenosis Acute renal failure Assessment/Plan Status post respiratory failure, extubated on August 14, 2020, still using oxygen, improving. Continue to monitor Flash pulmonary edema, responded well to diuretics, continue to monitor Congestive heart failure, acute on chronic left ventricular diastolic dysfunction, echocardiogram showed normal left ventricular systolic function, grade 2 diastolic dysfunction, mild aortic valve stenosis, pulmonary hypertension with PA pressure 40-45 mmHg. Started on beta blockers and MICHAEL inhibitor. Monitor closely. Mild elevation in troponin, type II myocardial infarction secondary to malignant hypertension and hypertensive heart disease. Continue to monitor and reevaluate troponin. We'll consider cardiac catheter versus stress test dependence on his progression Malignant hypertension, better controlled, continue to monitor. Aortic valve stenosis, mild. Continue to monitor Acute renal failure on chronic renal insufficiency, . lisinopril was discon tinued. Continue to monitor renal function Patient was seen and evaluated with Medhat, examination performed, management plan was discussed, agree with the current scribed note, I made few changes to the note using Italic font Patient was seen at bedside, feeling better, breathing better Blood pressure is better controlled Electrolyte improving. Okay for discharge from cardiology standpoint Clinical Quality Measures DVT/VTE Risk/Contraindication: Risk Factor Score Per Nursin RFS Level Per Nursing on Admit: 4+=Very High MEDHAT [place] Aug 24, 2020 08:25 GAURAV NUNEZ MD Aug 24, 2020 10:23
--- NOTE | 2020-08-24 10:01 | Physical Therapy Daily Note ---
PT Daily Note-Current Subjective Patient agrees to PT. He reports he is going home today. Mental Status Patient Orientation: Normal For Age Attachments: Oxygen (3L NC HF) Transfers SCALE: Activities may be completed with or without assistive devices. 0-Jnmxyomncf-supmwma completes the activity by him/herself with no assistance from a helper. 5-Set-up or Clean-up Assistance-helper sets up or cleans up; patient completes activity. [place] assists only prior to or following the activity. 4-Supervision or Touching Assistance-helper provides verbal cues and/or touching/steadying and/or contact guard assistance as patient completes activ ity. Assistance may be provided throughout the activity or intermittently. 3-Partial/Moderate Assistance-helper does LESS THAN HALF the effort. [place] lifts, holds or supports trunk or limbs, but provides less than half the effort. 2-Substantial/Maximal Assistance-helper does MORE THAN HALF the effort. [place] lifts or holds trunk or limbs and provides more than half the effort. 3-Ocuyhxntl-ohomgq does ALL the effort. Patient does none of the effort to complete the activity. Or, the assistance of 2 or more helpers is required for the patient to complete the activity. If activity was not attempted, code reason: 7-Patient Refused. 9-Not Applicable-not attempted and the patient did not perform the activity before the current illness, exacerbation or injury. 10-Not Attempted due to Environmental Limitations-(lack of equipment, weather restraints, etc.). 88-Not Attempted due to Medical Conditions or Safety Concerns. Sit to Stand (QC): 5 Weight Bearing Right Lower Extremity: Right Full Weight Bearing Left Lower Extremity: Left Full Weight Bearing Gait Training Does the Patient Walk?: Yes Distance: 300' Walk 10 feet (QC): 5 Walk 50 ft with 2 Turns(QC): 5 Walk 150 ft (QC): 5 Gait Assistive Device: FWW no deviation/safe and functional with FWW (SW notified of need for FWW at home) Exercises Seated Therapy Exercises: Ankle pumps, Long arc quads, Hip flexion Seated Reps: 15 Assessment Patient tolerated treatment well and returned to recliner. Patient much improved with gross motor skills and is excited to return to home. PT Stem Mounter Goals Stem Mounter Goals PT Stem Mounter Goals Time Frame: Sep 02, 2020 Roll Left & Right (QC): 6 Sit to Lying (QC): 6 Lying-Sitting on Side/Bed(QC): 6 Sit to Stand (QC): 6 Chair/Tjh-mo-Kjjef Xfer(QC): 6 Toilet Transfer (QC): 6 Does the Patient Walk: Yes Walk 10 feet (QC): 6 Walk 50ft with 2 Turns (QC): 6 Walk 150 ft (QC): 6 PT Plan Treatment/Plan Treatment Plan: Continue Plan of Care Treatment Plan: Bed Mobility, Education, Functional Activity Adriana, Functional Strength, Gait, Safety, Therapeutic Exercise, Transfers Treatment Duration: Sep 02, 2020 Frequency: 6 times per week Estimated Hrs Per Day: .25 hour per day Patient and/or Family Agrees t: Yes Time/GCodes Time In: 820 Time Out: 843 Total Billed Treatment Time: 23 Total Billed Treatment 1 visit EX 9 min FA 14 min SANDRA FALLON PT Aug 24, 2020 10:01
--- NOTE | 2020-08-24 12:22 | Progress Note ---
CARLYLE MOCTEZUMA MED STUDENT 08/24/20 1222: Subjective Subjective/Events-last exam HPI: Mr. González Mart is a 64 y/o M with a medical history significant for HTN and HLP with no history of cardiac issues who was admitted on 08/12 due to HTN emergency of 240/140 along with MARYANN with jacquard loom weaver of 1.8, new hypoxia of 70%, and elevated d-dimer. CTA of chest for suspected PE was unattainable due to poor renal function. Lovenox for suspected PE was given. He ws admited to ICU and placed on NTG drip titrated to a SBP of 160's. Additionally he received Cefepime and Zmax for PNA treatment. Patient has been receiving Lasix IV to reduce his volume overload. Review of Systems General: No Chills HEENT: No Head Aches, No Visual Changes Pulmonary: Dyspnea; No Cough, No Pleuritic Chest Pain Cardiovascular: No: Chest Pain, Palpitations, Lt Headedness Gastrointestinal: No: Nausea, Vomiting, Abdominal Pain, Diarrhea, Constipation Genitourinary: No Dysuria, No Frequency, No Hematuria Musculoskeletal: other (swelling) Neurological: No: Weakness Focused Exam Time of Focused Exam: 09:55 Respiratory: Chest Non Tender, Lungs Clear, Normal Breath Sounds, No Accessory Muscle Use, No Respiratory Distress Cardiovascular: Regular Rate, Rhythm, No Edema, No Gallop, No JVD, Normal Peripheral Pulses, Systolic Murmur (aortic stenosis ), Other (4+ pitting edema ) Capillary Refill: Less Than 3 Seconds Peripheral Pulses: 2+ Radial Pulses (R), 2+ Radial Pulses (L) Skin: normal color, warm/dry; No diaphoresis, No rash Objective Exam Last Set of Vital Signs Vital Signs Date Time Temp Pulse Resp B/P (MAP) Pulse Ox O2 Delivery O2 Flow Rate FiO2 08/24/20 09:12 High Flow N/C 3.00 08/24/20 08:00 37.5 76 16 137/86 (103) 93 08/20/20 08:43 60 Capillary Refill : Less Than 3 SecondsLess Than 3 Seconds I&O Intake and Output 08/24/20 00:00 Intake Total 2950 ml Balance 2950 ml Intake Oral 2950 ml # Voids 9 # Bowel Movements 1 General: Alert, Oriented X3, No Acute Distress HEENT: Atraumatic, PERRLA, EOMI, Mucous Memb Moist/[place] Neck: No JVD Lungs: Clear to Auscultation, Normal Air Movement Heart: Regular Rate, Other (systolic aortic stenosis murmur ) Abdomen: Normal Bowel Sounds, Soft, No Tenderness, No Hepatosplenomegaly, No Masses Extremities: No Clubbing, No Cyanosis, Normal Pulses, Other (4+edema) Skin: No Rashes, No Breakdown Psych/Mental Status: Mental Status NL, Mood NL Results/Procedures Lab Laboratory Tests 08/24/20 05:05: Sodium Level 135, Potassium Level 4.8, Chloride Level 102, Carbon Dioxide Level 21, Anion Gap 12, Blood Urea Nitrogen 37H, Creatinine 2.41H, Estimat Glomerular Filtration Rate 27, BUN/Creatinine Ratio 15, Glucose Level 95, Calcium Level 7.3L, Phosphorus Level 4.1, Magnesium Level 1.7 08/24/20 05:09: White Blood Count 9.7, Red Blood Count 2.15L, Hemoglobin 7.8L, Hematocrit 24L, Mean Corpuscular Volume 114H, Mean Corpuscular Hemoglobin 36H, Mean Corpuscular Hemoglobin Concent 32, Red Cell Distribution Width 12.5, Platelet Count 266, Mean Platelet Volume 11.1, Immature Granulocyte % (Auto) 1, Neutrophils (%) (Auto) 73, Lymphocytes (%) (Auto) 13, Monocytes (%) (Auto) 11, Eosinophils (%) (Auto) 3, Basophils (%) (Auto) 0, Neutrophils # (Auto) 7.0, Lymphocytes # (Auto) 1.2, Monocytes # (Auto) 1.0, Eosinophils # (Auto) 0.3, Basophils # (Auto) 0.0, Immature Granulocyte # (Auto) 0.1 Microbiology 08/15/20 Blood Culture - Final, Complete No growth 08/14/20 MRSA Screen - Final, Complete MRSA not isolated Assessment/Plan Assessment/Plan Assessment & Plan Mr. González Mart is a 64 y/o M with a medical history significant for HTN and HLP Who was admitted on 08/12 for hypertensive emergency, hypoxia and renal insufficiency. # Hypertensive emergency - Consider possibly EtOH withdrawal related, but per pt report last alcohol was a month ago (PT becomes agitated with ativan) - initially on drip at outside hospital -Currently on PO medications with prn IV, has not needed PRN in last 24 hours, hypertension is much improved - appreciate Cardiology recommendations # Hypoxia - unclear etiology - COVID negative - elevated D-dimer- VQ scan without obvious abnormality, unable to obtain CTA due to renal insufficiency - pt much improved and o2 weaning is going well stating >92 on 4-6 liters O2 - CXR 08/20 with small bibasilar effusions and persistent cardiomegaly with probable pulmonary vascular congestion and interstitial edema # Confusion - likely secondary to hypertension or EtOH use - improving: Pt AOX3 and less confused # Diastolic congestive heart failure - discontinue Lasix for CHF on 40mg PO due to increased jacquard loom weaver - continue to replace potassium as needed with a goal of >4.0 - elevated troponin- Cardiology consulted, suspect type II cardiac strain - Bunny hose for edema # Acute on chronic renal insufficiency - Sheet [place]anger 2.33 on presentation (08/12) it had decreased but is now on the rise again at 2.41 - anthony's new baseline jacquard loom weaver is likely around 2 - hold lisinopril and Lasix due to jacquard loom weaver elevation - continue to monitor elevated jacquard loom weaver - PT/OT consulted DVT ppx- enoxaparin (1) Hypertensive urgency, malignant Status: Acute (2) Hypoxia Status: Acute (3) CHF (congestive heart failure) (4) MARYANN (acute kidney injury) Status: Chronic (5) Acute encephalopathy Status: Acute Clinical Quality Measures DVT/VTE Risk/Contraindication: Risk Factor Score Per Nursin RFS Level Per Nursing on Admit: 4+=Very High HEATH DANGELO MD 08/24/20 1713: Objective Exam General: Alert, No Acute Distress Lungs: Clear to Auscultation, Normal Air Movement Heart: Regular Rate Extremities: Other (4+edema) Psych/Mental Status: Mental Status NL, Mood NL Supervisory-Addendum Brief Verification & Attestation Participated in pt care: history, MDM, physical Personally performed: exam, history Care discussed with: Medical Student Procedures: n/a I did my own history and physical exam on this patient today (see my exam notes), and agree with the history documented by the medical student. I directed the plan of care as documented. CARLYLE MOCTEZUMA MED STUDENT Aug 24, 2020 12:22 HEATH DANGELO MD Aug 24, 2020 17:13
--- NOTE | 2020-08-24 14:13 | Occupational Ther Daily Note ---
OT Current Status-Daily Note Subjective Pt seated in recliner, agreeable to OT tx. ADL-Treatment Therapy Code Descriptions/Definitions Functional [place] Measure: 0=Not Assessed/NA 4=Minimal Assistance 1=Total Assistance 5=Supervision or Setup 2=Maximal Assistance 6=Modified [place] 3=Moderate Assistance 7=Complete IndependenceSCALE: Activities may be completed with or without assistive devices. 0-Tncziebapw-eufftbt completes the activity by him/herself with no assistance from a helper. 5-Set-up or Clean-up Assistance-helper sets up or cleans up; patient completes activity. [place] assists only prior to or following the activity. 4-Supervision or Touching Assistance-helper provides verbal cues and/or touching/steadying and/or contact guard assistance as patient completes activity. Assistance may be provided throughout the activity or intermittently. 3-Partial/Moderate Assistance-helper does LESS THAN HALF the effort. [place] lifts, holds or supports trunk or limbs, but provides less than half the effort. 2-Substantial/Maximal Assistance-helper does MORE THAN HALF the effort. [place] lifts or holds trunk or limbs and provides more than half the effort. 7-Hugfkkmae-btkaot does ALL the effort. Patient does none of the effort to complete the activity. Or, the assistance of 2 or more helpers is required for the patient to complete the activity. If activity was not attempted, code reason: 7-Patient Refused. 9-Not Applicable-not attempted and the patient did not perform the activity before the current illness, exacerbation or injury. 10-Not Attempted due to Environmental Limitations-(lack of equipment, weather restraints, etc.). 88-Not Attempted due to Medical Conditions or Safety Concerns. Other Treatment Pt declined ADLs at this time, agreeable to BUE exercises in order to increase functional strength and endurance. Pt completed x15 reps BUEs of the following movements: shoulder flexion, horizontal abduction, elbow flexion/extension, wrist flexion/extension, and finger flexion/extension. OT educated pt on the purpose and benefits of exercises, instructing him to complete 2-3 times throughout the day, he verbalized understanding. Post OT tx, pt seated in recliner, call light in reach and all needs met. Education OT Patient Education: Correct positioning, Exercise program, Modified ADL techniques, Progress toward Goal/Update tx plan, Purpose of tx/functional activities Teaching Recipient: Patient Teaching Methods: Discussion Response to Teaching: Verbalize Understanding OT Mcfp Goals Running Specialist Goals Time Frame: Aug 29, 2020 Eating (QC): 6 Oral Hygiene (QC): 6 Toileting Hygiene (QC): 6 Shower/Bathe Self (QC): 6 Upper Body Dressing (QC): 6 Lower Body Dressing (QC): 6 On/Off Footwear (QC): 6 Additional Goals: 1-Demonstrate ADL Tasks, 2-Verbalize Understanding, 3-Impro veStrength/Adriana 1=Demonstrate adherence to instructed precautions during ADL tasks. 2=Patient will verbalize/demonstrate understanding of assistive devices/modifications for ADL. 3=Patient will improve strength/tolerance for activity to enable patient to perform ADL's. OT Education/Plan Problem List/Assessment Assessment: Decreased Activ Tolerance, Decreased UE Strength, Impaired I ADL's Discharge Recommendations Plan/Recommendations: Continue POC Treatment Plan/Plan of Care Patient would benefit from OT for education, treatment and training to promote independence in ADL's, mobility, safety and/or upper extremity function for ADL's. Plan of Care: ADL Retraining, Functional Mobility, UE Funct Exercise/Act Treatment Duration: Aug 29, 2020 Frequency: 5 times per week Estimated Hrs Per Day: .25 hour per day Agreement: Yes Rehab Potential: Fair Time/GCodes Start Time: 13:34 Stop Time: 13:43 Total Time Billed (hr/min): 9 Billed Treatment Time 1, EX HENRIQUE BRIONES OT Aug 24, 2020 14:13
[2020-08-25] MEDS: RT-ALBUTEROL/IPRATROPIUM 3 ML (DUONEB) VIAL INH SCH ×4 (02:36→20:26)
[2020-08-25 04:29] VITALS: BP 123/56
[2020-08-25 05:02] LABS: MEAN CORPUSCULAR VOLUME 112 fL (80-99); MEAN PLATELET VOLUME 11.8 fL (9.0-12.2)
[2020-08-25 05:04] LABS: BASOPHILS % (AUTO) 1 % (0-10); EOSINOPHILS # (AUTO) 0.4 10^3/uL (0.0-0.3); EOSINOPHILS % (AUTO) 4 % (0-10); HEMATOCRIT 24 % (40-54); HEMOGLOBIN 7.7 g/dL (13.3-17.7); LYMPHOCYTES % (AUTO) 12 % (12-44); MEAN CORPUSCULAR HEMOGLOBIN 36 pg (25-34); MEAN CORPUSCULAR HGB CONC 33 g/dL (32-36); MONOCYTES % (AUTO) 12 % (0-12); NEUTROPHILS # (AUTO) 5.9 10^3/uL (1.8-7.8); NEUTROPHILS % (AUTO) 71 % (42-75); PLATELET COUNT 247 10^3/uL (130-400); WHITE BLOOD COUNT 8.3 10^3/uL (4.3-11.0)
[2020-08-25 05:49] LABS: POTASSIUM 5.1 MMOL/L (3.6-5.0)
[2020-08-25 05:50] LABS: CALCIUM 7.4 MG/DL (8.5-10.1)
[2020-08-25 05:54] LABS: PHOSPHORUS 4.4 MG/DL (2.3-4.7)
[2020-08-25 05:55] LABS: CREATININE SERUM 2.7 MG/DL (0.60-1.30)
[2020-08-25 05:57] LABS: MAGNESIUM 1.7 MG/DL (1.6-2.4)
[2020-08-25] MEDS: KCL 20 MEQ TAB (K-DUR) PO SCH (06:14)
[2020-08-25 07:46] VITALS: BP 150/60
[2020-08-25] MEDS: PANTOPRAZOLE 40 MG (PROTONIX) TAB PO SCH (08:37)
[2020-08-25] MEDS: cloNIDine 0.1 MG (CATAPRES) TAB PO SCH ×3 (08:37→21:11)
[2020-08-25] MEDS: amLODIPine 5 MG (NORVASC) TAB PO SCH (08:37)
[2020-08-25] MEDS: doxAzosin 4 MG (CARDURA) TAB PO SCH ×2 (08:37→21:11)
[2020-08-25] MEDS: meTOprolol SUCCINATE 100 MG (TOPROL XL) TAB PO SCH (08:37)
[2020-08-25] MEDS: SENNA W/DOCUSATE (SENOKOT S) TABLET PO SCH ×2 (08:37→21:11)
[2020-08-25] MEDS: ENOXAPARIN 40 MG/0.4 ML (LOVENOX) SYR SC SCH (08:37)
[2020-08-25] MEDS: ASPIRIN E.C. 81 MG (ECOTRIN) TAB PO SCH (08:37)
--- NOTE | 2020-08-25 08:52 | NUR ---
After discussing his medical status with physician and becoming short of breath upon exertion in therapy, pt accepts that he is not ready for discharge home. He is actively participating in physical and occupational therapies with the plan to return home with intermittent care provided by 3 sons that live nearby. will follow
--- NOTE | 2020-08-25 09:20 | Physical Therapy Daily Note ---
PT Daily Note-Current Subjective Patient agrees to PT. Mental Status Patient Orientation: Person, Time, Situation Attachments: Oxygen (4L O2 NC HF) Transfers SCALE: Activities may be completed with or without assistive devices. 0-Bompefrmfd-uwhmbvi completes the activity by him/herself with no assistance from a helper. 5-Set-up or Clean-up Assistance-helper sets up or cleans up; patient completes activity. [place] assists only prior to or following the activity. 4-Supervision or Touching Assistance-helper provides verbal cues and/or touching/steadying and/or contact guard assistance as patient completes activity. Assistance may be provided throughout the activity or intermittently. 3-Partial/Moderate Assistance-helper does LESS THAN HALF the effort. [place] lifts, holds or supports trunk or limbs, but provides less than half the effort. 2-Substantial/Maximal Assistance-helper does MORE THAN HALF the effort. [place] lifts or holds trunk or limbs and provides more than half the effort. 3-Rmwsgscjg-renvpt does ALL the effort. Patient does none of the effort to complete the activity. Or, the assistance of 2 or more helpers is required for the patient to complete the activity. If activity was not attempted, code reason: 7-Patient Refused. 9-Not Applicable-not attempted and the patient did not perform the activity before the current illness, exacerbation or injury. 10-Not Attempted due to Environmental Limitations-(lack of equipment, weather restraints, etc.). 88-Not Attempted due to Medical Conditions or Safety Concerns. Sit to Lying (QC): 6 Sit to Stand (QC): 4 Chair/Eak-yy-Hqise Xfer(QC): 4 Weight Bearing Right Lower Extremity: Right Full Weight Bearing Left Lower Extremity: Left Full Weight Bearing Gait Training Does the Patient Walk?: Yes Distance: 300' x 2 Walk 10 feet (QC): 4 Walk 50 ft with 2 Turns(QC): 4 Walk 150 ft (QC): 4 Gait Assistive Device: FWW safe and functional with no deviation/O2 5L NC with activity/noted increase SOA with SAO2 >90% Assessment Patient returned to bed with 4 rails up and alarm activated. Patient tolerated treatment well and required recovery periods due to SOA. PT Electrostatic Powder Coating Technician Goals [facility] Goals PT Electrostatic Powder Coating Technician Goals Time Frame: Sep 02, 2020 Roll Left & Right (QC): 6 Sit to Lying (QC): 6 Lying-Sitting on Side/Bed(QC): 6 Sit to Stand (QC): 6 Chair/Qta-ix-Dpaui Xfer(QC): 6 Toilet Transfer (QC): 6 Does the Patient Walk: Yes Walk 10 feet (QC): 6 Walk 50ft with 2 Turns (QC): 6 Walk 150 ft (QC): 6 PT Plan Treatment/Plan Treatment Plan: Continue Plan of Care Treatment Plan: Bed Mobility, Education, Functional Activity Adriana, Functional Strength, Gait, Safety, Therapeutic Exercise, Transfers Treatment Duration: Sep 02, 2020 Frequency: 6 times per week Estimated Hrs Per Day: .25 hour per day Patient and/or Family Agrees t: Yes Time/GCodes Time In: 848 Time Out: 904 Total Billed Treatment Time: 16 Total Billed Treatment 1 visit FA 16 min SANDRA FALLON PT Aug 25, 2020 09:20
--- NOTE | 2020-08-25 11:28 | NUR ---
"RD ASSESSMENT PMHx: hypercholesterolemia; BPH; PT INTERACTION: Pt was awake and pleasant during nutrition follow-up. Pt states he has been eating well since last assessment. Note avg PO intake 85% x4d, per chart review. Pt states no issues with nausea, vomiting, constipation, or diarrhea since last assessment. Note last BM was 08/24, and pt currently on bowel regimen of senna BID, per chart review. ABNORMAL NUTRITION-RELATED LAB VALUES LOW: Na 130; Ca 7.4; HIGH: K 5.1; BUN 43; cr 2.70; Est. kcal needs: 8879-0274 kcal | 15-20 kcal/kg Est. Pro needs: 76-95 g Pro | 0.8-1.0 g Pro/kg PES STATEMENT: Given current appetite and PO intake, no nutrition diagnosis at this time (NO-1.1). INTERVENTION: Continue with current diet order of Heart Healthy diet. Will continue to follow and reassess as pt needs, intake, and status change. Tad PARRA, MS RD LD [phone] cell"
--- NOTE | 2020-08-25 11:48 | Occupational Ther Daily Note ---
OT Current Status-Daily Note Subjective No pain reported. Mental Status/Objective Patient Orientation: Person ADL-Treatment Therapy Code Descriptions/Definitions Functional Nolan Measure: 0=Not Assessed/NA 4=Minimal Assistance 1=Total Assistance 5=Supervision or Setup 2=Maximal Assistance 6=Modified Nolan 3=Moderate Assistance 7=Complete IndependenceSCALE: Activities may be completed with or without assistive devices. 6-Incuruhxdf-nqdbdtq completes the activity by him/herself with no assistance from a helper. 5-Set-up or Clean-up Assistance-helper sets up or cleans up; patient completes activity. [place] assists only prior to or following the activity. 4-Supervision or Touching Assistance-helper provides verbal cues and/or touching/steadying and/or contact guard assistance as patient completes activity. Assistance may be provided throughout the activity or intermittently. 3-Partial/Moderate Assistance-helper does LESS THAN HALF the effort. [place] lifts, holds or supports trunk or limbs, but provides less than half the effort. 2-Substantial/Maximal Assistance-helper does MORE THAN HALF the effort. [place] lifts or holds trunk or limbs and provides more than half the effort. 3-Wqselnlyy-wersnl does ALL the effort. Patient does none of the effort to complete the activity. Or, the assistance of 2 or more helpers is required for the patient to complete the activity. If activity was not attempted, code reason: 7-Patient Refused. 9-Not Applicable-not attempted and the patient did not perform the activity before the current illness, exacerbation or injury. 10-Not Attempted due to Environmental Limitations-(lack of equipment, weather restraints, etc.). 88-Not Attempted due to Medical Conditions or Safety Concerns. Shower/Bathe Self (QC): 4 (CGA in stance. Close SBA otherwise.) Lower Body Dressing (QC): 3 (Mod assist. Pt. able to doff pants and underwear over hips to feet. Unable to doff over feet, and unable to doff slipper socks. Pt. required min assist to don underwear over left foot, but able to don over hips with CGA.) On/Off Footwear: 2 Toileting Hygiene (QC): 4 Toilet Transfer (QC): 4 Other Treatment Pt. on toilet with nursing present when OT entered room. Pt. agrees to work wi OT. Ambulated to shower and completed shower with SBA, and CGA in stance. After ADLs, pt. ambulated with hand held assistance to chair in room. Pt. on 4 L 02. Chair alarm set and all needs met. Education OT Patient Education: Correct positioning, Modified ADL techniques, Progress toward Goal/Update tx plan, Purpose of tx/functional activities, Reviewed precautions, Rehab process, Transfer techniques Teaching Recipient: Patient Teaching Methods: Demonstration, Discussion Response to Teaching: Verbalize Understanding, Return Demonstration OT Consulting Sme Goals [facility] Goals Time Frame: Aug 29, 2020 Eating (QC): 6 Oral Hygiene (QC): 6 Toileting Hygiene (QC): 6 Shower/Bathe Self (QC): 6 Upper Body Dressing (QC): 6 Lower Body Dressing (QC): 6 On/Off Footwear (QC): 6 Additional Goals: 1-Demonstrate ADL Tasks, 2-Verbalize Understanding, 3- ImproveStrength/Adriana 1=Demonstrate adherence to instructed precautions during ADL tasks. 2=Patient will verbalize/demonstrate understanding of assistive devices/modifications for ADL. 3=Patient will improve strength/tolerance for activity to enable patient to perform ADL's. OT Education/Plan Problem List/Assessment Assessment: Decreased Activ Tolerance, Decreased Safety Aware, Dependent Transfers, Impaired Funct Balance, Impaired I ADL's, Impaired Self-Care Skills Discharge Recommendations Plan/Recommendations: Continue POC Treatment Plan/Plan of Care Treatment,Training & Education: Yes Patient would benefit from OT for education, treatment and training to promote independence in ADL's, mobility, safety and/or upper extremity function for ADL's. Plan of Care: ADL Retraining, Functional Mobility, UE Funct Exercise/Act Treatment Duration: Aug 29, 2020 Frequency: 5 times per week Estimated Hrs Per Day: .25 hour per day Agreement: Yes Rehab Potential: Fair Time/GCodes Start Time: 11:00 Stop Time: 11:30 Total Time Billed (hr/min): 30 Billed Treatment Time 1, ADL x 2 WOO RODRIGUEZ OT Aug 25, 2020 11:48
[2020-08-25 12:00] VITALS: BP 132/58
--- NOTE | 2020-08-25 12:39 | Progress Note ---
CARLYLE MOCTEZUMA MED STUDENT 08/25/20 1239: Subjective Subjective/Events-last exam HPI: Mr. González Mart is a 64 y/o M with a medical history significant for HTN and HLP with no history of cardiac issues who was admitted on 08/12 due to HTN emergency of 240/140 along with MARYANN with x ray service engineer of 1.8, new hypoxia of 70%, and elevated d-dimer. CTA of chest for suspected PE was unattainable due to poor renal function. Lovenox for suspected PE was given. He ws admited to ICU and placed on NTG drip titrated to a SBP of 160's. Additionally he received Cefepime and Zmax for PNA treatment. Patient has been receiving Lasix IV to reduce his volume overload. Subjective: Patient states he feels pretty similar today compared to yesterday. He has SOB with exertion and notes the swelling in his legs may be slightly worse today. Review of Systems General: No Chills, No Fatigue HEENT: No Head Aches, No Visual Changes Pulmonary: Dyspnea; No Cough, No Pleuritic Chest Pain Cardiovascular: Edema; No: Chest Pain, Palpitations Gastrointestinal: No: Nausea, Vomiting, Abdominal Pain, Diarrhea, Constipation Genitourinary: No Dysuria, No Frequency, No Hematuria Focused Exam Time of Focused Exam: 09:55 Objective Exam Last Set of Vital Signs Vital Signs Date Time Temp Pulse Resp B/P (MAP) Pulse Ox O2 Delivery O2 Flow Rate FiO2 08/25/20 12:00 36.8 71 18 132/58 (82) 95 High Flow N/C 3.00 08/20/20 08:43 60 Capillary Refill : Less Than 3 SecondsLess Than 3 Seconds I&O Intake and Output 08/25/20 00:00 Intake Total 1780 ml Balance 1780 ml Intake Oral 1780 ml # Voids 9 # Bowel Movements 1 General: Alert, Oriented X3, Cooperative, No Acute Distress HEENT: Atraumatic, EOMI Lungs: Normal Air Movement, Other (crackels in lung bases worse than yesterday) Heart: Regular Rate, Other (crescendo-decrescendo murmur loudest in right 2nd intercostal space ) Abdomen: Normal Bowel Sounds, No Tenderness, No Hepatosplenomegaly, No Masses Extremities: No Clubbing, No Cyanosis, Other (marked edema in legs) Skin: No Rashes, No Breakdown Psych/Mental Status: Mental Status NL, Mood NL Results/Procedures Lab Laboratory Tests 08/25/20 04:15: White Blood Count 8.3, Red Blood Count 2.12L, Hemoglobin 7.7L, Hematocrit 24L, Mean Corpuscular Volume 112H, Mean Corpuscular Hemoglobin 36H, Mean Corpuscular Hemoglobin Concent 33, Red Cell Distribution Width 12.3, Platelet Count 247, Mean Platelet Volume 11.8, Immature Granulocyte % (Auto) 1, Neutrophils (%) (Auto) 71, Lymphocytes (%) (Auto) 12, Monocytes (%) (Auto) 12, Eosinophils (%) (Auto) 4, Basophils (%) (Auto) 1, Neutrophils # (Auto) 5.9, Lymphocytes # (Auto) 1.0, Monocytes # (Auto) 1.0, Eosinophils # (Auto) 0.4H, Basophils # (Auto) 0.0, Immature Granulocyte # (Auto) 0.1, Sodium Level 130L, Potassium Level 5.1H, Chloride Level 102, Carbon Dioxide Level 18L, Anion Gap 10, Blood Urea Nitrogen 43H, Creatinine 2.70H, Estimat Glomerular Filtration Rate 24, BUN/Creatinine Rat io 16, Glucose Level 100, Calcium Level 7.4L, Phosphorus Level 4.4, Magnesium Level 1.7 08/25/20 12:18: Microbiology 08/15/20 Blood Culture - Final, Complete No growth 08/14/20 MRSA Screen - Final, Complete MRSA not isolated Assessment/Plan Assessment/Plan Assessment & Plan Mr. González Mart is a 64 y/o M with a medical history significant for HTN and HLP Who was admitted on 08/12 for hypertensive emergency, hypoxia and renal insufficiency. # Hypertensive emergency - Consider possibly EtOH withdrawal related, but per pt report last alcohol was a month ago (PT becomes agitated with ativan) - initially on drip at outside hospital - Currently on PO medications with prn IV, has not needed PRN in last 24 hours, hypertension is much improved - appreciate Cardiology recommendations # Acute on chronic renal insufficiency - Vehicle Delivery Worker 2.33 on presentation (08/12) it had decreased but is now on the rise again at 2.70 - patient's new baseline x ray service engineer is likely around 2 - hold lisinopril and Lasix due to x ray service engineer elevation - continue to monitor elevated x ray service engineer - watch for electrolyte abnormalities - K+ elevated at 5.1 so placed patient on low K+ diet. may need kayexalate if continues to rise - repeat BMP this afternoon # Hypoxia - unclear etiology - COVID negative - elevated D-dimer- VQ scan without obvious abnormality, unable to obtain CTA due to renal insufficiency - CXR 08/20 with small bibasilar effusions and persistent cardiomegaly with probable pulmonary vascular congestion and interstitial edema - patient still on 3-4 liters and has been sating >90% - crackles appreciated in lung bases likely indicative of fluid re-accumulation on lungs but holding Lasix due to impaired renal function # Diastolic congestive heart failure - Currently holding Lasix for CHF due to increased x ray service engineer - elevated troponin- Cardiology consulted, suspect type II cardiac strain - Bunny hose for edema # Confusion - likely secondary to hypertension or EtOH use - resolved: Pt AOX3 DVT ppx- enoxaparin (1) MARYANN (acute kidney injury) Status: Chronic (2) Hypoxia Status: Acute (3) CHF (congestive heart failure) (4) Hypertensive urgency, malignant Status: Resolved (5) Acute encephalopathy Status: Resolved Clinical Quality Measures DVT/VTE Risk/Contraindication: Risk Factor Score Per Nursin RFS Level Per Nursing on Admit: 4+=Very High HEATH DANGELO MD 08/25/20 1430: Supervisory-Addendum Brief Verification & Attestation Participated in pt care: history, MDM, physical Personally performed: exam, history Care discussed with: Medical Student Procedures: n/a I did my own history and exam on this patient today and my findings agree with those documented by the medical student. I directed the plan of care as documented by the medical student. CARLYLE MOCTEZUMA MED STUDENT Aug 25, 2020 12:39 HEATH DANGELO MD Aug 25, 2020 14:30
[2020-08-25 12:42] LABS: CALCIUM 7.6 MG/DL (8.5-10.1); CREATININE SERUM 2.66 MG/DL (0.60-1.30); POTASSIUM 4.9 MMOL/L (3.6-5.0)
[2020-08-25 15:57] VITALS: BP 136/63
--- NOTE | 2020-08-25 17:39 | Cardiology Progress Note ---
Cardiology SOAP Progress Note Subjective: Improved shortness of breath Objective: I&O/Vital Signs 08/27/20 08/27/20 08/27/20 08/27/20 04:00 08:00 08:49 09:15 Temp 36.9 36.6 Pulse 73 69 Resp 18 16 B/P (MAP) 156/67 (96) 155/67 (96) Pulse Ox 91 95 92 O2 Delivery High Flow N/C Nasal Cannula High Flow N/C High Flow N/C O2 Flow Rate 2.00 2.00 2.00 2.00 08/27/20 12:00 Temp 35.4 Pulse 64 Resp 18 B/P (MAP) 135/65 (88) Pulse Ox 95 O2 Delivery High Flow N/C O2 Flow Rate 2.00 08/27/20 00:00 Intake Total 2140 ml Balance 2140 ml Constitutional: AAO x 3 (oriented to self and place only), well-developed, well-nourished, other (alert; confused) Respiratory: No accessory muscle use, No respiratory distress; chest expansion is symmetric, chest is bilaterally symmetric, other (diminished throughout) Cardiovascular: regular rate-rhythm; No JVD; S1 and S2, systolic murmur (soft) Gastrointestional: No tender; soft, round, audible bowel sounds Extremities: swelling (mild LE swelling) Neurologic/Psychiatric: other (moves extremities; awake, unable to obtain any information, mumbled speech) Skin: normal color, warm/dry; No diaphoresis, No rash Results/Procedures: Labs Microbiology 08/15/20 Blood Culture - Final, Complete No growth 08/14/20 MRSA Screen - Final, Complete MRSA not isolated A/P: Assessment/Dx: Acute respiratory failure Malignant hypertension Aortography stenosis Acute renal failure Plan: Status post respiratory failure, extubated on August 14, 2020, still using oxygen, improving. Continue to monitor Flash pulmonary edema, responded well to diuretics, continue to monitor Congestive heart failure, acute on chronic left ventricular diastolic dysfunction, echocardiogram showed normal left ventricular systolic function, grade 2 diastolic dysfunction, mild aortic valve stenosis, pulmonary hypertension with PA pressure 40-45 mmHg. Started on beta blockers and MICHAEL inhibitor. Monitor closely. Mild elevation in troponin, type II myocardial infarction secondary to malignant hypertension and hypertensive heart disease. Continue to monitor and reevaluate troponin. Malignant hypertension, better controlled, continue to monitor. Aortic valve stenosis, mild. Continue to monitor Acute renal failure on chronic renal insufficiency, . lisinopril was discontinued. Continue to monitor renal function Thank you for your consultation. Please call me if you have any questions. Bhavesh Minor MD, FACP, FACC, FSCAI, FHRS, CCDS Interventional Cardiology Cardiac Electrophysiology Vascular Medicine and Endovascular Interventions Focused Exam Time of Focused Exam: 09:55 Anu MINOR MD Aug 25, 2020 17:39
[2020-08-25 19:40] VITALS: BP 127/65
[2020-08-25 23:59] VITALS: BP 138/59
[2020-08-26] MEDS: RT-ALBUTEROL/IPRATROPIUM 3 ML (DUONEB) VIAL INH SCH ×2 (03:48→20:04)
[2020-08-26 04:20] VITALS: BP 138/59
[2020-08-26] MEDS: KCL 20 MEQ TAB (K-DUR) PO SCH (06:08)
[2020-08-26 08:00] VITALS: BP 132/58
[2020-08-26] MEDS: PANTOPRAZOLE 40 MG (PROTONIX) TAB PO SCH (08:54)
[2020-08-26] MEDS: doxAzosin 4 MG (CARDURA) TAB PO SCH ×2 (08:54→20:04)
[2020-08-26] MEDS: meTOprolol SUCCINATE 100 MG (TOPROL XL) TAB PO SCH (08:54)
[2020-08-26] MEDS: ASPIRIN E.C. 81 MG (ECOTRIN) TAB PO SCH (08:54)
[2020-08-26] MEDS: ENOXAPARIN 40 MG/0.4 ML (LOVENOX) SYR SC SCH (08:54)
[2020-08-26] MEDS: amLODIPine 5 MG (NORVASC) TAB PO SCH (08:54)
[2020-08-26] MEDS: cloNIDine 0.1 MG (CATAPRES) TAB PO SCH ×3 (08:54→20:04)
[2020-08-26] MEDS: SENNA W/DOCUSATE (SENOKOT S) TABLET PO SCH ×2 (08:54→20:04)
--- NOTE | 2020-08-26 11:26 | Physical Therapy Daily Note ---
PT Daily Note-Current Subjective Pt. up in chair and agrees to therapy. Denies any pain. Mental Status Attachments: Oxygen (2L) Transfers SCALE: Activities may be completed with or without assistive devices. 0-Tbwknsntmn-selxodq completes the activity by him/herself with no assistance from a helper. 5-Set-up or Clean-up Assistance-helper sets up or cleans up; patient completes activity. [place] assists only prior to or following the activity. 4-Supervision or Touching Assistance-helper provides verbal cues and/or touching/steadying and/or contact guard assistance as patient completes activity. Assistance may be provided throughout the activity or intermittently. 3-Partial/Moderate Assistance-helper does LESS THAN HALF the effort. [place] lifts, holds or supports trunk or limbs, but provides less than half the effort. 2-Substantial/Maximal Assistance-helper does MORE THAN HALF the effort. [place] lifts or holds trunk or limbs and provides more than half the effort. 9-Qvxwvaluf-cdzttr does ALL the effort. Patient does none of the effort to complete the activity. Or, the assistance of 2 or more helpers is required for the patient to complete the activity. If activity was not attempted, code reason: 7-Patient Refused. 9-Not Applicable-not attempted and the patient did not perform the activity before the current illness, exacerbation or injury. 10-Not Attempted due to Environmental Limitations-(lack of equipment, weather restraints, etc.). 88-Not Attempted due to Medical Conditions or Safety Concerns. Sit to Stand (QC): 4 Toilet Transfer (QC): 4 Weight Bearing Right Lower Extremity: Right Full Weight Bearing Left Lower Extremity: Left Full Weight Bearing Gait Training Does the Patient Walk?: Yes Distance: 250 ft Walk 10 feet (QC): 4 Walk 150 ft (QC): 4 Gait Persons Needed: 1 Gait Assistive Device: FWW Treatments gait and toileting Assessment Current Status: Good Progress, Fair Progress Pt. is steady with ambulation but did become SOB and required several minutes of standing rest to recover breathing and O2 sats to reach >92%. Pt. requested to toilet and for increased time thus nursing notified of patient position. Pt. instructed to pull call cord with complete. PT Halfway Goals Cardiovascular Rn Goals PT Cardiovascular Rn Goals Time Frame: Sep 02, 2020 Roll Left & Right (QC): 6 Sit to Lying (QC): 6 Lying-Sitting on Side/Bed(QC): 6 Sit to Stand (QC): 6 Chair/Eup-cz-Zgits Xfer(QC): 6 Toilet Transfer (QC): 6 Does the Patient Walk: Yes Walk 10 feet (QC): 6 Walk 50ft with 2 Turns (QC): 6 Walk 150 ft (QC): 6 PT Plan Treatment/Plan Treatment Plan: Continue Plan of Care Treatment Plan: Bed Mobility, Education, Functional Activity Adriana, Functional Strength, Gait, Safety, Therapeutic Exercise, Transfers Treatment Duration: Sep 02, 2020 Frequency: 6 times per week Estimated Hrs Per Day: .25 hour per day Patient and/or Family Agrees t: Yes Time/GCodes Time In: 0845 Time Out: 0910 Total Billed Treatment Time: 25 Total Billed Treatment 1, GT 15', FA 10' BOUBACAR BUENO PT Aug 26, 2020 11:26
[2020-08-26 12:00] VITALS: BP 135/60
--- NOTE | 2020-08-26 13:45 | Cardiology Progress Note ---
Cardiology SOAP Progress Note Subjective: Gradual improvement of shortness of breath. Objective: I&O/Vital Signs 08/27/20 08/27/20 08/27/20 08/27/20 04:00 08:00 08:49 09:15 Temp 36.9 36.6 Pulse 73 69 Resp 18 16 B/P (MAP) 156/67 (96) 155/67 (96) Pulse Ox 91 95 92 O2 Delivery High Flow N/C Nasal Cannula High Flow N/C High Flow N/C O2 Flow Rate 2.00 2.00 2.00 2.00 08/27/20 12:00 Temp 35.4 Pulse 64 Resp 18 B/P (MAP) 135/65 (88) Pulse Ox 95 O2 Delivery High Flow N/C O2 Flow Rate 2.00 08/27/20 00:00 Intake Total 2140 ml Balance 2140 ml Constitutional: AAO x 3 (oriented to self and place only), well-developed, well-nourished, other (alert; confused) Respiratory: No accessory muscle use, No respiratory distress; chest expansion is symmetric, chest is bilaterally symmetric, other (diminished throughout) Cardiovascular: regular rate-rhythm; No JVD; S1 and S2, systolic murmur (soft) Gastrointestional: No tender; soft, round, audible bowel sounds Extremities: swelling (mild LE swelling) Neurologic/Psychiatric: other (moves extremities; awake, unable to obtain any information, mumbled speech) Skin: normal color, warm/dry; No diaphoresis, No rash Results/Procedures: Labs Microbiology 08/15/20 Blood Culture - Final, Complete No growth 08/14/20 MRSA Screen - Final, Complete MRSA not isolated A/P: Assessment/Dx: Acute respiratory failure, Severe hypertension, Acute kidney injury. Plan: Status post respiratory failure, extubated on August 14, 2020, still using oxygen, improving. Continue to monitor Flash pulmonary edema, responded well to diuretics, continue to monitor Congestive heart failure, acute on chronic left ventricular diastolic dysfunction, echocardiogram showed normal left ventricular systolic function, grade 2 diastolic dysfunction, mild aortic valve stenosis, pulmonary hypertension with PA pressure 40-45 mmHg. Started on beta blockers and MICHAEL inhibitor. Monitor closely. Mild elevation in troponin, type II myocardial infarction secondary to malignant hypertension and hypertensive heart disease. Continue to monitor and reevaluate troponin. Malignant hypertension, better controlled, continue to monitor. Aortic valve stenosis, mild. Continue to monitor Acute renal failure on chronic renal insufficiency, . lisinopril was discontinued. Continue to monitor renal function Thank you for your consultation. Please call me if you have any questions. Bhavesh Minor MD, FACP, FACC, FSCAI, FHRS, CCDS Interventional Cardiology Cardiac Electrophysiology Vascular Medicine and Endovascular Interventions Focused Exam Time of Focused Exam: 09:55 Anu MINOR MD Aug 26, 2020 13:45
[2020-08-26 16:20] VITALS: BP 135/60
[2020-08-26 16:24] VITALS: BP 115/53
[2020-08-26 19:04] VITALS: BP 132/68
[2020-08-27] VITALS (7 sets, daily range): BP systolic 127–156; BP diastolic 60–67
[2020-08-27] MEDS: KCL 20 MEQ TAB (K-DUR) PO SCH (06:04)
[2020-08-27] MEDS: doxAzosin 4 MG (CARDURA) TAB PO SCH ×2 (08:24→20:11)
[2020-08-27] MEDS: SENNA W/DOCUSATE (SENOKOT S) TABLET PO SCH ×2 (08:24→20:12)
[2020-08-27] MEDS: cloNIDine 0.1 MG (CATAPRES) TAB PO SCH ×3 (08:24→20:12)
[2020-08-27] MEDS: amLODIPine 5 MG (NORVASC) TAB PO SCH (08:24)
[2020-08-27] MEDS: meTOprolol SUCCINATE 100 MG (TOPROL XL) TAB PO SCH (08:24)
[2020-08-27] MEDS: PANTOPRAZOLE 40 MG (PROTONIX) TAB PO SCH (08:24)
[2020-08-27] MEDS: ENOXAPARIN 40 MG/0.4 ML (LOVENOX) SYR SC SCH (08:24)
[2020-08-27] MEDS: ASPIRIN E.C. 81 MG (ECOTRIN) TAB PO SCH (08:24)
[2020-08-27] MEDS: RT-ALBUTEROL/IPRATROPIUM 3 ML (DUONEB) VIAL INH SCH ×2 (09:14→19:20)
[2020-08-28 03:08] VITALS: BP 153/65
[2020-08-28] MEDS: KCL 20 MEQ TAB (K-DUR) PO SCH (06:02)
[2020-08-28] MEDS: doxAzosin 4 MG (CARDURA) TAB PO SCH (07:58)
[2020-08-28] MEDS: ASPIRIN E.C. 81 MG (ECOTRIN) TAB PO SCH (07:58)
[2020-08-28] MEDS: cloNIDine 0.1 MG (CATAPRES) TAB PO SCH (07:58)
[2020-08-28] MEDS: meTOprolol SUCCINATE 100 MG (TOPROL XL) TAB PO SCH (07:59)
[2020-08-28] MEDS: amLODIPine 5 MG (NORVASC) TAB PO SCH (07:59)
[2020-08-28] MEDS: PANTOPRAZOLE 40 MG (PROTONIX) TAB PO SCH (07:59)
[2020-08-28 08:00] VITALS: BP 157/70
[2020-08-28] MEDS: ENOXAPARIN 40 MG/0.4 ML (LOVENOX) SYR SC SCH (08:00)
[2020-08-28] MEDS: SENNA W/DOCUSATE (SENOKOT S) TABLET PO SCH (08:00)
--- NOTE | 2020-08-28 08:26 | Cardiology Progress Note ---
Subjective Date Seen by Provider: Aug 28, 2020 Time Seen by Provider: 08:05 Subjective/Events-last exam Patient sitting up in chair, denies any chest pain, reports dyspnea continues to improve. Focused Exam Time of Focused Exam: 09:55 Objective-Cardiology Exam Last Set of Vital Signs Vital Signs 08/26/20 08/28/20 08/28/20 16:20 08:00 09:26 Temp 37.2 Pulse 79 Resp 20 B/P (MAP) 157/70 (99) Pulse Ox 95 O2 Delivery Nasal Cannula O2 Flow Rate 2.00 FiO2 28 Capillary Refill : Less Than 3 SecondsLess Than 3 Seconds I&O Intake and Output 08/28/20 00:00 Intake Total 2220 ml Balance 2220 ml Intake Oral 2220 ml # Voids 9 # Bowel Movements 1 General: Alert, Oriented X3, Cooperative, No Acute Distress HEENT: Atraumatic, EOMI Neck: No JVD Lungs: Normal Air Movement, Other (crackels in lung bases) Heart: Regular Rate, Other (crescendo-decrescendo murmur loudest in right 2nd intercostal space ) Abdomen: Normal Bowel Sounds, No Tenderness, No Hepatosplenomegaly, No Masses Extremities: No Clubbing, No Cyanosis, Other (+1 edema BLE) Skin: No Rashes, No Breakdown Neuro: Normal Speech Psych/Mental Status: Mental Status NL, Mood NL Results Lab Laboratory Tests 08/28/20 10:46 A/P-Cardiology Admission Diagnosis Acute respiratory failure Malignant hypertension Aortography stenosis Acute renal failure Assessment/Plan Status post respiratory failure, extubated on August 14, 2020, still using oxygen, slowly improving. Continue to monitor Flash pulmonary edema, responded well to diuretics, continue to monitor Congestive heart failure, acute on chronic left ventricular diastolic dysfunct ion, echocardiogram showed normal left ventricular systolic function, grade 2 diastolic dysfunction, mild aortic valve stenosis, pulmonary hypertension with PA pressure 40-45 mmHg. Started on beta blockers. Unable to tolerate MICHAEL-I or ARB secondary to renal insufficiency Mild elevation in troponin, type II myocardial infarction secondary to malignant hypertension and hypertensive heart disease. Continue to monitor and reevaluate troponin. We'll consider cardiac catheter versus stress test as an outpatient, dependence on his progression Malignant hypertension, better controlled, continue to monitor. Aortic valve stenosis, mild. Continue to monitor Acute renal failure on chronic renal insufficiency, continue to monitor. Will need f/u with nephrology as outpatient Patient was seen and evaluated with [place], examination performed, management plan was discussed, agree with the current scribed note, I made few changes to the note using Italic font Patient was seen at bedside sitting comfortably, denied any active pain Being transferred to acute rehabilitation Blood pressure is better controlled Still having generalized weakness, peripheral edema and hyponatremia Recommend restarting lower dose of Lasix 20 mg daily and monitor electrolytes and renal function Clinical Quality Measures DVT/VTE Risk/Contraindication: Risk Factor Score Per Nursin RFS Level Per Nursing on Admit: 4+=Very High [place]AT [place] Aug 28, 2020 08:26 GAURAV NUNEZ MD Aug 28, 2020 13:06
[2020-08-28] MEDS: RT-ALBUTEROL/IPRATROPIUM 3 ML (DUONEB) VIAL INH SCH (09:32)
--- NOTE | 2020-08-28 09:47 | NUR ---
IRF Evaluation Determination: Accepted At the request of SW, chart review complete and findings discussed with Dr. Tam - patient accepted. Anticipate admission, 08/28/20. Thank you for this referral.
--- NOTE | 2020-08-28 10:18 | Physical Therapy Daily Note ---
PT Daily Note-Current Subjective Patient agrees to PT. Mental Status Patient Orientation: Person, Time, Situation Attachments: Oxygen (3L O2 NC HF) Transfers SCALE: Activities may be completed with or without assistive devices. 7-Rpgncjgsvm-dvtkhjt completes the activity by him/herself with no assistance from a helper. 5-Set-up or Clean-up Assistance-helper sets up or cleans up; patient completes activity. [place] assists only prior to or following the activity. 4-Supervision or Touching Assistance-helper provides verbal cues and/or touching/steadying and/or contact guard assistance as patient completes activity. Assistance may be provided throughout the activity or intermittently. 3-Partial/Moderate Assistance-helper does LESS THAN HALF the effort. [place] lifts, holds or supports trunk or limbs, but provides less than half the effort. 2-Substantial/Maximal Assistance-helper does MORE THAN HALF the effort. [place] lifts or holds trunk or limbs and provides more than half the effort. 2-Lrtxohncy-vimsji does ALL the effort. Patient does none of the effort to complete the activity. Or, the assistance of 2 or more helpers is required for the patient to complete the activity. If activity was not attempted, code reason: 7-Patient Refused. 9-Not Applicable-not attempted and the patient did not perform the activity before the current illness, exacerbation or injury. 10-Not Attempted due to Environmental Limitations-(lack of equipment, weather restraints, etc.). 88-Not Attempted due to Medical Conditions or Safety Concerns. Sit to Stand (QC): 4 Weight Bearing Right Lower Extremity: Right Full Weight Bearing Left Lower Extremity: Left Full Weight Bearing Gait Training Does the Patient Walk?: Yes Distance: 275' Walk 10 feet (QC): 4 Walk 50 ft with 2 Turns(QC): 4 Walk 150 ft (QC): 4 Gait Assistive Device: FWW increase SOA with minimal activity. functional gait sequence Exercises Seated Therapy Exercises: Ankle pumps, Long arc quads, Hip flexion, Glut set Seated Reps: 12 Assessment Patient requires multiple recovery periods due to SOA. SAO2 maintain 93% with activity. 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 Fpc Goals 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 Time Frame: Sep 02, 2020 Roll Left & Right (QC): 6 Sit to Lying (QC): 6 Lying-Sitting on Side/Bed(QC): 6 Sit to Stand (QC): 6 Chair/Wxg-sk-Roduf Xfer(QC): 6 Toilet Transfer (QC): 6 Does the Patient Walk: Yes Walk 10 feet (QC): 6 Walk 50ft with 2 Turns (QC): 6 Walk 150 ft (QC): 6 PT Plan Treatment/Plan Treatment Plan: Continue Plan of Care Treatment Plan: Bed Mobility, Education, Functional Activity Adriana, Functional Strength, Gait, Safety, Therapeutic Exercise, Transfers Treatment Duration: Sep 02, 2020 Frequency: 6 times per week Estimated Hrs Per Day: .25 hour per day Patient and/or Family Agrees t: Yes Time/GCodes Time In: 822 Time Out: 845 Total Billed Treatment Time: 23 Total Billed Treatment 1 visit FA 12 min EX 11 min SANDRA FALLON PT Aug 28, 2020 10:18
--- NOTE | 2020-08-28 10:21 | Discharge Summary ---
Diagnosis/Chief Complaint Date of Admission Aug 12, 2020 at 12:10 Date of Discharge Discharge Date: Aug 28, 2020 Discharge Diagnosis Mr. González Mart is a 64 y/o M with a medical history significant for HTN and HLP Who was admitted on 08/12 for hypertensive emergency, hypoxia and renal insufficiency. # Hypertensive emergency - Consider possibly EtOH withdrawal related, but per pt report last alcohol was a month ago (PT becomes agitated with ativan) - initially on drip at outside hospital - Currently on PO medications with prn IV, has not needed PRN in last 24 hours, hypertension is much improved - appreciate Cardiology recommendations # Acute on chronic renal insufficiency - Cold [employer] Worker 2.33 on presentation (08/12) it had decreased but is now on the rise again at 2.70 - patient's new baseline confidential investigator is likely around 2 - hold lisinopril and Lasix due to confidential investigator elevation - continue to monitor elevated confidential investigator - watch for electrolyte abnormalities - K+ elevated at 5.1 so placed patient on low K+ diet. may need kayexalate if continues to rise - repeat BMP this afternoon # Hypoxia - unclear etiology - COVID negative - elevated D-dimer- VQ scan without obvious abnormality, unable to obtain CTA due to renal insufficiency - CXR 08/20 with small bibasilar effusions and persistent cardiomegaly with probable pulmonary vascular congestion and interstitial edema - patient still on 3-4 liters and has been sating >90% - crackles appreciated in lung bases likely indicative of fluid re-accumulation on lungs but holding Lasix due to impaired renal function # Diastolic congestive heart failure - Currently holding Lasix for CHF due to increased confidential investigator - elevated troponin- Cardiology consulted, suspect type II cardiac strain - Bunny weinstein for edema # Confusion - likely secondary to hypertension or EtOH use - resolved: Pt AOX3 DVT ppx- enoxaparin Discharge Summary Discharge Physical Examination Allergies: Coded Allergies: No Known Drug Allergies (Unverified , 02/11/18) Vitals & I&Os Vital Signs Date Time Temp Pulse Resp B/P (MAP) Pulse Ox O2 Delivery O2 Flow Rate FiO2 08/28/20 11:14 08/28/20 09:26 95 Nasal Cannula 2.00 08/28/20 08:00 37.2 79 20 08/26/20 16:20 28 General Appearance: Alert, Oriented X3, Cooperative Neuro: Normal Gait Psych/Mental Status: Mental Status NL Hospital Course Was the Problem List Reviewed?: Yes Hospital Course: Pt has a lengthy hospital course for 16 days after transferred from [facility] with flash pulmonary edema required intubation upon arrival. Overall he had a very lengthy course complicated its severe delirium and hypertension and volume overload. Pt currently doing much better, labs remain stable, pt still has edema and will need inpatient rehab for aggressive strengthening. Labs (last 24 hrs) Laboratory Tests 08/12/20 12:10: Lab Scanned Report Referred Lab Report 08/12/20 14:17: Blood Gas Puncture Site RT ART LINE, Blood Gas Patient Temperature 36.4, Arterial Blood pH 7.32*L, Arterial Blood Partial Pressure CO2 46H, Arterial Blood Partial Pressure O2 141H, Arterial Blood HCO3 23, Arterial Blood Total CO2 24.9, Arterial Blood Oxygen Saturation 99, Arterial Blood Base Excess -1.9, Zenon Test YES-POS, Blood Gas Ventilator Setting YES, Blood Gas Inspired Oxygen UNK 08/12/20 16:42: White Blood Count 9.2, Red Blood Count 2.36L, Hemoglobin 8.8L, Hematocrit 25L, Mean Corpuscular Volume 106H, Mean Corpuscular Hemoglobin 37H, Mean Corpuscular Hemoglobin Concent 35, Red Cell Distribution Width 12.5, Platelet Count 282, Mean Platelet Volume 9.5, Immature Granulocyte % (Auto) 0, Neutrophils (%) (Auto) 79H, Lymphocytes (%) (Auto) 12, Monocytes (%) (Auto) 8, Eosinophils (%) (Auto) 0, Basophils (%) (Auto) 0, Neutrophils # (Auto) 7.3, Lymphocytes # (Auto) 1.1, Monocytes # (Auto) 0.8, Eosinophils # (Auto) 0.0, Basophils # (Auto) 0.0, Immature Granulocyte # (Auto) 0.0, D-Dimer 1.31H, Sodium Level 126L, Potassium Level 3.1L, Chloride Level 95L, Carbon Dioxide Level 21, Anion Gap 10, Blood Urea Nitrogen 22H, Creatinine 2.33H, Estimat Glomerular Filtration Rate 28, BUN/Creatinine Ratio 9, Glucose Level 128H, Calcium Level 7.1L, Corrected Calcium 8.5, Total Bilirubin 0.3, Aspartate Amino Transf (AST/SGOT) 31, Alanine Aminotransferase (ALT/SGPT) 16, Alkaline Phosphatase 98, Troponin I 0.101H, B- Type Natriuretic Peptide 1797.9H, Total Protein 4.9L, Albumin 2.2L 08/13/20 00:18: Glucometer 106 08/13/20 03:25: White Blood Count 6.3, Red Blood Count 2.28L, Hemoglobin 8.3L, Hematocrit 24L, Mean Corpuscular Volume 106H, Mean Corpuscular Hemoglobin 36H, Mean Corpuscular Hemoglobin Concent 34, Red Cell Distribution Width 12.3, Platelet Count 241, Mean Platelet Volume 9.6, Immature Granulocyte % (Auto) 0, Neutrophils (%) (Auto) 65, Lymphocytes (%) (Auto) 23, Monocytes (%) (Auto) 10, Eosinophils (%) (Auto) 1, Basophils (%) (Auto) 1, Neutrophils # (Auto) 4.1, Lymphocytes # (Auto) 1.5, Monocytes # (Auto) 0.6, Eosinophils # (Auto) 0.1, Basophils # (Auto) 0.0, Immature Granulocyte # (Auto) 0.0, Blood Gas Puncture Site ART LINE, Blood Gas Patient Temperature 36.2, Arterial Blood pH 7.42, Arterial Blood Partial Pressure CO2 35, Arterial Blood Partial Pressure O2 81, Arterial Blood HCO3 23, Arterial Blood Total CO2 23.8, Arterial Blood Oxygen Saturation 97, Arterial Blood Base Excess -1.3, Zenon Test ART LINE, Blood Gas Ventilator Setting YES, Blood Gas Inspired Oxygen 35%, Sodium Level 132L, Potassium Level 2.9L, Chloride Level 100, Carbon Dioxide Level 19L, Anion Gap 13, Blood Urea Nitrogen 23H, Creatinine 2.34H, Estimat Glomerular Filtration Rate 28, BUN/Creatinine Ratio 10, Glucose Level 100, Calcium Level 7.3L, Corrected Calcium 8.7, Phosphorus Level 4.7, Magnesium Level 2.0, Total Bilirubin 0.3, Aspartate Amino Transf (A ST/SGOT) 28, Alanine Aminotransferase (ALT/SGPT) 15, Alkaline Phosphatase 99, Total Protein 4.7L, Albumin 2.2L 08/13/20 11:02: Glucometer 121H 08/13/20 17:06: Glucometer 133H 08/14/20 00:44: Glucometer 113H 08/14/20 02:00: White Blood Count 6.7, Red Blood Count 2.42L, Hemoglobin 8.8L, Hematocrit 26L, Mean Corpuscular Volume 107H, Mean Corpuscular Hemoglobin 36H, Mean Corpuscular Hemoglobin Concent 34, Red Cell Distribution Width 12.9, Platelet Count 266, Mean Platelet Volume 10.0, Immature Granulocyte % (Auto) 0, Neutrophils (%) (Auto) 77H, Lymphocytes (%) (Auto) 13, Monocytes (%) (Auto) 8, Eosinophils (%) (Auto) 2, Basophils (%) (Auto) 0, Neutrophils # (Auto) 5.1, Lymphocytes # (Auto) 0.9L, Monocytes # (Auto) 0.5, Eosinophils # (Auto) 0.1, Basophils # (Auto) 0.0, Immature Granulocyte # (Auto) 0.0, Blood Gas Puncture Site RIGHT ART LINE, Blood Gas Patient Temperature 36.4, Arterial Blood pH 7.44H, Arterial Blood Partial Pressure CO2 35, Arterial Blood Partial Pressure O2 73L, Arterial Blood HCO3 24, Arterial Blood Total CO2 25.0, Arterial Blood Oxygen Saturation 96, Arterial Blood Base Excess 0.1, Zenon Test ART LINE, Blood Gas Ventilator Setting YES, Blood Gas Inspired Oxygen 24%, Sodium Level 138, Potassium Level 3.4L, Chloride Level 105, Carbon Dioxide Level 20L, Anion Gap 13, Blood Urea Nitrogen 23H, Creatinine 2.19H, Estimat Glomerular Filtration Rate 30, BUN/Creatinine Ratio 11, Glucose Level 108H, Calcium Level 7.4L, Phosphorus Level 4.9H, Magnesium Level 2.0, Procalcitonin 0.30H 08/14/20 06:11: Glucometer 106 08/14/20 11:45: Glucometer 91 08/14/20 16:41: Glucometer 86 08/14/20 22:00: Urine Opiates Screen NEGATIVE, Urine Oxycodone Screen NEGATIVE, Urine Methadone Screen NEGATIVE, Urine Propoxyphene Screen NEGATIVE, Urine Barbiturates Screen NEGATIVE, Ur Tricyclic Antidepressants Screen NEGATIVE, Urine Phencyclidine Screen NEGATIVE, Urine Amphetamines Screen NEGATIVE, Urine Methamphetamines Screen NEGATIVE, Urine Benzodiazepines Screen NEGATIVE, Urine Cocaine Screen NEGATIVE, Urine Cannabinoids Screen NEGATIVE 08/15/20 00:29: Glucometer 87 08/15/20 03:10: White Blood Count 8.8, Red Blood Count 2.49L, Hemoglobin 9.0L, Hematocrit 27L, Mean Corpuscular Volume 110H, Mean Corpuscular Hemoglobin 36H, Mean Corpuscular Hemoglobin Concent 33, Red Cell Distribution Width 13.2, Platelet Count 297, Mean Platelet Volume 9.8, Immature Granulocyte % (Auto) 1, Neutrophils (%) (Auto) 83H, Lymphocytes (%) (Auto) 9L, Monocytes (%) (Auto) 6, Eosinophils (%) (Auto) 0, Basophils (%) (Auto) 0, Neutrophils # (Auto) 7.3, Lymphocytes # (Auto) 0.8L, Monocytes # (Auto) 0.6, Eosinophils # (Auto) 0.0, Basophils # (Auto) 0.0, Immature Granulocyte # (Auto) 0.1, Sodium Level 144, Potassium Level 3.3L, Chloride Level 108H, Carbon Dioxide Level 19L, Anion Gap 17H, Blood Urea Nitrogen 25H, Creatinine 2.43H, Estimat Glomerular Filtration Rate 27, BUN/Creatinine Ratio 10, Glucose Level 111H, Calcium Level 7.8L, Corrected Calcium 8.9, Phosphorus Level 4.8H, Magnesium Level 2.0, Total Bilirubin 0.4, Aspartate Amino Transf (AST/SGOT) 32, Alanine Aminotransferase (ALT/SGPT) 17, Alkaline Phosphatase 109, Troponin I 0.322*H, Total Protein 5.7L, Albumin 2.6L 08/15/20 05:00: Prothrombin Time 14.1, INR Comment 1.1, Activated Partial Thromboplast Time 54H, Lactic Acid Level 0.81, HIV (1&2) Ag and Ab Screen Referral Non-Reactive 08/15/20 08:12: Urine Color YELLOW, Urine Clarity CLEAR, Urine pH 6.5, Urine Specific [place] 1.025H, Urine Protein 3+H, Urine Glucose (UA) TRACEH, Urine Ketones 1+H, Urine Nitrite NEGATIVE, Urine Bilirubin NEGATIVE, Urine Urobilinogen 0.2, Urine Leukocyte Esterase NEGATIVE, Urine RBC (Auto) 1+H, Urine RBC 0-2, Urine WBC NONE, Urine Crystals NONE, Urine Bacteria NEGATIVE, Urine Casts NONE, Urine Mucus NEGATIVE, Urine Culture Indicated NO 08/15/20 14:02: Glucometer 155H 08/15/20 18:09: Glucometer 154H 08/16/20 02:45: White Blood Count 7.9, Red Blood Count 2.44L, Hemoglobin 8.8L, Hematocrit 27L, Mean Corpuscular Volume 110H, Mean Corpuscular Hemoglobin 36H, Mean Corpuscular Hemoglobin Concent 33, Red Cell Distribution Width 13.3, Platelet Count 277, Mean Platelet Volume 9.5, Immature Granulocyte % (Auto) 0, Neutrophils (%) (Auto) 78H, Lymphocytes (%) (Auto) 11L, Monocytes (%) (Auto) 7, Eosinophils (%) (Auto) 2, Basophils (%) (Auto) 0, Neutrophils # (Auto) 6.2, Lymphocytes # (Auto) 0.9L, Monocytes # (Auto) 0.6, Eosinophils # (Auto) 0.2, Basophils # (Auto) 0.0, Immature Granulocyte # (Auto) 0.0, Sodium Level 143, Potassium Level 3.2L, Chloride Level 112H, Carbon Dioxide Level 18L, Anion Gap 13, Blood Urea Nitrogen 28H, Creatinine 2.03H, Estimat Glomerular Filtration Rate 33, BUN/Creatinine Ratio 14, Glucose Level 135H, Calcium Level 7.8L, Phosphorus Level 3.5, Magnesium Level 2.6H 08/17/20 05:32: White Blood Count 9.6, Red Blood Count 2.61L, Hemoglobin 9.5L, Hematocrit 30L, Mean Corpuscular Volume 115H, Mean Corpuscular Hemoglobin 36H, Mean Corpuscular Hemoglobin Concent 32, Red Cell Distribution Width 13.6, Platelet Count 318, Mean Platelet Volume 9.7, Immature Granulocyte % (Auto) 1, Neutrophils (%) (Auto) 75, Lymphocytes (%) (Auto) 11L, Monocytes (%) (Auto) 10, Eosinophils (%) (Auto) 3, Basophils (%) (Auto) 0, Neutrophils # (Auto) 7.2, Lymphocytes # (Auto) 1.0, Monocytes # (Auto) 1.0, Eosinophils # (Auto) 0.3, Basophils # (Auto) 0.0, Immature Granulocyte # (Auto) 0.1, Sodium Level 143, Potassium Level 3.1L, Chloride Level 110H, Carbon Dioxide Level 18L, Anion Gap 15H, Blood Urea Nitrogen 25H, Creatinine 1.82H, Estimat Glomerular Filtration Rate 37, BUN/Creatinine Ratio 14, Glucose Level 96, Calcium Level 8.1L, Phosphorus Level 3.0, Magnesium Level 2.4 08/18/20 04:30: White Blood Count 10.1, Red Blood Count 2.42L, Hemoglobin 8.8L, Hematocrit 28L, Mean Corpuscular Volume 115H, Mean Corpuscular Hemoglobin 36H, Mean Corpuscular Hemoglobin Concent 32, Red Cell Distribution Width 13.4, Platelet Count 282, Mean Platelet Volume 9.9, Immature Granulocyte % (Auto) 1, Neutrophils (%) (Aut o) 80H, Lymphocytes (%) (Auto) 9L, Monocytes (%) (Auto) 8, Eosinophils (%) (Auto) 2, Basophils (%) (Auto) 0, Neutrophils # (Auto) 8.1H, Lymphocytes # (Auto) 0.9L, Monocytes # (Auto) 0.8, Eosinophils # (Auto) 0.2, Basophils # (Auto) 0.0, Immature Granulocyte # (Auto) 0.1, Sodium Level 143, Potassium Level 3.8, Chloride Level 111H, Carbon Dioxide Level 21, Anion Gap 11, Blood Urea Nitrogen 23H, Creatinine 1.76H, Estimat Glomerular Filtration Rate 39, BUN/Creatinine Ratio 13, Glucose Level 113H, Calcium Level 7.8L, Phosphorus Level 2.7, Magnesium Level 2.6H 08/19/20 04:35: White Blood Count 10.3, Red Blood Count 2.26L, Hemoglobin 8.2L, Hematocrit 26L, Mean Corpuscular Volume 116H, Mean Corpuscular Hemoglobin 36H, Mean Corpuscular Hemoglobin Concent 31L, Red Cell Distribution Width 13.3, Platelet Count 251, Mean Platelet Volume 10.3, Immature Granulocyte % (Auto) 1, Neutrophils (%) (Auto) 82H, Lymphocytes (%) (Auto) 9L, Monocytes (%) (Auto) 7, Eosinophils (%) (Auto) 1, Basophils (%) (Auto) 0, Neutrophils # (Auto) 8.5H, Lymphocytes # (Auto) 1.0, Monocytes # (Auto) 0.7, Eosinophils # (Auto) 0.1, Basophils # (Auto) 0.0, Immature Granulocyte # (Auto) 0.1, Sodium Level 143, Potassium Level 4.2, Chloride Level 111H, Carbon Dioxide Level 19L, Anion Gap 13, Blood Urea Nitrogen 23H, Creatinine 1.81H, Estimat Glomerular Filtration Rate 38, BUN/Creatinine Ratio 13, Glucose Level 111H, Calcium Level 7.4L, Phosphorus Level 3.6, Magnesium Level 2.2, Vitamin B12 Level 1059, Thyroid Stimulating Hormone (TSH) 1.13 08/20/20 05:50: White Blood Count 9.6, Red Blood Count 2.28L, Hemoglobin 8.6L, Hematocrit 27L, Mean Corpuscular Volume 118H, Mean Corpuscular Hemoglobin 38H, Mean Corpuscular Hemoglobin Concent 32, Red Cell Distribution Width 13.3, Platelet Count 306, Mean Platelet Volume 10.7, Immature Granulocyte % (Auto) 1, Neutrophils (%) (Auto) 80H, Lymphocytes (%) (Auto) 10L, Monocytes (%) (Auto) 7, Eosinophils (%) (Auto) 1, Basophils (%) (Auto) 0, Neutrophils # (Auto) 7.7, Lymphocytes # (Auto) 1.0, Monocytes # (Auto) 0.7, Eosinophils # (Auto) 0.1, Basophils # (Auto) 0.0, Immature Granulocyte # (Auto) 0.1, Sodium Level 142, Potassium Level 4.0, Chloride Level 110H, Carbon Dioxide Level 20L, Anion Gap 12, Blood Urea Nitrogen 26H, Creatinine 1.94H, Estimat Glomerular Filtration Rate 35, BUN/Creatinine Ratio 13, Glucose Level 98, Calcium Level 7.4L, Phosphorus Level 4.3, Magnesium Level 2.2, Corrected Calcium 8.5, Total Bilirubin 0.3, Aspartate Amino Transf (AST/SGOT) 33, Alanine Aminotransferase (ALT/SGPT) 26, Alkaline Phosphatase 91, B-Type Natriuretic Peptide 791.7H, Total Protein 4.9L, Albumin 2.6L 08/20/20 10:20: Stool Occult Blood Immunoassay NEGATIVE 08/20/20 10:39: Blood Gas Puncture Site LT RAD, Blood Gas Patient Temperature 37.0, Arterial Blood pH 7.36L, Arterial Blood Partial Pressure CO2 45, Arterial Blood Partial Pressure O2 42L, Arterial Blood HCO3 25, Arterial Blood Total CO2 26.1, Arterial Blood Oxygen Saturation 64L, Arterial Blood Base Excess -0.1, Zenon Test YES- POS, Blood Gas Ventilator Setting NO, Blood Gas Inspired Oxygen 60% 08/20/20 12:05: Coronavirus 2019 ([facility]) Negative 08/21/20 05:27: White Blood Count 8.0, Red Blood Count 2.36L, Hemoglobin 8.5L, Hematocrit 27L, Mean Corpuscular Volume 116H, Mean Corpuscular Hemoglobin 36H, Mean Corpuscular Hemoglobin Concent 31L, Red Cell Distribution Width 12.9, Platelet Count 278, Mean Platelet Volume 10.5, Immature Granulocyte % (Auto) 1, Neutrophils (%) (Auto) 78H, Lymphocytes (%) (Auto) 12, Monocytes (%) (Auto) 8, Eosinophils (%) (Auto) 1, Basophils (%) (Auto) 0, Neutrophils # (Auto) 6.2, Lymphocytes # (Auto) 1.0, Monocytes # (Auto) 0.7, Eosinophils # (Auto) 0.1, Basophils # (Auto) 0.0, Immature Granulocyte # (Auto) 0.1, Sodium Level 142, Potassium Level 3.7, Chloride Level 108H, Carbon Dioxide Level 20L, Anion Gap 14, Blood Urea Nitrogen 25H, Creatinine 1.94H, Estimat Glomerular Filtration Rate 35, BUN/Creatinine Ratio 13, Glucose Level 110H, Calcium Level 7.3L, Phosphorus Level 4.1, Ma gnesium Level 2.1 08/22/20 05:25: White Blood Count 7.1, Red Blood Count 2.13L, Hemoglobin 7.6L, Hematocrit 24L, Mean Corpuscular Volume 112H, Mean Corpuscular Hemoglobin 36H, Mean Corpuscular Hemoglobin Concent 32, Red Cell Distribution Width 12.6, Platelet Count 281, Mean Platelet Volume 10.6, Immature Granulocyte % (Auto) 1, Neutrophils (%) (Auto) 64, Lymphocytes (%) (Auto) 21, Monocytes (%) (Auto) 11, Eosinophils (%) (Auto) 3, Basophils (%) (Auto) 1, Neutrophils # (Auto) 4.6, Lymphocytes # (Auto) 1.5, Monocytes # (Auto) 0.8, Eosinophils # (Auto) 0.2, Basophils # (Auto) 0.0, Immature Granulocyte # (Auto) 0.1, Sodium Level 141, Potassium Level 3.6, Chloride Level 107, Carbon Dioxide Level 23, Anion Gap 11, Blood Urea Nitrogen 27H, Creatinine 2.04H, Estimat Glomerular Filtration Rate 33, BUN/Creatinine Ratio 13, Glucose Level 103, Calcium Level 7.0L, Phosphorus Level 4.6, Magnesium Level 1.8 08/23/20 05:41: White Blood Count 9.5, Red Blood Count 2.18L, Hemoglobin 7.9L, Hematocrit 25L, Mean Corpuscular Volume 114H, Mean Corpuscular Hemoglobin 36H, Mean Corpuscular Hemoglobin Concent 32, Red Cell Distribution Width 12.6, Platelet Count 282, Mean Platelet Volume 11.2, Immature Granulocyte % (Auto) 1, Neutrophils (%) (Auto) 75, Lymphocytes (%) (Auto) 12, Monocytes (%) (Auto) 10, Eosinophils (%) (Auto) 2, Basophils (%) (Auto) 0, Neutrophils # (Auto) 7.1, Lymphocytes # (Auto) 1.1, Monocytes # (Auto) 0.9, Eosinophils # (Auto) 0.2, Basophils # (Auto) 0.0, Immature Granulocyte # (Auto) 0.1, Sodium Level 135, Potassium Level 3.9, Chloride Level 105, Carbon Dioxide Level 21, Anion Gap 9, Blood Urea Nitrogen 31H, Creatinine 2.12H, Estimat Glomerular Filtration Rate 31, BUN/Creatinine Ratio 15, Glucose Level 94, Calcium Level 7.5L, Phosphorus Level 4.1, Magnesium Level 2.1 08/24/20 05:05: Sodium Level 135, Potassium Level 4.8, Chloride Level 102, Carbon Dioxide Level 21, Anion Gap 12, Blood Urea Nitrogen 37H, Creatinine 2.41H, Estimat Glomerular Filtration Rate 27, BUN/Creatinine Ratio 15, Glucose Level 95, Calcium Level 7.3L, Phosphorus Level 4.1, Magnesium Level 1.7 08/24/20 05:09: White Blood Count 9.7, Red Blood Count 2.15L, Hemoglobin 7.8L, Hematocrit 24L, Mean Corpuscular Volume 114H, Mean Corpuscular Hemoglobin 36H, Mean Corpuscular Hemoglobin Concent 32, Red Cell Distribution Width 12.5, Platelet Count 266, Mean Platelet Volume 11.1, Immature Granulocyte % (Auto) 1, Neutrophils (%) (Auto) 73, Lymphocytes (%) (Auto) 13, Monocytes (%) (Auto) 11, Eosinophils (%) (Auto) 3, Basophils (%) (Auto) 0, Neutrophils # (Auto) 7.0, Lymphocytes # (Auto) 1.2, Monocytes # (Auto) 1.0, Eosinophils # (Auto) 0.3, Basophils # (Auto) 0.0, Immature Granulocyte # (Auto) 0.1 08/25/20 04:15: White Blood Count 8.3, Red Blood Count 2.12L, Hemoglobin 7.7L, Hematocrit 24L, Mean Corpuscular Volume 112H, Mean Corpuscular Hemoglobin 36H, Mean Corpuscular Hemoglobin Concent 33, Red Cell Distribution Width 12.3, Platelet Count 247, Mean Platelet Volume 11.8, Immature Granulocyte % (Auto) 1, Neutrophils (%) (Auto) 71, Lymphocytes (%) (Auto) 12, Monocytes (%) (Auto) 12, Eosinophils (%) (Auto) 4, Basophils (%) (Auto) 1, Neutrophils # (Auto) 5.9, Lymphocytes # (Auto) 1.0, Monocytes # (Auto) 1.0, Eosinophils # (Auto) 0.4H, Basophils # (Auto) 0.0, Immature Granulocyte # (Auto) 0.1, Sodium Level 130L, Potassium Level 5.1H, Chloride Level 102, Carbon Dioxide Level 18L, Anion Gap 10, Blood Urea Nitrogen 43H, Creatinine 2.70H, Estimat Glomerular Filtration Rate 24, BUN/Creatinine Ratio 16, Glucose Level 100, Calcium Level 7.4L, Phosphorus Level 4.4, Magnesium Level 1.7 08/25/20 12:18: Sodium Level 131L, Potassium Level 4.9, Chloride Level 102, Carbon Dioxide Level 18L, Anion Gap 11, Blood Urea Nitrogen 43H, Creatinine 2.66H, Estimat Glomerular Filtration Rate 24, BUN/Creatinine Ratio 16, Glucose Level 116H, Calcium Level 7.6L 08/28/20 10:46: White Blood Count 7.2, Red Blood Count 2.02L, Hemoglobin 7.3L, Hematocrit 23L, Mean Corpuscular Volume 112H, Mean Corpuscular Hemoglobin 36H, Mean Corpuscular Hemoglobin Concent 32, Red Cell Distribution Width 12.4, Platelet Count 318, Mean Platelet Volume 10.7, Immature Granulocyte % (Auto) 1, Neutrophils (%) (Auto) 75, Lymphocytes (%) (Auto) 9L, Monocytes (%) (Auto) 11, Eosinophils (%) (Auto) 4, Basophils (%) (Auto) 0, Neutrophils # (Auto) 5.4, Lymphocytes # (Auto) 0.7L, Monocytes # (Auto) 0.8, Eosinophils # (Auto) 0.3, Basophils # (Auto) 0.0, Immature Granulocyte # (Auto) 0.0, Sodium Level 135, Potassium Level 5.0, Chl oride Level 107, Carbon Dioxide Level 19L, Anion Gap 9, Blood Urea Nitrogen 47H, Creatinine 2.62H, Estimat Glomerular Filtration Rate 25, BUN/Creatinine Ratio 18, Glucose Level 152H, Calcium Level 7.9L, Corrected Calcium 8.9, Total Bilirubin 0.2, Aspartate Amino Transf (AST/SGOT) 21, Alanine Aminotransferase (ALT/SGPT) 54, Alkaline Phosphatase 210H, B-Type Natriuretic Peptide 921.9H, Total Protein 5.6L, Albumin 2.7L Microbiology 08/15/20 Blood Culture - Final, Complete No growth 08/14/20 MRSA Screen - Final, Complete MRSA not isolated Pending Labs Microbiology Date/Time Source Procedure Growth Status 08/15/20 05:00 Port Not Otherwise Specified Blood Culture - Final No growth Complete 08/15/20 05:00 Port Not Otherwise Specified Blood Culture - Final No growth Complete 08/14/20 03:40 Nasal MRSA Screen - Final MRSA not isolated Complete 08/12/20 12:40 Sputum Endotracheal Gram Stain - Final Complete 08/12/20 12:40 Sputum Culture - Final Usual upper respiratory valeri Complete Laboratory Tests 08/12/20 12:10: Lab Scanned Report Referred Lab Report 08/12/20 14:17: Blood Gas Puncture Site RT ART LINE, Blood Gas Patient Temperature 36.4, Arterial Blood pH 7.32, Arterial Blood Partial Pressure CO2 46, Arterial Blood Partial Pressure O2 141, Arterial Blood HCO3 23, Arterial Blood Total CO2 24.9, Arterial Blood Oxygen Saturation 99, Arterial Blood Base Excess -1.9, Zenon Test YES-POS, Blood Gas Ventilator Setting YES, Blood Gas Inspired Oxygen UNK 08/12/20 16:42: White Blood Count 9.2, Red Blood Count 2.36, Hemoglobin 8.8, Hematocrit 25, Mean Corpuscular Volume 106, Mean Corpuscular Hemoglobin 37, Mean Corpuscular Hemoglobin Concent 35, Red Cell Distribution Width 12.5, Platelet Count 282, Mean Platelet Volume 9.5, Immature Granulocyte % (Auto) 0, Neutrophils (%) (Auto) 79, Lymphocytes (%) (Auto) 12, Monocytes (%) (Auto) 8, Eosinophils (%) (Auto) 0, Basophils (%) (Auto) 0, Neutrophils # (Auto) 7.3, Lymphocytes # (Auto) 1.1, Monocytes # (Auto) 0.8, Eosinophils # (Auto) 0.0, Basophils # (Auto) 0.0, Immature Granulocyte # (Auto) 0.0, D-Dimer 1.31, Sodium Level 126, Potassium Level 3.1, Chloride Level 95, Carbon Dioxide Level 21, Anion Gap 10, Blood Urea Nitrogen 22, Creatinine 2.33, Estimat Glomerular Filtration Rate 28, BUN/Creatinine Ratio 9, Glucose Level 128, Calcium Level 7.1, Corrected Calcium 8.5, Total Bilirubin 0.3, Aspartate Amino Transf (AST/SGOT) 31, Alanine Aminotransferase (ALT/SGPT) 16, Alkaline Phosphatase 98, Troponin I 0.101, B- Type Natriuretic Peptide 1797.9, Total Protein 4.9, Albumin 2.2 08/13/20 00:18: Glucometer 106 08/13/20 03:25: White Blood Count 6.3, Red Blood Count 2.28, Hemoglobin 8.3, Hematocrit 24, Mean Corpuscular Volume 106, Mean Corpuscular Hemoglobin 36, Mean Corpuscular Hemoglobin Concent 34, Red Cell Distribution Width 12.3, Platelet Count 241, Mean Platelet Volume 9.6, Immature Granulocyte % (Auto) 0, Neutrophils (%) (Auto) 65, Lymphocytes (%) (Auto) 23, Monocytes (%) (Auto) 10, Eosinophils (%) (Auto) 1, Basophils (%) (Auto) 1, Neutrophils # (Auto) 4.1, Lymphocytes # (Auto) 1.5, Monocytes # (Auto) 0.6, Eosinophils # (Auto) 0.1, Basophils # (Auto) 0.0, Immature Granulocyte # (Auto) 0.0, Blood Gas Puncture Site ART LINE, Blood Gas Patient Temperature 36.2, Arterial Blood pH 7.42, Arterial Blood Partial Pressure CO2 35, Arterial Blood Partial Pressure O2 81, Arterial Blood HCO3 23, Arterial Blood Total CO2 23.8, Arterial Blood Oxygen Saturation 97, Arterial Blood Base Excess -1.3, Zenon Test ART LINE, Blood Gas Ventilator Setting YES, Blood Gas Inspired Oxygen 35%, Sodium Level 132, Potassium Level 2.9, Chloride Level 100, Carbon Dioxide Level 19, Anion Gap 13, Blood Urea Nitrogen 23, Creatinine 2.34, Estimat Glomerular Filtration Rate 28, BUN/Creatinine Ratio 10, Glucose Level 100, Calcium Level 7.3, Corrected Calcium 8.7, Phosphorus Level 4.7, Magnesium Level 2.0, Total Bilirubin 0.3, Aspartate Amino Transf (AST/SGOT) 28, Alanine Aminotransferase (ALT/SGPT) 15, Alkaline Phosphatase 99, Total Protein 4.7, Albumin 2.2 08/13/20 11:02: Glucometer 121 08/13/20 17:06: Glucometer 133 08/14/20 00:44: Glucometer 113 08/14/20 02:00: White Blood Count 6.7, Red Blood Count 2.42, Hemoglobin 8.8, Hematocrit 26, Mean Corpuscular Volume 107, Mean Corpuscular Hemoglobin 36, Mean Corpuscular Hemoglobin Concent 34, Red Cell Distribution Width 12.9, Platelet Count 266, Mean Platelet Volume 10.0, Immature Granulocyte % (Auto) 0, Neutrophils (%) (Auto) 77, Lymphocytes (%) (Auto) 13, Monocytes (%) (Auto) 8, Eosinophils (%) ( Auto) 2, Basophils (%) (Auto) 0, Neutrophils # (Auto) 5.1, Lymphocytes # (Auto) 0.9, Monocytes # (Auto) 0.5, Eosinophils # (Auto) 0.1, Basophils # (Auto) 0.0, Immature Granulocyte # (Auto) 0.0, Blood Gas Puncture Site RIGHT ART LINE, Blood Gas Patient Temperature 36.4, Arterial Blood pH 7.44, Arterial Blood Partial Pressure CO2 35, Arterial Blood Partial Pressure O2 73, Arterial Blood HCO3 24, Arterial Blood Total CO2 25.0, Arterial Blood Oxygen Saturation 96, Arterial Blood Base Excess 0.1, Zenon Test ART LINE, Blood Gas Ventilator Setting YES, Blood Gas Inspired Oxygen 24%, Sodium Level 138, Potassium Level 3.4, Chloride Level 105, Carbon Dioxide Level 20, Anion Gap 13, Blood Urea Nitrogen 23, Creatinine 2.19, Estimat Glomerular Filtration Rate 30, BUN/Creatinine Ratio 11, Glucose Level 108, Calcium Level 7.4, Phosphorus Level 4.9, Magnesium Level 2.0, Procalcitonin 0.30 08/14/20 06:11: Glucometer 106 08/14/20 11:45: Glucometer 91 08/14/20 16:41: Glucometer 86 08/14/20 22:00: Urine Opiates Screen NEGATIVE, Urine Oxycodone Screen NEGATIVE, Urine Methadone Screen NEGATIVE, Urine Propoxyphene Screen NEGATIVE, Urine Barbiturates Screen NEGATIVE, Ur Tricyclic Antidepressants Screen NEGATIVE, Urine Phencyclidine Screen NEGATIVE, Urine Amphetamines Screen NEGATIVE, Urine Methamphetamines Screen NEGATIVE, Urine Benzodiazepines Screen NEGATIVE, Urine Cocaine Screen NEGATIVE, Urine Cannabinoids Screen NEGATIVE 08/15/20 00:29: Glucometer 87 08/15/20 03:10: White Blood Count 8.8, Red Blood Count 2.49, Hemoglobin 9.0, Hematocrit 27, Mean Corpuscular Volume 110, Mean Corpuscular Hemoglobin 36, Mean Corpuscular Hemoglobin Concent 33, Red Cell Distribution Width 13.2, Platelet Count 297, Mean Platelet Volume 9.8, Immature Granulocyte % (Auto) 1, Neutrophils (%) (Auto) 83, Lymphocytes (%) (Auto) 9, Monocytes (%) (Auto) 6, Eosinophils (%) (Auto) 0, Basophils (%) (Auto) 0, Neutrophils # (Auto) 7.3, Lymphocytes # (Auto) 0.8, Monocytes # (Auto) 0.6, Eosinophils # (Auto) 0.0, Basophils # (Auto) 0.0, Immature Granulocyte # (Auto) 0.1, Sodium Level 144, Potassium Level 3.3, Chloride Level 108, Carbon Dioxide Level 19, Anion Gap 17, Blood Urea Nitrogen 25, Creatinine 2.43, Estimat Glomerular Filtration Rate 27, BUN/Creatinine Ratio 10, Glucose Level 111, Calcium Level 7.8, Corrected Calcium 8.9, Phosphorus Level 4.8, Magnesium Level 2.0, Total Bilirubin 0.4, Aspartate Amino Transf (AST/SGOT) 32, Alanine Aminotransferase (ALT/SGPT) 17, Alkaline Phosphatase 109, Troponin I 0.322, Total Protein 5.7, Albumin 2.6 08/15/20 05:00: Prothrombin Time 14.1, INR Comment 1.1, Activated Partial Thromboplast Time 54, Lactic Acid Level 0.81, HIV (1&2) Ag and Ab Screen Referral Non-Reactive 08/15/20 08:12: Urine Color YELLOW, Urine Clarity CLEAR, Urine pH 6.5, Urine Specific [place] 1.025, Urine Protein 3+, Urine Glucose (UA) TRACE, Urine Ketones 1+, Urine Nitrite NEGATIVE, Urine Bilirubin NEGATIVE, Urine Urobilinogen 0.2, Urine Leukocyte Esterase NEGATIVE, Urine RBC (Auto) 1+, Urine RBC 0-2, Urine WBC NONE, Urine Crystals NONE, Urine Bacteria NEGATIVE, Urine Casts NONE, Urine Mucus NEGATIVE, Urine Culture Indicated NO 08/15/20 14:02: Glucometer 155 08/15/20 18:09: Glucometer 154 08/16/20 02:45: White Blood Count 7.9, Red Blood Count 2.44, Hemoglobin 8.8, Hematocrit 27, Mean Corpuscular Volume 110, Mean Corpuscular Hemoglobin 36, Mean Corpuscular Hemoglobin Concent 33, Red Cell Distribution Width 13.3, Platelet Count 277, Mean Platelet Volume 9.5, Immature Granulocyte % (Auto) 0, Neutrophils (%) (Auto) 78, Lymphocytes (%) (Auto) 11, Monocytes (%) (Auto) 7, Eosinophils (%) (Auto) 2, Basophils (%) (Auto) 0, Neutrophils # (Auto) 6.2, Lymphocytes # (Auto) 0.9, Monocytes # (Auto) 0.6, Eosinophils # (Auto) 0.2, Basophils # (Auto) 0.0, Immature Granulocyte # (Auto) 0.0, Sodium Level 143, Potassium Level 3.2, Chloride Level 112, Carbon Dioxide Level 18, Anion Gap 13, Blood Urea Nitrogen 28, Creatinine 2.03, Estimat Glomerular Filtration Rate 33, BUN/Creatinine Ratio 14, Glucose Level 135, Calcium Level 7.8, Phosphorus Level 3.5, Magnesium Level 2.6 08/17/20 05:32: White Blood Count 9.6, Red Blood Count 2.61, Hemoglobin 9.5, Hematocrit 30, Mean Corpuscular Volume 115, Mean Corpuscular Hemoglobin 36, Mean Corpuscular Hemoglobin Concent 32, Red Cell Distribution Width 13.6, Platelet Count 318, Mean Platelet Volume 9.7, Immature Granulocyte % (Auto) 1, Neutrophils (%) (Auto) 75, Lymphocytes (%) (Auto) 11, Monocytes (%) (Auto) 10, Eosinophils (%) (Auto) 3, Basophils (%) (Auto) 0, Neutrophils # (Auto) 7.2, Lymphocytes # (Auto) 1.0, Monocytes # (Auto) 1.0, Eosinophils # (Auto) 0.3, Basophils # (Auto) 0.0, Immature Granulocyte # (Auto) 0.1, Sodium Level 143, Potassium Level 3.1, Chloride Level 110, Carbon Dioxide Level 18, Anion Gap 15, Blood Urea Nitrogen 25, Creatinine 1.82, Estimat Glomerular Filtration Rate 37, BUN/Creatinine Ratio 14, Glucose Level 96, Calcium Level 8.1, Phosphorus Level 3.0, Magnesium Level 2.4 08/18/20 04:30: White Blood Count 10.1, Red Blood Count 2.42, Hemoglobin 8.8, Hematocrit 28, Mean Corpuscular Volume 115, Mean Corpuscular Hemoglobin 36, Mean Corpuscular Hemoglobin Concent 32, Red Cell Distribution Width 13.4, Platelet Count 282, Mean Platelet Volume 9.9, Immature Granulocyte % (Auto) 1, Neutrophils (%) (Auto) 80, Lymphocytes (%) (Auto) 9, Monocytes (%) (Auto) 8, Eosinophils (%) (Auto) 2, Basophils (%) (Auto) 0, Neutrophils # (Auto) 8.1, Lymphocytes # (Auto) 0.9, Monocytes # (Auto) 0.8, Eosinophils # (Auto) 0.2, Basophils # (Auto) 0.0, Immature Granulocyte # (Auto) 0.1, Sodium Level 143, Potassium Level 3.8, Chloride Level 111, Carbon Dioxide Level 21, Anion Gap 11, Blood Urea Nitrogen 23, Creatinine 1.76, Estimat Glomerular Filtration Rate 39, BUN/Creatinine Ratio 13, Glucose Level 113, Calcium Level 7.8, Phosphorus Level 2.7, Magnesium Level 2.6 08/19/20 04:35: White Blood Count 10.3, Red Blood Count 2.26, Hemoglobin 8.2, Hematocrit 26, Mean Corpuscular Volume 116, Mean Corpuscular Hemoglobin 36, Mean Corpuscular Hemoglobin Concent 31, Red Cell Distribution Width 13.3, Platelet Count 251, Mean Platelet Volume 10.3, Immature Granulocyte % (Auto) 1, Neutrophils (%) (Auto) 82, Lymphocytes (%) (Auto) 9, Monocytes (%) (Auto) 7, Eosinophils (%) (A uto) 1, Basophils (%) (Auto) 0, Neutrophils # (Auto) 8.5, Lymphocytes # (Auto) 1.0, Monocytes # (Auto) 0.7, Eosinophils # (Auto) 0.1, Basophils # (Auto) 0.0, Immature Granulocyte # (Auto) 0.1, Sodium Level 143, Potassium Level 4.2, Chloride Level 111, Carbon Dioxide Level 19, Anion Gap 13, Blood Urea Nitrogen 23, Creatinine 1.81, Estimat Glomerular Filtration Rate 38, BUN/Creatinine Ratio 13, Glucose Level 111, Calcium Level 7.4, Phosphorus Level 3.6, Magnesium Level 2.2, Vitamin B12 Level 1059, Thyroid Stimulating Hormone (TSH) 1.13 08/20/20 05:50: White Blood Count 9.6, Red Blood Count 2.28, Hemoglobin 8.6, Hematocrit 27, Mean Corpuscular Volume 118, Mean Corpuscular Hemoglobin 38, Mean Corpuscular Hemoglobin Concent 32, Red Cell Distribution Width 13.3, Platelet Count 306, Mean Platelet Volume 10.7, Immature Granulocyte % (Auto) 1, Neutrophils (%) (Auto) 80, Lymphocytes (%) (Auto) 10, Monocytes (%) (Auto) 7, Eosinophils (%) (Auto) 1, Basophils (%) (Auto) 0, Neutrophils # (Auto) 7.7, Lymphocytes # (Auto) 1.0, Monocytes # (Auto) 0.7, Eosinophils # (Auto) 0.1, Basophils # (Auto) 0.0, Immature Granulocyte # (Auto) 0.1, Sodium Level 142, Potassium Level 4.0, Chloride Level 110, Carbon Dioxide Level 20, Anion Gap 12, Blood Urea Nitrogen 26, Creatinine 1.94, Estimat Glomerular Filtration Rate 35, BUN/Creatinine Ratio 13, Glucose Level 98, Calcium Level 7.4, Phosphorus Level 4.3, Magnesium Level 2.2, Corrected Calcium 8.5, Total Bilirubin 0.3, Aspartate Amino Transf (AST/SGOT) 33, Alanine Aminotransferase (ALT/SGPT) 26, Alkaline Phosphatase 91, B-Type Natriuretic Peptide 791.7, Total Protein 4.9, Albumin 2.6 08/20/20 10:20: Stool Occult Blood Immunoassay NEGATIVE 08/20/20 10:39: Blood Gas Puncture Site LT RAD, Blood Gas Patient Temperature 37.0, Arterial Blood pH 7.36, Arterial Blood Partial Pressure CO2 45, Arterial Blood Partial Pressure O2 42, Arterial Blood HCO3 25, Arterial Blood Total CO2 26.1, Arterial Blood Oxygen Saturation 64, Arterial Blood Base Excess -0.1, Zenon Test YES-POS, Blood Gas Ventilator Setting NO, Blood Gas Inspired Oxygen 60% 08/20/20 12:05: Coronavirus 2019 ([facility]) Negative 08/21/20 05:27: White Blood Count 8.0, Red Blood Count 2.36, Hemoglobin 8.5, Hematocrit 27, Mean Corpuscular Volume 116, Mean Corpuscular Hemoglobin 36, Mean Corpuscular Hemoglobin Concent 31, Red Cell Distribution Width 12.9, Platelet Count 278, Mean Platelet Volume 10.5, Immature Granulocyte % (Auto) 1, Neutrophils (%) (Aut o) 78, Lymphocytes (%) (Auto) 12, Monocytes (%) (Auto) 8, Eosinophils (%) (Auto) 1, Basophils (%) (Auto) 0, Neutrophils # (Auto) 6.2, Lymphocytes # (Auto) 1.0, Monocytes # (Auto) 0.7, Eosinophils # (Auto) 0.1, Basophils # (Auto) 0.0, Immature Granulocyte # (Auto) 0.1, Sodium Level 142, Potassium Level 3.7, Chloride Level 108, Carbon Dioxide Level 20, Anion Gap 14, Blood Urea Nitrogen 25, Creatinine 1.94, Estimat Glomerular Filtration Rate 35, BUN/Creatinine Ratio 13, Glucose Level 110, Calcium Level 7.3, Phosphorus Level 4.1, Magnesium Level 2.1 08/22/20 05:25: White Blood Count 7.1, Red Blood Count 2.13, Hemoglobin 7.6, Hematocrit 24, Mean Corpuscular Volume 112, Mean Corpuscular Hemoglobin 36, Mean Corpuscular Hemoglobin Concent 32, Red Cell Distribution Width 12.6, Platelet Count 281, Mean Platelet Volume 10.6, Immature Granulocyte % (Auto) 1, Neutrophils (%) (Auto) 64, Lymphocytes (%) (Auto) 21, Monocytes (%) (Auto) 11, Eosinophils (%) (Auto) 3, Basophils (%) (Auto) 1, Neutrophils # (Auto) 4.6, Lymphocytes # (Auto) 1.5, Monocytes # (Auto) 0.8, Eosinophils # (Auto) 0.2, Basophils # (Auto) 0.0, Immature Granulocyte # (Auto) 0.1, Sodium Level 141, Potassium Level 3.6, Chloride Level 107, Carbon Dioxide Level 23, Anion Gap 11, Blood Urea Nitrogen 27, Creatinine 2.04, Estimat Glomerular Filtration Rate 33, BUN/Creatinine Ratio 13, Glucose Level 103, Calcium Level 7.0, Phosphorus Level 4.6, Magnesium Level 1.8 08/23/20 05:41: White Blood Count 9.5, Red Blood Count 2.18, Hemoglobin 7.9, Hematocrit 25, Mean Corpuscular Volume 114, Mean Corpuscular Hemoglobin 36, Mean Corpuscular Hemoglobin Concent 32, Red Cell Distribution Width 12.6, Platelet Count 282, Mean Platelet Volume 11.2, Immature Granulocyte % (Auto) 1, Neutrophils (%) (Auto) 75, Lymphocytes (%) (Auto) 12, Monocytes (%) (Auto) 10, Eosinophils (%) (Auto) 2, Basophils (%) (Auto) 0, Neutrophils # (Auto) 7.1, Lymphocytes # (Auto) 1.1, Monocytes # (Auto) 0.9, Eosinophils # (Auto) 0.2, Basophils # (Auto) 0.0, Immature Granulocyte # (Auto) 0.1, Sodium Level 135, Potassium Level 3.9, Chloride Level 105, Carbon Dioxide Level 21, Anion Gap 9, Blood Urea Nitrogen 31, Creatinine 2.12, Estimat Glomerular Filtration Rate 31, BUN/Creatinine Ratio 15, Glucose Level 94, Calcium Level 7.5, Phosphorus Level 4.1, Magnesium Level 2.1 08/24/20 05:05: Sodium Level 135, Potassium Level 4.8, Chloride Level 102, Carbon Dioxide Level 21, Anion Gap 12, Blood Urea Nitrogen 37, Creatinine 2.41, Estimat Glomerular Filtration Rate 27, BUN/Creatinine Ratio 15, Glucose Level 95, Calcium Level 7.3, Phosphorus Level 4.1, Magnesium Level 1.7 08/24/20 05:09: White Blood Count 9.7, Red Blood Count 2.15, Hemoglobin 7.8, Hematocrit 24, Mean Corpuscular Volume 114, Mean Corpuscular Hemoglobin 36, Mean Corpuscular Hemoglobin Concent 32, Red Cell Distribution Width 12.5, Platelet Count 266, [place] n Platelet Volume 11.1, Immature Granulocyte % (Auto) 1, Neutrophils (%) (Auto) 73, Lymphocytes (%) (Auto) 13, Monocytes (%) (Auto) 11, Eosinophils (%) (Auto) 3, Basophils (%) (Auto) 0, Neutrophils # (Auto) 7.0, Lymphocytes # (Auto) 1.2, Monocytes # (Auto) 1.0, Eosinophils # (Auto) 0.3, Basophils # (Auto) 0.0, Immature Granulocyte # (Auto) 0.1 08/25/20 04:15: White Blood Count 8.3, Red Blood Count 2.12, Hemoglobin 7.7, Hematocrit 24, Mean Corpuscular Volume 112, Mean Corpuscular Hemoglobin 36, Mean Corpuscular Hemoglobin Concent 33, Red Cell Distribution Width 12.3, Platelet Count 247, Mean Platelet Volume 11.8, Immature Granulocyte % (Auto) 1, Neutrophils (%) (Auto) 71, Lymphocytes (%) (Auto) 12, Monocytes (%) (Auto) 12, Eosinophils (%) (Auto) 4, Basophils (%) (Auto) 1, Neutrophils # (Auto) 5.9, Lymphocytes # (Auto) 1.0, Monocytes # (Auto) 1.0, Eosinophils # (Auto) 0.4, Basophils # (Auto) 0.0, Immature Granulocyte # (Auto) 0.1, Sodium Level 130, Potassium Level 5.1, Chloride Level 102, Carbon Dioxide Level 18, Anion Gap 10, Blood Urea Nitrogen 43, Creatinine 2.70, Estimat Glomerular Filtration Rate 24, BUN/Creatinine Ratio 16, Glucose Level 100, Calcium Level 7.4, Phosphorus Level 4.4, Magnesium Level 1.7 08/25/20 12:18: Sodium Level 131, Potassium Level 4.9, Chloride Level 102, Carbon Dioxide Level 18, Anion Gap 11, Blood Urea Nitrogen 43, Creatinine 2.66, Estimat Glomerular Filtration Rate 24, BUN/Creatinine Ratio 16, Glucose Level 116, Calcium Level 7.6 08/28/20 10:46: White Blood Count 7.2, Red Blood Count 2.02, Hemoglobin 7.3, Hematocrit 23, Mean Corpuscular Volume 112, Mean Corpuscular Hemoglobin 36, Mean Corpuscular Hemoglobin Concent 32, Red Cell Distribution Width 12.4, Platelet Count 318, Mean Platelet Volume 10.7, Immature Granulocyte % (Auto) 1, Neutrophils (%) (Auto) 75, Lymphocytes (%) (Auto) 9, Monocytes (%) (Auto) 11, Eosinophils (%) (Auto) 4, Basophils (%) (Auto) 0, Neutrophils # (Auto) 5.4, Lymphocytes # (Auto) 0.7, Monocytes # (Auto) 0.8, Eosinophils # (Auto) 0.3, Basophils # (Auto) 0.0, Immature Granulocyte # (Auto) 0.0, Sodium Level 135, Potassium Level 5.0, Chloride Level 107, Carbon Dioxide Level 19, Anion Gap 9, Blood Urea Nitrogen 47, Creatinine 2.62, Estimat Glomerular Filtration Rate 25, BUN/Creatinine Ratio 18, Glucose Level 152, Calcium Level 7.9, Corrected Calcium 8.9, Total Bilirubin 0.2, Aspartate Amino Transf (AST/SGOT) 21, Alanine Aminotransferase (ALT/SGPT) 54, Alkaline Phosphatase 210, B-Type Natriuretic Peptide 921.9, Total Protein 5.6, Albumin 2.7 Discharge Home Medications: Active Scripts Active Reported Vitamin B Complex 1 Each Tablet 1 Each PO DAILY Aspirin EC (Aspirin) 81 Mg Tablet.dr 81 Mg PO DAILY Lisinopril 10 Mg Tablet 10 Mg PO DAILY LAST FILLED 12-06-2019 #90/90 DAY SUPPLY Amlodipine Besylate 10 Mg Tablet 10 Mg PO HS LAST FILLED 03-03-2020 #90/90 DAY SUPPLY Clonidine HCl 0.1 Mg Tablet 0.1 Mg PO BID LAST FILLED 03-03-2020 #180/90 DAY SUPPLY Atorvastatin Calcium 10 Mg Tablet 10 Mg PO HS LAST FILLED 04-10-2020 #90/90 DAY SUPPLY Bisoprolol-Hctz 10-6.25 mg Tab (Bisoprolol Fumarate/Hctz) 1 Each Tablet 1 Ea PO DAILY Hydroxyurea 500 Mg Capsule 500 Mg PO DAILY Ventolin Hfa (Albuterol Sulfate) 1 Puff Puff 2 Puff INH Q6H PRN Instructions to patient/family Please see electronic discharge instructions given to patient. Diagnosis/Problems Diagnosis/Problems (1) Hypertensive urgency, malignant Status: Resolved Resolution Date/Time: 08/25/20 @ 12:55 (2) Flash pulmonary edema (3) CHF (congestive heart failure) (4) MARYANN (acute kidney injury) Status: Chronic (5) Pneumonia (6) D-dimer, elevated (7) Hypoxia Status: Acute (8) Ventilator dependence Clinical Quality Measures DVT/VTE Risk/Contraindication: Risk Factor Score Per Nursin RFS Level Per Nursing on Admit: 4+=Very High KIMBERLEE MENJIVAR DO Aug 28, 2020 10:21
--- NOTE | 2020-08-28 10:21 | NUR ---
Pt agreeable with plan to transfer to Acute Rehab Unit.
[2020-08-28 10:54] LABS: BASOPHILS % (AUTO) 0 % (0-10); EOSINOPHILS # (AUTO) 0.3 10^3/uL (0.0-0.3); EOSINOPHILS % (AUTO) 4 % (0-10); HEMATOCRIT 23 % (40-54); HEMOGLOBIN 7.3 g/dL (13.3-17.7); LYMPHOCYTES # (AUTO) 0.7 10^3/uL (1.0-4.0); LYMPHOCYTES % (AUTO) 9 % (12-44); MEAN CORPUSCULAR HEMOGLOBIN 36 pg (25-34); MEAN CORPUSCULAR HGB CONC 32 g/dL (32-36); MEAN CORPUSCULAR VOLUME 112 fL (80-99); MEAN PLATELET VOLUME 10.7 fL (9.0-12.2); MONOCYTES # (AUTO) 0.8 10^3/uL (0.0-1.0); MONOCYTES % (AUTO) 11 % (0-12); NEUTROPHILS # (AUTO) 5.4 10^3/uL (1.8-7.8); NEUTROPHILS % (AUTO) 75 % (42-75); PLATELET COUNT 318 10^3/uL (130-400); WHITE BLOOD COUNT 7.2 10^3/uL (4.3-11.0)
--- NOTE | 2020-08-28 10:56 | NUR ---
Report given to AVELINO De Leon. Family notified patient will be moving to ARU.
[2020-08-28 11:09] LABS: ALBUMIN 2.7 GM/DL (3.2-4.5)
[2020-08-28 11:11] LABS: CALCIUM 7.9 MG/DL (8.5-10.1)
[2020-08-28 11:12] LABS: TOTAL PROTEIN 5.6 GM/DL (6.4-8.2)
[2020-08-28 11:14] LABS: BILIRUBIN,TOTAL 0.2 MG/DL (0.1-1.0)
[2020-08-28 11:16] LABS: CREATININE SERUM 2.62 MG/DL (0.60-1.30)
== END 2020-08-28 11:16 | DRG 208 ==
LOC: ICU 12:10 → 4TH 08-16 14:45
PROVIDERS: ADMIT Internal Medicine; ATTEND Internal Medicine
PROC: 5A1945Z Respiratory Ventilation, 24-96 Consecutive Hours (ICD-10-PCS; principal; 2020-08-12)
PROC: 0BH17EZ Insertion of Endotracheal Airway into Trachea, Via Natural or Artificial Opening (ICD-10-PCS; 2020-08-12)
DX: J96.01 Acute respiratory failure with hypoxia (principal); J81.0 Acute pulmonary edema; J18.9 Pneumonia, unspecified organism; I26.99 Other pulmonary embolism without acute cor pulmonale; I50.33 Acute on chronic diastolic (congestive) heart failure; I21.A1 Myocardial infarction type 2; G93.41 Metabolic encephalopathy; N17.9 Acute kidney failure, unspecified; I13.0 Hypertensive heart and chronic kidney disease with heart failure and stage 1 through stage 4 chronic kidney disease, or unspecified chronic kidney disease; J90 Pleural effusion, not elsewhere classified; F10.139 Alcohol abuse with withdrawal, unspecified; Z20.828 Contact with and (suspected) exposure to other viral communicable diseases; N18.9 Chronic kidney disease, unspecified; I16.0 Hypertensive urgency; E78.00 Pure hypercholesterolemia, unspecified; N40.0 Benign prostatic hyperplasia without lower urinary tract symptoms; M19.91 Primary osteoarthritis, unspecified site; I35.0 Nonrheumatic aortic (valve) stenosis; E78.5 Hyperlipidemia, unspecified; E87.6 Hypokalemia
CPT/HCPCS: 36415; 70450; 71045; 76770; 80048; 80053; 80306; 81000; 82274; 82607; 82805; 82962; 83605; 83735; 83880; 84100; 84145; 84443; 84484; 85025; 85379; 85610; 85730; 86703; 87040; 87070; 87081; 87205; 87635; 93005; 93306; 93975; 94002; 94003; 94640; 94760; 94799

== ENCOUNTER 2020-09-02 11:27 | Inpatient (IN) | payer MEDICARE, OTHER ==
[~2020-09-02 11:27] MED LIST changes: -AMLO-250 PO; -CALC200T40 PO; -DCS100C PO; -DOXA2TAB2 PO; -DOXA4TAB2 PO; -FLUT12AE4 IH; -FURO-124 PO; -FURO10VI IVP; -HURRICAINE EXT TUBE (BENZOCAINE) XX PRN; -IPRA3AMP31 INH; -IRON100V2 IV; -KETAMINE/NaCl 50 MG/5 ML SYRINGE (ED ONLY) ONE; -LACTATED RINGERS 1,000 ML IV ONE; -LACTATED RINGERS 1,000 ML IV STA; -METO2.5T PO; -MICO90PO TOP; -MIRT-47 PO; -MTP100TCR PO; -NYST15CR TP; -PROPOFOL INJECTION 50 ML IV ONE; -TMSL.4C PO; -VENL75CA93 PO
--- NOTE | 2020-09-02 12:40 | NUR ---
DANNY CARMONA admitted to room 403-1, with an admitting diagnosis of HYPOXIA, on 09/02/20 from via ENDOSCOPY/ARU, accompanied by RN.DANNY CARMONA introduced to surroundings, call light, bed controls, phone, TV, temperature control, lights, meal times, smoking policy, visitor policy, side rail policy, bathrooms and showers. Patient Rights given to patient in the handbook. DANNY CARMONA verbalizes understanding that [facility] is not responsible for the loss or damage to any personal effects or valuables that are kept in the patients posession during their hospitalization.
[2020-09-02] MEDS ORDERED: CALCIUM CARBONATE 500 MG (TUMS) TAB.CHEW PO PRN (12:45)
[2020-09-02] MEDS ORDERED: ONDANSETRON 4 MG/2 ML (SDV) Z0FRAN IVP PRN (12:45)
[2020-09-02] MEDS ORDERED: diphenhydrAMINE 25 MG TAB (BENADRYL) PO PRN (12:45)
[2020-09-02] MEDS ORDERED: DOCUSATE SODIUM 100 MG (COLACE) CAP PO PRN (12:45)
[2020-09-02] MEDS ORDERED: LOPERAMIDE 2 MG (IMODIUM) TABLET PO PRN (12:45)
[2020-09-02] MEDS ORDERED: FUROSEMIDE 40 MG/4 ML INJ (LASIX) IVP NR (13:52)
--- NOTE | 2020-09-02 13:53 | History & Physical ---
History of Present Illness HPI/Chief Complaint CC: Increased O2 requirements HPI: This is a 64yoWM who I have taken care of for the past 3 weeks at [facility] after HTN emergency with pulmonary edema required immediate intubation upon arrival [place] [facility] [place] [facility] [place] who ultimately was treated aggressively for volume overload and ARF until moved to IRF on 08/28/20 who now presents to 4th floor in an interrupted stay from IRF following an EGD/Colonoscopy by Dr Bowman due to increased O2 requirements to 8L/min which was performed to evaluate source of blood loss due to severe anemia. Patient has a h/o polycythemia and sees Dr Oreilly who has been following along the past 1 week and recommended iron infusions and supportive care after he received 1 unit of blood last week. Dr Tamez has been consulted and IV Lasix started along with Vapotherm. Source: patient Exam Limitations: no limitations Date Seen 09/02/20 Time Seen by a Provider: 13:00 Attending Physician Nikia Menjivar Kathryn H Arnp Referring Physician Date of Admission Sep 02, 2020 at 12:40 Home Medications & Allergies Home Medications Reviewed patient Home Medication Reconciliation performed by pharmacy medication reconciliations gyroscopic engineering technician and/or nursing. Patients Allergies have been reviewed. Allergies Allergies Coded Allergies No Known Drug Allergies (Unverified02/11/18) Past Awbkspj-Jtedth-Rigcul Hx Past Med/Social Hx: Reviewed Nursing Past Med/Soc Hx, Reviewed and Corrections made Patient Social History Marrital Status: single Employed/Student: retired Alcohol Use: Past History Alcohol Beverage of Choice: Beer Smoking Status: Current Everyday Smoker Type Used: Cigarettes Immunizations Up To Date Pediatric: Yes Date of Pneumonia Vaccine: Aug 28, 2019 Past Medical History Respiratory: COPD, Pneumonia Currently Using CPAP: No Currently Using BIPAP: No Cardiac: High Cholesterol, Hypertension, Valvular Heart Disease Genitourinary: Benign Prostatic Hyperpl, Renal Failure Musculoskeletal: Arthritis History of Blood Disorders: No Family History Patient reports no known family medical history. No Pertinent Family Hx Review of Systems Constitutional: see HPI, malaise, weakness Respiratory: cough, dyspnea on exertion Physical Exam Physical Exam Vital Signs Vital Signs - First Documented 09/02/20 09/02/20 09/02/20 09/02/20 09/02/20 12:40 15:09 15:56 16:54 20:00 Temp 36.3 Pulse 80 Resp 16 B/P (MAP) 152/64 (93) Pulse Ox 95 O2 Delivery High Flow N/C O2 Flow Rate 10.00 FiO2 100 Capillary Refill : Height, Weight, BMI Height: '" Weight: lbs. oz. kg; 29.61 BMI Method: General Appearance: No Apparent Distress, WD/WN, Chronically ill Eyes: Bilateral Eye Normal Inspection, Bilateral Eye PERRL HEENT: PERRL/EOMI, Normal ENT Inspection, Pharynx Normal Neck: Full Range of Motion, Normal Inspection, Non Tender, Supple, Carotid Bruit Respiratory: Chest Non Tender, Lungs Clear, No Respiratory Distress, Decreased Breath Sounds Cardiovascular: Regular Rate, Rhythm, No Edema, No Gallop, No JVD, No Murmur, Normal Peripheral Pulses Gastrointestinal: Normal Bowel Sounds, No Organomegaly, No Pulsatile Mass, Non Tender, Soft Back: Normal Inspection, No CVA Tenderness, No Vertebral Tenderness Extremity: Normal Capillary Refill, Normal Inspection, Normal Range of Motion, Non Tender, No Calf Tenderness, No Pedal Edema Neurologic/Psychiatric: Alert, Oriented x3, No Motor/Sensory Deficits, Normal Mood/Affect Skin: Normal Color, Warm/Dry Lymphatic: No Adenopathy Results Results/Procedures Labs Laboratory Tests 09/03/20 05:30 Patient resulted labs reviewed. Assessment/Plan Admission Diagnosis Assessment: Hypoxia with increased O2 requirements following EGD/Colonoscopy by Dr Bowman Anemia s/p 1 unit of blood last week h/o Polycythemia holding Hydrea and consulting Dr Oreilly HTN malignant type MARYANN on CRI HLP COPD Smoker Plan: O2 Vapotherm Dr Tamez Cardiology Increase BP meds Lasix Admission Status: Inpatient Order (span 2 midnights) Reason for Inpatient Admission: hypoxia Diagnosis/Problems Diagnosis/Problems (1) Hypoxia Status: Acute (2) Flash pulmonary edema NIKIA MENJIVAR DO Sep 02, 2020 13:52
[2020-09-02 14:21] LABS: ABG BASE EXCESS -2.8 MMOL/L (-2.5-2.5); ABG PCO2 40 MMHG (35-45); ABG PH 7.36 (7.37-7.43); ABG PO2 44 MMHG (79-93)
[2020-09-02 14:22] LABS: ALLENS TEST YES-POS; INSPIRED O2 10; PATIENT TEMP 37; VENTILATOR NO
[2020-09-02 14:23] LABS: ABG OXYGEN SATURATION 67 % (94-100)
--- NOTE | 2020-09-02 16:46 | NUR ---
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 PREVIOUSLY DR MENJIVAR SAID TO WATCH PTS B/P AT THIS TIME. WHEN PT CAME TO FLOOR FROM SURGERY BP WAS 150/76 MANUAL CUFF ON LEFT ARM. D/T INCREASING HYPOXIA PT HAD ABG DONE AND 40 MG OF LASIX IV ONE TIME ORDER. AFTER RESULTS CAME THRU, DR KINNEY ORDERED VAPOTHERM FOR PT AND MATTEO RT, SET UP VAPOTHERM. CURRENT SETTINGS ARE 15L/100%. DR HERNANDEZ NOTIFIED OF PT MOVING TO [facility] AND HE ORDERED FLOMAX 0.4 MG DAILY FOR HIM. RN BLADDER SCANNED HIM AFTER FIRST VOID AND HE HAD 200 ML LEFT IN BLADDER, MARY NOTIFIED, NO ORDERS TO STRAIGHT CATH, CONTINUE TO MONITOR. PT IS RESTING AT THIS TIME.
[2020-09-02 16:54] VITALS: BP 152/64
[2020-09-02] MEDS: FUROSEMIDE 40 MG/4 ML INJ (LASIX) IVP SCH (17:25)
[2020-09-02] MEDS: RT-ALBUTEROL/IPRATROPIUM 3 ML (DUONEB) VIAL INH SCH ×2 (17:50→21:49)
[2020-09-02] MEDS: TAMSULOSIN 0.4 MG (FLOMAX) CAP PO SCH (18:22)
--- NOTE | 2020-09-02 18:25 | Cardiology Progress Note ---
Cardiology SOAP Progress Note Subjective: transferred to the floor for shortness of breath. Objective: I&O/Vital Signs 09/03/20 09/03/20 09/03/20 09/03/20 07:00 07:58 08:00 10:58 Temp 37.3 Pulse 87 92 Resp 18 B/P (MAP) 185/77 (113) Pulse Ox 95 98 O2 Delivery Vapotherm Vapotherm Vapotherm O2 Flow Rate 20.00 15.00 20.00 80.00 FiO2 90 70 09/03/20 09/03/20 09/03/20 09/03/20 12:00 12:36 15:35 16:00 Temp 36.4 36.8 Pulse 68 67 68 Resp 18 18 B/P (MAP) 172/73 (106) Pulse Ox 97 98 95 O2 Delivery Vapotherm Vapotherm Vapotherm O2 Flow Rate 20.00 20.00 20.00 70.00 70.00 FiO2 70 09/03/20 18:15 Pulse Ox 98 O2 Delivery Vapotherm O2 Flow Rate 20.00 FiO2 70 09/03/20 00:00 Intake Total 850 ml Output Total 1750 ml Balance -900 ml Constitutional: AAO x 3 Respiratory: other (decreased breath sounds bilaterally with no wheezing) Cardiovascular: regular rate-rhythm, S1 and S2 Gastrointestional: soft, audible bowel sounds Extremities: normal range of motion, non-tender, normal inspection, no lower extremity edema bilateral Neurologic/Psychiatric: no motor/sensory deficits, alert, normal mood/affect, oriented x 3 Results/Procedures: Labs Laboratory Tests 09/03/20 05:30: White Blood Count 6.6, Red Blood Count 2.53L, Hemoglobin 8.6L, Hematocrit 27L, Mean Corpuscular Volume 106H, Mean Corpuscular Hemoglobin 34, Mean Corpuscular Hemoglobin Concent 32, Red Cell Distribution Width 14.6H, Platelet Count 377, Mean Platelet Volume 9.8, Immature Granulocyte % (Auto) 1, Neutrophils (%) (Auto) 65, Lymphocytes (%) (Auto) 18, Monocytes (%) (Auto) 10, Eosinophils (%) (Auto) 6, Basophils (%) (Auto) 1, Neutrophils # (Auto) 4.3, Lymphocytes # (Auto) 1.2, Monocytes # (Auto) 0.7, Eosinophils # (Auto) 0.4H, Basophils # (Auto) 0.0, Immature Granulocyte # (Auto) 0.0, Sodium Level 136, Potassium Level 4.0, Chloride Level 106, Carbon Dioxide Level 19L, Anion Gap 11, Blood Urea Nitrogen 23H, Creatinine 1.80H, Estimat Glomerular Filtration Rate 38, BUN/Creatinine Ratio 13, Glucose Level 96, Calcium Level 8.0L, Corrected Calcium 9.1, Phosphorus Level 5.0H, Magnesium Level 1.5L, Total Bilirubin 0.3, Aspartate Amino Transf (AST/SGOT) 17, Alanine Aminotransferase (ALT/SGPT) 26, Alkaline Phosphatase 187H, Total Protein 5.6L, Albumin 2.6L 09/03/20 06:31: Blood Gas Puncture Site LEFT RADIAL, Blood Gas Patient Temperature 37, Arterial Blood pH 7.35L, Arterial Blood Partial Pressure CO2 43, Arterial Blood Partial Pressure O2 47L, Arterial Blood HCO3 23, Arterial Blood Total CO2 24.0, Arterial Blood Oxygen Saturation 72L, Arterial Blood Base Excess -2.2, Zenon Test POSITIVE, Blood Gas Ventilator Setting NO, Blood Gas Inspired Oxygen 80% A/P: Assessment/Dx: Acute respiratory failure CHF HTN Peripheral edema Plan: Acute respiratory failure, previously extubated on August 14, 2020. likely multifactorial. Given lasix iv. Congestive heart failure, acute on chronic left ventricular diastolic dysfunction, echocardiogram showed normal left ventricular systolic function, grade 2 diastolic dysfunction, mild aortic valve stenosis, pulmonary hypertension with PA pressure 40-45 mmHg. on beta blockers. Unable to tolerate MICHAEL-I or ARB secondary to renal insufficiency Anemia, worsening, received iron transfusion.aspirin stopped, continue to monitor H/H. Peripheral edema. Mild elevation in troponin, type II myocardial infarction secondary to malignant hypertension and hypertensive heart disease. Continue to monitor and reevaluate troponin. Planning for stress test as an outpatient. Malignant hypertension, better controlled, continue to monitor. Aortic valve stenosis, mild. Continue to monitor Acute renal failure on chronic renal insufficiency, continue to monitor. Will need f/u with nephrology as outpatient Thank you for your consultation. Please call me if you have any questions. Bhavesh Minor MD, FACP, FACC, FSCAI, FHRS, CCDS Interventional Cardiology Cardiac Electrophysiology Vascular Medicine and Endovascular Interventions Anu MINOR MD Sep 02, 2020 18:25
[2020-09-02 20:00] VITALS: BP 156/64
[2020-09-02] MEDS: MELATONIN 3 MG TABLET PO PRN (20:05)
[2020-09-02] MEDS: SENNA W/DOCUSATE (SENOKOT S) TABLET PO SCH (20:05)
[2020-09-02] MEDS ORDERED: RT-ALBUTEROL SULF 2.5 MG/3 ML PRE-MIX VIAL INH SCH (21:00)
[2020-09-02 23:27] VITALS: BP 150/60
[2020-09-03] MEDS: ACETAMINOPHEN 500 MG TAB (TYLENOL) PO PRN ×2 (00:06→13:33)
[2020-09-03] MEDS: RT-ALBUTEROL/IPRATROPIUM 3 ML (DUONEB) VIAL INH SCH ×6 (02:29→21:48)
[2020-09-03] MEDS: ALPRAZolam 0.25 MG (XANAX) TAB PO PRN ×2 (03:08→11:56)
[2020-09-03 04:40] VITALS: BP 142/68
[2020-09-03 05:46] LABS: BASOPHILS % (AUTO) 1 % (0-10); EOSINOPHILS # (AUTO) 0.4 10^3/uL (0.0-0.3); EOSINOPHILS % (AUTO) 6 % (0-10); HEMATOCRIT 27 % (40-54); HEMOGLOBIN 8.6 g/dL (13.3-17.7); LYMPHOCYTES # (AUTO) 1.2 10^3/uL (1.0-4.0); LYMPHOCYTES % (AUTO) 18 % (12-44); MEAN CORPUSCULAR HEMOGLOBIN 34 pg (25-34); MEAN CORPUSCULAR HGB CONC 32 g/dL (32-36); MEAN CORPUSCULAR VOLUME 106 fL (80-99); MEAN PLATELET VOLUME 9.8 fL (9.0-12.2); MONOCYTES # (AUTO) 0.7 10^3/uL (0.0-1.0); MONOCYTES % (AUTO) 10 % (0-12); NEUTROPHILS # (AUTO) 4.3 10^3/uL (1.8-7.8); NEUTROPHILS % (AUTO) 65 % (42-75); PLATELET COUNT 377 10^3/uL (130-400); WHITE BLOOD COUNT 6.6 10^3/uL (4.3-11.0)
--- NOTE | 2020-09-03 05:55 | Pulmonary Consultation ---
History of Present Illness History of Present Illness Date Seen by Provider: Sep 03, 2020 Time Seen by Provider: 05:55 Date of Admission Allergies and Home Medications Allergies Coded Allergies: No Known Drug Allergies (Unverified , 02/11/18) Home Medications Albuterol Sulfate 1 Puff Puff, 2 PUFF INH Q6H PRN for SHORTNESS OF BREATH, (Reported) Amlodipine Besylate 10 Mg Tablet, 10 MG PO HS, (Reported) LAST FILLED 03-03-2020 #90/90 DAY SUPPLY Aspirin 81 Mg Tablet.dr, 81 MG PO DAILY, (Reported) Atorvastatin Calcium 10 Mg Tablet, 10 MG PO HS, (Reported) LAST FILLED 04-10-2020 #90/90 DAY SUPPLY Bisoprolol Fumarate/Hctz 1 Each Tablet, 1 EA PO DAILY, (Reported) Clonidine HCl 0.1 Mg Tablet, 0.1 MG PO BID, (Reported) LAST FILLED 03-03-2020 #180/90 DAY SUPPLY Hydroxyurea 500 Mg Capsule, 500 MG PO DAILY, (Reported) Lisinopril 10 Mg Tablet, 10 MG PO DAILY, (Reported) LAST FILLED 12-06-2019 #90/90 DAY SUPPLY Vitamin B Complex 1 Each Tablet, 1 EACH PO DAILY, (Reported) Past Ghkhfbe-Mfwcda-Wsczqb Hx Patient Social History Alcohol Beverage of Choice: Beer Type Used: Cigarettes Immunizations Up To Date PED Vaccines UTD: Yes Date of Pneumonia Vaccine: Aug 28, 2019 Past Medical History Surgeries: No Respiratory: Yes Pneumonia Currently Using CPAP: No Currently Using BIPAP: No Cardiac: Yes High Cholesterol, Hypertension, Valvular Heart Disease Neurological: No Genitourinary: Yes Benign Prostatic Hyperpl, Renal Failure Gastrointestinal: No Musculoskeletal: Yes Arthritis Endocrine: No HEENT: No Cancer: No Psychosocial: No Integumentary: No Blood Disorders: No Family Medical History Patient reports no known family medical history. No Pertinent Family Hx Review of Systems Time Seen by Provider: 05:55 Sepsis Event Evaluation Height, Weight, BMI Height: '" Weight: lbs. oz. kg; 29.61 BMI Method: Exam Exam Vital Signs Date Time Temp Pulse Resp B/P (MAP) Pulse Ox O2 Delivery O2 Flow Rate FiO2 09/03/20 04:40 36.6 74 18 142/68 (92) 96 Vapotherm 20.00 80.00 09/03/20 02:29 97 Vapotherm 20.00 80 09/03/20 01:00 78 12/20/20 00:44 36.8 09/02/20 23:27 37.4 75 16 150/60 (90) 96 Vapotherm 15.00 90.00 09/02/20 21:50 97 Vapotherm 15.00 80 09/02/20 20:05 Vapotherm 15.00 90 09/02/20 20:00 37.0 77 16 156/64 (94) 98 09/02/20 19:00 79 09/02/20 16:54 36.3 74 152/64 (93) 98 Vapotherm 15.00 100.00 09/02/20 15:56 80 09/02/20 15:09 96 Vapotherm 15.00 100 09/02/20 12:40 95 High Flow N/C 10.00 I & O 09/03/20 07:00 Intake Total 850 ml Output Total 1750 ml Balance -900 ml Height & Weight Height: '" Weight: lbs. oz. kg; 29.61 BMI Method: General Appearance: Anxious, Moderate Distress HEENT: PERRL/EOMI, Pharynx Normal Neck: Full Range of Motion, Non Tender, Supple Respiratory: Chest Non Tender, No Accessory Muscle Use, No Respiratory Distress, Decreased Breath Sounds Cardiovascular: Regular Rate, Rhythm, No Edema Capillary Refill: Less Than 3 Seconds Gastrointestinal: normal bowel sounds, non tender, soft Extremity: Normal Capillary Refill, Normal Inspection Neurologic/Psychiatric: Alert Skin: Normal Color, Warm/Dry Results Lab Assessment/Plan Assessment/Plan Acute respiratory distress with hypoxemia -Repeat CXR -Check ABG Hx of COPD -Breathing treatments Hx of tobacco use Anemia s/P EGD and colonoscopy hx of polycythemia -Follows with Dr. Denilson Uribe on chronic renal failure -Monitor HTN MAGNUS KINNEY DO Sep 03, 2020 05:55
[2020-09-03 05:57] LABS: ALBUMIN 2.6 GM/DL (3.2-4.5)
[2020-09-03 05:59] LABS: TOTAL PROTEIN 5.6 GM/DL (6.4-8.2)
[2020-09-03 06:01] LABS: BILIRUBIN,TOTAL 0.3 MG/DL (0.1-1.0)
[2020-09-03 06:03] LABS: CREATININE SERUM 1.8 MG/DL (0.60-1.30)
[2020-09-03 06:07] LABS: MAGNESIUM 1.5 MG/DL (1.6-2.4)
[2020-09-03 06:41] LABS: ABG BASE EXCESS -2.2 MMOL/L (-2.5-2.5); ABG OXYGEN SATURATION 72 % (94-100); ABG PCO2 43 MMHG (35-45); ABG PH 7.35 (7.37-7.43); ABG PO2 47 MMHG (79-93)
[2020-09-03 06:42] LABS: ALLENS TEST POSITIVE; INSPIRED O2 80%; PATIENT TEMP 37; VENTILATOR NO
[2020-09-03] MEDS: FUROSEMIDE 40 MG/4 ML INJ (LASIX) IVP SCH ×2 (06:45→16:58)
--- NOTE | 2020-09-03 07:24 | Progress Note - Hospitalist ---
Subjective HPI/CC On Admission Date Seen by Provider: Sep 03, 2020 Time Seen by Provider: 11:00 CC: Increased O2 requirements HPI: This is a 64yoWM who I have taken care of for the past [address] [facility] after HTN emergency with pulmonary edema required immediate intubation upon arrival from [facility] on 08/12/20 who ultimately was treated aggressively for volume overload and ARF until moved to IRF on 08/28/20 who now presents to 4th floor in an interrupted stay from IRF following an EGD/Colonoscopy by Dr Bowman due to increased O2 requirements to 8L/min which was performed to evaluate source of blood loss due to severe anemia. Patient has a h/o polycythemia and sees Dr Oreilly who has been following along the past 1 week and recommended iron infusions and supportive care after he received 1 unit of blood last week. Dr Arlen kauffman has been consulted and IV Lasix started along with Vapotherm. Subjective/Events-last exam Patient about the same On Vapotherm still Creatinine stable at 1.8 Wrapping legs today Eating well Delicate balance between CHF overload and ARF Review of Systems General: Fatigue, Malaise Pulmonary: Dyspnea Objective Exam Vital Signs Vital Signs Date Time Temp Pulse Resp B/P (MAP) Pulse Ox O2 Delivery O2 Flow Rate FiO2 09/04/20 04:04 36.5 88 18 158/68 (98) 95 Vapotherm 15.00 60.00 09/04/20 02:31 70 Capillary Refill : Less Than 3 Seconds General Appearance: No Apparent Distress, WD/WN, Chronically ill Respiratory: Chest Non Tender, Lungs Clear, No Accessory Muscle Use, No Respiratory Distress, Decreased Breath Sounds Cardiovascular: Regular Rate, Rhythm, No Gallop, No JVD, No Murmur, Normal Peripheral Pulses Extremity: Pedal Edema Neurologic/Psychiatric: Alert, Oriented x3, No Motor/Sensory Deficits, Normal Mood/Affect Results/Procedures Lab Laboratory Tests 09/04/20 04:35 Patient resulted labs reviewed. Assessment/Plan Assessment and Plan Assess & Plan/Chief Complaint Assessment: Hypoxia with increased O2 requirements following EGD/Colonoscopy by Dr Bowman Anemia s/p 1 unit of blood last week h/o Polycythemia holding Hydrea and consulting Dr Oreilly HTN malignant type MARYANN on CRI HLP COPD Smoker Plan: O2 Vapotherm Dr Tamez Cardiology Increase BP meds Lasix 12/20/20: Monitor creatinine Lasix 40mg IV BID Cardiology and Pulmonology consultations appreciated Vapotherm Diagnosis/Problems Diagnosis/Problems (1) Hypoxia Status: Acute (2) Flash pulmonary edema Clinical Quality Measures DVT/VTE Risk/Contraindication: Risk Factor Score Per Nursin RFS Level Per Nursing on Admit: 4+=Very High KIMBERLEE MENJIVAR DO Sep 03, 2020 07:24
[2020-09-03 07:58] VITALS: BP 185/77
[2020-09-03] MEDS: cloNIDine 0.1 MG (CATAPRES) TAB PO SCH ×3 (08:26→21:06)
[2020-09-03] MEDS: SENNA W/DOCUSATE (SENOKOT S) TABLET PO SCH ×2 (08:27→21:03)
[2020-09-03] MEDS: meTOprolol SUCCINATE 100 MG (TOPROL XL) TAB PO SCH (08:27)
[2020-09-03] MEDS: amLODIPine 5 MG (NORVASC) TAB PO SCH (08:27)
--- NOTE | 2020-09-03 08:27 | Diagnostic Imaging Report ---
EXAMINATION: Portable erect AP chest at 6:58 AM INDICATION: Shortness of breath The appearance of the chest has worsened since the prior exam of 09/02/2020 as there has been an increase in the density in both lung bases, particularly the right lung base. These findings do suggest greater involvement of each lower lobe by pneumonia/atelectasis and fluid. The lung apices remain generally clear. The heart is stable in size. The mediastinum is not widened. The osseous structures are intact. IMPRESSION: The appearance of the chest has worsened since the prior study as there is greater involvement of both lower lobes by pneumonia/atelectasis and fluid. Followup study would be recommended for continued evaluation. Dictated by: Dictated on workstation # [id number]
[2020-09-03] MEDS: IRON SUCROSE 200 MG/10 ML (VENOFER) VIAL IV SCH (08:31)
[2020-09-03] MEDS ORDERED: NS IV 500 ML 500 ML ONE (09:39)
[2020-09-03] MEDS: MAGNESIUM 1 GM/100 ML IVPB 100 ML IV SCH (09:47)
[2020-09-03 12:00] VITALS: BP 172/73
[2020-09-03] MEDS: cloNIDine 0.1 MG (CATAPRES) TAB PO PRN (17:03)
[2020-09-03] MEDS: TAMSULOSIN 0.4 MG (FLOMAX) CAP PO SCH (17:03)
--- NOTE | 2020-09-03 19:00 | Cardiology Progress Note ---
Cardiology SOAP Progress Note Subjective: worsening shortness of breath - on vapotherm Objective: I&O/Vital Signs 09/03/20 09/03/20 09/03/20 09/03/20 07:00 07:58 08:00 10:58 Temp 37.3 Pulse 87 92 Resp 18 B/P (MAP) 185/77 (113) Pulse Ox 95 98 O2 Delivery Vapotherm Vapotherm Vapotherm O2 Flow Rate 20.00 15.00 20.00 80.00 FiO2 90 70 09/03/20 09/03/20 09/03/20 09/03/20 12:00 12:36 15:35 16:00 Temp 36.4 36.8 Pulse 68 67 68 Resp 18 18 B/P (MAP) 172/73 (106) Pulse Ox 97 98 95 O2 Delivery Vapotherm Vapotherm Vapotherm O2 Flow Rate 20.00 20.00 20.00 70.00 70.00 FiO2 70 09/03/20 18:15 Pulse Ox 98 O2 Delivery Vapotherm O2 Flow Rate 20.00 FiO2 70 09/03/20 00:00 Intake Total 850 ml Output Total 1750 ml Balance -900 ml Constitutional: AAO x 3, apparent distress Respiratory: respiratory distress, other (decreased breath sounds bilaterally with no wheezing) Cardiovascular: regular rate-rhythm, S1 and S2 Gastrointestional: soft, audible bowel sounds Extremities: normal range of motion, non-tender, normal inspection, no lower extremity edema bilateral Neurologic/Psychiatric: no motor/sensory deficits, alert, normal mood/affect, oriented x 3 Results/Procedures: Labs Laboratory Tests 09/03/20 05:30: White Blood Count 6.6, Red Blood Count 2.53L, Hemoglobin 8.6L, Hematocrit 27L, Mean Corpuscular Volume 106H, Mean Corpuscular Hemoglobin 34, Mean Corpuscular Hemoglobin Concent 32, Red Cell Distribution Width 14.6H, Platelet Count 377, Mean Platelet Volume 9.8, Immature Granulocyte % (Auto) 1, Neutrophils (%) (Auto) 65, Lymphocytes (%) (Auto) 18, Monocytes (%) (Auto) 10, Eosinophils (%) (Auto) 6, Basophils (%) (Auto) 1, Neutrophils # (Auto) 4.3, Lymphocytes # (Auto) 1.2, Monocytes # (Auto) 0.7, Eosinophils # (Auto) 0.4H, Basophils # (Auto) 0.0, Immature Granulocyte # (Auto) 0.0, Sodium Level 136, Potassium Level 4.0, Chloride Level 106, Carbon Dioxide Level 19L, Anion Gap 11, Blood Urea Nitrogen 23H, Creatinine 1.80H, Estimat Glomerular Filtration Rate 38, BUN/Creatinine Ratio 13, Glucose Level 96, Calcium Level 8.0L, Corrected Calcium 9.1, Phosphorus Level 5.0H, Magnesium Level 1.5L, Total Bilirubin 0.3, Aspartate Amino Transf (AST/SGOT) 17, Alanine Aminotransferase (ALT/SGPT) 26, Alkaline Phosphatase 187H, Total Protein 5.6L, Albumin 2.6L 09/03/20 06:31: Blood Gas Puncture Site LEFT RADIAL, Blood Gas Patient Temperature 37, Arterial Blood pH 7.35L, Arterial Blood Partial Pressure CO2 43, Arterial Blood Partial Pressure O2 47L, Arterial Blood HCO3 23, Arterial Blood Total CO2 24.0, Arterial Blood Oxygen Saturation 72L, Arterial Blood Base Excess -2.2, Zenon Test POSITIVE, Blood Gas Ventilator Setting NO, Blood Gas Inspired Oxygen 80% A/P: Assessment/Dx: Acute respiratory failure CHF HTN Peripheral edema Plan: Acute respiratory failure, previously extubated on August 14, 2020. likely multifactorial. Given lasix iv. on vapotherm. Dr Tamez following. Congestive heart failure, acute on chronic left ventricular diastolic dysfunction, echocardiogram showed normal left ventricular systolic function, grade 2 diastolic dysfunction, mild aortic valve stenosis, pulmonary hypertension with PA pressure 40-45 mmHg. on beta blockers. Unable to tolerate MICHAEL-I or ARB secondary to renal insufficiency Anemia, worsening, received iron transfusion.aspirin stopped, continue to monitor H/H. Peripheral edema. Mild elevation in troponin, type II myocardial infarction secondary to malignant hypertension and hypertensive heart disease. Continue to monitor and reevaluate troponin. Planning for stress test as an outpatient. Malignant hypertension, better controlled, continue to monitor. Aortic valve stenosis, mild. Continue to monitor Acute renal failure on chronic renal insufficiency, continue to monitor. Will need f/u with nephrology as outpatient Thank you for your consultation. Please call me if you have any questions. Bhavesh Minor MD, FACP, FACC, FSCAI, FHRS, CCDS Interventional Cardiology Cardiac Electrophysiology Vascular Medicine and Endovascular Interventions Anu MINOR MD Sep 03, 2020 19:00
[2020-09-03 20:00] VITALS: BP 174/76
[2020-09-03] MEDS: MELATONIN 3 MG TABLET PO PRN (21:06)
[2020-09-04] VITALS (7 sets, daily range): BP systolic 158–187; BP diastolic 64–82
[2020-09-04] MEDS: ALPRAZolam 0.25 MG (XANAX) TAB PO PRN ×2 (00:31→21:20)
[2020-09-04] MEDS: cloNIDine 0.1 MG (CATAPRES) TAB PO PRN ×2 (00:31→23:57)
[2020-09-04] MEDS: RT-ALBUTEROL/IPRATROPIUM 3 ML (DUONEB) VIAL INH SCH ×6 (02:31→22:03)
[2020-09-04 05:17] LABS: BASOPHILS % (AUTO) 1 % (0-10); EOSINOPHILS # (AUTO) 0.4 10^3/uL (0.0-0.3); EOSINOPHILS % (AUTO) 5 % (0-10); HEMATOCRIT 26 % (40-54); HEMOGLOBIN 8.2 g/dL (13.3-17.7); LYMPHOCYTES # (AUTO) 1.2 10^3/uL (1.0-4.0); LYMPHOCYTES % (AUTO) 15 % (12-44); MEAN CORPUSCULAR HEMOGLOBIN 34 pg (25-34); MEAN CORPUSCULAR HGB CONC 32 g/dL (32-36); MEAN CORPUSCULAR VOLUME 106 fL (80-99); MONOCYTES # (AUTO) 0.7 10^3/uL (0.0-1.0); MONOCYTES % (AUTO) 9 % (0-12); NEUTROPHILS # (AUTO) 5.3 10^3/uL (1.8-7.8); NEUTROPHILS % (AUTO) 70 % (42-75); PLATELET COUNT 365 10^3/uL (130-400); WHITE BLOOD COUNT 7.6 10^3/uL (4.3-11.0)
[2020-09-04 05:46] LABS: ALBUMIN 2.5 GM/DL (3.2-4.5); BILIRUBIN,TOTAL 0.2 MG/DL (0.1-1.0); CALCIUM 7.8 MG/DL (8.5-10.1); CREATININE SERUM 2.07 MG/DL (0.60-1.30); MAGNESIUM 1.7 MG/DL (1.6-2.4); PHOSPHORUS 4.7 MG/DL (2.3-4.7); POTASSIUM 3.8 MMOL/L (3.6-5.0); TOTAL PROTEIN 5.3 GM/DL (6.4-8.2)
--- NOTE | 2020-09-04 06:45 | Pulmonary Progress Note ---
Subjective Time Seen by a Provider: 06:41 Sepsis Event Evaluation Height, Weight, BMI Height: '" Weight: lbs. oz. kg; 29.61 BMI Method: Exam Exam Vital Signs Date Time Temp Pulse Resp B/P (MAP) Pulse Ox O2 Delivery O2 Flow Rate FiO2 09/04/20 04:04 36.5 88 18 158/68 (98) 95 Vapotherm 15.00 60.00 09/04/20 02:31 97 Vapotherm 20.00 70 09/04/20 01:00 82 09/04/20 00:24 36.8 84 20 187/75 (112) 94 Vapotherm 20.00 70.00 09/03/20 21:48 98 Vapotherm 20.00 70 09/03/20 20:00 36.9 74 18 174/76 (108) 97 Vapotherm 20.00 70.00 09/03/20 19:53 Vapotherm 20.00 70 09/03/20 19:00 76 09/03/20 18:15 98 Vapotherm 20.00 70 09/03/20 16:00 36.8 68 18 95 Vapotherm 20.00 70.00 09/03/20 15:35 98 Vapotherm 20.00 70 09/03/20 12:36 67 09/03/20 12:00 36.4 68 18 172/73 (106) 97 Vapotherm 20.00 70.00 09/03/20 10:58 98 Vapotherm 20.00 70 09/03/20 08:00 Vapotherm 15.00 90 09/03/20 07:58 37.3 92 18 185/77 (113) 95 Vapotherm 20.00 80.00 09/03/20 07:00 87 I & O 09/04/20 07:00 Intake Total 1460 ml Output Total 2697 ml Balance -1237 ml Height & Weight Height: '" Weight: lbs. oz. kg; 29.61 BMI Method: General Appearance: No Apparent Distress, WD/WN, Chronically ill HEENT: PERRL/EOMI, Normal ENT Inspection, Pharynx Normal Neck: Full Range of Motion, Normal Inspection, Non Tender, Supple, Carotid Br uit Respiratory: Chest Non Tender, Lungs Clear, No Accessory Muscle Use, No Re spiratory Distress, Decreased Breath Sounds Cardiovascular: Regular Rate, Rhythm, No Gallop, No JVD, No Murmur, Normal Peripheral Pulses Capillary Refill: Less Than 3 Seconds Extremity: Pedal Edema Neurologic/Psychiatric: Alert, Oriented x3, No Motor/Sensory Deficits, Normal Mood/Affect Skin: Normal Color, Warm/Dry Lymphatic: No Adenopathy Results Lab Laboratory Tests 09/03/20 05:30 09/04/20 04:35 Assessment/Plan Assessment/Plan Acute respiratory distress with hypoxemia -Currently requiring 80% Vapotherm -Repeat CXR -Check PCT Hx of COPD -Breathing treatments -Add advair Grade II CHF -Lasix Hx of tobacco use Anemia s/P EGD and colonoscopy hx of polycythemia -Follows with Dr. Denilson Uribe on chronic renal failure -Monitor HTN MAGNUS KINNEY DO Sep 04, 2020 06:45
[2020-09-04] MEDS: FUROSEMIDE 40 MG/4 ML INJ (LASIX) IVP SCH ×2 (06:52→17:07)
[2020-09-04] MEDS: ADVAIR HFA 115/21 MCG INHALER 8 GM IH SCH ×2 (07:25→19:05)
--- NOTE | 2020-09-04 08:19 | Diagnostic Imaging Report ---
EXAMINATION: Chest 1 view HISTORY: Shortness of breath COMPARISON: 09/03/2020 FINDINGS: There are persistent bilateral lower zone interstitial and airspace opacities with tiny bilateral pleural effusions. Heart size is normal. No pneumothorax. IMPRESSION: 1. Persistent mild to moderate bilateral lower zone predominant interstitial and airspace opacities which may represent pneumonia versus edema. Dictated by: Dictated on workstation # [id number]
--- NOTE | 2020-09-04 08:50 | NUR ---
DR. HERNANDEZ ON FLOOR AND GAVE VERBAL ORDER TO BLADDER SCAN POST RESIDUAL AFTER OUTPUT. AT 0945 PATIENT OUTPUT OF 400ML LEAVING 11ML PER BLADDER SCAN POST. THIS RN RELAYED INFORMATION TO DR. HERNANDEZ. NO NEW ORDERS AT THIS TIME.
[2020-09-04] MEDS: cloNIDine 0.1 MG (CATAPRES) TAB PO SCH ×3 (09:43→21:12)
[2020-09-04] MEDS: meTOprolol SUCCINATE 100 MG (TOPROL XL) TAB PO SCH (09:43)
[2020-09-04] MEDS: amLODIPine 5 MG (NORVASC) TAB PO SCH ×2 (09:43→21:13)
[2020-09-04] MEDS: SENNA W/DOCUSATE (SENOKOT S) TABLET PO SCH ×2 (09:44→21:12)
--- NOTE | 2020-09-04 10:27 | Progress Note ---
Subjective Date Seen by a Provider: Sep 04, 2020 Time Seen by a Provider: 10:00 Subjective/Events-last exam Pt dong a little better Titrating down off of Vapotherm Feels like he is doing much better Lasix IV really improving volume overload Labs reviewed, everything stable Closing rehab account because I cant get him down there today and it is his third day of interrupted stay Will likely bring him back to rehab next week Bowels not moving but he did have complete evacuation from colonoscopy on Friday No pain is reported Review of Systems General: Fatigue, Malaise Pulmonary: Dyspnea Neurological: Weakness Objective Exam Last Set of Vital Signs Vital Signs Date Time Temp Pulse Resp B/P (MAP) Pulse Ox O2 Delivery O2 Flow Rate FiO2 09/04/20 10:12 96 Vapotherm 15.00 60 09/04/20 08:00 37.2 82 18 175/73 (107) Capillary Refill : Less Than 3 Seconds I&O Intake and Output 09/04/20 00:00 Intake Total 1960 ml Output Total 3117 ml Balance -1157 ml Intake Oral 1960 ml Output Urine Total 3117 ml General: Alert, Oriented X3, Cooperative, No Acute Distress Lungs: Clear to Auscultation, Normal Air Movement Abdomen: Normal Bowel Sounds Psych/Mental Status: Mental Status NL Results Lab Laboratory Tests 09/04/20 04:35: White Blood Count 7.6, Red Blood Count 2.45L, Hemoglobin 8.2L, Hematocrit 26L, Mean Corpuscular Volume 106H, Mean Corpuscular Hemoglobin 34, Mean Corpuscular Hemoglobin Concent 32, Red Cell Distribution Width 14.3, Platelet Count 365, Mean Platelet Volume 10.0, Immature Granulocyte % (Auto) 1, Neutrophils (%) (Auto) 70, Lymphocytes (%) (Auto) 15, Monocytes (%) (Auto) 9, Eosinophils (%) (Auto) 5, Basophils (%) (Auto) 1, Neutrophils # (Auto) 5.3, Lymphocytes # (Auto) 1.2, Monocytes # (Auto) 0.7, Eosinophils # (Auto) 0.4H, Basophils # (Auto) 0.0, Immature Granulocyte # (Auto) 0.0, Sodium Level 135, Potassium Level 3.8, Chloride Level 104, Carbon Dioxide Level 21, Anion Gap 10, Blood Urea Nitrogen 23H, Creatinine 2.07H, Estimat Glomerular Filtration Rate 32, BUN/Creatinine Ratio 11, Glucose Level 156H, Calcium Level 7.8L, Corrected Calcium 9.0, Phosphorus Level 4.7, Magnesium Level 1.7, Total Bilirubin 0.2, Aspartate Amino Transf (AST/SGOT) 11, Alanine Aminotransferase (ALT/SGPT) 22, Alkaline Phosphatase 162H, Total Protein 5.3L, Albumin 2.5L, Procalcitonin 0.09 Assessment/Plan Assessment/Plan Assess & Plan/Chief Complaint Assessment: Hypoxia with increased O2 requirements following EGD/Colonoscopy by Dr Bowman Anemia s/p 1 unit of blood last week h/o Polycythemia holding Hydrea and consulting Dr Oreilly HTN malignant type MARYANN on CRI HLP COPD Smoker Plan: O2 Vapotherm Dr Tamez Cardiology Increase BP meds Lasix 09/03/20: Monitor creatinine Lasix 40mg IV BID Cardiology and Pulmonology consultations appreciated Vapotherm 09/04/20: Vapotherm wean Monitor volume overload Diagnosis/Problems Diagnosis/Problems (1) Hypoxia Status: Acute (2) Flash pulmonary edema Clinical Quality Measures DVT/VTE Risk/Contraindication: Risk Factor Score Per Nursin RFS Level Per Nursing on Admit: 4+=Very High KIMBERLEE MENJIVAR DO Sep 04, 2020 10:27
--- NOTE | 2020-09-04 11:00 | NUR ---
DR. MENJIVAR ON FLOOR AND GAVE VERBAL ORDER FOR PT AND OT. THIS RN TO ORDER.
--- NOTE | 2020-09-04 11:00 | NUR ---
SAMY RT INFORMED VAPOTHERM NOW ON 15L, 40% AND TO TRY 10L IN 30 MINUTES. THIS RN TURNED TO 10L 40 % AT 1145. INFORMED PATIENT TO USE CALL LIGHT IF ANY TROUBLE BREATHING.
--- NOTE | 2020-09-04 12:17 | Progress Note - Cardiology ---
Cardiology SOAP Progress Note Subjective: Report malaise Denies cp or palp or syncope or shortness of breath Denies n/v Objective: I&O/Vital Signs 09/04/20 09/04/20 09/04/20 09/04/20 00:24 01:00 02:31 04:04 Temp 36.8 36.5 Pulse 84 82 88 Resp 20 18 B/P (MAP) 187/75 (112) 158/68 (98) Pulse Ox 94 97 95 O2 Delivery Vapotherm Vapotherm Vapotherm O2 Flow Rate 20.00 20.00 15.00 70.00 60.00 FiO2 70 09/04/20 09/04/20 09/04/20 09/04/20 07:00 07:26 08:00 08:30 Temp 37.2 Pulse 80 82 Resp 18 B/P (MAP) 175/73 (107) Pulse Ox 97 94 O2 Delivery Vapotherm Vapotherm Vapotherm O2 Flow Rate 15.00 15.00 15.00 60.00 FiO2 60 60 09/04/20 10:12 Pulse Ox 96 O2 Delivery Vapotherm O2 Flow Rate 15.00 FiO2 60 09/04/20 00:00 Intake Total 1460 ml Output Total 2697 ml Balance -1237 ml Constitutional: AAO x 3; No apparent distress Respiratory: other (good air entry, diminished at the bases) Cardiovascular: regular rate-rhythm, S1 and S2, systolic murmur (soft ZAK at the card base) Gastrointestional: soft; No tenderness; audible bowel sounds Extremities: no lower extremity edema bilateral Neurologic/Psychiatric: alert, other (moves all limbs equally) Skin: No rash on exposed areas, No ulcerations on exposed areas Results/Procedures: Labs Laboratory Tests 09/04/20 04:35: White Blood Count 7.6, Red Blood Count 2.45L, Hemoglobin 8.2L, Hematocrit 26L, Mean Corpuscular Volume 106H, Mean Corpuscular Hemoglobin 34, Mean Corpuscular Hemoglobin Concent 32, Red Cell Distribution Width 14.3, Platelet Count 365, Mean Platelet Volume 10.0, Immature Granulocyte % (Auto) 1, Neutrophils (%) (Auto) 70, Lymphocytes (%) (Auto) 15, Monocytes (%) (Auto) 9, Eosinophils (%) (Auto) 5, Basophils (%) (Auto) 1, Neutrophils # (Auto) 5.3, Lymphocytes # (Auto) 1.2, Monocytes # (Auto) 0.7, Eosinophils # (Auto) 0.4H, Basophils # (Auto) 0.0, Immature Granulocyte # (Auto) 0.0, Sodium Level 135, Potassium Level 3.8, Chloride Level 104, Carbon Dioxide Level 21, Anion Gap 10, Blood Urea Nitrogen 23H, Creatinine 2.07H, Estimat Glomerular Filtration Rate 32, BUN/Creatinine Ratio 11, Glucose Level 156H, Calcium Level 7.8L, Corrected Calcium 9.0, Phosphorus Level 4.7, Magnesium Level 1.7, Total Bilirubin 0.2, Aspartate Amino Transf (AST/SGOT) 11, Alanine Aminotransferase (ALT/SGPT) 22, Alkaline Phosphatase 162H, Total Protein 5.3L, Albumin 2.5L, Procalcitonin 0.09 Laboratory Tests 09/03/20 05:30 09/04/20 04:35 A/P: Assessment: Ac resp failure / hypoxemia following endoscopy for eval for anemia on 09/02/20 Severe hypertension. Malignant hypertension in Jun 2020 leading to ac diastolic CHF at that time, echocardiogram showed normal left ventricular systolic function, grade 2 diastolic dysfunction, mild aortic valve stenosis, pulmonary hypertension with PA pressure 40-45 mmHg CKD - IV. Not suitable of MICHAEL-ihib / ARB Anemia of undetermined etiology, managed by Dr Tam H/o recent alcohol withdrawal syndrome (Jun 2020) Mild elevation in troponin, type II myocardial infarction secondary to malignant hypertension and hypertensive heart disease Plan: * I reviewed his records, interviewed him, and examined him * Complex management * Titrate med for further control of bp * Monitor labs DEANNA FLORES MD FACP FAC CCDS Sep 04, 2020 12:17
--- NOTE | 2020-09-04 13:41 | Physical Therapy Evaluation ---
PT Evaluation-General Medical Diagnosis Admission Date Sep 02, 2020 at 12:40 Medical Diagnosis: hypoxia/edema/weakness Onset Date: Sep 02, 2020 Therapy Diagnosis Therapy Diagnosis: generalized weakness/debility Precautions Precautions/Isolations: Fall Prevention, Standard Precautions Referral Physician: Anel Reason for Referral: Evaluation/Treatment Medical History Pertinent Medical History: Alcoholism, COPD, HTN, Renal Insufficiency, Smoking Additional Medical History extended hospital stay secondary to HTN emergency Current History transferred from ARU due to anemia and increase in O2 demand Reviewed History: Yes Social History Home: Single Level Current Living Status: Alone Entry Into Home: Level Entry Prior Prior Level of Function SCALE: Activities may be completed with or without assistive devices. 7-Cbbplqebgz-xwbuwgh completes the activity by him/herself with no assistance from a helper. 5-Set-up or Clean-up Assistance-helper sets up or cleans up; patient completes activity. [place] assists only prior to or following the activity. 4-Supervision or Touching Assistance-helper provides verbal cues and/or touching/steadying and/or contact guard assistance as patient completes activity. Assistance may be provided throughout the activity or intermittently. 3-Partial/Moderate Assistance-helper does LESS THAN HALF the effort. [place] lifts, holds or supports trunk or limbs, but provides less than half the effort. 2-Substantial/Maximal Assistance-helper does MORE THAN HALF the effort. [place] lifts or holds trunk or limbs and provides more than half the effort. 3-Optrouoyn-lvavmq does ALL the effort. Patient does none of the effort to complete the activity. Or, the assistance of 2 or more helpers is required for the patient to complete the activity. If activity was not attempted, code reason: 7-Patient Refused. 9-Not Applicable-not attempted and the patient did not perform the activity before the current illness, exacerbation or injury. 10-Not Attempted due to Environmental Limitations-(lack of equipment, weather restraints, etc.). 88-Not Attempted due to Medical Conditions or Safety Concerns. Bed Mobility: 6 Transfers (B,C,W/C): 6 Gait: 6 Stairs: 6 Indoor Mobility (Ambulation): Independent Stairs: Independent Prior Devices Use: None PT Evaluation-Current Subjective Patient agrees to PT. He reports he is feeling better today. Objective Patient Orientation: Normal For Age Attachments: Oxygen (vapotherm 40%/10L) ROM/Strength ROM Lower Extremities bilateral LE WFL Strength Lower Extremities 4-/5 grossly bilateral LE Integumentary/Posture Integumentary bilateral lower extremities paulino wrapped due to edema Bowel Incontinence: No Bladder Incontinence: No Posture WFL Neuromuscular (Tone, Coordination, Reflexes) grossly intact Sensory Vision: Wears Glasses Hearing: Functional Transfers Roll Left to Right (QC): 5 Sit to Lying (QC): 5 Lying to Sitting/Side of Bed(Q: 5 Sit to Stand (QC): 4 Chair/Qgk-zs-Yiary Xfer(QC): 4 Gait Does the Patient Walk?: Yes Mode of Locomotion: Walk Anticipated Mode of Locomotion: Walk Walk 10 feet (QC): 4 (x 2 sets) Gait Assistive Device: FWW Balance Sitting Static: Normal Sitting Dynamic: Normal Standing Static: Normal Standing Dynamic: Normal Treatment standing exercises 15 reps x 2 sets marching and mini squats. Noted decrease in SAO2 to 86% with activity and increase SOA with long recovery (3 minutes) to 90%, RN notified Assessment/Needs 64 y.o. male, will benefit from skilled PT to address functional mobility to improve pulmonary function. Patient currently does not tolerated extensive activity and requires time to complete tasks and to recover. Rehab Potential: Fair PT Post Partum Nurse Goals Post Partum Nurse Goals PT Post Partum Nurse Goals Time Frame: Sep 23, 2020 Roll Left & Right (QC): 6 Sit to Lying (QC): 6 Lying-Sitting on Side/Bed(QC): 6 Sit to Stand (QC): 6 Chair/Vuj-lx-Nclvm Xfer(QC): 6 Toilet Transfer (QC): 6 Car Transfer (QC): 6 Does the Patient Walk: Yes Walk 10 feet (QC): 6 Walk 50ft with 2 Turns (QC): 6 Walk 150 ft (QC): 6 PT Plan Problem List Problem List: Activity Tolerance Treatment/Plan Treatment Plan: Continue Plan of Care Treatment Plan: Bed Mobility, Education, Functional Activity Adriana, Functional Strength, Gait, Safety, Therapeutic Exercise, Transfers Treatment Duration: Sep 23, 2020 Frequency: 6 times per week Estimated Hrs Per Day: .5 hour per day Patient and/or Family Agrees t: Yes Time/GCodes Time In: 1300 Time Out: 1325 Total Billed Treatment Time: 25 Total Billed Treatment 1 visit EVModC 15 min EX 10 min SANDRA FALLON PT Sep 04, 2020 13:41
--- NOTE | 2020-09-04 14:24 | Occupational Therapy Eval ---
OT Evaluation-General/PLF Medical Diagnosis Admission Date Sep 02, 2020 at 12:40 Medical Diagnosis: hypoxia/edema/weakness Onset Date: Sep 02, 2020 Therapy Diagnosis Therapy Diagnosis: decreased ADL status Precautions Precautions/Isolations: Fall Prevention, Standard Precautions Referral Physician: Anel Burroughs Reason: Evaluation/Treatment Medical History Pertinent Medical History: Alcoholism, COPD, HTN, Renal Insufficiency, Smoking Additional Medical History COPD, Pneumonia, valvular heart disease, benign prostatic hyperpl, renal failure, arthritis Current History Pt transferred to 4th floor from [facility] due to increased O2 requirements. Social History Home: Single Level Current Living Status: Alone Entry Into Home: Level Entry ADL-Prior Level of Function SCALE: Activities may be completed with or without assistive devices. 6-Lyjjmvnbmk-ytlvgpv completes the activity by him/herself with no assistance from a helper. 5-Set-up or Clean-up Assistance-helper sets up or cleans up; patient completes activity. [place] assists only prior to or following the activity. 4-Supervision or Touching Assistance-helper provides verbal cues and/or touching/steadying and/or contact guard assistance as patient completes activity. Assistance may be provided throughout the activity or intermittently. 3-Partial/Moderate Assistance-helper does LESS THAN HALF the effort. [place] lifts, holds or supports trunk or limbs, but provides less than half the effort. 2-Substantial/Maximal Assistance-helper does MORE THAN HALF the effort. [place] lifts or holds trunk or limbs and provides more than half the effort. 7-Kcrxskacf-yntnbe does ALL the effort. Patient does none of the effort to complete the activity. Or, the assistance of 2 or more helpers is required for the patient to complete the activity. If activity was not attempted, code reason: 7-Patient Refused. 9-Not Applicable-not attempted and the patient did not perform the activity before the current illness, exacerbation or injury. 10-Not Attempted due to Environmental Limitations-(lack of equipment, weather restraints, etc.). 88-Not Attempted due to Medical Conditions or Safety Concerns. ADL PLOF Comments Pt indicates he was independent with all ADLs and functional mobility at PLOF, no AD. He was driving and completed cooking/cleaning/shopping Self Care: Independent Functional Cognition: Independent DME/Equipment: Tub/Shower Drive Self: Yes OT Current Status Subjective Pt seated in recliner, agreeable to OT evaluation and tx. Pt indicates he feels somewhat better. Mental Status/Objective Patient Orientation: Person, Place, Time, Situation Attachments: Oxygen (vapotherm) Current Glasses/Contacts: Yes Hearing Aids: Yes Dentures/Partials: No Hand Dominance: Right Upper Extremity ROM WFL, BUE shoulder flexion to approx 160 degrees Upper Extremity Coordination WFL Upper Extremity Sensation WFL Upper Extremity Strength WFL ADL-Treatment Eating (QC): 6 (Pt reports independent with lunch, he was able to use utensils, cut food, and bring food/drink to mouth.) Other Treatments OT educated pt on purpose and benefit of OT, he verbalized understanding. Pt then provided information about PLOF and home set up and participated in UE screen. In order to increase BUE strength and functional endurance, pt completed x15 reps of the following BUE exercises: shoulder flexion, elbow flexion/extension, and finger flexion/extension. Pt's O2 dropped to 85% after shoulder flexion, but increased to 90%'s within a couple seconds, pt's O2 remained in 90%'s throughout remainder of tx. OT informed pt to complete exercises again later in the day, increasing reps as tolerated, he verbalized understanding. Post OT tx, pt seated in recliner, call light in reach and all needs met. Education OT Patient Education: Correct positioning, Exercise program, Modified ADL techniques, Progress toward Goal/Update tx plan, Purpose of tx/functional activities Teaching Recipient: Patient Teaching Methods: Discussion Response to Teaching: Verbalize Understanding OT Blood Collector Goals Long-Term Goals Time Frame: Sep 23, 2020 Eating (QC): 6 Oral Hygiene (QC): 6 Toileting Hygiene (QC): 6 Shower/Bathe Self (QC): 6 Upper Body Dressing (QC): 6 Lower Body Dressing (QC): 6 On/Off Footwear (QC): 6 Additional Goals: 1-Demonstrate ADL Tasks, 2-Verbalize Understanding, 3-ImproveStrength/Adriana 1=Demonstrate adherence to instructed precautions during ADL tasks. 2=Patient will verbalize/demonstrate understanding of assistive devices/modifications for ADL. 3=Patient will improve strength/tolerance for activity to enable patient to perform ADL's. OT Education/Plan Problem List/Assessment Assessment: Decreased Activ Tolerance, Decreased UE Strength, Impaired Funct Balance, Impaired I ADL's, Impaired Self-Care Skills Discharge Recommendations Plan/Recommendations: Continue POC Equpiment Recommendations-D/C: Extended Bath Bench Treatment Plan/Plan of Care Patient would benefit from OT for education, treatment and training to promote independence in ADL's, mobility, safety and/or upper extremity function for ADL's. Plan of Care: ADL Retraining, Functional Mobility, UE Funct Exercise/Act Treatment Duration: Sep 23, 2020 Frequency: 5 times per week Estimated Hrs Per Day: .25 hour per day Rehab Potential: Fair Time/GCodes Start Time: 14:04 Stop Time: 14:16 Total Time Billed (hr/min): 12 Billed Treatment Time 1, HENRIQUE SANTOYO OT Sep 04, 2020 14:24
[2020-09-04] MEDS: TAMSULOSIN 0.4 MG (FLOMAX) CAP PO SCH (17:07)
[2020-09-05] MEDS: MELATONIN 3 MG TABLET PO PRN ×2 (00:03→19:58)
[2020-09-05] MEDS: RT-ALBUTEROL/IPRATROPIUM 3 ML (DUONEB) VIAL INH SCH ×6 (01:56→22:19)
[2020-09-05 03:51] VITALS: BP 169/73
[2020-09-05] MEDS: FUROSEMIDE 40 MG/4 ML INJ (LASIX) IVP SCH ×2 (05:47→15:48)
[2020-09-05 06:30] LABS: BASOPHILS # (AUTO) 0.1 10^3/uL (0.0-0.1); BASOPHILS % (AUTO) 0 % (0-10); EOSINOPHILS # (AUTO) 0.5 10^3/uL (0.0-0.3); EOSINOPHILS % (AUTO) 4 % (0-10); HEMATOCRIT 28 % (40-54); HEMOGLOBIN 8.9 g/dL (13.3-17.7); LYMPHOCYTES % (AUTO) 9 % (12-44); MEAN CORPUSCULAR HEMOGLOBIN 33 pg (25-34); MEAN CORPUSCULAR HGB CONC 32 g/dL (32-36); MEAN CORPUSCULAR VOLUME 105 fL (80-99); MEAN PLATELET VOLUME 9.5 fL (9.0-12.2); MONOCYTES # (AUTO) 0.8 10^3/uL (0.0-1.0); MONOCYTES % (AUTO) 7 % (0-12); NEUTROPHILS # (AUTO) 9.1 10^3/uL (1.8-7.8); NEUTROPHILS % (AUTO) 80 % (42-75); PLATELET COUNT 365 10^3/uL (130-400); WHITE BLOOD COUNT 11.4 10^3/uL (4.3-11.0)
[2020-09-05 06:43] LABS: ALBUMIN 2.8 GM/DL (3.2-4.5)
[2020-09-05 06:45] LABS: CALCIUM 8.3 MG/DL (8.5-10.1)
[2020-09-05 06:48] LABS: BILIRUBIN,TOTAL 0.3 MG/DL (0.1-1.0)
[2020-09-05 06:50] LABS: CREATININE SERUM 1.84 MG/DL (0.60-1.30)
[2020-09-05 06:51] LABS: ATYPICAL LYMPHOCYTES 2 %; EOSINOPHILS % (MANUAL) 4 %; LYMPHOCYTES % (MANUAL) 9 %; MICROCYTOSIS MODERATE; MONOCYTES % (MANUAL) 5 %; NEUTROPHILS % (MANUAL) 80 %; POLYCHROMASIA SLIGHT; SCHISTOCYTES SLIGHT
[2020-09-05 06:53] LABS: MAGNESIUM 1.6 MG/DL (1.6-2.4)
--- NOTE | 2020-09-05 07:01 | Progress Note - Urology ---
Progress Note-Urology Progress Notes/Assess & Plan Progress/Assessment & Plan PVR YESTERDAY 11CC Final Diagnosis RETENTION SHANNAN HERNANDEZ MD Sep 05, 2020 07:01
[2020-09-05 08:00] VITALS: BP 179/74
[2020-09-05] MEDS: IRON SUCROSE 200 MG/10 ML (VENOFER) VIAL IV SCH (09:05)
[2020-09-05] MEDS: meTOprolol SUCCINATE 100 MG (TOPROL XL) TAB PO SCH (09:06)
[2020-09-05] MEDS: amLODIPine 5 MG (NORVASC) TAB PO SCH ×2 (09:06→19:59)
[2020-09-05] MEDS: cloNIDine 0.1 MG (CATAPRES) TAB PO SCH (09:07)
[2020-09-05] MEDS: SENNA W/DOCUSATE (SENOKOT S) TABLET PO SCH ×2 (09:07→19:58)
[2020-09-05] MEDS: cloNIDine 0.1 MG (CATAPRES) TAB PO PRN ×3 (09:46→23:53)
--- NOTE | 2020-09-05 09:50 | NUR ---
Patient received PRN Catapres for systolic above 170. B/P was 185/73. Per physician order, Bladder scan post void showed 128 cc.
--- NOTE | 2020-09-05 10:16 | Progress Note - Cardiology ---
Cardiology SOAP Progress Note Subjective: Sitting up in recliner at the bedside. States his breathing is better today No c/o CP or palpitaitons Objective: I&O/Vital Signs 09/05/20 09/06/20 09/06/20 09/06/20 23:43 01:00 02:44 04:03 Temp 37.7 36.2 Pulse 86 77 80 Resp 18 18 B/P (MAP) 175/73 (107) 155/69 (97) Pulse Ox 92 95 93 O2 Delivery High Flow N/C Nasal Cannula High Flow N/C O2 Flow Rate 4.00 5.00 4.00 09/06/20 09/06/20 09/06/20 09/06/20 06:55 07:00 07:49 08:00 Temp 35.7 Pulse 83 82 Resp 20 B/P (MAP) 185/78 (113) Pulse Ox 94 95 O2 Delivery Nasal Cannula High Flow N/C High Flow N/C O2 Flow Rate 4.00 4.00 4.00 09/06/20 10:52 Pulse Ox 93 O2 Delivery Nasal Cannula O2 Flow Rate 4.00 09/06/20 00:00 Intake Total 1930 ml Output Total 2225 ml Balance -295 ml Constitutional: AAO x 3; No apparent distress Respiratory: other (good air entry, diminished at the bases) Cardiovascular: regular rate-rhythm, S1 and S2, systolic murmur (soft ZAK at the card base) Gastrointestional: soft; No tenderness; audible bowel sounds Extremities: no lower extremity edema bilateral Neurologic/Psychiatric: alert, other (moves all limbs equally) Skin: No rash on exposed areas, No ulcerations on exposed areas Results/Procedures: Labs Laboratory Tests 09/06/20 04:15: White Blood Count 10.1, Red Blood Count 2.41L, Hemoglobin 8.2L, Hematocrit 25L, Mean Corpuscular Volume 104H, Mean Corpuscular Hemoglobin 34, Mean Corpuscular Hemoglobin Concent 33, Red Cell Distribution Width 13.9, Platelet Count 336, Mean Platelet Volume 9.9, Immature Granulocyte % (Auto) 1, Neutrophils (%) (Auto) 72, Lymphocytes (%) (Auto) 14, Monocytes (%) (Auto) 8, Eosinophils (%) (Auto) 5, Basophils (%) (Auto) 1, Neutrophils # (Auto) 7.2, Lymphocytes # (Auto) 1.4, Monocytes # (Auto) 0.8, Eosinophils # (Auto) 0.5H, Basophils # (Auto) 0.1, Immature Granulocyte # (Auto) 0.1, Sodium Level 136, Potassium Level 4.0, Chloride Level 101, Carbon Dioxide Level 22, Anion Gap 13, Blood Urea Nitrogen 29H, Creatinine 1.94H, Estimat Glomerular Filtration Rate 35, BUN/Creatinine Ratio 15, Glucose Level 110H, Calcium Level 7.9L, Corrected Calcium 9.0, Total Bilirubin 0.3, Aspartate Amino Transf (AST/SGOT) 14, Alanine Aminotransferase (ALT/SGPT) 18, Alkaline Phosphatase 158H, Total Protein 5.5L, Albumin 2.6L 09/06/20 11:21: Glucometer 131H A/P: Assessment: Ac resp failure / hypoxemia following endoscopy for eval for anemia on 09/02/20 Severe hypertension. Malignant hypertension in Jun 2020 leading to ac diastolic CHF at that time, echocardiogram showed normal left ventricular systolic function, grade 2 diastolic dysfunction, mild aortic valve stenosis, pulmonary hypertension with PA pressure 40-45 mmHg CKD - IV. Not suitable of MICHAEL-ihib / ARB Anemia of undetermined etiology, managed by Dr Tam H/o recent alcohol withdrawal syndrome (Jun 2020) Mild elevation in troponin, type II myocardial infarction secondary to malignant hypertension and hypertensive heart disease Plan: * Complex management * Continue to titrate med for further control of bp - increase BB, stop Clonidine to reduce risk of bradycardia, add Doxazosin * Monitor labs DESTIN SALAZAR Sep 05, 2020 10:16
--- NOTE | 2020-09-05 10:19 | Progress Note - Hospitalist ---
Subjective HPI/CC On Admission Date Seen by Provider: Sep 05, 2020 Time Seen by Provider: 10:30 CC: Increased O2 requirements HPI: This is a 64yoWM who I have taken care of for the past [address] [facility] after HTN emergency with pulmonary edema required immediate intubation upon arrival from [facility] [place] [facility] on 08/12/20 who ultimately was treated aggressively for volume overload and ARF until moved to IRF on 08/28/20 who now presents to 4th floor in an interrupted stay from IRF following an EGD/Colonoscopy by Dr Bowman due to increased O2 requirements to 8L/min which was performed to evaluate source of blood loss due to severe anemia. Patient has a h/o polycythemia and sees Dr Oreilly who has been following along the past 1 week and recommended iron infusions and supportive care after he received 1 unit of blood last week. Dr Arlen kauffman has been consulted and IV Lasix started along with Vapotherm. Objective Exam Vital Signs Vital Signs Date Time Temp Pulse Resp B/P (MAP) Pulse Ox O2 Delivery O2 Flow Rate FiO2 09/05/20 08:00 37.1 84 20 179/74 (109) 93 High Flow N/C 3.00 09/04/20 14:08 40 Capillary Refill : Less Than 3 Seconds Results/Procedures Lab Laboratory Tests 09/05/20 06:23 Patient resulted labs reviewed. Assessment/Plan Assessment and Plan Assess & Plan/Chief Complaint Assessment: Hypoxia with increased O2 requirements following EGD/Colonoscopy by Dr Bowman Anemia s/p 1 unit of blood last week h/o Polycythemia holding Hydrea and consulting Dr Oreilly HTN malignant type MARYANN on [facility]RI HLP COPD Smoker Plan: O2 Vapotherm Dr Tamez Cardiology Increase BP meds Lasix 09/03/20: Monitor creatinine Lasix 40mg IV BID Cardiology and Pulmonology consultations appreciated Vapotherm Diagnosis/Problems Diagnosis/Problems (1) Hypoxia Status: Acute (2) Flash pulmonary edema Clinical Quality Measures DVT/VTE Risk/Contraindication: Risk Factor Score Per Nursin RFS Level Per Nursing on Admit: 4+=Very High KIMBERLEE MENJIVAR DO Sep 05, 2020 10:19
--- NOTE | 2020-09-05 10:20 | Progress Note ---
Subjective Date Seen by a Provider: Sep 05, 2020 Time Seen by a Provider: 10:20 Subjective/Events-last exam Pt is doing much better today Off vapotherm and on 3 liters, exertion requires 5 liters Still on IV Lasix Will put on swingbed tomorrow and then at the first of the week move to rehab Had a lengthy conversation with daughter who is in town from [place] and I did update her on the plan and everyone in agreement with the plan Creatinine 1.8 Bowels are moving well Denies any significant new issues Review of Systems General: Fatigue, Malaise Pulmonary: Dyspnea Cardiovascular: Edema Objective Exam Last Set of Vital Signs Vital Signs Date Time Temp Pulse Resp B/P (MAP) Pulse Ox O2 Delivery O2 Flow Rate FiO2 09/05/20 08:00 37.1 84 20 179/74 (109) 93 High Flow N/C 3.00 09/04/20 14:08 40 Capillary Refill : Less Than 3 Seconds I&O Intake and Output 09/05/20 00:00 Intake Total 2270 ml Output Total 3325 ml Balance -1055 ml Intake Oral 2270 ml Output Urine Total 3325 ml General: Alert, Oriented X3, Cooperative, No Acute Distress Lungs: Clear to Auscultation, Normal Air Movement Heart: Regular Rate, Normal S1, Normal S2, No Murmurs Neuro: Normal Gait, Normal Speech, Strength at 5/5 X4 Ext, Normal Tone Psych/Mental Status: Mental Status NL, Mood NL Results Lab Laboratory Tests 09/05/20 06:23: White Blood Count 11.4H, Red Blood Count 2.67L, Hemoglobin 8.9L, Hematocrit 28L, Mean Corpuscular Volume 105H, Mean Corpuscular Hemoglobin 33, Mean Corpuscular Hemoglobin Concent 32, Red Cell Distribution Width 14.2, Platelet Count 365, Mean Platelet Volume 9.5, Immature Granulocyte % (Auto) 0, Neutrophils (%) (Auto) 80H, Lymphocytes (%) (Auto) 9L, Monocytes (%) (Auto) 7, Eosinophils (%) (Auto) 4, Basophils (%) (Auto) 0, Neutrophils # (Auto) 9.1H, Lymphocytes # (Auto) 1.0, Monocytes # (Auto) 0.8, Eosinophils # (Auto) 0.5H, Basophils # (Auto) 0.1, Immature Granulocyte # (Auto) 0.0, Neutrophils % (Manual) 80, Lymphocytes % (Manual) 9, Monocytes % (Manual) 5, Eosinophils % (Manual) 4, Atypical Lymphocytes 2, Polychromasia SLIGHT, Basophilic Stippling SLIGHT, Microcytosis MODERATE, Schistocytes SLIGHT, Sodium Level 133L, Potassium Level 4.0, Chloride Level 100, Carbon Dioxide Level 21, Anion Gap 12, Blood Urea Nitrogen 23H, Creatinine 1.84H, Estimat Glomerular Filtration Rate 37, BUN/Creatinine Ratio 13, Glucose Level 124H, Calcium Level 8.3L, Corrected Calcium 9.3, Phosphorus Level 4.0, Magnesium Level 1.6, Total Bilirubin 0.3, Aspartate Amino Transf (AST/SGOT) 14, Alanine Aminotransferase (ALT/SGPT) 21, Alkaline Phosphatase 176H, Total Protein 6.0L, Albumin 2.8L Assessment/Plan Assessment/Plan Assess & Plan/Chief Complaint Assessment: Hypoxia with increased O2 requirements following EGD/Colonoscopy by Dr Bowman Anemia s/p 1 unit of blood last week h/o Polycythemia holding Hydrea and consulting Dr Oreilly HTN malignant type MARYANN on [facility] HLP COPD Smoker Plan: O2 Vapotherm Dr Tamez Cardiology Increase BP meds Lasix 09/03/20: Monitor creatinine Lasix 40mg IV BID Cardiology and Pulmonology consultations appreciated Vapotherm 09/04/20: Vapotherm wean Monitor volume overload 09/05/20: Swing bed tomorrow Rehab Friday Updated daughter 15 minutes Diagnosis/Problems Diagnosis/Problems (1) Hypoxia Status: Acute (2) Flash pulmonary edema Clinical Quality Measures DVT/VTE Risk/Contraindication: Risk Factor Score Per Nursin RFS Level Per Nursing on Admit: 4+=Very High KIMBERLEE MENJIVAR DO Sep 05, 2020 10:20
[2020-09-05] MEDS ORDERED: doxAzosin 4 MG (CARDURA) TAB PO NR (10:30)
[2020-09-05] MEDS ORDERED: doxAzosin 2 MG (CARDURA) TAB PO NR (10:30)
[2020-09-05] MEDS: ADVAIR HFA 115/21 MCG INHALER 8 GM IH SCH ×2 (11:48→18:24)
[2020-09-05 12:00] VITALS: BP 172/74
--- NOTE | 2020-09-05 13:14 | Physical Therapy Daily Note ---
PT Daily Note-Current Subjective Patient is very agreeable to participate with therapy. He reports he is feeling much better. Mental Status Patient Orientation: Normal For Age Attachments: Oxygen (3L NC HF) Transfers SCALE: Activities may be completed with or without assistive devices. 4-Audereawam-ttzhpyp completes the activity by him/herself with no assistance from a helper. 5-Set-up or Clean-up Assistance-helper sets up or cleans up; patient completes activity. [place] assists only prior to or following the activity. 4-Supervision or Touching Assistance-helper provides verbal cues and/or touching/steadying and/or contact guard assistance as patient completes activity. Assistance may be provided throughout the activity or intermittently. 3-Partial/Moderate Assistance-helper does LESS THAN HALF the effort. [place] lifts, holds or supports trunk or limbs, but provides less than half the effort. 2-Substantial/Maximal Assistance-helper does MORE THAN HALF the effort. [place] lifts or holds trunk or limbs and provides more than half the effort. 6-Kudzjdgri-cqnbrl does ALL the effort. Patient does none of the effort to complete the activity. Or, the assistance of 2 or more helpers is required for the patient to complete the activity. If activity was not attempted, code reason: 7-Patient Refused. 9-Not Applicable-not attempted and the patient did not perform the activity before the current illness, exacerbation or injury. 10-Not Attempted due to Environmental Limitations-(lack of equipment, weather restraints, etc.). 88-Not Attempted due to Medical Conditions or Safety Concerns. Sit to Stand (QC): 4 Gait Training Does the Patient Walk?: Yes Distance: 150' Walk 10 feet (QC): 4 Walk 50 ft with 2 Turns(QC): 4 Walk 150 ft (QC): 4 Gait Assistive Device: FWW safe and functional with no deviation/SAO2 decreased to 87% with quick recovery to 93% on 3L O2 NC HF Exercises Seated Therapy Exercises: Ankle pumps, Long arc quads, Hip flexion Seated Reps: 15 Standing: Marching Standing Reps: 15 Assessment Patient much improved with pulmonary function with activity. PT to increase activity as tolerated by patient. 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 Goals PT Detention Goals Time Frame: Sep 23, 2020 Roll Left & Right (QC): 6 Sit to Lying (QC): 6 Lying-Sitting on Side/Bed(QC): 6 Sit to Stand (QC): 6 Chair/Eko-qm-Vbbne Xfer(QC): 6 Toilet Transfer (QC): 6 Car Transfer (QC): 6 Does the Patient Walk: Yes Walk 10 feet (QC): 6 Walk 50ft with 2 Turns (QC): 6 Walk 150 ft (QC): 6 PT Plan Treatment/Plan Treatment Plan: Continue Plan of Care Treatment Plan: Bed Mobility, Education, Functional Activity Adriana, Functional Strength, Gait, Safety, Therapeutic Exercise, Transfers Treatment Duration: Sep 23, 2020 Frequency: 6 times per week Estimated Hrs Per Day: .5 hour per day Patient and/or Family Agrees t: Yes Time/GCodes Time In: 1110 Time Out: 1133 Total Billed Treatment Time: 23 Total Billed Treatment 1 visit FA 12 min EX 11 min SANDRA FALLON PT Sep 05, 2020 13:14
--- NOTE | 2020-09-05 15:18 | Occupational Ther Daily Note ---
OT Current Status-Daily Note Subjective No pain reported. Mental Status/Objective Patient Orientation: Person, Place, Time, Situation ADL-Treatment Therapy Code Descriptions/Definitions Functional [place] Measure: 0=Not Assessed/NA 4=Minimal Assistance 1=Total Assistance 5=Supervision or Setup 2=Maximal Assistance 6=Modified [place] 3=Moderate Assistance 7=Complete IndependenceSCALE: Activities may be completed with or without assistive devices. 6-Vykuexbpsp-clngvkt completes the activity by him/herself with no assistance from a helper. 5-Set-up or Clean-up Assistance-helper sets up or cleans up; patient completes activity. [place] assists only prior to or following the activity. 4-Supervision or Touching Assistance-helper provides verbal cues and/or touching/steadying and/or contact guard assistance as patient completes activity. Assistance may be provided throughout the activity or intermittently. 3-Partial/Moderate Assistance-helper does LESS THAN HALF the effort. [place] lifts, holds or supports trunk or limbs, but provides less than half the effort. 2-Substantial/Maximal Assistance-helper does MORE THAN HALF the effort. [place] lifts or holds trunk or limbs and provides more than half the effort. 7-Mesquhboq-qpdldw does ALL the effort. Patient does none of the effort to complete the activity. Or, the assistance of 2 or more helpers is required for the patient to complete the activity. If activity was not attempted, code reason: 7-Patient Refused. 9-Not Applicable-not attempted and the patient did not perform the activity before the current illness, exacerbation or injury. 10-Not Attempted due to Environmental Limitations-(lack of equipment, weather restraints, etc.). 88-Not Attempted due to Medical Conditions or Safety Concerns. Shower/Bathe Self (QC): 3 Other Treatment Pt. is sitting up in reclining chair with feet elevated. Pt. currently on 2 L 02. Sats are at 90%. Declines showering stating that he is too tired, but agrees to light sponge bath. Pt. on 02 sat monitor throughout, and sats drop to 85%. Pt. cued to breathe and to take his time. OT turned oxygen up to 3L, and sats came up to 91%. OT assisted with bathing rear canelo area and back. Pt. able to bathe front canelo area and under arms with rest breaks. OT did not doff MICHAEL wraps and cleanse LE due to pt. needing to rest. All needs were met up in chair. 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 2=Patient will verbalize/demonstrate understanding of assistive devices/modifications for ADL. 3=Patient will improve strength/tolerance for activity to enable patient to perform ADL's. OT Education/Plan Problem List/Assessment Assessment: Decreased Activ Tolerance, Dependent Transfers, Impaired I ADL's, Impaired Self-Care Skills Discharge Recommendations Plan/Recommendations: Continue POC Therapy Discharge Recommendati: Post Acute OT Treatment Plan/Plan of Care Treatment,Training & Education: Yes Patient would benefit from OT for education, treatment and training to promote independence in ADL's, mobility, safety and/or upper extremity function for ADL's. Plan of Care: ADL Retraining, Functional Mobility, UE Funct Exercise/Act Treatment Duration: Sep 23, 2020 Frequency: 5 times per week Estimated Hrs Per Day: .5 hour per day Agreement: Yes Rehab Potential: Fair Time/GCodes Start Time: 13:20 Stop Time: 13:45 Total Time Billed (hr/min): 25 Billed Treatment Time 1, ADL x 2 WOO RODRIGUEZ OT Sep 05, 2020 15:18
[2020-09-05 15:44] VITALS: BP 180/78
--- NOTE | 2020-09-05 17:54 | Progress Note - Cardiology ---
Cardiology SOAP Progress Note Subjective: Gen malaise present No cp or palp or syncope or shortness of breath at rest No n/v/d Objective: I&O/Vital Signs 09/05/20 09/05/20 09/05/20 09/05/20 06:52 07:00 08:00 08:00 Temp 37.1 Pulse 91 84 Resp 20 B/P (MAP) 179/74 (109) Pulse Ox 94 93 93 O2 Delivery Nasal Cannula High Flow N/C High Flow N/C O2 Flow Rate 3.00 3.00 3.00 09/05/20 09/05/20 09/05/20 09/05/20 11:48 12:00 12:49 14:50 Temp 36.9 Pulse 83 85 Resp 20 B/P (MAP) 172/74 (106) Pulse Ox 94 93 92 O2 Delivery Nasal Cannula High Flow N/C Nasal Cannula O2 Flow Rate 2.00 3.00 3.00 09/05/20 15:44 Temp 36.2 Pulse 85 Resp 18 B/P (MAP) 180/78 (112) Pulse Ox 93 O2 Delivery High Flow N/C O2 Flow Rate 2.00 09/05/20 00:00 Intake Total 1870 ml Output Total 2725 ml Balance -855 ml Constitutional: AAO x 3; No apparent distress Respiratory: other (good air entry, diminished at the bases) Cardiovascular: regular rate-rhythm, S1 and S2, systolic murmur (soft ZAK at the card base) Gastrointestional: soft; No tenderness; audible bowel sounds Extremities: no lower extremity edema bilateral Neurologic/Psychiatric: alert, other (moves all limbs equally) Skin: No rash on exposed areas, No ulcerations on exposed areas Results/Procedures: Labs Laboratory Tests 09/05/20 06:23: White Blood Count 11.4H, Red Blood Count 2.67L, Hemoglobin 8.9L, Hematocrit 28L, Mean Corpuscular Volume 105H, Mean Corpuscular Hemoglobin 33, Mean Corpuscular Hemoglobin Concent 32, Red Cell Distribution Width 14.2, Platelet Count 365, Mean Platelet Volume 9.5, Immature Granulocyte % (Auto) 0, Neutrophils (%) (Auto) 80H, Lymphocytes (%) (Auto) 9L, Monocytes (%) (Auto) 7, Eosinophils (%) (Auto) 4, Basophils (%) (Auto) 0, Neutrophils # (Auto) 9.1H, Lymphocytes # (Auto) 1.0, Monocytes # (Auto) 0.8, Eosinophils # (Auto) 0.5H, Basophils # (Auto) 0.1, Immature Granulocyte # (Auto) 0.0, Neutrophils % (Manual) 80, Lymphocytes % (Manual) 9, Monocytes % (Manual) 5, Eosinophils % (Manual) 4, Atypical Lymphocytes 2, Polychromasia SLIGHT, Basophilic Stippling SLIGHT, Micro cytosis MODERATE, Schistocytes SLIGHT, Sodium Level 133L, Potassium Level 4.0, Chloride Level 100, Carbon Dioxide Level 21, Anion Gap 12, Blood Urea Nitrogen 23H, Creatinine 1.84H, Estimat Glomerular Filtration Rate 37, BUN/Creatinine Ra rad 13, Glucose Level 124H, Calcium Level 8.3L, Corrected Calcium 9.3, Phosphorus Level 4.0, Magnesium Level 1.6, Total Bilirubin 0.3, Aspartate Amino Transf (AST/SGOT) 14, Alanine Aminotransferase (ALT/SGPT) 21, Alkaline Phosphatase 176H, Total Protein 6.0L, Albumin 2.8L Laboratory Tests 09/04/20 04:35 09/05/20 06:23 A/P: Assessment: Ac resp failure / hypoxemia following endoscopy for eval for anemia on 09/02/20 Severe hypertension. Malignant hypertension in Jun 2020 leading to ac diastolic CHF at that time, echocardiogram showed normal left ventricular systolic function, grade 2 diastolic dysfunction, mild aortic valve stenosis, pulmonary hypertension with PA pressure 40-45 mmHg CKD - IV. Not suitable of MICHAEL-ihib / ARB Anemia of undetermined etiology, managed by Dr Tam H/o recent alcohol withdrawal syndrome (Jun 2020) Mild elevation in troponin, type II myocardial infarction secondary to malignant hypertension and hypertensive heart disease Plan: * Complex management * Continue to titrate med for further control of bp - increase BB, stop Clonidine to reduce risk of bradycardia, add Doxazosin * Monitor labs DEANNA FLORES MD FACP [facility] Sep 05, 2020 17:54
[2020-09-05] MEDS: TAMSULOSIN 0.4 MG (FLOMAX) CAP PO SCH (18:14)
[2020-09-05] MEDS: ALPRAZolam 0.25 MG (XANAX) TAB PO PRN (19:58)
[2020-09-05] MEDS: doxAzosin 2 MG (CARDURA) TAB PO SCH (19:58)
[2020-09-05 20:08] VITALS: BP 171/72
[2020-09-05] MEDS ORDERED: meTOprolol SUCCINATE 100 MG (TOPROL XL) TAB PO SCH (21:00)
[2020-09-05 23:43] VITALS: BP 175/73
[2020-09-06] MEDS: RT-ALBUTEROL/IPRATROPIUM 3 ML (DUONEB) VIAL INH SCH ×3 (02:44→10:52)
[2020-09-06] MEDS: ALPRAZolam 0.25 MG (XANAX) TAB PO PRN (03:41)
[2020-09-06 04:03] VITALS: BP 155/69
[2020-09-06 04:52] LABS: BASOPHILS # (AUTO) 0.1 10^3/uL (0.0-0.1); BASOPHILS % (AUTO) 1 % (0-10); EOSINOPHILS # (AUTO) 0.5 10^3/uL (0.0-0.3); EOSINOPHILS % (AUTO) 5 % (0-10); HEMATOCRIT 25 % (40-54); HEMOGLOBIN 8.2 g/dL (13.3-17.7); LYMPHOCYTES # (AUTO) 1.4 10^3/uL (1.0-4.0); LYMPHOCYTES % (AUTO) 14 % (12-44); MEAN CORPUSCULAR HEMOGLOBIN 34 pg (25-34); MEAN CORPUSCULAR HGB CONC 33 g/dL (32-36); MEAN CORPUSCULAR VOLUME 104 fL (80-99); MEAN PLATELET VOLUME 9.9 fL (9.0-12.2); MONOCYTES # (AUTO) 0.8 10^3/uL (0.0-1.0); MONOCYTES % (AUTO) 8 % (0-12); NEUTROPHILS # (AUTO) 7.2 10^3/uL (1.8-7.8); NEUTROPHILS % (AUTO) 72 % (42-75); PLATELET COUNT 336 10^3/uL (130-400); WHITE BLOOD COUNT 10.1 10^3/uL (4.3-11.0)
[2020-09-06 05:07] LABS: ALBUMIN 2.6 GM/DL (3.2-4.5)
[2020-09-06 05:08] LABS: CALCIUM 7.9 MG/DL (8.5-10.1)
[2020-09-06 05:10] LABS: TOTAL PROTEIN 5.5 GM/DL (6.4-8.2)
[2020-09-06 05:11] LABS: BILIRUBIN,TOTAL 0.3 MG/DL (0.1-1.0)
[2020-09-06 05:13] LABS: CREATININE SERUM 1.94 MG/DL (0.60-1.30)
[2020-09-06] MEDS: FUROSEMIDE 40 MG/4 ML INJ (LASIX) IVP SCH (06:37)
--- NOTE | 2020-09-06 06:53 | Pulmonary Progress Note ---
Subjective Date Seen by a Provider: Sep 05, 2020 (Late note ) Time Seen by a Provider: 06:52 Subjective/Events-last exam Pt appears to be doing better and is requiring less oxygen. Sepsis Event Evaluation Height, Weight, BMI Height: '" Weight: lbs. oz. kg; 29.61 BMI Method: Exam Exam Vital Signs Date Time Temp Pulse Resp B/P (MAP) Pulse Ox O2 Delivery O2 Flow Rate FiO2 09/06/20 04:03 36.2 80 18 155/69 (97) 93 High Flow N/C 4.00 09/06/20 02:44 95 Nasal Cannula 5.00 09/06/20 01:00 77 09/05/20 23:43 37.7 86 18 175/73 (107) 92 High Flow N/C 4.00 09/05/20 22:19 95 Nasal Cannula 5.00 09/05/20 20:08 36.2 91 18 171/72 (105) 93 High Flow N/C 4.00 09/05/20 20:00 93 High Flow N/C 4.00 09/05/20 19:00 94 09/05/20 18:24 92 Nasal Cannula 4.00 09/05/20 18:20 90 Nasal Cannula 3.00 09/05/20 15:44 36.2 85 18 180/78 (112) 93 High Flow N/C 2.00 09/05/20 14:50 92 Nasal Cannula 3.00 09/05/20 12:49 85 09/05/20 12:00 36.9 83 20 172/74 (106) 93 High Flow N/C 3.00 09/05/20 11:48 94 Nasal Cannula 2.00 09/05/20 08:00 37.1 84 20 179/74 (109) 93 High Flow N/C 3.00 09/05/20 08:00 93 High Flow N/C 3.00 09/05/20 07:00 91 09/05/20 06:52 94 Nasal Cannula 3.00 I & O 09/06/20 07:00 Intake Total 2230 ml Output Total 2975 ml Balance -745 ml Height & Weight Height: '" Weight: lbs. oz. kg; 29.61 BMI Method: General Appearance: No Apparent Distress, WD/WN, Chronically ill HEENT: PERRL/EOMI, Normal ENT Inspection, Pharynx Normal Neck: Full Range of Motion, Normal Inspection, Non Tender, Supple, Carotid Bruit Respiratory: Chest Non Tender, Lungs Clear, No Accessory Muscle Use, No Respiratory Distress, Decreased Breath Sounds Cardiovascular: Regular Rate, Rhythm, No Gallop, No JVD, No Murmur, Normal Peripheral Pulses Capillary Refill: Less Than 3 Seconds Gastrointestinal: normal bowel sounds, non tender, soft Extremity: Pedal Edema Neurologic/Psychiatric: Alert, Oriented x3, No Motor/Sensory Deficits, Normal Mood/Affect Skin: Normal Color, Warm/Dry Lymphatic: No Adenopathy Results Lab Laboratory Tests 09/05/20 06:23 09/06/20 04:15 Assessment/Plan Assessment/Plan Acute respiratory distress with hypoxemia -Now off Vapotherm. Hx of COPD -Breathing treatments -Add advair Grade II CHF -Lasix Hx of tobacco use Anemia s/P EGD and colonoscopy hx of polycythemia -Follows with Dr. Denilson Uribe on chronic renal failure -Monitor HTN MAGNUS KINNEY DO Sep 06, 2020 06:53
--- NOTE | 2020-09-06 06:54 | Pulmonary Progress Note ---
Subjective Time Seen by a Provider: 06:53 Subjective/Events-last exam Pt is doing better. Sepsis Event Evaluation Height, Weight, BMI Height: '" Weight: lbs. oz. kg; 29.61 BMI Method: Exam Exam Vital Signs Date Time Temp Pulse Resp B/P (MAP) Pulse Ox O2 Delivery O2 Flow Rate FiO2 09/06/20 04:03 36.2 80 18 155/69 (97) 93 High Flow N/C 4.00 09/06/20 02:44 95 Nasal Cannula 5.00 09/06/20 01:00 77 09/05/20 23:43 37.7 86 18 175/73 (107) 92 High Flow N/C 4.00 09/05/20 22:19 95 Nasal Cannula 5.00 09/05/20 20:08 36.2 91 18 171/72 (105) 93 High Flow N/C 4.00 09/05/20 20:00 93 High Flow N/C 4.00 09/05/20 19:00 94 09/05/20 18:24 92 Nasal Cannula 4.00 09/05/20 18:20 90 Nasal Cannula 3.00 09/05/20 15:44 36.2 85 18 180/78 (112) 93 High Flow N/C 2.00 09/05/20 14:50 92 Nasal Cannula 3.00 09/05/20 12:49 85 09/05/20 12:00 36.9 83 20 172/74 (106) 93 High Flow N/C 3.00 09/05/20 11:48 94 Nasal Cannula 2.00 09/05/20 08:00 37.1 84 20 179/74 (109) 93 High Flow N/C 3.00 09/05/20 08:00 93 High Flow N/C 3.00 09/05/20 07:00 91 I & O 09/06/20 07:00 Intake Total 2230 ml Output Total 2975 ml Balance -745 ml Height & Weight Height: '" Weight: lbs. oz. kg; 29.61 BMI Method: General Appearance: No Apparent Distress, WD/WN, Chronically ill HEENT: PERRL/EOMI, Normal ENT Inspection, Pharynx Normal Neck: Full Range of Motion, Normal Inspection, Non Tender, Supple, Carotid Bruit Respiratory: Chest Non Tender, Lungs Clear, No Accessory Muscle Use, No Respiratory Distress, Decreased Breath Sounds Cardiovascular: Regular Rate, Rhythm, No Gallop, No JVD, No Murmur, Normal Peripheral Pulses Capillary Refill: Less Than 3 Seconds Gastrointestinal: normal bowel sounds, non tender, soft Extremity: Pedal Edema Neurologic/Psychiatric: Alert, Oriented x3, No Motor/Sensory Deficits, Normal Mood/Affect Skin: Normal Color, Warm/Dry Lymphatic: No Adenopathy Results Lab Laboratory Tests 09/05/20 06:23 09/06/20 04:15 Assessment/Plan Assessment/Plan Acute respiratory distress with hypoxemia -- much improved -Pt on NC Hx of COPD -Breathing treatments -advair Grade II CHF -Lasix Hx of tobacco use Anemia s/P EGD and colonoscopy hx of polycythemia -Follows with Dr. Denilson Uribe on chronic renal failure -Monitor HTN MAGNUS KINNEY DO Sep 06, 2020 06:54
[2020-09-06] MEDS: ADVAIR HFA 115/21 MCG INHALER 8 GM IH SCH (06:55)
[2020-09-06] MEDS ORDERED: AMLO-250 PO (06:59)
[2020-09-06] MEDS ORDERED: FURO10VI IVP (06:59)
[2020-09-06] MEDS ORDERED: DOXA2TAB2 PO (06:59)
[2020-09-06] MEDS ORDERED: TMSL.4C PO (06:59)
[2020-09-06] MEDS ORDERED: MTP100TCR PO ×2 (06:59)
[2020-09-06] MEDS ORDERED: IRON100V2 IV (06:59)
[2020-09-06] MEDS ORDERED: CLN.1T PO (06:59)
[2020-09-06] MEDS ORDERED: IPRA3AMP31 INH (06:59)
[2020-09-06] MEDS ORDERED: FLUT12AE4 IH (06:59)
--- NOTE | 2020-09-06 07:01 | Discharge Summary ---
Diagnosis/Chief Complaint Date of Admission Sep 02, 2020 at 12:40 Date of Discharge Discharge Date: Sep 06, 2020 Discharge Diagnosis Assessment: Hypoxia with increased O2 requirements following EGD/Colonoscopy by Dr Bowman Anemia s/p 1 unit of blood last week h/o Polycythemia holding Hydrea and consulting Dr Oreilly HTN malignant type MARYANN on CRI HLP COPD Smoker Plan: O2 Vapotherm Dr Tamez Cardiology Increase BP meds Lasix 09/03/20: Monitor creatinine Lasix 40mg IV BID Cardiology and Pulmonology consultations appreciated Vapotherm 09/04/20: Vapotherm wean Monitor volume overload 09/05/20: Swing bed tomorrow Rehab Friday Updated daughter 15 minutes Discharge Summary Discharge Physical Examination Allergies: Coded Allergies: No Known Drug Allergies (Unverified , 02/11/18) Vitals & I&Os Vital Signs Date Time Temp Pulse Resp B/P (MAP) Pulse Ox O2 Delivery O2 Flow Rate FiO2 09/06/20 18:29 94 Nasal Cannula 4.00 09/06/20 08:00 35.7 82 20 185/78 (113) 09/04/20 14:08 40 General Appearance: Alert, Oriented X3, Cooperative Respiratory: Clear to Auscultation Cardiovascular: Regular Rate Psych/Mental Status: Mental Status NL Hospital Course Was the Problem List Reviewed?: Yes Long hospital course after moving from IRF to 4th floor on 09/02/20 due to increasing O2 requirements and volume overload. IV Lasix maintained and BP meds changed for better control. Vapotherm was needed for several days but patient was weaned down to O2 by 3L/min and labs remained stable including CRI so he was deemed stable for SB transition and will be a candidate for IRF when able. Labs (last 24 hrs) Laboratory Tests 09/02/20 14:12: Blood Gas Puncture Site LT RAD, Blood Gas Patient Temperature 37, Arterial Blood pH 7.36L, Arterial Blood Partial Pressure CO2 40, Arterial Blood Partial Pressure O2 44L, Arterial Blood HCO3 22L, Arterial Blood Total CO2 23.0, Arterial Blood Oxygen Saturation 67L, Arterial Blood Base Excess -2.8L, Zenon Test YES-POS, Blood Gas Ventilator Setting NO, Blood Gas Inspired Oxygen 10 09/03/20 05:30: White Blood Count 6.6, Red Blood Count 2.53L, Hemoglobin 8.6L, Hematocrit 27L, Mean Corpuscular Volume 106H, Mean Corpuscular Hemoglobin 34, Mean Corpuscular Hemoglobin Concent 32, Red Cell Distribution Width 14.6H, Platelet Count 377, Mean Platelet Volume 9.8, Immature Granulocyte % (Auto) 1, Neutrophils (%) (Auto) 65, Lymphocytes (%) (Auto) 18, Monocytes (%) (Auto) 10, Eosinophils (%) (Auto) 6, Basophils (%) (Auto) 1, Neutrophils # (Auto) 4.3, Lymphocytes # (Auto) 1.2, Monocytes # (Auto) 0.7, Eosinophils # (Auto) 0.4H, Basophils # (Auto) 0.0, Immature Granulocyte # (Auto) 0.0, Sodium Level 136, Potassium Level 4.0, Chloride Level 106, Carbon Dioxide Level 19L, Anion Gap 11, Blood Urea Nitrogen 23H, Creatinine 1.80H, Estimat Glomerular Filtration Rate 38, BUN/Creatinine Ratio 13, Glucose Level 96, Calcium Level 8.0L, Corrected Calcium 9.1, Phosphorus Level 5.0H, Magnesium Level 1.5L, Total Bilirubin 0.3, Aspartate Amino Transf (AST/SGOT) 17, Alanine Aminotransferase (ALT/SGPT) 26, Alkaline Phosphatase 187H, Total Protein 5.6L, Albumin 2.6L 09/03/20 06:31: Blood Gas Puncture Site LEFT RADIAL, Blood Gas Patient Temperature 37, Arterial Blood pH 7.35L, Arterial Blood Partial Pressure CO2 43, Arterial Blood Partial Pressure O2 47L, Arterial Blood HCO3 23, Arterial Blood Total CO2 24.0, Arterial Blood Oxygen Saturation 72L, Arterial Blood Base Excess -2.2, Zenon Test POSITIVE, Blood Gas Ventilator Setting NO, Blood Gas Inspired Oxygen 80% 09/04/20 04:35: White Blood Count 7.6, Red Blood Count 2.45L, Hemoglobin 8.2L, Hematocrit 26L, Mean Corpuscular Volume 106H, Mean Corpuscular Hemoglobin 34, Mean Corpuscular Hemoglobin Concent 32, Red Cell Distribution Width 14.3, Platelet Count 365, Mean Platelet Volume 10.0, Immature Granulocyte % (Auto) 1, Neutrophils (%) (Auto) 70, Lymphocytes (%) (Auto) 15, Monocytes (%) (Auto) 9, Eosinophils (%) (Auto) 5, Basophils (%) (Auto) 1, Neutrophils # (Auto) 5.3, Lymphocytes # (Auto) 1.2, Monocytes # (Auto) 0.7, Eosinophils # (Auto) 0.4H, Basophils # (Auto) 0.0, Immature Granulocyte # (Auto) 0.0, Sodium Level 135, Potassium Level 3.8, Chloride Level 104, Carbon Dioxide Level 21, Anion Gap 10, Blood Urea Nitrogen 23H, Creatinine 2.07H, Estimat Glomerular Filtration Rate 32, BUN/Creatinine Ratio 11, Glucose Level 156H, Calcium Level 7.8L, Corrected Calcium 9.0, Phosphorus Level 4.7, Magnesium Level 1.7, Total Bilirubin 0.2, Aspartate Amino Transf (AST/SGOT) 11, Alanine Aminotransferase (ALT/SGPT) 22, Alkaline Phosphatase 162H, Total Protein 5.3L, Albumin 2.5L, Procalcitonin 0.09 09/05/20 06:23: White Blood Count 11.4H, Red Blood Count 2.67L, Hemoglobin 8.9L, Hematocrit 28L, Mean Corpuscular Volume 105H, Mean Corpuscular Hemoglobin 33, Mean Corpuscular Hemoglobin Concent 32, Red Cell Distribution Width 14.2, Platelet Count 365, Mean Platelet Volume 9.5, Immature Granulocyte % (Auto) 0, Neutrophils (%) (Auto) 80H, Lymphocytes (%) (Auto) 9L, Monocytes (%) (Auto) 7, Eosinophils (%) (Auto) 4, Basophils (%) (Auto) 0, Neutrophils # (Auto) 9.1H, Lymphocytes # (Auto) 1.0, Monocytes # (Auto) 0.8, Eosinophils # (Auto) 0.5H, Basophils # (Auto) 0.1, Immature Granulocyte # (Auto) 0.0, Neutrophils % (Manual) 80, Lymphocytes % (Manual) 9, Monocytes % (Manual) 5, Eosinophils % (Manual) 4, Atypical Lymphocytes 2, Polychromasia SLIGHT, Basophilic Stippling SLIGHT, Microcytosis MODERATE, Schistocytes SLIGHT, Sodium Level 133L, Potassium Level 4.0, Chloride Level 100, Carbon Dioxide Level 21, Anion Gap 12, Blood Urea Nitrogen 23H, Creatinine 1.84H, Estimat Glomerular Filtration Rate 37, BUN/Creatinine Ratio 13, Glucose Level 124H, Calcium Level 8.3L, Corrected Calcium 9.3, Phosphorus Level 4.0, Magnesium Level 1.6, Total Bilirubin 0.3, Aspartate Amino Transf (AST/SGOT) 14, Alanine Aminotransferase (ALT/SGPT) 21, Alkaline Phosphatase 176H, Total Protein 6.0L, Albumin 2.8L 09/06/20 04:15: White Blood Count 10.1, Red Blood Count 2.41L, Hemoglobin 8.2L, Hematocrit 25L, Mean Corpuscular Volume 104H, Mean Corpuscular Hemoglobin 34, Mean Corpuscular Hemoglobin Concent 33, Red Cell Distribution Width 13.9, Platelet Count 336, Mean Platelet Volume 9.9, Immature Granulocyte % (Auto) 1, Neutrophils (%) (Auto) 72, Lymphocytes (%) (Auto) 14, Monocytes (%) (Auto) 8, Eosinophils (%) (Auto) 5, Basophils (%) (Auto) 1, Neutrophils # (Auto) 7.2, Lymphocytes # (Auto) 1.4, Monocytes # (Auto) 0.8, Eosinophils # (Auto) 0.5H, Basophils # (Auto) 0.1, Immature Granulocyte # (Auto) 0.1, Sodium Level 136, Potassium Level 4.0, Chloride Level 101, Carbon Dioxide Level 22, Anion Gap 13, Blood Urea Nitrogen 29H, Creatinine 1.94H, Estimat Glomerular Filtration Rate 35, BUN/Creatinine Ra rad 15, Glucose Level 110H, Calcium Level 7.9L, Corrected Calcium 9.0, Total Bilirubin 0.3, Aspartate Amino Transf (AST/SGOT) 14, Alanine Aminotransferase (ALT/SGPT) 18, Alkaline Phosphatase 158H, Total Protein 5.5L, Albumin 2.6L 09/06/20 11:21: Glucometer 131H Pending Labs Laboratory Tests 09/02/20 14:12: Blood Gas Puncture Site LT RAD, Blood Gas Patient Temperature 37, Arterial Blood pH 7.36, Arterial Blood Partial Pressure CO2 40, Arterial Blood Partial Pressure O2 44, Arterial Blood HCO3 22, Arterial Blood Total CO2 23.0, Arterial Blood Oxygen Saturation 67, Arterial Blood Base Excess -2.8, Zenon Test YES-POS, Blood Gas Ventilator Setting NO, Blood Gas Inspired Oxygen 10 09/03/20 05:30: White Blood Count 6.6, Red Blood Count 2.53, Hemoglobin 8.6, Hematocrit 27, Mean Corpuscular Volume 106, Mean Corpuscular Hemoglobin 34, Mean Corpuscular Hemoglobin Concent 32, Red Cell Distribution Width 14.6, Platelet Count 377, Mean Platelet Volume 9.8, Immature Granulocyte % (Auto) 1, Neutrophils (%) (Auto) 65, Lymphocytes (%) (Auto) 18, Monocytes (%) (Auto) 10, Eosinophils (%) (Auto) 6, Basophils (%) (Auto) 1, Neutrophils # (Auto) 4.3, Lymphocytes # (Auto) 1.2, Monocytes # (Auto) 0.7, Eosinophils # (Auto) 0.4, Basophils # (Auto) 0.0, Immature Granulocyte # (Auto) 0.0, Sodium Level 136, Potassium Level 4.0, Chloride Level 106, Carbon Dioxide Level 19, Anion Gap 11, Blood Urea Nitrogen 23, Creatinine 1.80, Estimat Glomerular Filtration Rate 38, BUN/Creatinine Ratio 13, Glucose Level 96, Calcium Level 8.0, Corrected Calcium 9.1, Phosphorus Level 5.0, Magnesium Level 1.5, Total Bilirubin 0.3, Aspartate Amino Transf (AST/SGOT) 17, Alanine Aminotransferase (ALT/SGPT) 26, Alkaline Phosphatase 187, Total Protein 5.6, Albumin 2.6 09/03/20 06:31: Blood Gas Puncture Site LEFT RADIAL, Blood Gas Patient Temperature 37, Arterial Blood pH 7.35, Arterial Blood Partial Pressure CO2 43, Arterial Blood Partial Pressure O2 47, Arterial Blood HCO3 23, Arterial Blood Total CO2 24.0, Arterial Blood Oxygen Saturation 72, Arterial Blood Base Excess -2.2, Zenon Test POSITIVE, Blood Gas Ventilator Setting NO, Blood Gas Inspired Oxygen 80% 09/04/20 04:35: White Blood Count 7.6, Red Blood Count 2.45, Hemoglobin 8.2, Hematocrit 26, Mean Corpuscular Volume 106, Mean Corpuscular Hemoglobin 34, Mean Corpuscular Hemoglobin Concent 32, Red Cell Distribution Width 14.3, Platelet Count 365, Mean Platelet Volume 10.0, Immature Granulocyte % (Auto) 1, Neutrophils (%) (Auto) 70, Lymphocytes (%) (Auto) 15, Monocytes (%) (Auto) 9, Eosinophils (%) (Auto) 5, Basophils (%) (Auto) 1, Neutrophils # (Auto) 5.3, Lymphocytes # (Auto) 1.2, Monocytes # (Auto) 0.7, Eosinophils # (Auto) 0.4, Basophils # (Auto) 0.0, Immature Granulocyte # (Auto) 0.0, Sodium Level 135, Potassium Level 3.8, Chloride Level 104, Carbon Dioxide Level 21, Anion Gap 10, Blood Urea Nitrogen 23, Creatinine 2.07, Estimat Glomerular Filtration Rate 32, BUN/Creatinine Ratio 11, Glucose Level 156, Calcium Level 7.8, Corrected Calcium 9.0, Phosphorus Level 4.7, Magnesium Level 1.7, Total Bilirubin 0.2, Aspartate Amino Transf (AST/SGOT) 11, Alanine Aminotransferase (ALT/SGPT) 22, Alkaline Phosphatase 162, Total Protein 5.3, Albumin 2.5, Procalcitonin 0.09 09/05/20 06:23: White Blood Count 11.4, Red Blood Count 2.67, Hemoglobin 8.9, Hematocrit 28, Mean Corpuscular Volume 105, Mean Corpuscular Hemoglobin 33, Mean Corpuscular Hemoglobin Concent 32, Red Cell Distribution Width 14.2, Platelet Count 365, Mean Platelet Volume 9.5, Immature Granulocyte % (Auto) 0, Neutrophils (%) (Auto) 80, Lymphocytes (%) (Auto) 9, Monocytes (%) (Auto) 7, Eosinophils (%) (Auto) 4, Basophils (%) (Auto) 0, Neutrophils # (Auto) 9.1, Lymphocytes # (Auto) 1.0, Monocytes # (Auto) 0.8, Eosinophils # (Auto) 0.5, Basophils # (Auto) 0.1, Immature Granulocyte # (Auto) 0.0, Neutrophils % (Manual) 80, Lymphocytes % (Ma nual) 9, Monocytes % (Manual) 5, Eosinophils % (Manual) 4, Atypical Lymphocytes 2, Polychromasia SLIGHT, Basophilic Stippling SLIGHT, Microcytosis MODERATE, Schistocytes SLIGHT, Sodium Level 133, Potassium Level 4.0, Chloride Level 100, Carbon Dioxide Level 21, Anion Gap 12, Blood Urea Nitrogen 23, Creatinine 1.84, Estimat Glomerular Filtration Rate 37, BUN/Creatinine Ratio 13, Glucose Level 124, Calcium Level 8.3, Corrected Calcium 9.3, Phosphorus Level 4.0, Magnesium Level 1.6, Total Bilirubin 0.3, Aspartate Amino Transf (AST/SGOT) 14, Alanine Aminotransferase (ALT/SGPT) 21, Alkaline Phosphatase 176, Total Protein 6.0, Albumin 2.8 09/06/20 04:15: White Blood Count 10.1, Red Blood Count 2.41, Hemoglobin 8.2, Hematocrit 25, Mean Corpuscular Volume 104, Mean Corpuscular Hemoglobin 34, Mean Corpuscular Hemoglobin Concent 33, Red Cell Distribution Width 13.9, Platelet Count 336, Mean Platelet Volume 9.9, Immature Granulocyte % (Auto) 1, Neutrophils (%) (Auto) 72, Lymphocytes (%) (Auto) 14, Monocytes (%) (Auto) 8, Eosinophils (%) (Auto) 5, Basophils (%) (Auto) 1, Neutrophils # (Auto) 7.2, Lymphocytes # (Auto) 1.4, Monocytes # (Auto) 0.8, Eosinophils # (Auto) 0.5, Basophils # (Auto) 0.1, Immature Granulocyte # (Auto) 0.1, Sodium Level 136, Potassium Level 4.0, Chloride Level 101, Carbon Dioxide Level 22, Anion Gap 13, Blood Urea Nitrogen 29, Creatinine 1.94, Estimat Glomerular Filtration Rate 35, BUN/Creatinine Ratio 15, Glucose Level 110, Calcium Level 7.9, Corrected Calcium 9.0, Total Bilirubin 0.3, Aspartate Amino Transf (AST/SGOT) 14, Alanine Aminotransferase (ALT/SGPT) 18, Alkaline Phosphatase 158, Total Protein 5.5, Albumin 2.6 09/06/20 11:21: Glucometer 131 Discharge Home Medications: Active Scripts Active Advair Hfa 115-21 Mcg Inhaler (Fluticasone/Salmeterol) 12 Gm Hfa.aer.ad 0 Puff IH RTBID 30 Days Furosemide 10 Mg/1 Ml Vial 40 Mg IVP DAILY@07,17 7 Days Amlodipine Besylate 5 Mg Tablet 5 Mg PO BID 30 Days Metoprolol Succinate 100 Mg Tab.er.24h 200 Mg PO DAILY 30 Days Metoprolol Succinate 100 Mg Tab.er.24h 100 Mg PO HS 30 Days Doxazosin Mesylate 2 Mg Tablet 2 Mg PO BID 30 Days Clonidine HCl 0.1 Mg Tablet 0.1 Mg PO Q4HR PRN 7 Days Venofer (Iron Sucrose Complex) 200 Mg/10 Ml Vial 200 Mg IV Q48H@09 7 Days Flomax (Tamsulosin HCl) 0.4 Mg Cap 0.4 Mg PO DAILY@1800 7 Days Iprat-Albut 0.5-3(2.5) mg/3 ml (Ipratropium/Albuterol Sulfate) 3 Ml Ampul.neb 3 Ml INH RTQ4HR 7 Days Reported Vitamin B Complex 1 Each Tablet 1 Each PO DAILY Aspirin EC (Aspirin) 81 Mg Tablet. 81 Mg PO DAILY Atorvastatin Calcium 10 Mg Tablet 10 Mg PO HS LAST FILLED 04-10-2020 #90/90 DAY SUPPLY Ventolin Hfa (Albuterol Sulfate) 1 Puff Puff 2 Puff INH Q6H PRN Instructions to patient/family Please see electronic discharge instructions given to patient. Diagnosis/Problems Diagnosis/Problems (1) Hypoxia Status: Acute (2) Flash pulmonary edema Clinical Quality Measures DVT/VTE Risk/Contraindication: Risk Factor Score Per Nursin RFS Level Per Nursing on Admit: 4+=Very High KIMBERLEE MENJIVAR DO Sep 06, 2020 07:01
[2020-09-06 08:00] VITALS: BP 185/78
[2020-09-06] MEDS: SENNA W/DOCUSATE (SENOKOT S) TABLET PO SCH (08:16)
[2020-09-06] MEDS: doxAzosin 2 MG (CARDURA) TAB PO SCH (08:16)
[2020-09-06] MEDS: cloNIDine 0.1 MG (CATAPRES) TAB PO PRN (08:16)
[2020-09-06] MEDS: meTOprolol SUCCINATE 100 MG (TOPROL XL) TAB PO SCH (08:16)
[2020-09-06] MEDS: amLODIPine 5 MG (NORVASC) TAB PO SCH (08:16)
--- NOTE | 2020-09-06 11:30 | NUR ---
POST VOID 25ML
--- NOTE | 2020-09-06 11:42 | Progress Note - Cardiology ---
Cardiology SOAP Progress Note Subjective: Sitting up in recliner at the bedside No c/o CP, feels SOB is better today Objective: I&O/Vital Signs 09/05/20 09/06/20 09/06/20 09/06/20 23:43 01:00 02:44 04:03 Temp 37.7 36.2 Pulse 86 77 80 Resp 18 18 B/P (MAP) 175/73 (107) 155/69 (97) Pulse Ox 92 95 93 O2 Delivery High Flow N/C Nasal Cannula High Flow N/C O2 Flow Rate 4.00 5.00 4.00 09/06/20 09/06/20 09/06/20 09/06/20 06:55 07:00 07:49 08:00 Temp 35.7 Pulse 83 82 Resp 20 B/P (MAP) 185/78 (113) Pulse Ox 94 95 O2 Delivery Nasal Cannula High Flow N/C High Flow N/C O2 Flow Rate 4.00 4.00 4.00 09/06/20 10:52 Pulse Ox 93 O2 Delivery Nasal Cannula O2 Flow Rate 4.00 09/06/20 00:00 Intake Total 1930 ml Output Total 2225 ml Balance -295 ml Constitutional: AAO x 3; No apparent distress Respiratory: other (good air entry, diminished at the bases) Cardiovascular: regular rate-rhythm, S1 and S2, systolic murmur (soft ZAK at the card base) Gastrointestional: soft; No tenderness; audible bowel sounds Extremities: no lower extremity edema bilateral Neurologic/Psychiatric: alert, other (moves all limbs equally) Skin: No rash on exposed areas, No ulcerations on exposed areas Results/Procedures: Labs Laboratory Tests 09/06/20 04:15: White Blood Count 10.1, Red Blood Count 2.41L, Hemoglobin 8.2L, Hematocrit 25L, Mean Corpuscular Volume 104H, Mean Corpuscular Hemoglobin 34, Mean Corpuscular Hemoglobin Concent 33, Red Cell Distribution Width 13.9, Platelet Count 336, Mean Platelet Volume 9.9, Immature Granulocyte % (Auto) 1, Neutrophils (%) (Auto) 72, Lymphocytes (%) (Auto) 14, Monocytes (%) (Auto) 8, Eosinophils (%) (Auto) 5, Basophils (%) (Auto) 1, Neutrophils # (Auto) 7.2, Lymphocytes # (Auto) 1.4, Monocytes # (Auto) 0.8, Eosinophils # (Auto) 0.5H, Basophils # (Auto) 0.1, Immature Granulocyte # (Auto) 0.1, Sodium Level 136, Potassium Level 4.0, Chloride Level 101, Carbon Dioxide Level 22, Anion Gap 13, Blood Urea Nitrogen 29H, Creatinine 1.94H, Estimat Glomerular Filtration Rate 35, BUN/Creatinine Ratio 15, Glucose Level 110H, Calcium Level 7.9L, Corrected Calcium 9.0, Total Bilirubin 0.3, Aspartate Amino Transf (AST/SGOT) 14, Alanine Aminotransferase (ALT/SGPT) 18, Alkaline Phosphatase 158H, Total Protein 5.5L, Albumin 2.6L 09/06/20 11:21: Glucometer 131H Laboratory Tests 09/05/20 06:23 09/06/20 04:15 A/P: Assessment: Ac resp failure / hypoxemia following endoscopy for eval for anemia on 09/02/20 Severe hypertension. Malignant hypertension in Jun 2020 leading to ac diastolic CHF at that time, echocardiogram showed normal left ventricular systolic function, grade 2 diastolic dysfunction, mild aortic valve stenosis, pulmonary hypertension with PA pressure 40-45 mmHg CKD - IV. Not suitable of MICHAEL-ihib / ARB Anemia of undetermined etiology, managed by Dr Tam H/o recent alcohol withdrawal syndrome (Jun 2020) Mild elevation in troponin, type II myocardial infarction secondary to malignant hypertension and hypertensive heart disease Plan: * Complex management * Continue to titrate med for further control of bp - increase doxazosin * Monitor labs DESTIN SALAZAR Sep 06, 2020 11:42
[2020-09-06] MEDS ORDERED: doxAzosin 2 MG (CARDURA) TAB PO SCH (12:15)
--- NOTE | 2020-09-06 17:43 | Progress Note - Cardiology ---
Cardiology SOAP Progress Note Subjective: No cp or palp or syncope or shortness of breath Feels better Some gen malaise No n/v Objective: I&O/Vital Signs 09/06/20 09/06/20 09/06/20 09/06/20 06:55 07:00 07:49 08:00 Temp 35.7 Pulse 83 82 Resp 20 B/P (MAP) 185/78 (113) Pulse Ox 94 95 O2 Delivery Nasal Cannula High Flow N/C High Flow N/C O2 Flow Rate 4.00 4.00 4.00 09/06/20 10:52 Pulse Ox 93 O2 Delivery Nasal Cannula O2 Flow Rate 4.00 09/06/20 00:00 Intake Total 1930 ml Output Total 2225 ml Balance -295 ml Constitutional: AAO x 3; No apparent distress Respiratory: other (good air entry, diminished at the bases) Cardiovascular: regular rate-rhythm, S1 and S2, systolic murmur (soft ZAK at the card base) Gastrointestional: soft; No tenderness; audible bowel sounds Extremities: no lower extremity edema bilateral Neurologic/Psychiatric: alert, other (moves all limbs equally) Skin: No rash on exposed areas, No ulcerations on exposed areas Results/Procedures: Labs Laboratory Tests 09/06/20 04:15: White Blood Count 10.1, Red Blood Count 2.41L, Hemoglobin 8.2L, Hematocrit 25L, Mean Corpuscular Volume 104H, Mean Corpuscular Hemoglobin 34, Mean Corpuscular Hemoglobin Concent 33, Red Cell Distribution Width 13.9, Platelet Count 336, Mean Platelet Volume 9.9, Immature Granulocyte % (Auto) 1, Neutrophils (%) (Auto) 72, Lymphocytes (%) (Auto) 14, Monocytes (%) (Auto) 8, Eosinophils (%) (Auto) 5, Basophils (%) (Auto) 1, Neutrophils # (Auto) 7.2, Lymphocytes # (Auto) 1.4, Monocytes # (Auto) 0.8, Eosinophils # (Auto) 0.5H, Basophils # (Auto) 0.1, Immature Granulocyte # (Auto) 0.1, Sodium Level 136, Potassium Level 4.0, Chloride Level 101, Carbon Dioxide Level 22, Anion Gap 13, Blood Urea Nitrogen 29H, Creatinine 1.94H, Estimat Glomerular Filtration Rate 35, BUN/Creatinine Ratio 15, Glucose Level 110H, Calcium Level 7.9L, Corrected Calcium 9.0, Total Bilirubin 0.3, Aspartate Amino Transf (AST/SGOT) 14, Alanine Aminotransferase (ALT/SGPT) 18, Alkaline Phosphatase 158H, Total Protein 5.5L, Albumin 2.6L 09/06/20 11:21: Glucometer 131H Laboratory Tests 09/05/20 06:23 09/06/20 04:15 A/P: Assessment: Ac resp failure / hypoxemia following endoscopy for eval for anemia on 09/02/20 Severe hypertension. Malignant hypertension in Jun 2020 leading to ac diastolic CHF at that time, echocardiogram showed normal left ventricular systolic function, grade 2 diastolic dysfunction, mild aortic valve stenosis, pulmonary hypertension with PA pressure 40-45 mmHg CKD - IV. Not suitable of MICHAEL-ihib / ARB Anemia of undetermined etiology, managed by Dr Tam H/o recent alcohol withdrawal syndrome (Jun 2020) Mild elevation in troponin, type II myocardial infarction secondary to malignant hypertension and hypertensive heart disease Plan: * Complex management * Continue to titrate med for further control of bp - increase doxazosin * Monitor labs DEANNA FLORES MD FACP FAC CCDS Sep 06, 2020 17:42
[2020-09-06] MEDS ORDERED: doxAzosin 4 MG (CARDURA) TAB PO SCH (21:00)
== END 2020-09-06 12:15 | disposition swing bed (61) | DRG 280 ==
LOC: 4TH 12:40
PROVIDERS: ADMIT Internal Medicine; ATTEND Internal Medicine
DX: I13.0 Hypertensive heart and chronic kidney disease with heart failure and stage 1 through stage 4 chronic kidney disease, or unspecified chronic kidney disease (principal); I50.33 Acute on chronic diastolic (congestive) heart failure; J96.01 Acute respiratory failure with hypoxia; I21.A1 Myocardial infarction type 2; N17.9 Acute kidney failure, unspecified; N18.4 Chronic kidney disease, stage 4 (severe); D75.1 Secondary polycythemia; J44.9 Chronic obstructive pulmonary disease, unspecified; I35.0 Nonrheumatic aortic (valve) stenosis; N40.0 Benign prostatic hyperplasia without lower urinary tract symptoms; I27.20 Pulmonary hypertension, unspecified; D64.9 Anemia, unspecified; F17.210 Nicotine dependence, cigarettes, uncomplicated; E78.00 Pure hypercholesterolemia, unspecified; E78.5 Hyperlipidemia, unspecified; M19.91 Primary osteoarthritis, unspecified site; Z87.01 Personal history of pneumonia (recurrent); Z79.82 Long term (current) use of aspirin; Z79.899 Other long term (current) drug therapy
CPT/HCPCS: 36415; 36600; 71045; 80053; 82805; 82962; 83735; 84100; 84145; 85007; 85025; 85027; 94640; 94760

== ENCOUNTER → 2020-09-02 | Day surgery (SDC) | payer MEDICARE, OTHER ==
[~2020-09-02] MED LIST changes: +AMLO-250 PO; +CALC200T40 PO; +DCS100C PO; +DOXA2TAB2 PO; +DOXA4TAB2 PO; +FLUT12AE4 IH; +FURO-124 PO; +FURO10VI IVP; +HURRICAINE EXT TUBE (BENZOCAINE) XX PRN; +IPRA3AMP31 INH; +IRON100V2 IV; +KETAMINE/NaCl 50 MG/5 ML SYRINGE (ED ONLY) ONE; +LACTATED RINGERS 1,000 ML IV ONE; +LACTATED RINGERS 1,000 ML IV STA; +METO2.5T PO; +MICO90PO TOP; +MIRT-47 PO; +MTP100TCR PO; +NYST15CR TP; +PROPOFOL INJECTION 50 ML IV ONE; +TMSL.4C PO; +VENL75CA93 PO
[2020-09-02 12:20] VITALS: BP 147/66
[2020-09-02 12:25] VITALS: BP 138/65
[2020-09-02 12:30] VITALS: BP 152/70
[2020-09-02 12:35] VITALS: BP 158/85
--- NOTE | 2020-09-02 22:34 | OPERATIVE REPORT ---
DATE OF SERVICE: 09/02/2020 PREOPERATIVE DIAGNOSIS: Anemia. POSTOPERATIVE DIAGNOSIS: Reactive gastropathy of the stomach. PROCEDURE: Esophagogastroduodenoscopy with biopsy of the body and colonoscopy. SURGEON: Sarah Bowman DO ANESTHESIA: Per FULFILLMENT ASSOCIATE. ESTIMATED BLOOD LOSS: None. COMPLICATIONS: None. INDICATIONS: The patient is a 64-year-old male found to be anemic. He understands risks and benefits of procedures and wished to proceed with procedures. Consent was signed in the chart. DESCRIPTION OF PROCEDURE: The patient was taken to the endoscopy suite, placed in left lateral recumbent position. Timeout was performed. Scope was inserted in mouth, down the esophagus, stomach and into the duodenum without difficulty. There were no polyps, masses or ulcerations within the duodenum. Scope was slowly retracted back into the stomach where it was further insufflated. The antrum had normal appearance. No polyps, masses or ulcerations. The body had some cobblestoning appearance, which biopsies of the body were obtained. Scope was retroflexed noting no other pathology. Scope was returned to its normal position, slowly withdrawn to the distal esophagus. No polyps, masses or ulcerations. No erythematous changes. Scope was then slowly retracted back to completely remove noting no other pathology. Digital rectal exam was performed. There were no palpable polyps, masses or ulcerations. A small hemorrhoidal tag at the anorectal junction. Scope was inserted in the rectum and the scope was advanced all the way to cecum with minimal difficulty. Prep was adequate. Scope was then slowly retracted back. There were no polyps, masses or ulcerations of the cecum, ascending, transverse, descending and sigmoid colon. Once in the rectum, scope was retroflexed just noting the hemorrhoidal disease. Scope was then returned to its normal position, slowly withdrawn until completely removed. Scope was retroflexed noting the hemorrhoidal disease. Scope was returned to its normal position, slowly withdrawn until completely removed. The patient tolerated procedure well without any complications. He was taken to recovery room in stable condition. RECOMMENDATIONS: Continue current medical management. Job ID: [id number] DocumentID: [id number] Dictated Date: 09/02/2020 12:32:38 [place] Date: 09/02/2020 21:12:58 Dictated By: SARAH BOWMAN DO
== END ==
LOC: ENDO 09-01 08:20
PROVIDERS: ATTEND Surgery
DX: K64.4 Residual hemorrhoidal skin tags (principal); D64.9 Anemia, unspecified; K31.9 Disease of stomach and duodenum, unspecified; N40.0 Benign prostatic hyperplasia without lower urinary tract symptoms; E78.00 Pure hypercholesterolemia, unspecified; R06.03 Acute respiratory distress; M19.90 Unspecified osteoarthritis, unspecified site; D63.1 Anemia in chronic kidney disease; I13.0 Hypertensive heart and chronic kidney disease with heart failure and stage 1 through stage 4 chronic kidney disease, or unspecified chronic kidney disease; I50.9 Heart failure, unspecified; N18.9 Chronic kidney disease, unspecified; E78.5 Hyperlipidemia, unspecified; F17.210 Nicotine dependence, cigarettes, uncomplicated; Z79.899 Other long term (current) drug therapy; Z79.82 Long term (current) use of aspirin; Z79.51 Long term (current) use of inhaled steroids
CPT/HCPCS: 88305

== ENCOUNTER 2020-09-06 10:23 | Inpatient (IN) | payer MEDICARE, OTHER ==
[~2020-09-06] VITALS: Ht 170 cm; Wt 93.0 kg
[~2020-09-06 10:23] MED LIST changes: +AMLO-250 PO; +DOXA2TAB2 PO; +FLUT12AE4 IH; +FURO10VI IVP; +IPRA3AMP31 INH; +IRON100V2 IV; +MTP100TCR PO; +TMSL.4C PO
--- NOTE | 2020-09-06 12:00 | NUR ---
Swing Bed Note: Qualifies for swing bed for continued need of short term Physical and Occupational therapies (CHF, Weakness) with continued need of IV lasix and continued oxygen monitoring and weaning. Ultimate goal is to return home at his prior independent functioning level. He reported that prior to being hospitalized he did not use oxygen at home.
--- NOTE | 2020-09-06 12:15 | NUR ---
DANNY CARMONA admitted to swing bed status to room 403-1, with an admitting diagnosis of SWB , on 09/06/20 from acute inpatient status. PT/OT Therapy to evaluate patient for activity needs. DANNY CARMONA and/or family introduced to surroundings, call light, bed controls, phone, TV, temperature control, lights, meal times, smoking policy, visitor policy, side rail policy, bathrooms, and showers. Patient rights given to patient in the handbook.. DANNY CARMONA and/or family member verbalized understanding that [facility] is not responsible for the loss or damage to any personal effects or valuables that are kept in the patients possession during their hospitalization. DANNY CARMONA and/or family verbalizes understanding of the Interdisciplinary Patient Education. Patient and/or family were informed about the Rapid Response Team and its purpose. Call light with in reach and patient demonstrates understanding of how to use. DANNY CARMONA reports no further needs at this time.
[2020-09-06] MEDS ORDERED: LOPERAMIDE 2 MG (IMODIUM) TABLET PO PRN (12:30)
[2020-09-06] MEDS ORDERED: CALCIUM CARBONATE 500 MG (TUMS) TAB.CHEW PO PRN (12:30)
[2020-09-06] MEDS ORDERED: DOCUSATE SODIUM 100 MG (COLACE) CAP PO PRN (12:30)
[2020-09-06] MEDS ORDERED: ONDANSETRON 4 MG/2 ML (SDV) Z0FRAN IVP PRN (12:30)
[2020-09-06] MEDS ORDERED: doxAzosin 2 MG (CARDURA) TAB PO NR (12:30)
[2020-09-06] MEDS ORDERED: CATHETER FLUSH 10 ML SYR IV PRN (13:00)
[2020-09-06] MEDS ORDERED: IRON SUCROSE 200 MG/10 ML (VENOFER) VIAL IV SCH (13:00)
--- NOTE | 2020-09-06 14:42 | Physical Therapy Evaluation ---
PT Evaluation-General Medical Diagnosis Admission Date Sep 06, 2020 at 12:20 Medical Diagnosis: hypoxia/edema/weakness Onset Date: Sep 02, 2020 Therapy Diagnosis Therapy Diagnosis: impaired mobility, strength, endurance Referral Physician: Nikia Tam DO Medical History Pertinent Medical History: Alcoholism, COPD, HTN, Renal Insufficiency, Smoking Social History Home: Single Level Current Living Status: Alone Entry Into Home: Level Entry Prior Prior Level of Function SCALE: Activities may be completed with or without assistive devices. 9-Atqhzmwwbb-vgqagzy completes the activity by him/herself with no assistance from a helper. 5-Set-up or Clean-up Assistance-helper sets up or cleans up; patient completes activity. [place] assists only prior to or following the activity. 4-Supervision or Touching Assistance-helper provides verbal cues and/or touching/steadying and/or contact guard assistance as patient completes activity. Assistance may be provided throughout the activity or intermittently. 3-Partial/Moderate Assistance-helper does LESS THAN HALF the effort. [place] lifts, holds or supports trunk or limbs, but provides less than half the effort. 2-Substantial/Maximal Assistance-helper does MORE THAN HALF the effort. [place] lifts or holds trunk or limbs and provides more than half the effort. 9-Nzcoskvul-dmjrsm does ALL the effort. Patient does none of the effort to complete the activity. Or, the assistance of 2 or more helpers is required for the patient to complete the activity. If activity was not attempted, code reason: 7-Patient Refused. 9-Not Applicable-not attempted and the patient did not perform the activity before the current illness, exacerbation or injury. 10-Not Attempted due to Environmental Limitations-(lack of equipment, weather restraints, etc.). 88-Not Attempted due to Medical Conditions or Safety Concerns. Bed Mobility: 6 Transfers (B,C,W/C): 6 Gait: 6 Stairs: 6 Indoor Mobility (Ambulation): Independent Stairs: Independent PT Evaluation-Current Subjective Patient in recliner pre tx, agrees to PT, has minor right arm pain in area of PICC line Pt/Family Goals to be independent at home Objective Patient Orientation: Person, Place, Situation Attachments: Oxygen ROM/Strength ROM Lower Extremities WNL Strength Lower Extremities 4/5 gross BLE Sensory Vision: Wears Glasses Hearing: Functional Transfers Roll Left & Right (QC): 10 Sit to Lying (QC): 10 Lying to Sitting/Side of Bed(Q: 10 Sit to Stand (QC): 4 Chair/Bek-lm-[place]eps[place] Xfer(QC): 4 Toilet Transfer (QC): 10 Car Transfer (QC): 10 CGA, appropriate use of hands on handrails with sitting and standing Gait Does the Patient Walk?: Yes Mode of Locomotion: Walk Anticipated Mode of Locomotion: Walk Walk 10 feet (QC): 4 Walk 50 ft with 2 Turns(QC): 4 Walk 150 ft (QC): 4 Walking 10ft/uneven surface-QC: 4 Gait Assistive Device: FWW Comments/Gait Description 400', one standing rest break, slow but steady ambulation Wheelchair Training Wheel 50 ft with 2 turns (QC): 9 Wheel 150 ft (QC): 9 Stairs 1 Step (curb) (QC): 88 4 Steps (QC): 88 12 Steps (QC): 88 Balance Sitting Static: Normal Sitting Dynamic: Normal Standing Static: Good Standing Dynamic: Good Picking up an Object (QC): 88 Treatment seated BLE exercises x20 (AP, LAQ, marching) Assessment/Needs Patient has impaired mobility, strength, endurance. He needed one standing rest break with ambulation, O2 stayed at 90% during ambulation Rehab Potential: Fair PT Nursing Home Goals Cafeteria Attendant Goals PT Cafeteria Attendant Goals Time Frame: Sep 13, 2020 Roll Left & Right (QC): 6 Sit to Lying (QC): 6 Lying-Sitting on Side/Bed(QC): 6 Sit to Stand (QC): 6 Chair/Zgi-tn-Xgafa Xfer(QC): 6 Toilet Transfer (QC): 6 Car Transfer (QC): 6 Does the Patient Walk: Yes Walk 10 feet (QC): 5 Walk 50ft with 2 Turns (QC): 5 Walk 150 ft (QC): 5 Walking 10ft on Uneven Surface: 5 1 Step (curb) (QC): 4 4 Steps (QC): 4 12 Steps (QC): 4 Picking up an Object (QC): 4 Wheel 50 feet with 2 turns (QC: 9 Wheel 150 feet: 9 PT Plan Problem List Problem List: Activity Tolerance, Functional Strength, Safety, Balance, Gait, Transfer, Bed Mobility, ROM Treatment/Plan Treatment Plan: Continue Plan of Care Treatment Plan: Bed Mobility, Education, Functional Activity Adriana, Functional Strength, Gait, Safety, Therapeutic Exercise, Transfers Treatment Duration: Sep 13, 2020 Frequency: 6 times per week Estimated Hrs Per Day: .25 hour per day Patient and/or Family Agrees t: Yes Safety Risks/Education Patient Education: Gait Training, Transfer Techniques, Correct Positioning, Safety Issues Teaching Recipient: Patient Teaching Methods: Demonstration, Discussion Response to Teaching: Reinforcement Needed Discharge Recommendations Plan Patient will perform bed mobility and transfer training, balance and endurance training, functional strengthening, gait training, and education, to improve functional mobility and independence at home. Therapy Discharge Recommendati: Scheduled Assistance, Home & Family Time/GCodes Time In: 1415 Time Out: 1445 Total Billed Treatment Time: 30 Total Billed Treatment 1 visit CHRISTIN 15' GT 15' SHYAM WICK PT Sep 06, 2020 14:42
--- NOTE | 2020-09-06 14:42 | NUR ---
Admission Drug Regimen Review Completed: Date: 09/06/20 Time: 1448 Physician Notified: KIMBERLEE MENJIVAR DO Date: 09/06/20 Time: 1448 Issue Identified; Action Plan to Resolve and Any Action Taken: Advair inhaler was not on the swing bed account and had been on the acute account. Contacted Dr. Menjivar and she would like for Advair to be continued on the swing bed account. Metoprolol was also added back into the swing bed account d/t the system seeing two orders and auto dc'ing one of them. Updated primary care nurse.
[2020-09-06] MEDS: CATHETER FLUSH 10 ML SYR IV SCH ×2 (14:55→20:59)
--- NOTE | 2020-09-06 14:59 | NUR ---
care and report given to aimee murillo at this time
--- NOTE | 2020-09-06 15:07 | Occupational Therapy Eval ---
OT Evaluation-General/PLF Medical Diagnosis Admission Date Sep 06, 2020 at 12:20 Medical Diagnosis: hypoxia/edema/weakness Onset Date: Sep 02, 2020 Therapy Diagnosis Therapy Diagnosis: Weakness Weight Bear Status Weight Bearing Restriction: Weight Bearing/Tolerated Referral Physician: Nikia Tam DO Referral Reason: Activity Tolerance, Self Care, Evaluation/Treatment, Strengthening/ROM Medical History Pertinent Medical History: Alcoholism, COPD, HTN, Renal Insufficiency, Smoking Current History Pt. was on rehab and had to transfer to medical floor for change in medical status. Has had difficulty with keeping oxygen saturations at appropriate levels. Pt. currently on 4 L 02. Reviewed History: Yes Social History Home: Single Level Current Living Status: Alone Entry Into Home: Level Entry ADL-Prior Level of Function SCALE: Activities may be completed with or without assistive devices. 3-Njtglddtpg-uxeljfz completes the activity by him/herself with no assistance from a helper. 5-Set-up or Clean-up Assistance-helper sets up or cleans up; patient completes activity. [place] assists only prior to or following the activity. 4-Supervision or Touching Assistance-helper provides verbal cues and/or touching/steadying and/or contact guard assistance as patient completes activity. Assistance may be provided throughout the activity or intermittently. 3-Partial/Moderate Assistance-helper does LESS THAN HALF the effort. [place] lifts, holds or supports trunk or limbs, but provides less than half the effort. 2-Substantial/Maximal Assistance-helper does MORE THAN HALF the effort. [place] lifts or holds trunk or limbs and provides more than half the effort. 9-Gtslrfzct-hseqdb does ALL the effort. Patient does none of the effort to complete the activity. Or, the assistance of 2 or more helpers is required for the patient to complete the activity. If activity was not attempted, code reason: 7-Patient Refused. 9-Not Applicable-not attempted and the patient did not perform the activity before the current illness, exacerbation or injury. 10-Not Attempted due to Environmental Limitations-(lack of equipment, weather restraints, etc.). 88-Not Attempted due to Medical Conditions or Safety Concerns. 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 Pt. was independent with daily tasks. Self Care: Independent Functional Cognition: Independent Drive Self: Yes OT Current Status Subjective No pain reported. Mental Status/Objective Patient Orientation: Person, Place, Time, Situation Attachments: Oxygen Current Glasses/Contacts: Yes Hand Dominance: Right Upper Extremity ROM WFL ADL-Treatment Eating (QC): 6 Oral Hygiene (QC): 7 Shower/Bathe Self (QC): 88 Upper Body Dressing (QC): 88 Lower Body Dressing (QC): 88 On/Off Footwear (QC): 4 (SBA and increased time due to fatigue. Pt. doff/donned slipper socks seated at chair level.) Toileting Hygiene (QC): 88 (Pt. reported that he had to have a BM very quickly. OT attempted to have him ambulate to bathroom, but pt. does not think he will make it. BSC put closely at chair side, and pt. transferred with CGA. Pt. sitting on BSC with call light and table, and all needs met.) Other Treatments Pt. on 4 L 02. His oxygen saturations remain at approximately 91-92% while seated. With movement and activity, saturations change to approximately 88-89%. Pt. encouraged to take his time and take deep breaths. Pt. able to stand with SBA for approximately 2 minutes while OT applied new pillow cases to pillows on chair. Pt. also able to transfer to BS with CGA. Education OT Patient Education: Correct positioning, Modified ADL techniques, Progress toward Goal/Update tx plan, Purpose of tx/functional activities, Reviewed precautions, Rehab process, Transfer techniques Teaching Recipient: Patient Teaching Methods: Demonstration, Discussion Response to Teaching: Verbalize Understanding, Return Demonstration OT Short Term Goals Short Term Goals Time Frame: Sep 13, 2020 Eatin Oral hygiene: 4 Toileting hygiene: 3 Shower/bathe self: 3 Upper body dressin Lower body dressin Putting on/taking off footwear: 4 OT Penitentiary Goals Penitentiary Goals Time Frame: Sep 20, 2020 Eating (QC): 6 Oral Hygiene (QC): 6 Toileting Hygiene (QC): 6 Shower/Bathe Self (QC): 4 Upper Body Dressing (QC): 5 Lower Body Dressing (QC): 4 On/Off Footwear (QC): 4 Additional Goals: 1-Demonstrate ADL Tasks, 2-Verbalize Understanding, 3-Improv eStrength/Adriana 1=Demonstrate adherence to instructed precautions during ADL tasks. 2=Patient will verbalize/demonstrate understanding of assistive devices/modifications for ADL. 3=Patient will improve strength/tolerance for activity to enable patient to p erform ADL's. OT Education/Plan Problem List/Assessment Assessment: Decreased Activ Tolerance, Impaired I ADL's, Impaired Self-Care Skills Discharge Recommendations Plan/Recommendations: Continue POC Therapy Discharge Recommendati: Home & Family, Post Acute OT Treatment Plan/Plan of Care Treatment,Training & Education: Yes Patient would benefit from OT for education, treatment and training to promote independence in ADL's, mobility, safety and/or upper extremity function for ADL's. Plan of Care: ADL Retraining, Functional Mobility, UE Funct Exercise/Act Treatment Duration: Sep 20, 2020 Frequency: 5 times per week Estimated Hrs Per Day: .5 hour per day Agreement: Yes Rehab Potential: Fair Time/GCodes Start Time: 14:25 Stop Time: 14:50 Total Time Billed (hr/min): 25 Billed Treatment Time 1, EVM x 10minutes, ADL x 15minutes WOO RODRIGUEZ OT Sep 06, 2020 15:07
[2020-09-06] MEDS: RT-ALBUTEROL/IPRATROPIUM 3 ML (DUONEB) VIAL INH SCH ×3 (15:18→21:12)
[2020-09-06] MEDS ORDERED: RT-ALBUTEROL/IPRATROPIUM 3 ML (DUONEB) VIAL INH PRN (17:00)
[2020-09-06 17:05] VITALS: BP 181/74
[2020-09-06] MEDS: cloNIDine 0.1 MG (CATAPRES) TAB PO PRN (17:31)
[2020-09-06] MEDS: TAMSULOSIN 0.4 MG (FLOMAX) CAP PO SCH (17:31)
[2020-09-06] MEDS: FUROSEMIDE 40 MG/4 ML INJ (LASIX) IVP SCH (17:31)
[2020-09-06 19:24] VITALS: BP 176/74
[2020-09-06] MEDS: SENNA W/DOCUSATE (SENOKOT S) TABLET PO SCH (20:58)
[2020-09-06] MEDS: doxAzosin 4 MG (CARDURA) TAB PO SCH (20:58)
[2020-09-06] MEDS: MELATONIN 3 MG TABLET PO PRN (20:58)
[2020-09-06] MEDS: amLODIPine 5 MG (NORVASC) TAB PO SCH (20:58)
[2020-09-06] MEDS: ALPRAZolam 0.25 MG (XANAX) TAB PO PRN (20:58)
[2020-09-06] MEDS: diphenhydrAMINE 25 MG TAB (BENADRYL) PO PRN (20:58)
[2020-09-06] MEDS: meTOprolol SUCCINATE 100 MG (TOPROL XL) TAB PO SCH (20:59)
[2020-09-06] MEDS: ADVAIR HFA 115/21 MCG INHALER 8 GM IH SCH (21:12)
[2020-09-07] MEDS: RT-ALBUTEROL/IPRATROPIUM 3 ML (DUONEB) VIAL INH SCH ×6 (05:08→22:00)
[2020-09-07 06:39] LABS: BASOPHILS % (AUTO) 1 % (0-10); EOSINOPHILS # (AUTO) 0.7 10^3/uL (0.0-0.3); EOSINOPHILS % (AUTO) 8 % (0-10); HEMATOCRIT 27 % (40-54); HEMOGLOBIN 8.8 g/dL (13.3-17.7); LYMPHOCYTES # (AUTO) 1.3 10^3/uL (1.0-4.0); LYMPHOCYTES % (AUTO) 15 % (12-44); MEAN CORPUSCULAR HEMOGLOBIN 34 pg (25-34); MEAN CORPUSCULAR HGB CONC 33 g/dL (32-36); MEAN CORPUSCULAR VOLUME 104 fL (80-99); MEAN PLATELET VOLUME 9.7 fL (9.0-12.2); MONOCYTES # (AUTO) 0.7 10^3/uL (0.0-1.0); MONOCYTES % (AUTO) 9 % (0-12); NEUTROPHILS # (AUTO) 5.9 10^3/uL (1.8-7.8); NEUTROPHILS % (AUTO) 68 % (42-75); PLATELET COUNT 332 10^3/uL (130-400); WHITE BLOOD COUNT 8.7 10^3/uL (4.3-11.0)
[2020-09-07 07:00] VITALS: BP 175/79
[2020-09-07 07:00] LABS: ALBUMIN 2.7 GM/DL (3.2-4.5); BILIRUBIN,TOTAL 0.3 MG/DL (0.1-1.0); CALCIUM 8.2 MG/DL (8.5-10.1); CREATININE SERUM 2.13 MG/DL (0.60-1.30); MAGNESIUM 1.6 MG/DL (1.6-2.4)
[2020-09-07] MEDS: CATHETER FLUSH 10 ML SYR IV SCH ×3 (07:01→19:51)
[2020-09-07] MEDS: FUROSEMIDE 40 MG/4 ML INJ (LASIX) IVP SCH (07:01)
--- NOTE | 2020-09-07 07:07 | Progress Note - Hospitalist ---
Subjective HPI/CC On Admission Date Seen by Provider: Sep 07, 2020 Time Seen by Provider: 11:00 Subjective/Events-last exam Moving well O2 maintained 4L/min Leg edema improved Lasix once daily now IV 40mg Monitor creat Depressed Review of Systems General: Fatigue Pulmonary: Dyspnea Neurological: Weakness Objective Exam Vital Signs Vital Signs Date Time Temp Pulse Resp B/P (MAP) Pulse Ox O2 Delivery O2 Flow Rate FiO2 09/08/20 04:00 36.5 75 18 150/70 (96) 94 High Flow N/C 4.00 Capillary Refill : Less Than 3 Seconds General Appearance: No Apparent Distress, WD/WN, Chronically ill Respiratory: Chest Non Tender, Lungs Clear, Normal Breath Sounds, No Accessory Muscle Use, No Respiratory Distress Cardiovascular: Regular Rate, Rhythm, No Gallop, No JVD, No Murmur, Normal Peripheral Pulses Extremity: Pedal Edema Neurologic/Psychiatric: Alert, Oriented x3, No Motor/Sensory Deficits, Normal Mood/Affect Results/Procedures Lab Laboratory Tests 09/07/20 06:33 Patient resulted labs reviewed. Assessment/Plan Assessment and Plan Assess & Plan/Chief Complaint Assessment: Hypoxia with increased O2 requirements following EGD/Colonoscopy by Dr Bowman Anemia s/p 1 unit of blood last week h/o Polycythemia holding Hydrea and consulting Dr Oreilly HTN malignant type MARYANN on [facility] HLP COPD Smoker Depression 09/07/20 Plan: O2 Vapotherm Dr Tamez Cardiology Increase BP meds Lasix 09/03/20: Monitor creatinine Lasix 40mg IV BID Cardiology and Pulmonology consultations appreciated Vapotherm 09/04/20: Vapotherm wean Monitor volume overload 09/05/20: Swing bed tomorrow Rehab Friday Updated daughter 15 minutes 09/06/20: Moved to swing bed Monitor creat 09/07/20: Monitor hgb and creat Lasix 40mg IV once daily Wean O2 if possible Start Effexor Clinical Quality Measures DVT/VTE Risk/Contraindication: Risk Factor Score Per Nursin KIMBERLEE MENJIVAR DO Sep 07, 2020 07:07
[2020-09-07] MEDS: doxAzosin 4 MG (CARDURA) TAB PO SCH ×2 (09:36→19:50)
[2020-09-07] MEDS: amLODIPine 5 MG (NORVASC) TAB PO SCH ×2 (09:36→19:51)
[2020-09-07] MEDS: IRON SUCROSE 200 MG/10 ML (VENOFER) VIAL IV SCH (09:36)
[2020-09-07] MEDS: SENNA W/DOCUSATE (SENOKOT S) TABLET PO SCH ×2 (09:36→19:50)
[2020-09-07] MEDS: meTOprolol SUCCINATE 100 MG (TOPROL XL) TAB PO SCH ×2 (09:36→19:51)
--- NOTE | 2020-09-07 10:59 | Physical Therapy Daily Note ---
PT Daily Note-Current Subjective Patient agrees to PT. No c/o. Mental Status Patient Orientation: Normal For Age Attachments: Oxygen (4L HF NC) Transfers SCALE: Activities may be completed with or without assistive devices. 4-Ifvtnhltgs-cvwhvwx completes the activity by him/herself with no assistance from a helper. 5-Set-up or Clean-up Assistance-helper sets up or cleans up; patient completes activity. [place] assists only prior to or following the activity. 4-Supervision or Touching Assistance-helper provides verbal cues and/or touching/steadying and/or contact guard assistance as patient completes activity. Assistance may be provided throughout the activity or intermittently. 3-Partial/Moderate Assistance-helper does LESS THAN HALF the effort. [place] lifts, holds or supports trunk or limbs, but provides less than half the effort. 2-Substantial/Maximal Assistance-helper does MORE THAN HALF the effort. [place] lifts or holds trunk or limbs and provides more than half the effort. 6-Zufionppq-ospyrx does ALL the effort. Patient does none of the effort to complete the activity. Or, the assistance of 2 or more helpers is required for the patient to complete the activity. If activity was not attempted, code reason: 7-Patient Refused. 9-Not Applicable-not attempted and the patient did not perform the activity before the current illness, exacerbation or injury. 10-Not Attempted due to Environmental Limitations-(lack of equipment, weather restraints, etc.). 88-Not Attempted due to Medical Conditions or Safety Concerns. Sit to Stand (QC): 5 Gait Training Does the Patient Walk?: Yes Distance: 350' Walk 10 feet (QC): 4 Walk 50 ft with 2 Turns(QC): 4 Walk 150 ft (QC): 4 Gait Assistive Device: FWW safe and functional with no deviation/standing recovery periods due to SOA Exercises Seated Therapy Exercises: Ankle pumps, Long arc quads, Hip flexion, Glut set Seated Reps: 15 (2 sets) Assessment Patient tolerated treatment well. SAO2 remains >90% with activity on 4L O2 HF. PT Assistant Press Operator Goals Senior Living Goals PT Senior Living Goals Time Frame: Sep 13, 2020 Roll Left & Right (QC): 6 Sit to Lying (QC): 6 Lying-Sitting on Side/Bed(QC): 6 Sit to Stand (QC): 6 Chair/Kdy-jh-Ooibs Xfer(QC): 6 Toilet Transfer (QC): 6 Car Transfer (QC): 6 Does the Patient Walk: Yes Walk 10 feet (QC): 5 Walk 50ft with 2 Turns (QC): 5 Walk 150 ft (QC): 5 Walking 10ft on Uneven Surface: 5 1 Step (curb) (QC): 4 4 Steps (QC): 4 12 Steps (QC): 4 Picking up an Object (QC): 4 Wheel 50 feet with 2 turns (QC: 9 Wheel 150 feet: 9 PT Plan Treatment/Plan Treatment Plan: Continue Plan of Care Treatment Plan: Bed Mobility, Education, Functional Activity Adriana, Functional Strength, Gait, Safety, Therapeutic Exercise, Transfers Treatment Duration: Sep 13, 2020 Frequency: 6 times per week Estimated Hrs Per Day: .25 hour per day Patient and/or Family Agrees t: Yes Time/GCodes Time In: 1010 Time Out: 1039 Total Billed Treatment Time: 29 Total Billed Treatment 1 visit EX 14 min FA 15 min SANDRA FALLON PT Sep 07, 2020 10:58
--- NOTE | 2020-09-07 11:21 | Occupational Ther Daily Note ---
OT Current Status-Daily Note Subjective Pt AxO. States just finished with PT and feels fatigued. Pt denies pain. Sitting upright in chair, pt's 02 =92%. Pt agrees to sponge bath. Mental Status/Objective Patient Orientation: Person, Place, Situation, Normal For Age Attachments: Oxygen, Telemetry ADL-Treatment Therapy Code Descriptions/Definitions Functional [place] Measure: 0=Not Assessed/NA 4=Minimal Assistance 1=Total Assistance 5=Supervision or Setup 2=Maximal Assistance 6=Modified [place] 3=Moderate Assistance 7=Complete IndependenceSCALE: Activities may be completed with or without assistive devices. 0-Pqwevjjaly-wkyxbkw completes the activity by him/herself with no assistance from a helper. 5-Set-up or Clean-up Assistance-helper sets up or cleans up; patient completes activity. [place] assists only prior to or following the activity. 4-Supervision or Touching Assistance-helper provides verbal cues and/or touching/steadying and/or contact guard assistance as patient completes activity. Assistance may be provided throughout the activity or intermittently. 3-Partial/Moderate Assistance-helper does LESS THAN HALF the effort. [place] lifts, holds or supports trunk or limbs, but provides less than half the effort. 2-Substantial/Maximal Assistance-helper does MORE THAN HALF the effort. [place] lifts or holds trunk or limbs and provides more than half the effort. 8-Epzdecwwq-cnfaqf does ALL the effort. Patient does none of the effort to complete the activity. Or, the assistance of 2 or more helpers is required for the patient to complete the activity. If activity was not attempted, code reason: 7-Patient Refused. 9-Not Applicable-not attempted and the patient did not perform the activity before the current illness, exacerbation or injury. 10-Not Attempted due to Environmental Limitations-(lack of equipment, weather restraints, etc.). 88-Not Attempted due to Medical Conditions or Safety Concerns. Eating (QC): 6 Oral Hygiene (QC): 6 (per pt) Bathing Location: L Arm, R Arm, L Upper Leg, R Upper Leg, L Lower Leg (including foot), R Lower Leg (including foot), Chest, Abdomen, Buttocks, Perineal Area Shower/Bathe Self (QC): 3 (min A for bottom care due to skin abrasions. Pt completes bottom hygiene prior to OT completing drying/ applying barrier cream ) Upper Body Dressing (QC): 7 (denies, stating he got a new gown this am. Therefore, pt washes around gown. ) Lower Body Dressing (QC): 7 (denies brief donning, stating is on Lasix and wants to be able to urinate easily. ) On/Off Footwear: 4 (SBA/ cues for breath and breaks during bending tasks. Pt completes with multiple trials as 02 decreases to 88% in bending, able to recover quickly, cues for breath) Toileting Hygiene (QC): 3 (mod A (pt completes washing, OT dries and applies cream)) Other Treatment Pt completes tasks in chair with 02 maintaining >90% except during bending/ standing tasks. Pt sit to stand SBA at walker level, completes stance for ~2 minutes while completing [place]/ bottom care. Good balance during this task. Pt has waffle cushion in chair and barrier cream is applied to protect skin integrity. Pt returns to chair, able to situate self in chair. Blankets applied, pillows placed under BLE and behind head. Pt is educated on 2 additional arm exercises: tricep push-ups in chair and scapular retraction to encourage UE fx strength/ endurance. Pt nods in agreement, all needs met, call light in reach. Education OT Patient Education: Correct positioning, Exercise program, Home exercise program, Progress toward Goal/Update tx plan, Purpose of tx/functional activities, Safety issues Teaching Recipient: Patient Teaching Methods: Demonstration, Discussion Response to Teaching: Verbalize Understanding, Return Demonstration, Reinforcement Needed OT Short Term Goals Short Term Goals Time Frame: Sep 13, 2020 Eatin Oral hygiene: 4 Toileting hygiene: 3 Shower/bathe self: 3 Upper body dressin Lower body dressin Putting on/taking off footwear: 4 OT Longterm Goals Panel Installer Goals Time Frame: Sep 20, 2020 Eating (QC): 6 Oral Hygiene (QC): 6 Toileting Hygiene (QC): 6 Shower/Bathe Self (QC): 4 Upper Body Dressing (QC): 5 Lower Body Dressing (QC): 4 On/Off Footwear (QC): 4 Additional Goals: 1-Demonstrate ADL Tasks, 2-Verbalize Understanding, 3- ImproveStrength/Adriana 1=Demonstrate adherence to instructed precautions during ADL tasks. 2=Patient will verbalize/demonstrate understanding of assistive devices/mo difications for ADL. 3=Patient will improve strength/tolerance for activity to enable patient to perform ADL's. OT Education/Plan Problem List/Assessment Assessment: Decreased Activ Tolerance, Decreased UE Strength, Impaired I ADL's, Impaired Self-Care Skills Discharge Recommendations Plan/Recommendations: Continue POC Therapy Discharge Recommendati: Post Acute OT Treatment Plan/Plan of Care Treatment,Training & Education: Yes Patient would benefit from OT for education, treatment and training to promote independence in ADL's, mobility, safety and/or upper extremity function for ADL's. Plan of Care: ADL Retraining, Functional Mobility, UE Funct Exercise/Act Treatment Duration: Sep 20, 2020 Frequency: 5 times per week Estimated Hrs Per Day: .5 hour per day Agreement: Yes Rehab Potential: Fair Time/GCodes Start Time: 10:50 Stop Time: 11:20 Total Time Billed (hr/min): 20 Billed Treatment Time 1, ADL (20) CARLOS MANUEL AMADOR OTR Sep 07, 2020 11:21
[2020-09-07] MEDS: ADVAIR HFA 115/21 MCG INHALER 8 GM IH SCH ×2 (11:23→21:52)
[2020-09-07 12:38] VITALS: BP 168/72
--- NOTE | 2020-09-07 15:23 | Progress Note - Cardiology ---
Cardiology SOAP Progress Note Subjective: States feels better No cp or palp or syncope Gen malaise and weakness No shortness of breath at rest No n/v Objective: I&O/Vital Signs 09/07/20 09/07/20 09/07/20 09/07/20 06:33 06:56 07:00 08:16 Temp 36.4 Pulse 80 78 Resp 22 B/P (MAP) 175/79 (111) Pulse Ox 92 91 91 O2 Delivery Nasal Cannula High Flow N/C High Flow N/C O2 Flow Rate 4.00 4.00 4.00 09/07/20 09/07/20 09/07/20 11:24 12:38 12:49 Temp 36.6 Pulse 90 81 Resp 20 B/P (MAP) 168/72 (104) Pulse Ox 94 94 O2 Delivery Nasal Cannula High Flow N/C O2 Flow Rate 4.00 4.00 09/07/20 00:00 Intake Total 2210 ml Output Total 2150 ml Balance 60 ml Constitutional: AAO x 3, well-developed, well-nourished Respiratory: No accessory muscle use; other (good bilat air entry) Cardiovascular: regular rate-rhythm, S1 and S2, systolic murmur (soft ZAK at card base) Gastrointestional: No tender; soft; No guarding, No rebound; audible bowel sounds Extremities: No clubbing, No cyanosis, No significant edema Neurologic/Psychiatric: oriented x 3, other (moves all limbs equally) Skin: No rash on exposed areas, No ulcerations on exposed areas Results/Procedures: Labs Laboratory Tests 09/07/20 06:33: White Blood Count 8.7, Red Blood Count 2.58L, Hemoglobin 8.8L, Hematocrit 27L, Mean Corpuscular Volume 104H, Mean Corpuscular Hemoglobin 34, Mean Corpuscular Hemoglobin Concent 33, Red Cell Distribution Width 13.9, Platelet Count 332, Mean Platelet Volume 9.7, Immature Granulocyte % (Auto) 0, Neutrophils (%) (Auto) 68, Lymphocytes (%) (Auto) 15, Monocytes (%) (Auto) 9, Eosinophils (%) (Auto) 8, Basophils (%) (Auto) 1, Neutrophils # (Auto) 5.9, Lymphocytes # (Auto) 1.3, Monocytes # (Auto) 0.7, Eosinophils # (Auto) 0.7H, Basophils # (Auto) 0.0, Immature Granulocyte # (Auto) 0.0, Sodium Level 135, Potassium Level 4.0, Chloride Level 100, Carbon Dioxide Level 24, Anion Gap 11, Blood Urea Nitrogen 35H, Creatinine 2.13H, Estimat Glomerular Filtration Rate 31, BUN/Creatinine Ratio 16, Glucose Level 107H, Calcium Level 8.2L, Corrected Calcium 9.2, Magnesium Level 1.6, Total Bilirubin 0.3, Aspartate Amino Transf (AST/SGOT) 17, Alanine Aminotransferase (ALT/SGPT) 19, Alkaline Phosphatase 178H, Total Protein 6.0L, Albumin 2.7L Laboratory Tests 09/07/20 06:33 Laboratory Tests 09/07/20 06:33 A/P: Assessment: Ac resp failure / hypoxemia following endoscopy for eval for anemia on 09/02/20 Severe hypertension. Malignant hypertension in Jun 2020 leading to ac diastolic CHF at that time, Echo 08/13/20: LVEF 55-65%, grade 2 diastolic dysfunction, mild aortic valve stenosis, mild pulmonary hypertension with PA pressure 40-45 mmHg CKD - IV. Not suitable of MICHAEL-ihib / ARB Anemia of undetermined etiology, managed by Dr Tam H/o recent alcohol withdrawal syndrome (Jun 2020) Plan: * Cr seems to be worsening. D/c diuretics if trend continues * Increase doxazosin further for better bp control * Monitor labs DEANNA FLORES MD FACP FAC CCDS Sep 07, 2020 15:23
[2020-09-07 15:32] VITALS: BP 176/77
[2020-09-07] MEDS: TAMSULOSIN 0.4 MG (FLOMAX) CAP PO SCH (18:12)
[2020-09-07 19:39] VITALS: BP 170/74
[2020-09-07] MEDS: ACETAMINOPHEN 500 MG TAB (TYLENOL) PO PRN (19:49)
[2020-09-07] MEDS: ALPRAZolam 0.25 MG (XANAX) TAB PO PRN (19:49)
[2020-09-07] MEDS: MELATONIN 3 MG TABLET PO PRN (19:50)
[2020-09-07] MEDS: diphenhydrAMINE 25 MG TAB (BENADRYL) PO PRN (19:51)
[2020-09-08] VITALS (9 sets, daily range): BP systolic 140–174; BP diastolic 52–75
[2020-09-08 06:00] LABS: ALBUMIN 2.8 GM/DL (3.2-4.5); POTASSIUM 4.2 MMOL/L (3.6-5.0)
[2020-09-08 06:02] LABS: CALCIUM 8.7 MG/DL (8.5-10.1)
[2020-09-08 06:03] LABS: TOTAL PROTEIN 6.1 GM/DL (6.4-8.2)
[2020-09-08 06:05] LABS: BILIRUBIN,TOTAL 0.3 MG/DL (0.1-1.0)
[2020-09-08 06:07] LABS: CREATININE SERUM 2.05 MG/DL (0.60-1.30)
[2020-09-08] MEDS: CATHETER FLUSH 10 ML SYR IV SCH ×3 (06:39→21:11)
[2020-09-08] MEDS: FUROSEMIDE 40 MG/4 ML INJ (LASIX) IVP SCH (06:39)
[2020-09-08] MEDS ORDERED: VENlafaxine XR 37.5 MG (EFFEXOR XR) CAP PO SCH (07:00)
[2020-09-08] MEDS: RT-ALBUTEROL/IPRATROPIUM 3 ML (DUONEB) VIAL INH SCH ×4 (07:30→22:34)
[2020-09-08] MEDS: ADVAIR HFA 115/21 MCG INHALER 8 GM IH SCH ×2 (08:58→22:34)
[2020-09-08] MEDS: doxAzosin 4 MG (CARDURA) TAB PO SCH ×2 (08:59→21:05)
[2020-09-08] MEDS: meTOprolol SUCCINATE 100 MG (TOPROL XL) TAB PO SCH ×2 (09:01→21:06)
[2020-09-08] MEDS: SENNA W/DOCUSATE (SENOKOT S) TABLET PO SCH ×2 (09:06→21:06)
[2020-09-08] MEDS: amLODIPine 5 MG (NORVASC) TAB PO SCH ×2 (09:36→21:06)
--- NOTE | 2020-09-08 11:35 | Progress Note - Hospitalist ---
Subjective HPI/CC On Admission Date Seen by Provider: Sep 08, 2020 Time Seen by Provider: 11:00 Subjective/Events-last exam Hgb 9.0 Creat 2.0 DC Tely BP better No pain reported BM+ Will walk in halls today MICHAEL wraps to legs Review of Systems General: Fatigue, Malaise Pulmonary: Dyspnea Cardiovascular: Edema Objective Exam Vital Signs Vital Signs Date Time Temp Pulse Resp B/P (MAP) Pulse Ox O2 Delivery O2 Flow Rate FiO2 09/08/20 15:59 37.1 83 93 09/08/20 15:44 140/52 (81) 09/08/20 15:30 16 Nasal Cannula 3.00 Capillary Refill : Less Than 3 SecondsLess Than 3 Seconds General Appearance: No Apparent Distress, WD/WN, Chronically ill Respiratory: Chest Non Tender, Lungs Clear, Normal Breath Sounds, No Accessory Muscle Use, No Respiratory Distress Cardiovascular: Regular Rate, Rhythm, No Gallop, No JVD, No Murmur, Normal Peripheral Pulses Extremity: Pedal Edema Neurologic/Psychiatric: Alert, Oriented x3, No Motor/Sensory Deficits, Normal Mood/Affect Results/Procedures Lab Laboratory Tests 09/08/20 05:20 Patient resulted labs reviewed. Assessment/Plan Assessment and Plan Assess & Plan/Chief Complaint Assessment: Hypoxia with increased O2 requirements following EGD/Colonoscopy by Dr Bowman Anemia s/p 1 unit of blood last week h/o Polycythemia holding Hydrea and consulting Dr Oreilly HTN malignant type MARYANN on [facility] COPD Smoker Depression 09/07/20 Plan: O2 Vapotherm Dr Tamez Cardiology Increase BP meds Lasix 09/03/20: Monitor creatinine Lasix 40mg IV BID Cardiology and Pulmonology consultations appreciated Vapotherm 09/04/20: Vapotherm wean Monitor volume overload 09/05/20: Swing bed tomorrow Rehab Friday Updated daughter 15 minutes 09/06/20: Moved to swing bed Monitor creat 09/07/20: Monitor hgb and creat Lasix 40mg IV once daily Wean O2 if possible Start Effexor 09/08/20: Increase Effexor for depression Lasix 40 mg IV daily Monitor closely Clinical Quality Measures DVT/VTE Risk/Contraindication: Risk Factor Score Per Nursin KIMBERLEE MENJIVAR DO Sep 08, 2020 11:35
[2020-09-08] MEDS: ACETAMINOPHEN 500 MG TAB (TYLENOL) PO PRN (13:54)
--- NOTE | 2020-09-08 15:36 | Progress Note - Cardiology ---
Cardiology SOAP Progress Note Subjective: Gen weakness and malaise and poor stamina Shortness of breath with exertion No cp or palp or syncope No n/v Objective: I&O/Vital Signs 09/08/20 09/08/20 09/08/20 09/08/20 04:00 07:00 08:15 09:00 Temp 36.5 37.1 Pulse 75 79 85 Resp 18 18 B/P (MAP) 150/70 (96) 172/52 (92) Pulse Ox 94 96 93 O2 Delivery High Flow N/C High Flow N/C High Flow N/C O2 Flow Rate 4.00 6.00 5.00 09/08/20 09/08/20 09/08/20 10:27 11:50 15:08 Temp 37.1 Pulse 82 Resp 18 B/P (MAP) 166/72 (103) Pulse Ox 94 94 92 O2 Delivery Nasal Cannula High Flow N/C Nasal Cannula O2 Flow Rate 3.00 3.00 2.00 09/08/20 00:00 Intake Total 2010 ml Output Total 3025 ml Balance -1015 ml Constitutional: AAO x 3, well-developed, well-nourished Respiratory: No accessory muscle use; other (good bilat air entry) Cardiovascular: regular rate-rhythm, S1 and S2, systolic murmur (soft ZAK at card base) Gastrointestional: No tender; soft; No guarding, No rebound; audible bowel sounds Extremities: No clubbing, No cyanosis, No significant edema Neurologic/Psychiatric: oriented x 3, other (moves all limbs equally) Skin: No rash on exposed areas, No ulcerations on exposed areas Results/Procedures: Labs Laboratory Tests 09/08/20 05:20: Hemoglobin 9.0L, Hematocrit 28L, Sodium Level 137, Potassium Level 4.2, Chloride Level 102, Carbon Dioxide Level 23, Anion Gap 12, Blood Urea Nitrogen 35H, Creatinine 2.05H, Estimat Glomerular Filtration Rate 33, BUN/Creatinine Ratio 17, Glucose Level 91, Calcium Level 8.7, Corrected Calcium 9.7, Total Bilirubin 0.3, Aspartate Amino Transf (AST/SGOT) 28, Alanine Aminotransferase (ALT/SGPT) 28, Alkaline Phosphatase 187H, Total Protein 6.1L, Albumin 2.8L Procedures Laboratory Tests 09/07/20 06:33 09/08/20 05:20 A/P: Assessment: Ac resp failure / hypoxemia following endoscopy for eval for anemia on 09/02/20 Severe hypertension. Malignant hypertension in Jun 2020 leading to ac diastolic CHF at that time, Echo 08/13/20: LVEF 55-65%, grade 2 diastolic dysfunction, mild aortic valve stenosis, mild pulmonary hypertension with PA pressure 40-45 mmHg CKD - IV. Not suitable of MICHAEL-ihib / ARB Anemia of undetermined etiology, managed by Dr Tam H/o recent alcohol withdrawal syndrome (Jun 2020) Plan: * Cr stable compared to yesterday. D/c diuretics if trend continues * Doxazosin increased on 09/07/20 for better bp control * Monitor labs DEANNA FLORES MD FACP [facility] CCDS Sep 08, 2020 15:36
[2020-09-08] MEDS: TAMSULOSIN 0.4 MG (FLOMAX) CAP PO SCH (17:04)
--- NOTE | 2020-09-08 18:54 | NUR ---
PT CONTINUE TO C/O PAIN TO BUTTOCKS. RN ASSESSED BOTTOM AND THERE WAS A BRIGHT RED, WARM RASH THAT EXTENDED OUT FROM CRACK. RASH LOOKS LIKE TO THIS RN LIKE A YEAST RASH. DR MENJIVAR NOTIFIED AND ORDERED NYSTATIN CREAM AND POWDER TO AREA. CREAM APPLIED AROUND 1600 WHEN IT ARRIVED TO US ON 4TH FLOOR AND PT REPORTED AROUND 1700 THAT RASH WAS ALREADY FEELING BETTER. ALSO PT GOT MOVED DOWN 3L OF 02 NON HIGH FLOW.
[2020-09-08] MEDS: ALPRAZolam 0.25 MG (XANAX) TAB PO PRN (21:05)
[2020-09-08] MEDS: MELATONIN 3 MG TABLET PO PRN (21:06)
[2020-09-08] MEDS: NYSTATIN CREAM (MYCOSTATIN) 30 GM TUBE TP SCH (21:07)
[2020-09-08] MEDS: MICONAZOLE 2% POWDER (DESENEX AF) 90 GM TOP SCH (21:08)
[2020-09-09] VITALS: BP 176/78
[2020-09-09] MEDS: cloNIDine 0.1 MG (CATAPRES) TAB PO PRN (00:56)
[2020-09-09] MEDS: RT-ALBUTEROL/IPRATROPIUM 3 ML (DUONEB) VIAL INH SCH ×4 (02:17→19:48)
[2020-09-09 04:00] VITALS: BP 165/71
[2020-09-09] MEDS: CATHETER FLUSH 10 ML SYR IV SCH ×3 (06:49→21:25)
[2020-09-09] MEDS: FUROSEMIDE 40 MG/4 ML INJ (LASIX) IVP SCH (06:49)
[2020-09-09] MEDS: VENlafaxine XR 75 MG (EFFEXOR XR) CAP PO SCH (06:50)
--- NOTE | 2020-09-09 07:17 | Progress Note - Hospitalist ---
Subjective HPI/CC On Admission Date Seen by Provider: Sep 09, 2020 Time Seen by Provider: 12:00 Subjective/Events-last exam Patient improved Effexor 75mg XR seems to already be helping him Walked around pretty well Still on IV Lasix so need to transition to PO and be sure he doesn't overload again like in IRF No pain reported Talked to him about IRF vs. home vs NHP? On 4L/min O2 Review of Systems General: Fatigue Pulmonary: Dyspnea Objective Exam Vital Signs Vital Signs Date Time Temp Pulse Resp B/P (MAP) Pulse Ox O2 Delivery O2 Flow Rate FiO2 09/09/20 16:59 37.4 82 16 156/70 (98) 92 Nasal Cannula 4.00 Capillary Refill : Less Than 3 SecondsLess Than 3 Seconds General Appearance: No Apparent Distress, WD/WN, Chronically ill Respiratory: Chest Non Tender, Lungs Clear, Normal Breath Sounds, No Accessory Muscle Use, No Respiratory Distress Cardiovascular: Regular Rate, Rhythm, No Gallop, No JVD, No Murmur, Normal Peripheral Pulses Extremity: Pedal Edema Neurologic/Psychiatric: Alert, Oriented x3, No Motor/Sensory Deficits, Normal Mood/Affect Results/Procedures Lab Patient resulted labs reviewed. Assessment/Plan Assessment and Plan Assess & Plan/Chief Complaint Assessment: Hypoxia with increased O2 requirements following EGD/Colonoscopy by Dr Bowman Anemia s/p 1 unit of blood last week h/o Polycythemia holding Hydrea and consulting Dr Oreilly HTN malignant type MARYANN on [facility] COPD Smoker Depression 09/07/20 Plan: O2 Vapotherm Dr Tamez Cardiology Increase BP meds Lasix 09/03/20: Monitor creatinine Lasix 40mg IV BID Cardiology and Pulmonology consultations appreciated Vapotherm 09/04/20: Vapotherm wean Monitor volume overload 09/05/20: Swing bed tomorrow Rehab Friday Updated daughter 15 minutes 09/06/20: Moved to swing bed Monitor creat 09/07/20: Monitor hgb and creat Lasix 40mg IV once daily Wean O2 if possible Start Effexor 09/08/20: Increase Effexor for depression Lasix 40 mg IV daily Monitor closely 09/09/20: Effexor Improved O2 wean IV Lasix Clinical Quality Measures DVT/VTE Risk/Contraindication: Risk Factor Score Per Nursin KIMBERLEE MENJIVAR DO Sep 09, 2020 07:17
[2020-09-09] MEDS: SENNA W/DOCUSATE (SENOKOT S) TABLET PO SCH ×2 (07:41→21:26)
[2020-09-09] MEDS: ADVAIR HFA 115/21 MCG INHALER 8 GM IH SCH ×2 (08:06→19:52)
[2020-09-09 08:50] VITALS: BP 166/72
[2020-09-09] MEDS: doxAzosin 4 MG (CARDURA) TAB PO SCH ×2 (09:10→21:11)
[2020-09-09] MEDS: amLODIPine 5 MG (NORVASC) TAB PO SCH ×2 (09:10→21:11)
[2020-09-09] MEDS: IRON SUCROSE 200 MG/10 ML (VENOFER) VIAL IV SCH (09:10)
[2020-09-09] MEDS: meTOprolol SUCCINATE 100 MG (TOPROL XL) TAB PO SCH ×2 (09:11→21:11)
[2020-09-09] MEDS: NYSTATIN CREAM (MYCOSTATIN) 30 GM TUBE TP SCH ×2 (09:11→21:14)
[2020-09-09] MEDS: MICONAZOLE 2% POWDER (DESENEX AF) 90 GM TOP SCH ×2 (09:11→21:14)
--- NOTE | 2020-09-09 09:21 | Physical Therapy Daily Note ---
PT Daily Note-Current Subjective Pt up in chair, agreeable to participate with PT. Reports he ambulated with nursing yesterday. Denies pain. Reports activity is limited by SOB but feels this is improving. Pain Numeric Pain Scale: 0-No Pain Mental Status Patient Orientation: Person, Place, Time, Situation Attachments: Oxygen Transfers SCALE: Activities may be completed with or without assistive devices. 3-Vpdjykeiki-gkzqumq completes the activity by him/herself with no assistance from a helper. 5-Set-up or Clean-up Assistance-helper sets up or cleans up; patient completes activity. [place] assists only prior to or following the activity. 4-Supervision or Touching Assistance-helper provides verbal cues and/or dora jorge/steadying and/or contact guard assistance as patient completes activity. Assistance may be provided throughout the activity or intermittently. 3-Partial/Moderate Assistance-helper does LESS THAN HALF the effort. [place] lifts, holds or supports trunk or limbs, but provides less than half the effort. 2-Substantial/Maximal Assistance-helper does MORE THAN HALF the effort. [place] lifts or holds trunk or limbs and provides more than half the effort. 4-Todplefsd-lyyoup does ALL the effort. Patient does none of the effort to complete the activity. Or, the assistance of 2 or more helpers is required for the patient to complete the activity. If activity was not attempted, code reason: 7-Patient Refused. 9-Not Applicable-not attempted and the patient did not perform the activity before the current illness, exacerbation or injury. 10-Not Attempted due to Environmental Limitations-(lack of equipment, weather restraints, etc.). 88-Not Attempted due to Medical Conditions or Safety Concerns. Sit to Stand (QC): 5 Weight Bearing Right Lower Extremity: Right Full Weight Bearing Left Lower Extremity: Left Full Weight Bearing Gait Training Does the Patient Walk?: Yes Distance: 300 Walk 10 feet (QC): 5 Walk 50 ft with 2 Turns(QC): 5 Walk 150 ft (QC): 5 Gait Persons Needed: 1 Gait Assistive Device: FWW Pt ambulated with SBA x 1, assist for O2 tank. One standing recovery break due to SOB. Pt's sats dropped to 87% after 150' with recovery to 91% within 1' standing recovery break (3L O2). Pt returned to up in recliner with needs met, O2 in situ. Wheelchair Training Does the Pt Use a Wheelchair?: No Treatments Ambulation with FWW Assessment Current Status: Good Progress Pt tolerated well. Decreased activity tolerance with SOB but slowly improving. Safe gait with FWW, safe transfers. PT Tanning Salon Attendant Goals Retirement Goals PT Tanning Salon Attendant Goals Time Frame: Sep 13, 2020 Roll Left & Right (QC): 6 Sit to Lying (QC): 6 Lying-Sitting on Side/Bed(QC): 6 Sit to Stand (QC): 6 Chair/Nlg-cq-Gnxtk Xfer(QC): 6 Toilet Transfer (QC): 6 Car Transfer (QC): 6 Does the Patient Walk: Yes Walk 10 feet (QC): 5 Walk 50ft with 2 Turns (QC): 5 Walk 150 ft (QC): 5 Walking 10ft on Uneven Surface: 5 1 Step (curb) (QC): 4 4 Steps (QC): 4 12 Steps (QC): 4 Picking up an Object (QC): 4 Wheel 50 feet with 2 turns (QC: 9 Wheel 150 feet: 9 PT Plan Problem List Problem List: Activity Tolerance, Functional Strength, Safety, Balance, Gait, Transfer Treatment/Plan Treatment Plan: Continue Plan of Care Treatment Plan: Bed Mobility, Education, Functional Activity Adriana, Functional Strength, Gait, Safety, Therapeutic Exercise, Transfers Treatment Duration: Sep 13, 2020 Frequency: 6 times per week Estimated Hrs Per Day: .25 hour per day Patient and/or Family Agrees t: Yes Time/GCodes Time In: 0839 Time Out: 0857 Total Billed Treatment Time: 18 Total Billed Treatment 1, FA x 18' FRANCISCO J DICKEY DPT Sep 09, 2020 09:21
--- NOTE | 2020-09-09 10:07 | NUR ---
THIS RN APPLIED NYSTATIN CREAM THIS MORNING AND RASH TO BOTTOM IS MUCH IMPROVED. REDNESS IS LESSENED, RASH IS SMALLER IN SIZE AND NO HEAT TO AREA. PT REPORTS THAT AREA DOES FEEL BETTER TODAY. WILL PASS ON TO DR MENJIVAR.
[2020-09-09 12:00] VITALS: BP 163/70
--- NOTE | 2020-09-09 15:22 | Progress Note - Cardiology ---
Cardiology SOAP Progress Note Subjective: Weakness and malaise Exertional shortness of breath is improving No cp or palp or syncope No n/v/d Objective: I&O/Vital Signs 09/09/20 09/09/20 09/09/20 09/09/20 04:00 08:06 08:07 08:50 Temp 36.0 37.6 Pulse 81 83 Resp 20 18 B/P (MAP) 165/71 (102) 166/72 (103) Pulse Ox 92 94 94 94 O2 Delivery Nasal Cannula Nasal Cannula Nasal Cannula Nasal Cannula O2 Flow Rate 4.00 4.00 4.00 3.00 09/09/20 09/09/20 09/09/20 09:00 12:00 15:05 Temp 37.6 Pulse 77 Resp 18 B/P (MAP) 163/70 (101) Pulse Ox 93 93 O2 Delivery Nasal Cannula Nasal Cannula Nasal Cannula O2 Flow Rate 4.00 4.00 4.00 09/09/20 00:00 Intake Total 2540 ml Output Total 2160 ml Balance 380 ml Constitutional: AAO x 3, well-developed, well-nourished Respiratory: No accessory muscle use; other (good bilat air entry) Cardiovascular: regular rate-rhythm, S1 and S2, systolic murmur (soft ZAK at card base) Gastrointestional: No tender; soft; No guarding, No rebound; audible bowel sounds Extremities: No clubbing, No cyanosis, No significant edema Neurologic/Psychiatric: oriented x 3, other (moves all limbs equally) Skin: No rash on exposed areas, No ulcerations on exposed areas Results/Procedures: Labs Laboratory Tests 09/08/20 05:20 A/P: Assessment: Ac resp failure / hypoxemia following endoscopy for eval for anemia on 09/02/20 Severe hypertension. Malignant hypertension in Jun 2020 leading to ac diastolic CHF at that time, Echo 08/13/20: LVEF 55-65%, grade 2 diastolic dysfunction, mild aortic valve stenosis, mild pulmonary hypertension with PA pressure 40-45 mmHg CKD - IV. Not suitable of MICHAEL-ihib / ARB Anemia of undetermined etiology, managed by Dr Tam H/o recent alcohol withdrawal syndrome (Jun 2020) Plan: * Repeat BMP. D/c diuretics if renal function is worsening * Doxazosin increased on 09/07/20 for better bp control * Monitor labs DEANNA FLORES MD FACP [facility] CCDS Sep 09, 2020 15:22
[2020-09-09 16:59] VITALS: BP 156/70
[2020-09-09] MEDS: TAMSULOSIN 0.4 MG (FLOMAX) CAP PO SCH (18:24)
[2020-09-09 19:55] VITALS: BP 164/72
--- NOTE | 2020-09-09 19:55 | NUR ---
PT COMPLAINED THAT HE IS UNABLE TO SLEEP AT NIGHT. DR MENJIVAR NOTIFIED BY THIS RN AND SHE STARTED REMERON 7.5 MG HS AND 6 MG MELATONIN HS.
[2020-09-09] MEDS: ALPRAZolam 0.25 MG (XANAX) TAB PO PRN (21:11)
[2020-09-09] MEDS: MIRTAZAPINE 15 MG (REMERON) TAB PO SCH (21:11)
[2020-09-09] MEDS: MELATONIN 3 MG TABLET PO SCH (21:12)
[2020-09-10 00:03] VITALS: BP 174/74
[2020-09-10] MEDS: RT-ALBUTEROL/IPRATROPIUM 3 ML (DUONEB) VIAL INH SCH ×4 (02:17→22:49)
[2020-09-10 04:16] VITALS: BP 171/73
[2020-09-10] MEDS: cloNIDine 0.1 MG (CATAPRES) TAB PO PRN ×2 (04:21→23:44)
[2020-09-10 05:18] LABS: BASOPHILS % (AUTO) 1 % (0-10); EOSINOPHILS # (AUTO) 0.5 10^3/uL (0.0-0.3); EOSINOPHILS % (AUTO) 6 % (0-10); HEMATOCRIT 27 % (40-54); HEMOGLOBIN 8.7 g/dL (13.3-17.7); LYMPHOCYTES # (AUTO) 1.1 10^3/uL (1.0-4.0); LYMPHOCYTES % (AUTO) 13 % (12-44); MEAN CORPUSCULAR HEMOGLOBIN 33 pg (25-34); MEAN CORPUSCULAR HGB CONC 32 g/dL (32-36); MEAN CORPUSCULAR VOLUME 103 fL (80-99); MEAN PLATELET VOLUME 10.3 fL (9.0-12.2); MONOCYTES # (AUTO) 0.9 10^3/uL (0.0-1.0); MONOCYTES % (AUTO) 11 % (0-12); NEUTROPHILS # (AUTO) 6.2 10^3/uL (1.8-7.8); NEUTROPHILS % (AUTO) 70 % (42-75); PLATELET COUNT 330 10^3/uL (130-400); WHITE BLOOD COUNT 8.8 10^3/uL (4.3-11.0)
[2020-09-10 05:29] LABS: ALBUMIN 2.7 GM/DL (3.2-4.5)
[2020-09-10 05:30] LABS: POTASSIUM 3.8 MMOL/L (3.6-5.0)
[2020-09-10 05:32] LABS: TOTAL PROTEIN 6.1 GM/DL (6.4-8.2)
[2020-09-10 05:34] LABS: BILIRUBIN,TOTAL 0.4 MG/DL (0.1-1.0)
[2020-09-10 05:36] LABS: CREATININE SERUM 1.87 MG/DL (0.60-1.30)
--- NOTE | 2020-09-10 06:28 | Progress Note - Hospitalist ---
Subjective HPI/CC On Admission Date Seen by Provider: Sep 10, 2020 Time Seen by Provider: 13:00 Subjective/Events-last exam Talked to patient about the plan for IRF versus NH since he does not feel like he will be comfortable going home in the near future Talked to daughter and she likes the idea of [facility] in [place] for 2 weeks before DC home alone since he will have RN supervision 07/04 less than physician superv ision 07/04 in order to wean off supervision intensity and increase confidence Cranky most of the time due to isolation Slept a bit better Buttocks helped by Nystatin cream and powder Review of Systems General: Fatigue, Malaise Pulmonary: Dyspnea Objective Exam Vital Signs Vital Signs Date Time Temp Pulse Resp B/P (MAP) Pulse Ox O2 Delivery O2 Flow Rate FiO2 09/10/20 20:27 Nasal Cannula 5.00 09/10/20 15:51 36.8 76 20 162/71 (101) 96 Capillary Refill : Less Than 3 SecondsLess Than 3 Seconds General Appearance: No Apparent Distress, WD/WN, Chronically ill Respiratory: Chest Non Tender, Lungs Clear, Normal Breath Sounds, No Accessory Muscle Use, No Respiratory Distress Cardiovascular: Regular Rate, Rhythm, No Edema, No Gallop, No JVD, No Murmur, Normal Peripheral Pulses Neurologic/Psychiatric: Alert, Oriented x3, No Motor/Sensory Deficits, Normal Mood/Affect Results/Procedures Lab Laboratory Tests 09/10/20 04:30 Patient resulted labs reviewed. Assessment/Plan Assessment and Plan Assess & Plan/Chief Complaint Assessment: Hypoxia with increased O2 requirements following EGD/Colonoscopy by Dr Bowman Anemia s/p 1 unit of blood last week h/o Polycythemia holding Hydrea and consulting Dr Oreilly HTN malignant type MARYANN on [facility] COPD Smoker Depression 09/07/20 Plan: O2 Vapotherm Dr Tamez Cardiology Increase BP meds Lasix 09/03/20: Monitor creatinine Lasix 40mg IV BID Cardiology and Pulmonology consultations appreciated Vapotherm 09/04/20: Vapotherm wean Monitor volume overload 09/05/20: Swing bed tomorrow Rehab Friday Updated daughter 15 minutes 09/06/20: Moved to swing bed Monitor creat 09/07/20: Monitor hgb and creat Lasix 40mg IV once daily Wean O2 if possible Start Effexor 09/08/20: Increase Effexor for depression Lasix 40 mg IV daily Monitor closely 09/09/20: Effexor Improved O2 wean IV Lasix 09/10/20: NHP to [facility] Clinical Quality Measures DVT/VTE Risk/Contraindication: Risk Factor Score Per Nursin KIMBERLEE MENJIVAR DO Sep 10, 2020 06:28
[2020-09-10] MEDS: VENlafaxine XR 75 MG (EFFEXOR XR) CAP PO SCH (06:42)
[2020-09-10] MEDS: FUROSEMIDE 40 MG/4 ML INJ (LASIX) IVP SCH (06:42)
[2020-09-10] MEDS: CATHETER FLUSH 10 ML SYR IV SCH ×3 (06:42→20:48)
[2020-09-10] MEDS: ADVAIR HFA 115/21 MCG INHALER 8 GM IH SCH ×2 (07:57→22:49)
[2020-09-10 08:00] VITALS: BP 171/82
[2020-09-10] MEDS: doxAzosin 4 MG (CARDURA) TAB PO SCH ×2 (09:03→20:44)
[2020-09-10] MEDS: amLODIPine 5 MG (NORVASC) TAB PO SCH ×2 (09:04→20:45)
[2020-09-10] MEDS: NYSTATIN CREAM (MYCOSTATIN) 30 GM TUBE TP SCH ×2 (09:04→20:48)
[2020-09-10] MEDS: SENNA W/DOCUSATE (SENOKOT S) TABLET PO SCH ×2 (09:04→20:47)
[2020-09-10] MEDS: meTOprolol SUCCINATE 100 MG (TOPROL XL) TAB PO SCH ×2 (09:04→20:45)
[2020-09-10] MEDS: MICONAZOLE 2% POWDER (DESENEX AF) 90 GM TOP SCH ×2 (09:05→20:48)
[2020-09-10 12:00] VITALS: BP 160/80
--- NOTE | 2020-09-10 15:02 | Progress Note - Cardiology ---
Cardiology SOAP Progress Note Subjective: No cp or palp or syncope Shortness of breath gradually improving Gen malaise No n/v Objective: I&O/Vital Signs 09/10/20 09/10/20 09/10/20 09/10/20 04:16 07:58 07:59 08:00 Temp 37.4 37.1 Pulse 85 81 Resp 18 16 B/P (MAP) 171/73 (105) 171/82 (111) Pulse Ox 91 94 93 O2 Delivery Nasal Cannula Nasal Cannula Nasal Cannula Nasal Cannula O2 Flow Rate 5.00 4.00 4.00 3.00 09/10/20 09/10/20 09/10/20 09:00 12:00 14:46 Temp 37.1 Pulse 80 Resp 18 B/P (MAP) 160/80 (106) Pulse Ox 94 95 93 O2 Delivery Nasal Cannula Nasal Cannula Nasal Cannula O2 Flow Rate 5.00 3.00 4.00 09/10/20 00:00 Intake Total 1430 ml Output Total 1325 ml Balance 105 ml Constitutional: AAO x 3, well-developed, well-nourished Respiratory: No accessory muscle use; other (good bilat air entry) Cardiovascular: regular rate-rhythm, S1 and S2, systolic murmur (soft ZAK at card base) Gastrointestional: No tender; soft; No guarding, No rebound; audible bowel s ounds Extremities: No clubbing, No cyanosis, No significant edema Neurologic/Psychiatric: oriented x 3, other (moves all limbs equally) Skin: No rash on exposed areas, No ulcerations on exposed areas Results/Procedures: Labs Laboratory Tests 09/10/20 04:30: White Blood Count 8.8, Red Blood Count 2.63L, Hemoglobin 8.7L, Hematocrit 27L, Mean Corpuscular Volume 103H, Mean Corpuscular Hemoglobin 33, Mean Corpuscular Hemoglobin Concent 32, Red Cell Distribution Width 13.3, Platelet Count 330, Mean Platelet Volume 10.3, Immature Granulocyte % (Auto) 0, Neutrophils (%) (Auto) 70, Lymphocytes (%) (Auto) 13, Monocytes (%) (Auto) 11, Eosinophils (%) (Auto) 6, Basophils (%) (Auto) 1, Neutrophils # (Auto) 6.2, Lymphocytes # (Auto) 1.1, Monocytes # (Auto) 0.9, Eosinophils # (Auto) 0.5H, Basophils # (Auto) 0.0, Immature Granulocyte # (Auto) 0.0, Sodium Level 134L, Potassium Level 3.8, Chloride Level 100, Carbon Dioxide Level 22, Anion Gap 12, Blood Urea Nitrogen 27H, Creatinine 1.87H, Estimat Glomerular Filtration Rate 36, BUN/Creatinine Ratio 14, Glucose Level 103, Calcium Level 8.0L, Corrected Calcium 9.0, Total Bilirubin 0.4, Aspartate Amino Transf (AST/SGOT) 16, Alanine Aminotransferase (ALT/SGPT) 27, Alkaline Phosphatase 178H, Total Protein 6.1L, Albumin 2.7L Laboratory Tests 09/10/20 04:30 A/P: Assessment: Ac resp failure / hypoxemia following endoscopy for eval for anemia on 09/02/20 Severe hypertension. Malignant hypertension in Jun 2020 leading to ac diastolic CHF at that time, Echo 08/13/20: LVEF 55-65%, grade 2 diastolic dysfunction, mild aortic valve stenosis, mild pulmonary hypertension with PA pressure 40-45 mmHg CKD - IV. Not suitable of MICHAEL-ihib / ARB Anemia of undetermined etiology, managed by Dr Tam H/o recent alcohol withdrawal syndrome (Jun 2020) Plan: * BMP repeated. Renal function stable. Continue diuretic * Doxazosin increased on 09/07/20 for better bp control * Monitor labs DEANNA FLORES MD FACP [facility] CCDS Sep 10, 2020 15:02
[2020-09-10 15:51] VITALS: BP 162/71
[2020-09-10] MEDS: TAMSULOSIN 0.4 MG (FLOMAX) CAP PO SCH (18:21)
[2020-09-10] MEDS: MIRTAZAPINE 15 MG (REMERON) TAB PO SCH (20:45)
[2020-09-10] MEDS: ALPRAZolam 0.25 MG (XANAX) TAB PO PRN (20:45)
[2020-09-10] MEDS: MELATONIN 3 MG TABLET PO SCH (20:46)
[2020-09-10 20:56] VITALS: BP 156/69
[2020-09-11 00:16] VITALS: BP 177/76
[2020-09-11] MEDS: RT-ALBUTEROL/IPRATROPIUM 3 ML (DUONEB) VIAL INH SCH ×4 (03:37→21:15)
[2020-09-11 04:10] VITALS: BP 155/67
--- NOTE | 2020-09-11 06:12 | Progress Note - Hospitalist ---
Subjective HPI/CC On Admission Date Seen by Provider: Sep 11, 2020 Time Seen by Provider: 09:30 Subjective/Events-last exam Updated patient regarding the plan for [place] [facility] on my service If he feels like he wants to go home sooner than 2-3 weeks I will DC home on Hospital Course: Pt had a lengthy hospital course for [facility]. He was admitted for strengthening and oxygen weening and volume overload management with IV diuretics along with cardiology and pulmonology consultation. Creatinine remained at his baseline between. 1.8-2.0. Had a really good result, required 4 liters of O2 maintenance, intermediate referral for [facility], and he was felt to be stable for DC and that was initiated with agreement between patient and family. Review of Systems General: Fatigue, Malaise Objective Exam Vital Signs Vital Signs Date Time Temp Pulse Resp B/P (MAP) Pulse Ox O2 Delivery O2 Flow Rate FiO2 09/11/20 21:15 95 Nasal Cannula 4.00 09/11/20 19:47 37.2 77 18 159/67 (97) Capillary Refill : Less Than 3 SecondsLess Than 3 Seconds General Appearance: No Apparent Distress, WD/WN, Chronically ill Respiratory: Chest Non Tender, Lungs Clear, Normal Breath Sounds, No Accessory Muscle Use, No Respiratory Distress Cardiovascular: Regular Rate, Rhythm, No Gallop, No JVD, No Murmur, Normal Peripheral Pulses Extremity: Pedal Edema Neurologic/Psychiatric: Alert, Oriented x3, No Motor/Sensory Deficits, Normal Mood/Affect Results/Procedures Lab Patient resulted labs reviewed. Assessment/Plan Assessment and Plan Assess & Plan/Chief Complaint Assessment: Hypoxia with increased O2 requirements following EGD/Colonoscopy by Dr Bowman Anemia s/p 1 unit of blood last week h/o Polycythemia holding Hydrea and consulting Dr Oreilly HTN malignant type MARYANN on [facility] COPD Smoker Depression 09/07/20 Plan: O2 Vapotherm Dr Tamez Cardiology Increase BP meds Lasix 09/03/20: Monitor creatinine Lasix 40mg IV BID Cardiology and Pulmonology consultations appreciated Vapotherm 09/04/20: Vapotherm wean Monitor volume overload 09/05/20: Swing bed tomorrow Rehab Friday Updated daughter 15 minutes 09/06/20: Moved to swing bed Monitor creat 09/07/20: Monitor hgb and creat Lasix 40mg IV once daily Wean O2 if possible Start Effexor 09/08/20: Increase Effexor for depression Lasix 40 mg IV daily Monitor closely 09/09/20: Effexor Improved O2 wean IV Lasix 09/10/20: NHP to [facility] 09/11/20: DC [facility] tomorrow Clinical Quality Measures DVT/VTE Risk/Contraindication: Risk Factor Score Per Nursin KIMBERLEE MENJIVAR DO Sep 11, 2020 06:12
[2020-09-11] MEDS: FUROSEMIDE 40 MG/4 ML INJ (LASIX) IVP SCH (07:19)
[2020-09-11] MEDS: VENlafaxine XR 75 MG (EFFEXOR XR) CAP PO SCH (07:19)
[2020-09-11] MEDS: CATHETER FLUSH 10 ML SYR IV SCH ×3 (07:19→22:48)
[2020-09-11] MEDS: SENNA W/DOCUSATE (SENOKOT S) TABLET PO SCH ×2 (07:30→21:12)
--- NOTE | 2020-09-11 07:39 | Pulmonary Progress Note ---
Subjective Time Seen by a Provider: 07:36 Sepsis Event Evaluation Height, Weight, BMI Height: '" Weight: lbs. oz. kg; 29.61 BMI Method: Exam Exam Vital Signs Date Time Temp Pulse Resp B/P (MAP) Pulse Ox O2 Delivery O2 Flow Rate FiO2 09/11/20 04:10 36.8 62 18 155/67 (96) 93 Nasal Cannula 5.00 09/11/20 03:37 95 Nasal Cannula 5.00 09/11/20 00:16 37.1 80 20 177/76 (109) 91 Nasal Cannula 5.00 09/10/20 20:56 37.8 77 20 156/69 (98) 95 Nasal Cannula 5.00 09/10/20 20:27 Nasal Cannula 5.00 09/10/20 15:51 36.8 76 20 162/71 (101) 96 Nasal Cannula 5.00 09/10/20 14:46 93 Nasal Cannula 4.00 09/10/20 12:00 37.1 80 18 160/80 (106) 95 Nasal Cannula 3.00 09/10/20 09:00 94 Nasal Cannula 5.00 09/10/20 08:00 37.1 81 16 171/82 (111) 93 Nasal Cannula 3.00 09/10/20 07:59 Nasal Cannula 4.00 09/10/20 07:58 94 Nasal Cannula 4.00 I & O 09/11/20 07:00 Intake Total 1240 ml Output Total 1400 ml Balance -160 ml Height & Weight Height: '" Weight: lbs. oz. kg; 29.61 BMI Method: General Appearance: No Apparent Distress, WD/WN, Chronically ill Respiratory: Chest Non Tender, Lungs Clear, Normal Breath Sounds, No Accessory Muscle Use, No Respiratory Distress Cardiovascular: Regular Rate, Rhythm, No Edema, No Gallop, No JVD, No Murmur, Normal Peripheral Pulses Capillary Refill: Less Than 3 Seconds Extremity: Pedal Edema Neurologic/Psychiatric: Alert, Oriented x3, No Motor/Sensory Deficits, Normal Mood/Affect Results Lab Laboratory Tests 09/10/20 04:30 Assessment/Plan Assessment/Plan Acute respiratory distress with hypoxemia -- much improved -Pt on NC -Repeat CXR Hx of COPD -Breathing treatments -advair Grade II CHF -Lasix Hx of tobacco use Anemia s/P EGD and colonoscopy hx of polycythemia -Follows with Dr. Denilson Uribe on chronic renal failure -Monitor HTN MAGNUS KINNEY DO Sep 11, 2020 07:39
[2020-09-11 07:46] VITALS: BP 167/72
--- NOTE | 2020-09-11 08:04 | Diagnostic Imaging Report ---
INDICATION: Shortness of breath. Comparison made with prior examination of 09/04/2020. FINDINGS: There are bibasilar infiltrates. There is some venous congestion. Heart size upper limits normal. No pneumothorax. Mediastinum is unremarkable IMPRESSION: Mild central pulmonary venous congestion. Bibasilar infiltrates and small bilateral pleural effusions. Dictated by: Dictated on workstation # [id number]
--- NOTE | 2020-09-11 09:00 | NUR ---
CM DISCHARGE PLANNING: Visited with patient after consult received from doctor for placement at [facility] for continued skilled rehabilitation. His ultimate goal is to return home at his prior independent level of functioning. He is in agreement for short term senior care home placement prior to returning home. Referral sent and spoke with Amina at [facility] to confirm bed availability and receipt of fax. They will review and let me know if they can accept. I also let them know that doctor is ready for discharge today if that is a possibility.
[2020-09-11] MEDS ORDERED: DOXA4TAB2 PO (09:14)
[2020-09-11] MEDS ORDERED: TMSL.4C PO (09:14)
[2020-09-11] MEDS ORDERED: IPRA3AMP31 INH ×2 (09:14)
[2020-09-11] MEDS ORDERED: VENL75CA93 PO (09:14)
[2020-09-11] MEDS ORDERED: AMLO-250 PO (09:14)
[2020-09-11] MEDS ORDERED: MIRT-47 PO (09:14)
[2020-09-11] MEDS ORDERED: CALC200T40 PO (09:14)
[2020-09-11] MEDS ORDERED: MICO90PO TOP (09:14)
[2020-09-11] MEDS ORDERED: DCS100C PO (09:14)
[2020-09-11] MEDS ORDERED: ATOR10TA66 PO (09:14)
[2020-09-11] MEDS ORDERED: MTP100TCR PO ×2 (09:14)
[2020-09-11] MEDS ORDERED: NYST15CR TP (09:14)
[2020-09-11] MEDS ORDERED: CLN.1T PO (09:14)
--- NOTE | 2020-09-11 09:15 | Discharge Inst-Skilled Nursing ---
Discharge Inst-Skilled NF Reconcile Patient Problems Problems Reviewed?: Yes Patient Instructions Patient Problems: HTN Volume overload Consult/Follow Up/Orders Follow Up Appt.: Dr Tam in 2 weeks Skilled [facility] certify that SNF services are required to be given on an inpatient basis because of the above named patient's need for fci care on a continuing basis for the conditions(s) for which he/she was receiving inpatient hospital services prior to his/her transfer to the SNF. Correction Facility Order: Nursing Services, Fire Manager-Evaluate & Treat, Physical Therapy-Evaluate & Treat (4L/min) Oxygen Delivery Method: Nasal Cannula Discharge Diet: No Restrictions Daily Activity as Tolerated: Yes Resuscitation Status: Full Code New & Resume Previous Orders New Medications: Furosemide (Lasix) 40 Mg Tablet 40 MG PO DAILY for 30 Days, TAB Metolazone (Metolazone) 2.5 Mg Tablet 2.5 MG PO Q48H for 30 Days, TAB Give 30 minutes before Lasix every other morning Amlodipine Besylate (Amlodipine Besylate) 5 Mg Tablet 5 MG PO BID for 30 Days, TAB Calcium Carbonate (Calcium Antacid) 200 Mg Tab.chew 500 MG PO TID PRN for INDIGESTION for 30 Days, TAB Clonidine HCl (Clonidine HCl) 0.1 Mg Tablet 0.1 MG PO Q4HR PRN for sbp>170 for 30 Days, TAB Docusate Sodium (Dok) 100 Mg Capsule 100 MG PO BID PRN for CONSTIPATION-1ST LINE for 30 Days, CAP Doxazosin Mesylate (Doxazosin Mesylate) 4 Mg Tablet 6 MG PO BID for 30 Days, TAB Ipratropium/Albuterol Sulfate (Iprat-Albut 0.5-3(2.5) mg/3 ml) 3 Ml Ampul.neb 3 ML INH RTQ6HR for 30 Days, INHALER Ipratropium/Albuterol Sulfate (Iprat-Albut 0.5-3(2.5) mg/3 ml) 3 Ml Ampul.neb 3 ML INH RTQ2H PRN for SHORTNESS OF BREATH for 30 Days, INHALER Metoprolol Succinate (Metoprolol Succinate) 100 Mg Tab.er.24h 200 MG PO DAILY for 30 Days, TAB Metoprolol Succinate (Metoprolol Succinate) 100 Mg Tab.er.24h 100 MG PO HS for 30 Days, TAB Miconazole Nitrate (Lotrimin AF) 90 Gm Powder 0 GM TOP BID for 30 Days, EA Mirtazapine (Mirtazapine) 15 Mg Tab.rapdis 7.5 MG PO HS for 30 Days, TAB Nystatin (Nystatin) 15 Gm Cream..g. 0 GM TP BID for 30 Days, TUBE Tamsulosin HCl (Flomax) 0.4 Mg Cap 0.4 MG PO DAILY@1800 for 30 Days, CAP Venlafaxine HCl (Venlafaxine HCl ER) 75 Mg Cap.er.24h 75 MG PO DAILY@0700 for 30 Days, CAP Continued Medications: Albuterol Sulfate (Ventolin Hfa) 1 Puff Puff 2 PUFF INH Q6H PRN for SHORTNESS OF BREATH, EA Aspirin (Aspirin EC) 81 Mg Tablet.dr 81 MG PO DAILY, TAB Atorvastatin Calcium (Atorvastatin Calcium) 10 Mg Tablet 10 MG PO HS for 30 Days, TAB (This prescription has been renewed) LAST FILLED 04-10-2020 #90/90 DAY SUPPLY Fluticasone/Salmeterol (Advair Hfa 115-21 Mcg Inhaler) 12 Gm Hfa.aer.ad 0 PUFF IH RTBID for 30 Days, GM Vitamin B Complex (Vitamin B Complex) 1 Each Tablet 1 EACH PO DAILY, TAB Discontinued Medications: Amlodipine Besylate (Amlodipine Besylate) 5 Mg Tablet 5 MG PO BID for 30 Days, TAB Clonidine HCl (Clonidine HCl) 0.1 Mg Tablet 0.1 MG PO Q4HR PRN for sbp>170 for 7 Days, TAB Doxazosin Mesylate (Doxazosin Mesylate) 2 Mg Tablet 2 MG PO BID for 30 Days, TAB Furosemide (Furosemide) 10 Mg/1 Ml Vial 40 MG IVP DAILY@07,17 for 7 Days, VIAL Ipratropium/Albuterol Sulfate (Iprat-Albut 0.5-3(2.5) mg/3 ml) 3 Ml Ampul.neb 3 ML INH RTQ4HR for 7 Days, INHALER Iron Sucrose Complex (Venofer) 200 Mg/10 Ml Vial 200 MG IV Q48H@09 for 7 Days, VIAL Metoprolol Succinate (Metoprolol Succinate) 100 Mg Tab.er.24h 100 MG PO HS for 30 Days, TAB Metoprolol Succinate (Metoprolol Succinate) 100 Mg Tab.er.24h 200 MG PO DAILY for 30 Days, TAB Tamsulosin HCl (Flomax) 0.4 Mg Cap 0.4 MG PO DAILY@1800 for 7 Days, CAP Nikia Tam Sep 11, 2020 09:14 NIKIA TAM DO Sep 11, 2020 09:15
[2020-09-11] MEDS ORDERED: FURO-124 PO (09:17)
[2020-09-11] MEDS ORDERED: METO2.5T PO (09:17)
--- NOTE | 2020-09-11 09:28 | Physical Therapy Daily Note ---
PT Daily Note-Current Subjective Patient reports he wants to go home. Agrees to PT. Mental Status Patient Orientation: Normal For Age Attachments: Oxygen (2L NC) Transfers SCALE: Activities may be completed with or without assistive devices. 5-Ydyfluwaxt-tjcaznx completes the activity by him/herself with no assistance from a helper. 5-Set-up or Clean-up Assistance-helper sets up or cleans up; patient completes activity. [place] assists only prior to or following the activity. 4-Supervision or Touching Assistance-helper provides verbal cues and/or touching/steadying and/or contact guard assistance as patient completes activity. Assistance may be provided throughout the activity or intermittently. 3-Partial/Moderate Assistance-helper does LESS THAN HALF the effort. [place] lifts, holds or supports trunk or limbs, but provides less than half the effort. 2-Substantial/Maximal Assistance-helper does MORE THAN HALF the effort. [place] lifts or holds trunk or limbs and provides more than half the effort. 4-Fevwmrsht-mxnemo does ALL the effort. Patient does none of the effort to complete the activity. Or, the assistance of 2 or more helpers is required for the patient to complete the activity. If activity was not attempted, code reason: 7-Patient Refused. 9-Not Applicable-not attempted and the patient did not perform the activity before the current illness, exacerbation or injury. 10-Not Attempted due to Environmental Limitations-(lack of equipment, weather restraints, etc.). 88-Not Attempted due to Medical Conditions or Safety Concerns. Roll Left & Right (QC): 6 Sit to Lying (QC): 6 Lying to Sitting/Side of Bed(Q: 6 Sit to Stand (QC): 6 Chair/Ouc-mg-Smjdx Xfer(QC): 6 Weight Bearing Right Lower Extremity: Right Full Weight Bearing Left Lower Extremity: Left Full Weight Bearing Gait Training Does the Patient Walk?: Yes Distance: 450' Walk 10 feet (QC): 5 Walk 50 ft with 2 Turns(QC): 5 Walk 150 ft (QC): 5 Gait Assistive Device: FWW safe and functional with no deviation/increase SOA with activity. Exercises Supine Ex: Ankle pumps, Quad Set, Heel Slides Supine Reps: 15 Seated Therapy Exercises: Ankle pumps, Long arc quads Seated Reps: 15 Assessment Patient in recliner with needs met. PT instructed patient to be up ad joseph in room during day to increase independence. Patient voices understanding. PT Medical Research Assistant Goals Medical Research Assistant Goals PT Senior Care Goals Time Frame: Sep 13, 2020 Roll Left & Right (QC): 6 (met 09/11/20) Sit to Lying (QC): 6 (met 09/11/20) Lying-Sitting on Side/Bed(QC): 6 (met 09/11/20) Sit to Stand (QC): 6 (met 09/11/20) Chair/Wbu-vb-Qitdh Xfer(QC): 6 (met 09/11/20) Toilet Transfer (QC): 6 Car Transfer (QC): 6 Does the Patient Walk: Yes Walk 10 feet (QC): 5 (met 09/11/20) Walk 50ft with 2 Turns (QC): 5 (met 09/11/20) Walk 150 ft (QC): 5 (met 09/11/20) Walking 10ft on Uneven Surface: 5 1 Step (curb) (QC): 4 4 Steps (QC): 4 12 Steps (QC): 4 Picking up an Object (QC): 4 Wheel 50 feet with 2 turns (QC: 9 Wheel 150 feet: 9 PT Plan Treatment/Plan Treatment Plan: Continue Plan of Care Treatment Plan: Bed Mobility, Education, Functional Activity Adriana, Functional Strength, Gait, Safety, Therapeutic Exercise, Transfers Treatment Duration: Sep 13, 2020 Frequency: 6 times per week Estimated Hrs Per Day: .25 hour per day Patient and/or Family Agrees t: Yes Time/GCodes Time In: 852 Time Out: 910 Total Billed Treatment Time: 18 Total Billed Treatment 1 visit FA 18 min SANDRA FALLON PT Sep 11, 2020 09:28
[2020-09-11] MEDS: doxAzosin 4 MG (CARDURA) TAB PO SCH ×2 (09:43→21:08)
[2020-09-11] MEDS: IRON SUCROSE 200 MG/10 ML (VENOFER) VIAL IV SCH (09:44)
[2020-09-11] MEDS: meTOprolol SUCCINATE 100 MG (TOPROL XL) TAB PO SCH ×2 (09:44→21:09)
[2020-09-11] MEDS: amLODIPine 5 MG (NORVASC) TAB PO SCH ×2 (09:44→21:08)
[2020-09-11] MEDS: MICONAZOLE 2% POWDER (DESENEX AF) 90 GM TOP SCH ×2 (09:45→21:11)
[2020-09-11] MEDS: NYSTATIN CREAM (MYCOSTATIN) 30 GM TUBE TP SCH ×2 (09:45→21:11)
[2020-09-11] MEDS: ADVAIR HFA 115/21 MCG INHALER 8 GM IH SCH ×2 (10:36→21:14)
[2020-09-11 11:06] VITALS: BP 159/68
--- NOTE | 2020-09-11 11:10 | Progress Note - Cardiology ---
Cardiology SOAP Progress Note Subjective: States he feels good Objective: I&O/Vital Signs 09/11/20 09/11/20 09/12/20 09/12/20 20:04 21:15 00:00 01:52 Temp 36.4 Pulse 74 Resp 17 B/P (MAP) 151/65 (93) Pulse Ox 93 95 95 95 O2 Delivery Nasal Cannula Nasal Cannula Nasal Cannula Nasal Cannula O2 Flow Rate 4.00 4.00 4.00 4.00 09/12/20 03:51 Temp 37.2 Pulse 77 Resp 16 B/P (MAP) 163/70 (101) Pulse Ox 92 O2 Delivery Nasal Cannula O2 Flow Rate 4.00 09/12/20 00:00 Intake Total 1440 ml Output Total 875 ml Balance 565 ml Constitutional: AAO x 3, well-developed, well-nourished Respiratory: No accessory muscle use; other (good bilat air entry) Cardiovascular: regular rate-rhythm, S1 and S2, systolic murmur (soft ZAK at card base) Gastrointestional: No tender; soft; No guarding, No rebound; audible bowel sounds Extremities: No clubbing, No cyanosis, No significant edema Neurologic/Psychiatric: oriented x 3, other (moves all limbs equally) Skin: No rash on exposed areas, No ulcerations on exposed areas Results/Procedures: Labs Laboratory Tests 09/11/20 10:10: Coronavirus 2019 ([facility]) Negative 09/12/20 05:32: White Blood Count 8.6, Red Blood Count 2.78L, Hemoglobin 9.3L, Hematocrit 29L, Mean Corpuscular Volume 104H, Mean Corpuscular Hemoglobin 34, Mean Corpuscular Hemoglobin Concent 32, Red Cell Distribution Width 13.3, Platelet Count 345, Mean Platelet Volume 10.3, Immature Granulocyte % (Auto) 0, Neutrophils (%) (Auto) 73, Lymphocytes (%) (Auto) 11L, Monocytes (%) (Auto) 9, Eosinophils (%) (Auto) 6, Basophils (%) (Auto) 1, Neutrophils # (Auto) 6.2, Lymphocytes # (Auto) 0.9L, Monocytes # (Auto) 0.8, Eosinophils # (Auto) 0.5H, Basophils # (Auto) 0.1, Immature Granulocyte # (Auto) 0.0, Sodium Level 136, Potassium Level 3.9, Chloride Level 102, Carbon Dioxide Level 25, Anion Gap 9, Blood Urea Nitrogen 28H, Creatinine 2.04H, Estimat Glomerular Filtration Rate 33, BUN/Creatinine Ratio 14, Glucose Level 99, Calcium Level 8.3L, Corrected Calcium 9.3, Total Bilirubin 0.3, Aspartate Amino Transf (AST/SGOT) 14, Alanine Aminotransferase (ALT/SGPT) 22, Alkaline Phosphatase 205H, Total Protein 6.5, Albumin 2.8L A/P: Assessment: Ac resp failure / hypoxemia following endoscopy for eval for anemia on 09/02/20 Severe hypertension. Malignant hypertension in Jun 2020 leading to ac diastolic CHF at that time, Echo 08/13/20: LVEF 55-65%, grade 2 diastolic dysfunction, mild aortic valve stenosis, mild pulmonary hypertension with PA pressure 40-45 mmHg CKD - IV. Not suitable of MICHAEL-ihib / ARB Anemia of undetermined etiology, managed by Dr Tam H/o recent alcohol withdrawal syndrome (Jun 2020) Plan: * Continue current medication regimen * Plan is to discharge to SNF today * Out pt f/u in 2 weeks with our clinic DESTIN SALAZAR Sep 11, 2020 11:10
--- NOTE | 2020-09-11 13:12 | NUR ---
"RD ASSESSMENT PMHx: hypercholesterolemia; BPH; PT INTERACTION: Pt was awake and pleasant during nutrition follow-up. Pt states current appetite is okay. Note avg PO intake 100% x4d, per chart review. Pt states no issues with nausea, vomiting, constipation, or diarrhea since last assessment. Note last BM was 09/08, and pt currently on bowel regimen of senna BID, per chart review. ABNORMAL NUTRITION-RELATED LAB VALUES LOW: Na 134; Ca 8.0; Pro 6.1; alb 2.7; HIGH: BUN 27; cr 1.87; alkphos 178 Est. kcal needs: 5385-8222 kcal | 15-20 kcal/kg Est. Pro needs: 74-93 g Pro | 0.8-1.0 g Pro/kg PES STATEMENT: Given current appetite and PO intake, no nutrition diagnosis at this time (NO-1.1). INTERVENTION: Continue with current diet order of 2000mg Na diet. DC current supplementation order of Ensure Enlive with meals TID. Pt avg PO intake >75% meals. Will continue to follow and reassess as pt needs, intake, and status change. Tad PARAR, MS RD LD [phone] cell"
--- NOTE | 2020-09-11 13:15 | NUR ---
CM DISCHARGE PLANNING: Patient's daughter Emilia called and had several questions about discharge planning and wanting to try and coordinate seeing her dad before he goes to [facility]. Encouraged her that we would try and set that up for them. She would be outside and visit him as he is put into the facilities transport vehicle. After talking with Emilia, I called and talked with Amina at [facility] to see if they had made a determination. She took my cell number and will call me back after she discusses his referral with other staff members.
--- NOTE | 2020-09-11 14:01 | Therapy Team Discharge Summary ---
Therapy Discharge Summary Discharge Recommendations Date of Discharge Physical Therapy Patient much improved with pulmonary function and gross motor skills. Patient is currently on 2-3L O2 and able to participate with therapy and tolerated increased activity. Patient ambulates with FWW >400' with O2 and requires 1 recovery period due to fatigue and mild SOA. SAO2 decreases to 86% with activity with quick recovery to 95%. Patient has attained some goals set. Patient currently being dismissed to SNF for continued care with goal of returning to home. Occupational Therapy Decreased Activ Tolerance, Decreased UE Strength, Impaired I ADL's, Impaired Self-Care Skills PT Thread Inspector Goals Fpc Goals PT Fpc Goals Time Frame: Sep 13, 2020 Roll Left to Right (QC): 6 (met 09/11/20) Sit to Lying (QC): 6 (met 09/11/20) Lying-Sitting on Side/Bed(QC): 6 (met 09/11/20) Sit to Stand (QC): 6 (met 09/11/20) Chair/Gue-se-Wmipv Xfer(QC): 6 (met 09/11/20) Car Transfer (QC): 6 Does the Patient Walk: Yes Walk 10 feet (QC): 5 (met 09/11/20) Walk 10ft-Uneven Surface(QC): 5 Walk 50ft with 2 Turns (QC): 5 (met 09/11/20) Walk 150 ft (QC): 5 (met 09/11/20) Wheel 50 feet with 2 turns (QC: 9 1 Step (curb) (QC): 4 4 Steps (QC): 4 12 Steps (QC): 4 Picking up an Object (QC): 4 OT Fpc Goals Thread Inspector Goals Time Frame: Sep 20, 2020 Eating (QC): 6 Oral Hygiene (QC): 6 Shower/Bathe Self (QC): 4 Upper Body Dressing (QC): 5 Lower Body Dressing (QC): 4 On/Off Footwear (QC): 4 Toileting Hygiene (QC): 6 Toilet/Commode Transfer (QC): 6 Additional Goals: 1-Demonstrate ADL Tasks, 2-Verbalize Understanding, 3- ImproveStrength/Adriana 1=Demonstrate adherence to instructed precautions during ADL tasks. 2=Patient will verbalize/demonstrate understanding of assistive devices/modifications for ADL. 3=Patient will improve strength/tolerance for activity to enable patient to perform ADL's. SANDRA FALLON PT Sep 11, 2020 14:01
--- NOTE | 2020-09-11 14:24 | Occupational Ther Daily Note ---
OT Current Status-Daily Note Subjective Pt alert, sitting in recliner. Pt agrees to therapy. Pt stated that he is going to [facility] today. Mental Status/Objective Patient Orientation: Person, Place, Time, Situation Attachments: IV ADL-Treatment Therapy Code Descriptions/Definitions Functional [place] Measure: 0=Not Assessed/NA 4=Minimal Assistance 1=Total Assistance 5=Supervision or Setup 2=Maximal Assistance 6=Modified [place] 3=Moderate Assistance 7=Complete IndependenceSCALE: Activities may be completed with or without assistive devices. 2-Rcecwftclm-adlsbiu completes the activity by him/herself with no assistance from a helper. 5-Set-up or Clean-up Assistance-helper sets up or cleans up; patient completes activity. [place] assists only prior to or following the activity. 4-Supervision or Touching Assistance-helper provides verbal cues and/or touching/steadying and/or contact guard assistance as patient completes act ivity. Assistance may be provided throughout the activity or intermittently. 3-Partial/Moderate Assistance-helper does LESS THAN HALF the effort. [place] lifts, holds or supports trunk or limbs, but provides less than half the effort. 2-Substantial/Maximal Assistance-helper does MORE THAN HALF the effort. [place] lifts or holds trunk or limbs and provides more than half the effort. 5-Hzunuzxua-kijeof does ALL the effort. Patient does none of the effort to complete the activity. Or, the assistance of 2 or more helpers is required for the patient to complete the activity. If activity was not attempted, code reason: 7-Patient Refused. 9-Not Applicable-not attempted and the patient did not perform the activity before the current illness, exacerbation or injury. 10-Not Attempted due to Environmental Limitations-(lack of equipment, weather restraints, etc.). 88-Not Attempted due to Medical Conditions or Safety Concerns. Other Treatment Pt is up ad joseph in room, per PT note. Skilled instruction for B UE exercises against gravity to increase strength and activity tolerance for every day tasks. 3 exercise 2 sets 10 reps. After therapy, pt sitting in recliner with call light/phone in reach. All needs met in room. OT Short Term Goals Short Term Goals Time Frame: Sep 13, 2020 Eatin Oral hygiene: 4 Toileting hygiene: 3 Shower/bathe self: 3 Upper body dressin Lower body dressin Putting on/taking off footwear: 4 OT Shelter Goals Dental Surgeon Goals Time Frame: Sep 20, 2020 Eating (QC): 6 Oral Hygiene (QC): 6 Toileting Hygiene (QC): 6 Shower/Bathe Self (QC): 4 Upper Body Dressing (QC): 5 Lower Body Dressing (QC): 4 On/Off Footwear (QC): 4 Additional Goals: 1-Demonstrate ADL Tasks, 2-Verbalize Understanding, 3- ImproveStrength/Adriana 1=Demonstrate adherence to instructed precautions during ADL tasks. 2=Patient will verbalize/demonstrate understanding of assistive devices/modifications for ADL. 3=Patient will improve strength/tolerance for activity to enable patient to perform ADL's. OT Education/Plan Problem List/Assessment Assessment: Decreased Activ Tolerance, Decreased UE Strength Discharge Recommendations Plan/Recommendations: Continue POC Treatment Plan/Plan of Care Patient would benefit from OT for education, treatment and training to promote independence in ADL's, mobility, safety and/or upper extremity function for ADL's. Plan of Care: ADL Retraining, Functional Mobility, UE Funct Exercise/Act Treatment Duration: Sep 20, 2020 Frequency: 5 times per week Estimated Hrs Per Day: .5 hour per day Agreement: Yes Rehab Potential: Fair Time/GCodes Start Time: 14:00 Stop Time: 14:10 Total Time Billed (hr/min): 10 Billed Treatment Time 1 visit-EX 1 (10 min) JORGE TARIQ Sep 11, 2020 14:24
--- NOTE | 2020-09-11 14:32 | Occupational Ther Daily Note ---
OT Current Status-Daily Note Subjective Pt alert, sitting in recliner. Pt agrees to therapy. Pt states that he is going to [facility] today. Mental Status/Objective Patient Orientation: Person, Place, Time, Situation Attachments: IV ADL-Treatment Therapy Code Descriptions/Definitions Functional [place] Measure: 0=Not Assessed/NA 4=Minimal Assistance 1=Total Assistance 5=Supervision or Setup 2=Maximal Assistance 6=Modified [place] 3=Moderate Assistance 7=Complete IndependenceSCALE: Activities may be completed with or without assistive devices. 2-Mwuzwxzwjt-rahgzpj completes the activity by him/herself with no assistance from a helper. 5-Set-up or Clean-up Assistance-helper sets up or cleans up; patient completes activity. [place] assists only prior to or following the activity. 4-Supervision or Touching Assistance-helper provides verbal cues and/or touching/steadying and/or contact guard assistance as patient completes act ivity. Assistance may be provided throughout the activity or intermittently. 3-Partial/Moderate Assistance-helper does LESS THAN HALF the effort. [place] lifts, holds or supports trunk or limbs, but provides less than half the effort. 2-Substantial/Maximal Assistance-helper does MORE THAN HALF the effort. [place] lifts or holds trunk or limbs and provides more than half the effort. 4-Nfshusqgf-eejdsk does ALL the effort. Patient does none of the effort to complete the activity. Or, the assistance of 2 or more helpers is required for the patient to complete the activity. If activity was not attempted, code reason: 7-Patient Refused. 9-Not Applicable-not attempted and the patient did not perform the activity before the current illness, exacerbation or injury. 10-Not Attempted due to Environmental Limitations-(lack of equipment, weather restraints, etc.). 88-Not Attempted due to Medical Conditions or Safety Concerns. Other Treatment Pt is up ad joseph in room, per PT note. Skilled instruction for B UE exercises against gravity to increase strength and activity tolerance for every day tasks. 3 exercise 2 sets 10 reps. After therapy, pt sitting in recliner with call light/phone in reach. All needs met in room. OT Short Term Goals Short Term Goals Time Frame: Sep 13, 2020 Eatin Oral hygiene: 4 Toileting hygiene: 3 Shower/bathe self: 3 Upper body dressin Lower body dressin Putting on/taking off footwear: 4 OT Halfway Goals Halfway Goals Time Frame: Sep 20, 2020 Eating (QC): 6 Oral Hygiene (QC): 6 Toileting Hygiene (QC): 6 Shower/Bathe Self (QC): 4 Upper Body Dressing (QC): 5 Lower Body Dressing (QC): 4 On/Off Footwear (QC): 4 Additional Goals: 1-Demonstrate ADL Tasks, 2-Verbalize Understanding, 3- ImproveStrength/Adriana 1=Demonstrate adherence to instructed precautions during ADL tasks. 2=Patient will verbalize/demonstrate understanding of assistive devices/modifications for ADL. 3=Patient will improve strength/tolerance for activity to enable patient to perform ADL's. OT Education/Plan Discharge Recommendations Plan/Recommendations: Continue POC Treatment Plan/Plan of Care Patient would benefit from OT for education, treatment and training to promote independence in ADL's, mobility, safety and/or upper extremity function for ADL's. Plan of Care: ADL Retraining, Functional Mobility, UE Funct Exercise/Act Treatment Duration: Sep 20, 2020 Frequency: 5 times per week Estimated Hrs Per Day: .5 hour per day Agreement: Yes Rehab Potential: Fair Time/GCodes Start Time: 13:55 Stop Time: 14:10 Total Time Billed (hr/min): 15 Billed Treatment Time 1 visit-EX 1 (15 min) JORGE TARIQ Sep 11, 2020 14:32
--- NOTE | 2020-09-11 15:17 | NUR ---
pt was placed on room air for 1 minute. pt desaturated to 88%. pt was then placed on 4L NC and pt came up to 94%. pt will need 4L at all times. Addendum: 09/11/20 at 1518 by SALLY MAGANA RT Amended: Links added.
--- NOTE | 2020-09-11 15:45 | NUR ---
Medicaloge Amina Dong called me at this time. The patient has been accepted to [facility] for admission tomorrow morning. Updated Dr. Tam, patient, and patient's daughter Emilia.
[2020-09-11 16:24] VITALS: BP 158/70
--- NOTE | 2020-09-11 17:46 | Progress Note - Cardiology ---
Cardiology SOAP Progress Note Subjective: Malaise improving Shortness of breath improving No cp or palp or syncope No n/v Objective: I&O/Vital Signs 09/11/20 09/11/20 09/11/20 09/11/20 07:46 08:35 09:00 09:39 Temp 37.0 Pulse 74 Resp 18 B/P (MAP) 167/72 (103) Pulse Ox 93 92 91 O2 Delivery Nasal Cannula Nasal Cannula Nasal Cannula Nasal Cannula O2 Flow Rate 4.00 2.00 5.00 2.00 09/11/20 09/11/20 09/11/20 09/11/20 10:35 11:06 15:16 15:17 Temp 36.9 Pulse 75 Resp 16 B/P (MAP) 159/68 (98) Pulse Ox 92 92 94 93 O2 Delivery Nasal Cannula Nasal Cannula Nasal Cannula O2 Flow Rate 3.00 2.00 4.00 4.00 09/11/20 16:24 Temp 36.9 Pulse 73 Resp 18 B/P (MAP) 158/70 (99) Pulse Ox 93 O2 Delivery Nasal Cannula O2 Flow Rate 5.00 09/11/20 00:00 Intake Total 1140 ml Output Total 950 ml Balance 190 ml Constitutional: AAO x 3, well-developed, well-nourished Respiratory: No accessory muscle use; other (good bilat air entry) Cardiovascular: regular rate-rhythm, S1 and S2, systolic murmur (soft ZAK at card base) Gastrointestional: No tender; soft; No guarding, No rebound; audible bowel sounds Extremities: No clubbing, No cyanosis, No significant edema Neurologic/Psychiatric: oriented x 3, other (moves all limbs equally) Skin: No rash on exposed areas, No ulcerations on exposed areas Results/Procedures: Labs Laboratory Tests 09/11/20 10:10: Coronavirus 2019 ([facility]) Negative Laboratory Tests 09/10/20 04:30 A/P: Assessment: Ac resp failure / hypoxemia following endoscopy for eval for anemia on 09/02/20 Severe hypertension. Malignant hypertension in Jun 2020 leading to ac diastolic CHF at that time, Echo 08/13/20: LVEF 55-65%, grade 2 diastolic dysfunction, mild aortic valve stenosis, mild pulmonary hypertension with PA pressure 40-45 mmHg CKD - IV. Not suitable of MICHAEL-ihib / ARB Anemia of undetermined etiology, managed by Dr Tam H/o recent alcohol withdrawal syndrome (Jun 2020) Plan: * Continue current medication regimen * Plan is to discharge to SNF today * Out pt f/u in 2 weeks with our clinic DEANNA FLORES MD FACP FACC CCDS Sep 11, 2020 17:46
[2020-09-11] MEDS: TAMSULOSIN 0.4 MG (FLOMAX) CAP PO SCH (18:34)
[2020-09-11 19:47] VITALS: BP 159/67
[2020-09-11] MEDS: MELATONIN 3 MG TABLET PO SCH (21:07)
[2020-09-11] MEDS: MIRTAZAPINE 15 MG (REMERON) TAB PO SCH (21:08)
[2020-09-12] VITALS: BP 151/65
[2020-09-12] MEDS: RT-ALBUTEROL/IPRATROPIUM 3 ML (DUONEB) VIAL INH SCH ×2 (01:52→09:16)
[2020-09-12 03:51] VITALS: BP 163/70
--- NOTE | 2020-09-12 05:48 | Discharge Summary ---
Discharge Summary Hospital Course Was the Problem List Reviewed?: Yes Problems/Dx: (1) Hypertensive urgency, malignant Status: Resolved (2) Flash pulmonary edema (3) MARYANN (acute kidney injury) Status: Chronic (4) Hypoxia Status: Acute (5) D-dimer, elevated (6) Acute encephalopathy Status: Resolved (7) Pneumonia (8) CHF (congestive heart failure) (9) Ventilator dependence Hospital Course Date of Admission: Sep 06, 2020 at 12:20 Admission Diagnosis : Family Physician/Provider: Shannon Hernandez Date of Discharge: 09/12/20 Discharge Diagnosis: HTN emergency, flash pulmonary edema, MARYANN, CRI, hypoxia, vent dependence, edema, anemia Hospital Course: Shot swing bed course after admitted for hypoxia and volume overload management. PT OT consulted and he participated. O2 maintained on Vapotherm and ultimately decreased to 4L/min cont. Lasix IV maintained with close monitoring of creatinine. Overall he was deemed stable for DC to NH for recovery then home within 2-3 weeks. Labs and Pending Lab Test: Laboratory Tests 09/11/20 10:10: Coronavirus 2019 ([facility]) Negative Home Meds Active Metolazone 2.5 Mg Tablet 2.5 Mg PO Q48H 30 Days Give 30 minutes before Lasix every other morning Lasix (Furosemide) 40 Mg Tablet 40 Mg PO DAILY 30 Days Nystatin 15 Gm Cream..g. 0 Gm TP BID 30 Days Lotrimin AF (Miconazole Nitrate) 90 Gm Powder 0 Gm TOP BID 30 Days Dok (Docusate Sodium) 100 Mg Capsule 100 Mg PO BID PRN 30 Days Calcium Antacid (Calcium Carbonate) 200 Mg Tab.chew 500 Mg PO TID PRN 30 Days Venlafaxine HCl ER (Venlafaxine HCl) 75 Mg Cap.er.24h 75 Mg PO DAILY@0700 30 Days Mirtazapine 15 Mg Tab.rapdis 7.5 Mg PO HS 30 Days Amlodipine Besylate 5 Mg Tablet 5 Mg PO BID 30 Days Metoprolol Succinate 100 Mg Tab.er.24h 100 Mg PO HS 30 Days Metoprolol Succinate 100 Mg Tab.er.24h 200 Mg PO DAILY 30 Days Iprat-Albut 0.5-3(2.5) mg/3 ml (Ipratropium/Albuterol Sulfate) 3 Ml Ampul.neb 3 Ml INH RTQ2H PRN 30 Days Iprat-Albut 0.5-3(2.5) mg/3 ml (Ipratropium/Albuterol Sulfate) 3 Ml Ampul.neb 3 Ml INH RTQ6HR 30 Days Flomax (Tamsulosin HCl) 0.4 Mg Cap 0.4 Mg PO DAILY@1800 30 Days Clonidine HCl 0.1 Mg Tablet 0.1 Mg PO Q4HR PRN 30 Days Doxazosin Mesylate 4 Mg Tablet 6 Mg PO BID 30 Days Atorvastatin Calcium 10 Mg Tablet 10 Mg PO HS 30 Days LAST FILLED 04-10-2020 #90/90 DAY SUPPLY Advair Hfa 115-21 Mcg Inhaler (Fluticasone/Salmeterol) 12 Gm Hfa.aer.ad 0 Puff IH RTBID 30 Days Furosemide 10 Mg/1 Ml Vial 40 Mg IVP DAILY@07,17 7 Days Amlodipine Besylate 5 Mg Tablet 5 Mg PO BID 30 Days Metoprolol Succinate 100 Mg Tab.er.24h 200 Mg PO DAILY 30 Days Metoprolol Succinate 100 Mg Tab.er.24h 100 Mg PO HS 30 Days Doxazosin Mesylate 2 Mg Tablet 2 Mg PO BID 30 Days Clonidine HCl 0.1 Mg Tablet 0.1 Mg PO Q4HR PRN 7 Days Venofer (Iron Sucrose Complex) 200 Mg/10 Ml Vial 200 Mg IV Q48H@09 7 Days Flomax (Tamsulosin HCl) 0.4 Mg Cap 0.4 Mg PO DAILY@1800 7 Days Iprat-Albut 0.5-3(2.5) mg/3 ml (Ipratropium/Albuterol Sulfate) 3 Ml Ampul.neb 3 Ml INH RTQ4HR 7 Days Reported Vitamin B Complex 1 Each Tablet 1 Each PO DAILY Aspirin EC (Aspirin) 81 Mg Tablet. 81 Mg PO DAILY Ventolin Hfa (Albuterol Sulfate) 1 Puff Puff 2 Puff INH Q6H PRN Assessment/Pt Instructions DR Menjivar in 2 weeks Discharge Planning: <30 minutes discharge planning Discharge Instructions Discharge Diet: No Restrictions Discharge Physical Examination Vital Signs Vital Signs Date Time Temp Pulse Resp B/P (MAP) Pulse Ox O2 Delivery O2 Flow Rate FiO2 09/12/20 03:51 37.2 77 16 163/70 (101) 92 Nasal Cannula 4.00 General Appearance: No Apparent Distress, WD/WN, Chronically ill Respiratory: Chest Non Tender, Lungs Clear, Normal Breath Sounds, No Accessory Muscle Use, No Respiratory Distress Cardiovascular: Regular Rate, Rhythm, No Gallop, No JVD, No Murmur, Normal Peripheral Pulses Extremity: Pedal Edema Neurologic/Psychiatric: Alert, Oriented x3, No Motor/Sensory Deficits, Normal Mood/Affect Allergies: Coded Allergies: No Known Drug Allergies (Unverified , 02/11/18) Discharge Summary Date of Admission Sep 06, 2020 at 12:20 Date of Discharge Discharge Date: Sep 11, 2020 Discharge Diagnosis Assessment: Hypoxia with increased O2 requirements following EGD/Colonoscopy by Dr Bowman Anemia s/p 1 unit of blood last week h/o Polycythemia holding Hydrea and consulting Dr Oreilly HTN malignant type MARYANN on CRI HLP COPD Smoker Depression 09/07/20 Plan: O2 Vapotherm Dr Tamez Cardiology Increase BP meds Lasix 09/03/20: Monitor creatinine Lasix 40mg IV BID Cardiology and Pulmonology consultations appreciated Vapotherm 09/04/20: Vapotherm wean Monitor volume overload 09/05/20: Swing bed tomorrow Rehab Friday Updated daughter 15 minutes 09/06/20: Moved to swing bed Monitor creat 09/07/20: Monitor hgb and creat Lasix 40mg IV once daily Wean O2 if possible Start Effexor 09/08/20: Increase Effexor for depression Lasix 40 mg IV daily Monitor closely 09/09/20: Effexor Improved O2 wean IV Lasix 09/10/20: NHP to [facility] 09/11/20: DC [facility] tomorrow Clinical Quality Measures DVT/VTE Risk/Contraindication: Risk Factor Score Per Nursin KIMBERLEE MENJIVAR DO Sep 12, 2020 05:48
[2020-09-12 06:08] LABS: BASOPHILS # (AUTO) 0.1 10^3/uL (0.0-0.1); BASOPHILS % (AUTO) 1 % (0-10); EOSINOPHILS # (AUTO) 0.5 10^3/uL (0.0-0.3); EOSINOPHILS % (AUTO) 6 % (0-10); HEMATOCRIT 29 % (40-54); HEMOGLOBIN 9.3 g/dL (13.3-17.7); LYMPHOCYTES # (AUTO) 0.9 10^3/uL (1.0-4.0); LYMPHOCYTES % (AUTO) 11 % (12-44); MEAN CORPUSCULAR HEMOGLOBIN 34 pg (25-34); MEAN CORPUSCULAR HGB CONC 32 g/dL (32-36); MEAN CORPUSCULAR VOLUME 104 fL (80-99); MEAN PLATELET VOLUME 10.3 fL (9.0-12.2); MONOCYTES # (AUTO) 0.8 10^3/uL (0.0-1.0); MONOCYTES % (AUTO) 9 % (0-12); NEUTROPHILS # (AUTO) 6.2 10^3/uL (1.8-7.8); NEUTROPHILS % (AUTO) 73 % (42-75); PLATELET COUNT 345 10^3/uL (130-400); WHITE BLOOD COUNT 8.6 10^3/uL (4.3-11.0)
[2020-09-12] MEDS: CATHETER FLUSH 10 ML SYR IV SCH (06:13)
[2020-09-12] MEDS: FUROSEMIDE 40 MG/4 ML INJ (LASIX) IVP SCH (06:13)
[2020-09-12] MEDS: VENlafaxine XR 75 MG (EFFEXOR XR) CAP PO SCH (06:14)
[2020-09-12 06:26] LABS: ALBUMIN 2.8 GM/DL (3.2-4.5); BILIRUBIN,TOTAL 0.3 MG/DL (0.1-1.0); CALCIUM 8.3 MG/DL (8.5-10.1); CREATININE SERUM 2.04 MG/DL (0.60-1.30); POTASSIUM 3.9 MMOL/L (3.6-5.0); TOTAL PROTEIN 6.5 GM/DL (6.4-8.2)
--- NOTE | 2020-09-12 07:00 | Pulmonary Progress Note ---
Subjective Time Seen by a Provider: 06:58 Subjective/Events-last exam No complications noted. Sepsis Event Evaluation Height, Weight, BMI Height: '" Weight: lbs. oz. kg; 29.61 BMI Method: Exam Exam Vital Signs Date Time Temp Pulse Resp B/P (MAP) Pulse Ox O2 Delivery O2 Flow Rate FiO2 09/12/20 03:51 37.2 77 16 163/70 (101) 92 Nasal Cannula 4.00 09/12/20 01:52 95 Nasal Cannula 4.00 09/12/20 00:00 36.4 74 17 151/65 (93) 95 Nasal Cannula 4.00 09/11/20 21:15 95 Nasal Cannula 4.00 09/11/20 20:04 93 Nasal Cannula 4.00 09/11/20 19:47 37.2 77 18 159/67 (97) 94 Nasal Cannula 4.00 09/11/20 16:24 36.9 73 18 158/70 (99) 93 Nasal Cannula 5.00 09/11/20 15:17 93 4.00 09/11/20 15:16 94 Nasal Cannula 4.00 09/11/20 11:06 36.9 75 16 159/68 (98) 92 Nasal Cannula 2.00 09/11/20 10:35 92 Nasal Cannula 3.00 09/11/20 09:39 91 Nasal Cannula 2.00 09/11/20 09:00 Nasal Cannula 5.00 09/11/20 08:35 92 Nasal Cannula 2.00 09/11/20 07:46 37.0 74 18 167/72 (103) 93 Nasal Cannula 4.00 I & O 09/12/20 07:00 Intake Total 1690 ml Output Total 1675 ml Balance 15 ml Height & Weight Height: '" Weight: lbs. oz. kg; 29.61 BMI Method: General Appearance: No Apparent Distress, WD/WN, Chronically ill Respiratory: Chest Non Tender, Lungs Clear, Normal Breath Sounds, No Accessory Muscle Use, No Respiratory Distress Cardiovascular: Regular Rate, Rhythm, No Gallop, No JVD, No Murmur, Normal Peripheral Pulses Capillary Refill: Less Than 3 Seconds Extremity: Pedal Edema Neurologic/Psychiatric: Alert, Oriented x3, No Motor/Sensory Deficits, Normal Mood/Affect Results Lab Laboratory Tests 09/12/20 05:32 Assessment/Plan Assessment/Plan Acute respiratory distress with hypoxemia -- much improved -Pt on NC -CXR reviewed Hx of COPD -Breathing treatments -advair Grade II CHF -Lasix Hx of tobacco use Anemia s/P EGD and colonoscopy hx of polycythemia -Follows with Dr. Denilson Uribe on chronic renal failure -Monitor HTN MAGNUS KINNEY DO Sep 12, 2020 07:00
[2020-09-12 08:00] VITALS: BP 135/61
[2020-09-12] MEDS: doxAzosin 4 MG (CARDURA) TAB PO SCH (08:38)
[2020-09-12] MEDS: MICONAZOLE 2% POWDER (DESENEX AF) 90 GM TOP SCH (08:39)
[2020-09-12] MEDS: NYSTATIN CREAM (MYCOSTATIN) 30 GM TUBE TP SCH (08:39)
[2020-09-12] MEDS: amLODIPine 5 MG (NORVASC) TAB PO SCH (08:39)
[2020-09-12] MEDS: meTOprolol SUCCINATE 100 MG (TOPROL XL) TAB PO SCH (08:39)
[2020-09-12] MEDS: SENNA W/DOCUSATE (SENOKOT S) TABLET PO SCH (08:44)
[2020-09-12] MEDS: ADVAIR HFA 115/21 MCG INHALER 8 GM IH SCH (09:16)
--- NOTE | 2020-09-12 09:47 | NUR ---
CM FINALIZED DISCHARGE PLAN: Patient is discharging to [facility] under skilled status for Nursing, Physical, and Occupational therapies today at 11 a.m. Updated the patient, his daughter Emilia, and primary care nurse. Family is going to be at [facility] to visit with the patient before he goes into the facility. Primary Care Nurse, Cyrus is going to send the patient with a mask to wear for the family visit. I spoke with Emilia about having herself and other family members wear masks also. [facility] will bring oxygen for transport. Oxygen study and orders for oxygen were placed in the patient's red discharge packet. I visited with Amina at [facility] about this and the need for it when the patient is discharged from their facility. I also faxed this information with confirmed receipt. She voiced understanding and will talk with staff members to ensure that patient has this when he discharges to home. No further needs noted at this time.
--- NOTE | 2020-09-12 11:20 | NUR ---
REPORT CALLED TO [facility] SHAYYHONORIO RN.
[2020-09-12 11:29] VITALS: BP 135/61
--- NOTE | 2020-09-12 11:29 | NUR ---
DANNY CARMONA discharged to [facility]. FAMILY notified of discharge and report given to HONORIO YOU. DANNY CARMONA belongings sent with PT. Skin dry and intact; no breakdown noted. Vital signs are stable at time of discharge. Condition is stable at time of discharge. Discharge instructions and copies of H&P, discharge summary, physician's order, lab reports, consultation reports, other dictated reports, diagnostic imaging reports, Advance Directive, eMAR, vital signs, intake and output sent with PT. Patient discharged from 1 on at 1129. DANNY CARMONA left floor via WC, accompanied by STAFF. DANNY CARMONA and family/DPOA notified and verbalize understanding of discharge to [facility].
--- NOTE | 2020-09-13 09:22 | Therapy Team Discharge Summary ---
Therapy Discharge Summary Discharge Recommendations Date of Discharge Sep 12, 2020 at 11:30 Therapy D/C Recommendations: Occupational Therapy Home Care Occupational Therapy Pt. has been seen by occupational therapy to increase overall strength and independence with daily tasks. Pt. has made substantial progress in all areas, with assist needed for high level ADL skills such as donning LE clothing and toileting. Required assistance due to swelling and difficulty letting go of walker and dynamically moving. Pt. was up ad joseph at end of swing bed stay, and discharged home with family support. Recommended hip kit and continued home health occupational therapy. Decreased Activ Tolerance, Decreased UE Strength, Impaired I ADL's, Impaired Self-Care Skills PT Correction Goals Teacher Private Goals PT Teacher Private Goals Time Frame: Sep 13, 2020 Roll Left to Right (QC): 6 (met 09/11/20) Sit to Lying (QC): 6 (met 09/11/20) Lying-Sitting on Side/Bed(QC): 6 (met 09/11/20) Sit to Stand (QC): 6 (met 09/11/20) Chair/Yog-ll-Kxjpa Xfer(QC): 6 (met 09/11/20) Car Transfer (QC): 6 Does the Patient Walk: Yes Walk 10 feet (QC): 5 (met 09/11/20) Walk 10ft-Uneven Surface(QC): 5 Walk 50ft with 2 Turns (QC): 5 (met 09/11/20) Walk 150 ft (QC): 5 (met 09/11/20) Wheel 50 feet with 2 turns (QC: 9 1 Step (curb) (QC): 4 4 Steps (QC): 4 12 Steps (QC): 4 Picking up an Object (QC): 4 OT Teacher Private Goals Correction Goals Time Frame: Sep 20, 2020 Eating (QC): 6 (met) Oral Hygiene (QC): 6 (met) Shower/Bathe Self (QC): 4 (not met) Upper Body Dressing (QC): 5 (met) Lower Body Dressing (QC): 4 (not met) On/Off Footwear (QC): 4 (not met) Toileting Hygiene (QC): 6 (not met) Toilet/Commode Transfer (QC): 6 (not met) Additional Goals: 1-Demonstrate ADL Tasks, 2-Verbalize Understanding, 3- ImproveStrength/Adriana 1=Demonstrate adherence to instructed precautions during ADL tasks. 2=Patient will verbalize/demonstrate understanding of assistive devices/modifications for ADL. 3=Patient will improve strength/tolerance for activity to enable patient to perform ADL's. WOO RODRIGUEZ OT Sep 13, 2020 09:22
== END 2020-09-12 11:30 | DRG 292 ==
LOC: 4TH 12:20
PROVIDERS: ADMIT Internal Medicine; ATTEND Internal Medicine
DX: I13.0 Hypertensive heart and chronic kidney disease with heart failure and stage 1 through stage 4 chronic kidney disease, or unspecified chronic kidney disease (principal); I50.30 Unspecified diastolic (congestive) heart failure; N18.4 Chronic kidney disease, stage 4 (severe); N17.9 Acute kidney failure, unspecified; R53.81 Other malaise; R53.1 Weakness; D75.1 Secondary polycythemia; D64.9 Anemia, unspecified; F32.9 Major depressive disorder, single episode, unspecified; I27.20 Pulmonary hypertension, unspecified; Z20.828 Contact with and (suspected) exposure to other viral communicable diseases; E78.5 Hyperlipidemia, unspecified; F17.200 Nicotine dependence, unspecified, uncomplicated
CPT/HCPCS: 36415; 71045; 80053; 83735; 85014; 85018; 85025; 87635; 94640; 94760; 94761

== ENCOUNTER → 2020-11-23 | Outpatient (CLI) | payer MEDICARE, OTHER ==
[~2020-11-23] MED LIST changes: +CALC200T40 PO; +DCS100C PO; +DOXA4TAB2 PO; +FURO-124 PO; -LISI10TA2 PO; +LISI10TA25 PO; +METO2.5T PO; +MICO90PO TOP; +MIRT-47 PO; +NYST15CR TP; +VENL75CA93 PO
[2020-11-23 08:55] LABS: BASOPHILS # (AUTO) 0.1 10^3/uL (0.0-0.1); BASOPHILS % (AUTO) 1 % (0-10); EOSINOPHILS # (AUTO) 0.4 10^3/uL (0.0-0.3); EOSINOPHILS % (AUTO) 6 % (0-10); HEMATOCRIT 28 % (40-54); HEMOGLOBIN 9.5 g/dL (13.3-17.7); LYMPHOCYTES # (AUTO) 1.3 10^3/uL (1.0-4.0); LYMPHOCYTES % (AUTO) 19 % (12-44); MEAN CORPUSCULAR HEMOGLOBIN 33 pg (25-34); MEAN CORPUSCULAR HGB CONC 34 g/dL (32-36); MEAN CORPUSCULAR VOLUME 99 fL (80-99); MEAN PLATELET VOLUME 9.2 fL (9.0-12.2); MONOCYTES # (AUTO) 0.5 10^3/uL (0.0-1.0); MONOCYTES % (AUTO) 7 % (0-12); NEUTROPHILS # (AUTO) 4.8 10^3/uL (1.8-7.8); NEUTROPHILS % (AUTO) 67 % (42-75); PLATELET COUNT 216 10^3/uL (130-400); WHITE BLOOD COUNT 7.2 10^3/uL (4.3-11.0)
[2020-11-23 10:02] LABS: ALBUMIN 3.3 GM/DL (3.2-4.5); BILIRUBIN,TOTAL 0.3 MG/DL (0.1-1.0); CALCIUM 7.9 MG/DL (8.5-10.1); POTASSIUM 4.6 MMOL/L (3.6-5.0); TOTAL PROTEIN 5.7 GM/DL (6.4-8.2)
== END ==
LOC: ONC 08:46
PROVIDERS: ATTEND Internal Medicine Hematology & Oncology
DX: D64.9 Anemia, unspecified (principal); D45 Polycythemia vera; I10 Essential (primary) hypertension; E78.2 Mixed hyperlipidemia; Z72.0 Tobacco use
CPT/HCPCS: 80053; 82728; 83540; 83615; 85025; G0463; 99213

== ENCOUNTER → 2022-02-04 | Outpatient (CLI) | payer MEDICARE, OTHER ==
[~2022-02-04] MED LIST changes: -DCS100C PO; +DOCU-239 PO; +RT-ALBUTEROL SULF 2.5 MG/3 ML PRE-MIX VIAL INH ONE
--- NOTE | 2022-02-04 12:17 | Diagnostic Imaging Report ---
INDICATION: Hypoxemia PA and lateral chest There is a small right pleural effusion. Heart size and pulmonary vascularity are normal. Lungs are clear. IMPRESSION: Small right pleural effusion. Dictated by: Dictated on workstation # [id number]
== END ==
LOC: RT 10:36
PROVIDERS: ATTEND Internal Medicine Critical Care Medicine
DX: J90 Pleural effusion, not elsewhere classified (principal)
CPT/HCPCS: 71046; 94060; 94621; 94726; 94729